=== PATIENT | female | born 1955 | race Hispanic/Latino ===

== ENCOUNTER 2025-08-14 12:05 | Inpatient (IN) | payer MEDICARE, BC, SELFPAY ==
[2025-08-14] VITALS (36 sets, daily range): BP systolic 105–217; BP diastolic 48–135; BMI 24.1; BMI 22.7
--- NOTE | 2025-08-14 07:47 | ED.GENMED ---
History of Present Illness
General
Chief Complaint: Change in Mental Status
Source: patient and ambulance crew
Exam Limitations: none
Time Seen by Provider: 08/14/25 07:39
Nursing documentation reviewed up to this point in time: agreed with
History of Present Illness
History of Present Illness:
Note:
CHIEF COMPLAINT(S)
High blood sugar, altered mental status, ear pain, back pain, and headache.
HISTORY OF PRESENT ILLNESS
The patient is a 70-year-old female with a known history of diabetes and legally blind. The patient experienced high blood sugar levels, as reported by EMS, noted to be greater than 600 mg/dL. Previously, the patient has been noted to be yelling for
water throughout the night, which is atypical according to the EMS team. The patient also reports cloudy urine. She is on dialysis, typically scheduled for Thursday, Thursday, and Thursday, and has not yet received dialysis today. The patient also
complains of right ear pain, back pain, and headache.
PAST MEDICAL AND SURGICAL HISTORY
The patient is on dialysis and has diabetes.
ADDITIONAL HISTORY OBTAINED FROM SOURCE OTHER THAN PATIENT
Per EMS, the patient was found altered with high blood sugar levels, with the patients behavior described as atypical due to frequent yelling for water. EMS reported a blood pressure of 207, respiratory rate around 90, and initiated 2 liters of
oxygen administration.
PROBLEM LIST
Acute:
- High blood sugar
- Altered mental status
- Ear pain
- Back pain
- Headache
Chronic:
- Diabetes
- End-stage renal disease on dialysis
- Legal blindness
PLAN
The patients blood glucose levels need immediate management. Monitor vital signs and glucose levels regularly. Provide appropriate insulin therapy and involve endocrinology if necessary. Address the patients ear pain, back pain, and headache with
suitable analgesics. Arrange for the patients dialysis as scheduled to prevent further complications. Continuously monitor the patients mental status and adjust oxygen therapy as required.
DIFFERENTIAL DIAGNOSIS
The Differential Diagnosis includes, in no particular order and is not limited to:
- Diabetic ketoacidosis
- Hyperglycemic hyperosmolar state
- Severe dehydration
- Electrolyte imbalance
- Urinary tract infection
- Renal failure complications
- Ear infection
- Hypertensive crisis
- Cerebrovascular accident
- Pneumonia
Physical Exam
General: Chronic ill appearance, afebrile
Neck: supple. no meningeal signs. normal posterior pharynx
Heart: s1/s2 regular rate and rhythm, no murmur. equal radial
pulses. dialysis catheter right chest
HEENT: Pupils equal round reactive to light, EOMI
Lungs: no acute respiratory distress. clear bilaterally
Abdomen: normal bowel sounds. not tender. no CVAT
Neuro: alert and oriented. no focal neurological deficits cranial nerves II through XII intact
Skin: no rash
Psychiatric: well kept. interactive and cooperative
Extremities: no edema. no calf tenderness. negative homans. good distal pulses
CARE-UPDATE
08/14/25 - 10:55
Insulin drip initiated for hyperglycemia management. IV cefepime given for UTI; history indicates tolerance to cephalosporins and amoxicillin. Fluids withheld due to renal dialysis status.
EKG
My independent EKG interpretation is:
- Time of EKG: not specified
- Rhythm: Normal sinus rhythm
- Heart Rate: 93 beats per minute
- DE Interval: Normal
- QRS Duration: Not mentioned
- QT Interval: Prolonged
- [place]: Normal
- Abnormalities: Non-specific ST abnormality
Disposition:
SUMMARY OF ENCOUNTER
The patient was seen in the emergency department with high blood sugar levels, altered mental status, ear pain, back pain, and headache. She has a known history of diabetes and end-stage renal disease on dialysis. Her elevated blood glucose was
suspected to be due to diabetic ketoacidosis, and she also appeared to possibly have a urinary tract infection. Due to these conditions and suspected hyperkalemia related to her renal disease, insulin therapy was initiated in the emergency
department. Intravenous cephalexin was administered to address the potential infection indicated by her symptoms and cloudy urine. Given the complexity of her condition and ongoing symptoms, a hospitalist was consulted, and admission to the
intermediate medical unit (IMU) was determined necessary.
DISPOSITION
Admit to Intermediate Medical Unit (IMU).
ASSESSMENT
The patient is suspected to have diabetic ketoacidosis, possible urinary tract infection, and hyperkalemia associated with uncontrolled diabetes and renal disease.
EMERGENCY TREATMENTS ADMINISTERED
Administered insulin drip for hyperglycemia and intravenous cephalexin for suspected infection.
MANAGEMENT OF THE PATIENTS CARE WAS DISCUSSED WITH
Discussed management and admission with the hospitalist team.
PLAN
Immediate stabilization of blood glucose and electrolytes with insulin therapy and monitoring. Initiate intravenous antibiotic therapy for suspected infection. Admission to IMU for further treatment and ongoing dialysis needs.
MEDICAL DECISION MAKING
1. Number and Complexity of Problems Addressed: Chronic conditions affecting care: Diabetes, end-stage renal disease, and legal blindness. Differential Diagnosis: Diabetic ketoacidosis, hyperglycemic hyperosmolar state, severe dehydration,
electrolyte imbalance, urinary tract infection, renal failure complications, ear infection, hypertensive crisis, cerebrovascular accident, pneumonia.
2. Data: Amount and/or Complexity of Data Reviewed and Analyzed:
- Category 1: Managed and independently interpreted the labs confirming hyperglycemia and potential infection.
- Category 2: Input from independent historians (EMS) was considered regarding the patients altered mental status and atypical behavior.
- Category 3: Discussion with hospitalist regarding patient management and admission.
3. Risk: The decision for insulin therapy and intravenous antibiotics was made considering the high risk of complications from diabetic ketoacidosis and possible renal failure due to electrolyte imbalances.
DIAGNOSIS
- Diabetic Ketoacidosis (DKA) - E10.10
- Urinary Tract Infection (UTI) - N39.0
- Hyperkalemia - E87.5
- End-Stage Renal Disease - N18.6
Phy Exam
Physical Exam
Physical Exam:
.
Sepsis
Sepsis Screening
Sepsis Assessment: Sepsis Ruled Out
Sepsis Screen
Sepsis Screen: Sepsis Ruled Out
Date: 08/14/25
Time: 11:50
Course
Orders/Labs/Results
Orders:
Orders
08/14/25 07:44
Bedside Glucose- Treatment ONCE
IV Insert/Care/Rem.- Treatment PRN
Pulse Ox/cont/shift [RESP] Stat
Quantity: 1
08/14/25 07:45
Electrocardiogram (*1) Stat
Reason for Study: Other
Other Reason for Exam: Diabetes
EKG- Treatment ONCE
CR Chest - 2 Views Urgent
Comment:
Reason For Exam: hypoxia
08/14/25 07:46
CT Head W/o Iv Contrast Urgent
Comment:
Reason For Exam: headache
08/14/25 08:02
B-Hydroxybutyrate Urgent
Basic Metabolic Panel Urgent
Complete Blood Count/With Diff Urgent
Troponin I Urgent
Urinalysis Reflex To Culture Urgent
Date Specimen was Collected: 08/14/25
Time Specimen was Collected: 07:59
Urine Microscopic Reflex Cult Urgent
Urine Culture Urgent
TONY Source: U
Specimen Description:
Date Specimen was Collected: 08/14/25
Time Specimen was Collected: 07:59
08/14/25 08:04
Lactic Acid Urgent
Blood Culture Q30M
TONY Source: Blood/Venous
Specimen Description:
08/14/25 08:10
Blood Culture Q30M
TONY Source: Blood/Venous
Specimen Description:
08/14/25 08:41
LFT [Ccyuy-Hiai-Vknyahz] Urgent
Potassium Urgent
08/14/25 09:42
Insulin Human Regular [Novolin R] 7 units IV NOW STA
08/14/25 09:44
Bedside Glucose- Treatment Q1H
08/14/25 09:45
Basic Metabolic Panel Q2H
08/14/25 09:52
Reg Insulin 100 Units/100 ml [Novolin R Insulin Infusion] 100 units in 100 ml IV NOW
08/14/25 09:58
Sterile Water [Sterile Water For Injection] 10 ml .ROUTE .STK-MED ONE
08/14/25 10:03
Cefepime HCl [Maxipime] 2,000 mg IV NOW STA
08/14/25 10:20
Admit/Transfer Patient As Directed
Co-Sign Provider:
Level of Care: Inpatient admission
Assign to:: ICU
Physician / Group: Dr. Liu
Diagnosis: Diabetic Ketoacidosis
Reason for Hospitalization: Diabetic Ketoacidosis
Expected length of stay greater than two midnights?: Yes
ELOS- Estimated Length of Stay in days: 3
I certify the patient meets the requirements for IP care: Yes
PRN Pain Medication Management As Directed
May give lesser potent ordered pain med per pt: Yes
preference::
Protocol:: Medication orders for pain may be administered in a
manner that supports deferring to patient preference
when the pt is:
- Requesting an ordered lesser potent pain medication.
Least to most potent pain medications are defined
as: acetaminophen < NSAID < tramadol < opioids
(morphine, oxycodone, hydromorphone).
- Requesting a lesser dose of the same medication IF
ORDERED.
- Requesting a less intrusive route of administration
if both routes are prescribed by the provider (PO <
IV).
08/14/25 10:29
Supervisory Cbp Officer Consult Routine
Consulting Provider: Priscilla Lares
Was physician already notified: Yes
Reason for consult: DKA
08/14/25 10:50
ABG [Arterial Blood Gas] Stat
%Oxygen/Room Air: RA
08/14/25 11:29
Glucose Stat
08/14/25 11:45
Basic Metabolic Panel Q2H
08/14/25 13:45
Basic Metabolic Panel Q2H
Abnormal Lab Results
08/14/25 08/14/25 08/14/25
08:00 08:02 08:41
WBC 12.8 H 10^3/uL
(4.8-10.8)
RBC 2.71 L 10^6/uL
(4.20-5.40)
Hgb 8.1 L g/dL
(12.0-16.0)
Hct 26.2 L %
(37.0-47.0)
MCHC 30.9 L g/dL
(33.0-37.0)
RDW 15.3 H %
(11.5-14.5)
Abs Immat Gran (auto) 0.1 H 10^3/uL
(0-0.05)
Absolute Neuts (auto) 9.7 H 10^3/uL
(1.4-6.5)
Absolute Monos (auto) 0.8 H 10^3/uL
(0.1-0.6)
Immature Gran % 1.1 H %
(0-0.5)
Neutrophils % 76.2 H %
(42.2-75.2)
Lymphocytes % 14.9 L %
(20.5-51.1)
pH
HCO3
ABG O2 Sat (Measured)
Sodium 131 L mmol/L
(135-145)
Potassium 5.2 H mmol/L
(3.5-5.1)
Carbon Dioxide 14 L* mmol/L
(22-30)
BUN 49 H mg/dl
(7-17)
Creatinine 3.7 H mg/dL
(0.6-1.0)
Glucose 781 H* mg/dl
(70-99)
Calcium 7.9 L mg/dl
(8.4-10.2)
Direct Bilirubin 0.5 H mg/dl
(0.0-0.4)
Alkaline Phosphatase 152 H U/L
(38-126)
Urine Ketones 3+ A
(Negative)
Ur Occult Blood Reflex 4+ A
(Negative)
Leukocyte Esterase Rfl 3+ A
(Negative)
Urine RBC 26-30 A /HPF
(0-2)
Urine WBC (Reflex) 50-60 A /HPF
(0-5)
Urine Bacteria (Reflex) Few A
(Negative)
Urine Glucose 4+ A
(Negative)
Urine Albumin (Reflex) 4+ A
(Neg - Trace)
B-Hydroxybutyrate 5.36 H mmol/L
(0.02-0.27)
POC Glucose > 600 H* mg/dl
(70-99)
08/14/25 08/14/25
10:50 11:23
WBC
RBC
Hgb
Hct
MCHC
RDW
Abs Immat Gran (auto)
Absolute Neuts (auto)
Absolute Monos (auto)
Immature Gran %
Neutrophils %
Lymphocytes %
pH 7.21 L
(7.35-7.45)
HCO3 12.8 L* mmol/L
(21-28)
ABG O2 Sat (Measured) 98.7 H %
(94-98)
Sodium
Potassium
Carbon Dioxide
BUN
Creatinine
Glucose
Calcium
Direct Bilirubin
Alkaline Phosphatase
Urine Ketones
Ur Occult Blood Reflex
Leukocyte Esterase Rfl
Urine RBC
Urine WBC (Reflex)
Urine Bacteria (Reflex)
Urine Glucose
Urine Albumin (Reflex)
B-Hydroxybutyrate
POC Glucose > 600 H* mg/dl
(70-99)
08/14/25 08:02
Vital Signs
Initial and Last Documented VS:
Initial Vital Signs
Temp Pulse Resp BP Pulse Ox
98.2 F 93 26 125/61 95
08/14/25 07:45 08/14/25 07:45 08/14/25 07:45 08/14/25 07:45 08/14/25 07:45
Last Documented Vital Signs
Temp Pulse Resp BP Pulse Ox
98.2 F 90 19 168/57 96
08/14/25 07:45 08/14/25 11:30 08/14/25 11:30 08/14/25 11:05 08/14/25 11:30
*Pulse Oximetry
SaO2: 96
Nasal Cannula flow liters per minute: 2
Patient hypoxic: yes
*Critical Care Note
Total Time (30-74mins, 75-104mins- exclusive of procedures): 30
comment:
Critical care statement: A total of 30 minutes of critical care time was provided for this patient. This includes management of unstable vital signs, evaluation of the patient at bedside, reviewing the patient's pertinent medical records, discussion
with consultants, review of old EKGs and review of pertinent medical records. This time with separate from time utilized to perform the aforementioned documented procedures
ED Attending Note
-
Portions of this chart may have been created with voice recognition software.� Occasional wrong word or��sound alike� substitutions may have occurred due to the inherent limitations of voice recognition software.
Discharge Plan
Departure
Patient Disposition: Admit
Date of Disposition: 08/14/25
Time of Disposition: 10:14
Admit to: IMU
Presentation/result/management discussed w/ accepting MD/DO: Hospitalist
Patient with high blood pressure during this ER visit?: Yes
Condition: Fair
Discharge Problem:
DKA (diabetic ketoacidosis), Acute UTI (urinary tract infection)
Prescriptions:
No Action
Renal Caps 1 CAPSULE capsule
1 cap PO DAILY
insulin glargine [Lantus Solostar U-100 Insulin] 100 UNITS/ML insulin pen
12 units SC HS
epoetin angella 2,000 unit/mL Solution
2,000 unit SC TUTHSA
acetaminophen [Tylenol] 325 mg Tablet
650 mg PO Q6HPRN PRN (Reason: mild pain)
carvedilol [Coreg] 12.5 mg Tablet
12.5 mg PO BID
nifedipine [Nifediac CC] 90 mg Tablet Extended Release
90 mg PO DAILY
haloperidol decanoate 100 mg/mL Solution
10 mg IM Q4W
Rx Instructions:
give on the 1st of each month
clopidogrel [Plavix] 75 mg Tablet
75 mg PO DAILY
quetiapine [Seroquel] 100 mg Tablet
100 mg PO HS
carboxymethylcellulose sodium 0.25 % Drops
1 drp BOTH EYES DAILY
bisacodyl [Dulcolax (bisacodyl)] 10 mg Suppository
10 mg DE DAILYPRN PRN (Reason: constipation)
hydralazine 50 mg Tablet
50 mg PO TID
atropine 1 % Drops
1 drp BOTH EYES DAILY
losartan 100 mg Tablet
100 mg PO DAILY
sorbitol 70 % Solution
30 ml PO DAILYPRN PRN (Reason: constipation)
loratadine [Claritin] 10 mg Tablet
10 mg PO Q48H
insulin lispro [Humalog KwikPen Insulin] 100 unit/mL Insulin Pen
5 sliding scale dose SC AC
calcium carbonate-vitamin D3 [Calcium 600 + D(3)] 600 mg-10 mcg (400 unit) Tablet
1 tab PO DAILY
magnesium oxide 400 mg magnesium Tablet
400 mg PO DAILY
albuterol-budesonide 90-80 mcg/actuation Hfa Aerosol Inhaler
2 inh INHALATION R Q6HPRN PRN (Reason: sob)
Rx Instructions:
as a single dose; may repeat up to 6 doses per day (12 inhalations)
cholestyramine 4 gram Powder In Packet
4 g PO BID
Pancrelipase Dr 3000-9500unit
1 cap PO DAILY
Referrals:
Sara Yan MD [Family Provider]
Interventions
Interventions:
*General Assessment Last Done: 08/14/25 07:45
*Neglect/Abuse Screening Last Done: 08/14/25 07:45
*ED- Fall Risk Assessment Last Done: 08/14/25 07:45
*ED COVID-19 Vaccine History Last Done: 08/14/25 07:45
*ED Influenza Vaccine History Last Done: 08/14/25 07:45
ED- Pulmonary Assessment Last Done: 08/14/25 07:55
ED- Neurological Assessment Last Done: 08/14/25 07:55
ED- Cardiac Assessment Last Done: 08/14/25 07:55
ED Swallowing Screen Last Done: 08/14/25 08:11
Discharge Date and Time
Print Language: KOSOVAN
[2025-08-14 08:02] LABS: Glucose - Point of Care > 600 mg/dl (70-99)
[2025-08-14 08:16] LABS: Hematocrit 26.2 % (37.0-47.0); Hemoglobin 8.1 g/dL (12.0-16.0); Mean Corp Hgb Conc. 30.9 g/dL (33.0-37.0); Mean Corpuscular Volume 96.7 fL (81.0-99.0); Nucleated Red Blood Cells % 0 %; Platelet Count 315 10^3/uL (130-400); Red Cell Dist. Width 15.3 % (11.5-14.5)
[2025-08-14 08:17] LABS: Urine Character Cloudy (Clear)
[2025-08-14 08:34] LABS: Urine Red Blood Cell 26-30 /HPF (0-2); Urine Squamous Cell 0-2 /LPF (Few); Urine White Cell 50-60 /HPF (0-5)
[2025-08-14 08:40] LABS: Troponin I < 0.012 ng/ml
[2025-08-14 09:05] LABS: Blood Urea Nitrogen 49 mg/dl (7-17); Calcium 7.9 mg/dl (8.4-10.2); Carbon Dioxide 14 mmol/L (22-30); Chloride 98 mmol/L (98-107); Estimated Creatinine Clearance 13 ml/min; Glucose 781 mg/dl (70-99); Sodium 131 mmol/L (135-145); eGFR 12.61
[2025-08-14 09:14] LABS: ALT (SGPT) 31 U/L (0-35); AST (SGOT) 30 U/L (14-36); Albumin 3.7 g/dl (3.5-5.0); Alkaline Phosphatase 152 U/L (38-126); Potassium 5.2 mmol/L (3.5-5.1); Total Protein 7.0 g/dl (6.3-8.2)
--- NOTE | 2025-08-14 09:25 | EDRN ---
This RN spoke to Dr. Doll about critical lab results of blood sugar 781. Awaiting further orders.
[2025-08-14] MEDS: MAXIPIME 2000 MG IV (10:14)
[2025-08-14] MEDS: NOVOLIN R 7 UNITS IV (10:15)
[2025-08-14] MEDS: NOVOLIN R INSULIN INFUSION 100 IV (10:18)
--- NOTE | 2025-08-14 10:31 | HPS.HSE ---
Family Physician
-
Family Physician: Sara Yan
Chief Complaint
-
Elevated blood sugar, dysuria
History of Present Illness
70F w/ESRD on HD, DM2, blindness due to diabetic retinopathy, HTN, presents from [facility] with elevated blood sugars. Patient has been experiencing increased thirst, and increased frequency of urination for the last several days. She also has
been having dysuria, described as burning sensation for a few days. She reports mild shortness of breath as well. She denies fevers, chills, nausea, vomiting, diarrhea, constipation, rash, pain. She has a nonproductive cough that is ongoing for
several weeks and unchanged.
Medical History
Past Medical History
Past Medical History: Reports Other
Additional Past Medical History:
Diabetes with retinopathy, blindness, peripheral
neuropathy, ESRD on HD MWF, hypertension, hyperlipidemia,
history of intestinal obstruction, history of CVA, anemia secondary to
hyperparathyroidism. Frequent diarrhea, dementia, bipolar disorder
Past Surgical History: Reports Other
Additional Past Surgical History:
appendectomy, history of section, left knee surgery, spinal fusion
Social History
Tobacco: Non-smoker
Alcohol: None
Drug: None
Living: [facility]
Family History
Family History: CAD and Diabetes
Allergies / Home Medications
Allergies reflects when Allergies were last updated in [facility].
Home Medications with original date entered in [facility]
Allergy/Medication List:
Allergies
Allergy/AdvReac Type Severity Reaction Status Date / Time
aspirin Allergy Hives Verified 07/03/09 14:49
NSAIDS (Non-Steroidal Allergy aspirin-hiv Verified 07/03/09 14:00
Anti-Inflamma es
Penicillins Allergy Swelling/hives Verified 08/14/25 10:04
- has
tolerated
amoxicillin
per patient
Home Medications
insulin glargine 100 unit/mL (3 mL) subcutaneous pen (Lantus Solostar U-100 Insulin) 12 units SC HS 07/03/09
vitamin B complex and vitamin C no.20-folic acid 1 mg capsule (Renal Caps) 1 cap PO DAILY 07/03/[address] 3000-9500unit 1 cap PO DAILY 08/14/25
acetaminophen 325 mg tablet (Tylenol) 650 mg PO Q6HPRN PRN mild pain 08/14/25
albuterol 90 mcg-budesonide 80 mcg/actuation HFA aerosol inhaler 2 inh inhalation R Q6HPRN PRN sob 08/14/25
atropine 1 % eye drops 1 drp BOTH EYES DAILY 08/14/25
bisacodyl 10 mg rectal suppository (Dulcolax (bisacodyl)) 10 mg HI DAILYPRN PRN constipation 08/14/25
calcium 600 mg (as carbonate)-vitamin D3 10 mcg (400 unit) tablet (Calcium 600 + D(3)) 1 tab PO DAILY 08/14/25
carboxymethylcellulose sodium 0.25 % eye drops 1 drp BOTH EYES DAILY 08/14/25
carvedilol 12.5 mg tablet (Coreg) 12.5 mg PO BID 08/14/25
cholestyramine 4 gram oral powder for suspension in a packet 4 g PO BID 08/14/25
clopidogrel 75 mg tablet (Plavix) 75 mg PO DAILY 08/14/25
epoetin angella 2,000 unit/mL injection solution 2,000 unit SC TUTHSA 08/14/25
haloperidol decanoate 100 mg/mL intramuscular solution 10 mg IM Q4W 08/14/25
hydralazine 50 mg tablet 50 mg PO TID 08/14/25
insulin lispro 100 unit/mL subcutaneous pen (Humalog KwikPen (U-100) Insulin) 5 sliding scale dose SC AC 08/14/25
loratadine 10 mg tablet (Claritin) 10 mg PO Q48H 08/14/25
losartan 100 mg tablet 100 mg PO DAILY 08/14/25
magnesium oxide 400 mg PO DAILY 08/14/25
nifedipine 90 mg tablet,extended release 90 mg PO DAILY 08/14/25
quetiapine 100 mg tablet (Seroquel) 100 mg PO HS 08/14/25
sorbitol 70 % solution 30 ml PO DAILYPRN PRN constipation 08/14/25
Review of Systems
-
History Source: Patient
A 12 point ROS was completed and negative except as noted: Yes
Physical Exam
Vital Signs
Vital Signs
Temp Pulse Resp BP Pulse Ox
98.2 F 94 25 200/81 97
08/14/25 07:45 08/14/25 09:15 08/14/25 09:15 08/14/25 09:00 08/14/25 09:15
Physical Exam
General: No Apparent Distress
HEENT: Other (Cloudy eyes); No Moist mucous membranes
Respiratory: Clear and Other (Dry cough)
Cardiac: Regular Rhythm and Murmur
GI: Soft, Non Tender, Non Distended and Normal Bowel Sounds
Musculoskeletal: No Edema
Skin: Warm and Dry; No Rash
Neuro: Awake, Alert and Oriented (To self, thinks she is at [place])
Hematologic/Lymphatic: No Lymphadenopathy
Psych: Calm
Laboratory Results
-
08/14/25 08:02
Laboratory Results
Lactic Acid 0.8 mmol/L (0.7-2.0) 08/14/25 08:04
Total Bilirubin 0.6 mg/dl (0.2-1.3) 08/14/25 08:41
AST 30 U/L (14-36) 08/14/25 08:41
ALT 31 U/L (0-35) 08/14/25 08:41
Alkaline Phosphatase 152 U/L (38-126) H 08/14/25 08:41
Troponin I < 0.012 ng/ml 08/14/25 08:02
Data Reviewed
-
Diagnostic Radiology: Image Personally Visualized and interpreted
CT Scan: Image Personally Visualized and interpreted and Report Reviewed by me (Mild cardiomegaly. There are associated small bilateral pleural effusions with bibasilar opacities which likely represent atelectasis or pneumonia. Mild interstitial
opacities which may be sequelae of chronic interstitial lung disease, viral pneumonia or less likely edema.)
Lab Data: Labs Reviewed by me, Discussed with Physician, Discussed with Nurse and Discussed with Patient
Impression/Plan
-
IMPRESSION:
70F with DM 2, diabetic retinopathy, diabetic neuropathy, ESRD on HD, HTN p/w elevated blood sugar, found to be in DKA.
PLAN:
DKA
Glu 718, CO2 14, +ketonemia/ketonuria
ABG ordered, and reviewed. pH 7.21
suspected triggered by UTI. UA concerning for UTI. Troponin negative. Cough/SOB, CXR with possible pneumonia, viral. Will check flu and COVID.
ICU admit. Discussed with Dr. Lares.
NPO
Insulin IV + Drip per DKA protocol
Q1h blood glucose checks
IV NS infusion at 100 cc/h given patient is ESRD, only makes drops of urine, and concern for small pleural effusions on x-ray. Monitor closely for worsening respiratory symptoms.
BMP q4, replete K to above 5 while on drip
check A1C
UTI
check UCx, blood cultures
Empiric IV cetriaxone
ESRD
routine HD per neph. Consulted Dr. Saldaña
HTN
elevated, unclear if patient took her BP meds this morning, resume home meds with hold parameters. Nifedipine. losartan, coreg, hydralazine
prn IV hydralazine
h/o CVA
plavix
Dementia
cont nightly seroquel
Bipolar
takes a montly haldol IM injection
Check outpt records to see when next due
DVT ppx
hep sc
Full code confirmed with pt's daughter by phone
--- NOTE | 2025-08-14 10:49 | EDCM ---
CM reviewed chart and met with pt bedside in ED. Pt is currently at [facility] for STR, receives dialysis there .
Per pt she ambulates with walker. She is blind and has a chronic paulino.
I attempted to reach [facility] but no one answered the phone.
I spoke to her daughter Cheryl, she confirms pt has been at [facility] since 08/05 after a hospital stay at [facility].
Per Cheryl, she lives with pt in [place], it is the patient's home.
Pt was independent with ambulation and was receiving dialysis at [facility] in [place] - prior to admission.
PCP: Sara Yan at [facility]
Pharmacy: [facility] at [facility].
Anticipate return to [facility] for STR, CM will continue to follow for all discharge planning needs.
[2025-08-14 10:58] LABS: B.E. -13.9 mmol/L; O2 Saturation % 98.7 % (94-98); PCO2 32 mmHg (32-35); PO2 103 mmHg (83-108)
[2025-08-14 11:00] LABS: HCO3 12.8 mmol/L (21-28)
[2025-08-14 11:25] LABS: Glucose - Point of Care > 600 mg/dl (70-99)
--- NOTE | 2025-08-14 11:39 | CON.INTV ---
Consultation
Consultation Request
Date/Time Consultation Requested: 08/14/25, 11:00am
Date/Time Consultation Performed: 08/14/25, 11:45am
Reason for Consultation: AMS, elevated glucose
Medical History
-
Chief Complaint: AMS, elevated glucose
History of Present Illness:
Patient is a 70-year-old F with a PMH notable for HTN, T2DM, ESRD on HD (MWF), legal blindness, and asthma who who presented 08/14 with dysuria, polydipsia.
Per patient, she denies any missed doses of her home insulin regimen. She states that she has been having increased thirst at home and drinking more water; pt was noted to be yelling for water overnight. Denies any increased urinary frequency, but
endorses dysuria/burning pain with urination. This is a symptom that she states brought her into the hospital. Confirms that she gets hemodialysis on a Thursday schedule and that she has a diagnosis of hypertension. Denies any
nausea/vomiting at home. Denies any abdominal pain. Endorses headache. Endorses lightheadedness but denies any falls at home. Denies any changes in vision. States that she is hungry. Patient has an indwelling paulino at baseline. Does not use
home O2. Cloudy urine. Pt lives with her daughter Cheryl but has been at [facility] since 08/05 for short-term rehab after a stay at [facility].
On presentation to ED, patient found to be hypertensive with BP 168/57; HR 90, afebrile, RR 19, O2 sat 96% on 3L O2 (90% on RA). Found to have blood glucose elevated to 781, ph 7.21, pco2 32, po2 103, bicarb 12.8. Anion gap: 131-91-14=26 (albumin
corrected = 26.8). Lactate 0.8 wnl. Beta hydroxybutyrate elevated to 5.36. Serum osm 323. UA: urine ketones 3+, urine glucose 4+, urine WBC 50-60, leuk est 3+ , RBC 26-30, few bacteria. Cr 3.7, BUN 49. WBC elevated to 12.8. Hgb 8.1. Alk phos 152,
AST/ALT wnl.
CXR with 'Mild cardiomegaly. There are associated small bilateral pleural effusions with bibasilar opacities which likely represent atelectasis or pneumonia. Mild interstitial opacities which may be sequelae of chronic interstitial lung disease,
viral pneumonia or less likely edema.' CT head without acute intracranial abnormality.
Patient given 1 dose of 2g cefepime and started on IV insulin drip. 1 L NSS ordered but not given in ED. Admitted to ICU for further management.
Past Medical History
Past Medical History: Asthma, CAD, HTN, IDDM and Renal Failure
Social History
Tobacco: Non-smoker
Alcohol: None
Living: With Family (with daughter but currently in short-term rehab [facility] )
Family History
Family History: Reviewed & Not Pertinent
Allergies / Home Medications
Allergies
Allergy/AdvReac Type Severity Reaction Status Date / Time
aspirin Allergy Hives Verified 07/03/09 14:49
NSAIDS (Non-Steroidal Allergy aspirin-hiv Verified 07/03/09 14:00
Anti-Inflamma es
Penicillins Allergy Swelling/hives Verified 08/14/25 10:04
- has
tolerated
amoxicillin
per patient
Home Medications
�Medication �Instructions �Recorded �Confirmed �Last Taken �Type
insulin glargine 100 unit/mL (3 12 units SC HS 07/03/09 08/14/25 08/13/25 History
mL) subcutaneous pen (Lantus
Solostar U-100 Insulin)
vitamin B complex and vitamin C 1 cap PO DAILY 07/03/09 08/14/25 08/13/25 History
no.20-folic acid 1 mg capsule
(Renal Caps)
Pancrelipase Dr 3000-9500unit 1 cap PO DAILY 08/14/25 08/14/25 08/14/25 History
acetaminophen 325 mg tablet 650 mg PO Q6HPRN PRN mild pain 08/14/25 08/14/25 08/09/25 History
(Tylenol)
albuterol 90 mcg-budesonide 80 2 inh inhalation R Q6HPRN PRN sob 08/14/25 08/14/25 Unknown History
mcg/actuation HFA aerosol inhaler
atropine 1 % eye drops 1 drp BOTH EYES DAILY 08/14/25 08/14/25 08/13/25 History
bisacodyl 10 mg rectal suppository 10 mg MT DAILYPRN PRN constipation 08/14/25 08/14/25 Unknown History
(Dulcolax (bisacodyl))
calcium 600 mg (as 1 tab PO DAILY 08/14/25 08/14/25 08/13/25 History
carbonate)-vitamin D3 10 mcg (400
unit) tablet (Calcium 600 + D(3))
carboxymethylcellulose sodium 0.25 1 drp BOTH EYES DAILY 08/14/25 08/14/25 08/13/25 History
% eye drops
carvedilol 12.5 mg tablet (Coreg) 12.5 mg PO BID 08/14/25 08/14/25 08/13/25 History
cholestyramine 4 gram oral powder 4 g PO BID 08/14/25 08/14/25 08/13/25 History
for suspension in a packet
clopidogrel 75 mg tablet (Plavix) 75 mg PO DAILY 08/14/25 08/14/25 08/13/25 History
epoetin angella 2,000 unit/mL 2,000 unit SC [facility] 08/14/25 08/14/25 08/12/25 History
injection solution
haloperidol decanoate 100 mg/mL 10 mg IM Q4W 08/14/25 08/14/25 Unknown History
intramuscular solution
hydralazine 50 mg tablet 50 mg PO TID 08/14/25 08/14/25 08/13/25 History
insulin lispro 100 unit/mL 5 sliding scale dose SC AC 08/14/25 08/14/25 08/13/25 History
subcutaneous pen (Humalog KwikPen
(U-100) Insulin)
loratadine 10 mg tablet (Claritin) 10 mg PO Q48H 08/14/25 08/14/25 08/12/25 History
losartan 100 mg tablet 100 mg PO DAILY 08/14/25 08/14/25 08/13/25 History
magnesium oxide 400 mg PO DAILY 08/14/25 08/14/25 08/13/25 History
nifedipine 90 mg tablet,extended 90 mg PO DAILY 08/14/25 08/14/25 08/13/25 History
release
quetiapine 100 mg tablet (Seroquel) 100 mg PO HS 08/14/25 08/14/25 08/13/25 History
sorbitol 70 % solution 30 ml PO DAILYPRN PRN constipation 08/14/25 08/14/25 Unknown History
Review of Systems
-
Unable to Obtain full review of systems at this time due to: Dementia
History Source: Patient
Constitutional: Fatigue
EENT: No Symptoms
Respiratory: No Symptoms
Cardiac: No Symptoms
Abdomen/GI: Abdominal Pain (denies), Nausea (denies) and Vomiting (denies)
: Dysuria and Frequency (denies)
Musculoskeletal: No Symptoms
Skin: No Symptoms
Neuro: Dizzy, Headache and Weakness
Endocrine: Polyuria (denies) and Polydidsia
Vitals / Labs / Diagnostic Testing
Vital Signs
Temp Pulse Resp BP Pulse Ox
98.2 F 90 19 168/57 96
08/14/25 07:45 08/14/25 11:30 08/14/25 11:30 08/14/25 11:05 08/14/25 11:30
Lab Data
08/14/25 08:02
Laboratory Results
08/14/25
10:50
pH 7.21 L
pCO2 32
pO2 103
HCO3 12.8 L*
O2 Delivery Level
Diagnostic Testing:
Physical Exam
-
HEENT: Normocephalic, Anicteric and Other (eyes remain closed while speaking (legal blind dx) )
Cardiovascular: Regular Rhythm, Peripheral Edema (no BOLIVAR ) and Other (tachycardic)
Respiratory: Clear, Non-Labored Respirations and Other (O2 NC in place)
GI: Soft, Non Distended and Non Tender
Neurology: Awake
Skin: Warm and Dry
General: Other (appears uncomfortable ) and Other (paulino catheter draining light yellow uring )
Assessment
-
Velvet Lao is a 70-year-old F with a PMH notable for HTN, T2DM, ESRD on HD (MWF), legal blindness, and asthma who who presented 08/14 with dysuria, polydipsia, found to have blood glucose 781 with elevated anion gap, as well as UA concerning
for UTI. Steam Pipe Fitter consulted for ongoing management, patient admitted to ICU. Plan/course as below.
#DKA
#Hx T2DM
On presentation: blood glucose elevated to 781, ph 7.21, pco2 32, po2 103, bicarb 12.8. Anion gap: 131-91-14=26 (albumin corrected = 26.8). Beta hydroxybutyrate elevated to 5.36. Serum osm 323. UA: urine ketones 3+, urine glucose 4+. Patient denies
missed doses of home insulin. Takes 12u lantus & 5u sliding scale lispro at home. Elevated blood glucose likely triggered by acute UTI. Insulin gtt started in ED 08/14.
Glucose: 781>524
- Insulin gtt per protocol
- IVF NSS
- Check BMP q4h
- Replete K if <5 while on insulin drip
- HD today
- A1c pending
#UTI
WBC elevated to 12.8, pt complaining of dysuria. UA: urine WBC 50-60, leuk est 3+ , RBC 26-30, few bacteria. Pt s/p 2g cefepime in ED on 08/14. Risk factor of indwelling paulino catheter.
- Ceftriaxone for 7 day course (08/14-)
- Urine cx pending
#HTN
Pt with hx of HTN, takes losartan 100mg daily, hydralazine 50mg tid, nifedipine 90mg daily, & carvedilol 12.5mg bid at home. BP elevated to 168/57 on presentation 08/14.
- Continue home BP meds - hydralazine, carvedilol, nifedipine
- Hold home losartan for now given K>5
#Bilateral pleural effusions, interstitial opacities
CXR (08/14) with 'Mild cardiomegaly. There are associated small bilateral pleural effusions with bibasilar opacities which likely represent atelectasis or pneumonia. Mild interstitial opacities which may be sequelae of chronic interstitial lung
disease, viral pneumonia or less likely edema.' Pt with O2 sat 90% on RA on admission. Normalized with 2-3L O2 NC. Elevated WBC likely 2/2 UTI. No respiratory sx other than mild desat, likely 2/2 ongoing DKA/infection. Low c/f PNA. Pt without dx of
CHF, without BOLIVAR or orthopnea. Most likely atelectasis.
- Continue to monitor
- Wean off O2 NC as tolerated
#Chronic
- ESRD on HD - continue MWF schedule
- Asthma - continue home albuterol inhaler PRN
- CAD - continue home plavix
#Global
- DVT ppx: subq heparin q8h
- Diet: NPO while on insulin gtt, okay for sips & chips
- Code: full
- Dispo: continue ICU level care while on insulin gtt
Data Reviewed
-
EKG: Report reviewed by me
Radiology: Image personally visualized and interpreted and Report reviewed by me
Labs: Labs reviewed by me
Critical Care Time (in minutes): 45
Total Time Spent with Patient (in minutes): 15
[2025-08-14 12:09] LABS: Glucose 776 mg/dl (70-99)
[2025-08-14 12:25] LABS: Glucose - Point of Care > 600 mg/dl (70-99)
[2025-08-14] MEDS: NSS 1000 IV (12:39)
[2025-08-14] MEDS: COREG 12.5 MG PO ×2 (13:17→20:07)
[2025-08-14] MEDS: STERILE WATER FOR INJECTION 10 ML IV (13:18)
[2025-08-14] MEDS: ROCEPHIN 1000 MG IV (13:18)
[2025-08-14 13:48] LABS: Glucose - Point of Care 524 mg/dl (70-99)
--- NOTE | 2025-08-14 13:54 | PTCARENOTE ---
Rec'd patient from ED. Patient alert and oriented to self. Aware she is in the hospital but unsure of which. Blind. MAEx4. NSR, rate in the 80's. BP elevated. Hospitalist at bedside. Coreg administered as ordered. Pulse ox 99-100% on 2L nc. Weaned
to RA. Lung sounds diminished throughout. Frequent cough; non-productive. +BS. NPO. Garcia in place; interchanged in ED. Urine yellow with sediment. Rn Production at bedside. HD ordered for today. DKA protocol maintained. Repeat BMP sent.
[2025-08-14 14:30] LABS: Glucose 571 mg/dl (70-99)
[2025-08-14 14:30] LABS: Blood Urea Nitrogen 55 mg/dl (7-17); Calcium 7.7 mg/dl (8.4-10.2); Carbon Dioxide 11 mmol/L (22-30); Chloride 97 mmol/L (98-107); Estimated Creatinine Clearance 13 ml/min; Glucose 667 mg/dl (70-99); Potassium 4.7 mmol/L (3.5-5.1); Sodium 129 mmol/L (135-145); eGFR 12.21
[2025-08-14 14:47] LABS: Glucose - Point of Care 488 mg/dl (70-99)
[2025-08-14] MEDS: TYLENOL 650 MG PO ×2 (14:50→20:06)
--- NOTE | 2025-08-14 14:58 | W.CON.NEPH ---
Consultation
-
Date/Time Consultation Requested: August 14, 2025 at 10 AM
Date/Time Consultation Performed: August 14, 2025 at 12 PM
Requesting Provider: Milly Liu
Performing Provider: Dr. Saldaña
Reason for Consultation: ESRD
Medical History
-
Chief Complaint: ESRD
History of Present Illness:
1F w/ESRD on HD, DM2, blindness due to diabetic retinopathy, HTN, presents from snf with elevated blood sugars. Patient has been experiencing increased thirst, and increased frequency of urination for the last several days. Found to have
DKA and leukocytosis appears to be urinary source as she is nonoliguric via Garcia catheter
Renal consultation for end-stage renal disease which she gets Thursday at [facility]
Past Medical History
/ESRD on HD, DM2, blindness due to diabetic retinopathy, HTN,
Social History
Tobacco: Non-Smoker
Alcohol: None
Family History
Family History: Not Pertinent
Allergies / Home Medications
Allergy/AdvReac Type Severity Reaction Status Date / Time
aspirin Allergy Hives Verified 07/03/09 14:49
NSAIDS (Non-Steroidal Allergy aspirin-hiv Verified 07/03/09 14:00
Anti-Inflamma es
Penicillins Allergy Swelling/hives Verified 08/14/25 10:04
- has
tolerated
amoxicillin
per patient
�Medication �Instructions �Recorded �Confirmed �Type
insulin glargine 100 unit/mL (3 12 units SC HS Diabetes 07/03/09 08/14/25 History
mL) subcutaneous pen (Lantus
Solostar U-100 Insulin)
vitamin B complex and vitamin C 1 cap PO DAILY Supplement 07/03/09 08/14/25 History
no.20-folic acid 1 mg capsule
(Renal Caps)
Pancrelipase Dr 3000-9500unit 1 cap PO DAILY Gastrointestinal 08/14/25 08/14/25 History
Issue
acetaminophen 325 mg tablet 650 mg PO Q6HPRN PRN mild pain 08/14/25 08/14/25 History
(Tylenol)
albuterol 90 mcg-budesonide 80 2 inh inhalation R Q6HPRN PRN sob 08/14/25 08/14/25 History
mcg/actuation HFA aerosol inhaler
atropine 1 % eye drops 1 drp BOTH EYES DAILY Eye Condition 08/14/25 08/14/25 History
bisacodyl 10 mg rectal suppository 10 mg OK DAILYPRN PRN constipation 08/14/25 08/14/25 History
(Dulcolax (bisacodyl))
calcium 600 mg (as 1 tab PO DAILY Supplement 08/14/25 08/14/25 History
carbonate)-vitamin D3 10 mcg (400
unit) tablet (Calcium 600 + D(3))
carboxymethylcellulose sodium 0.25 1 drp BOTH EYES DAILY Eye Condition 08/14/25 08/14/25 History
% eye drops
carvedilol 12.5 mg tablet (Coreg) 12.5 mg PO BID Blood Pressure 08/14/25 08/14/25 History
cholestyramine 4 gram oral powder 4 g PO BID Gastrointestinal Issue 08/14/25 08/14/25 History
for suspension in a packet
clopidogrel 75 mg tablet (Plavix) 75 mg PO DAILY Blood Clot 08/14/25 08/14/25 History
Prevention/Tx
epoetin angella 2,000 unit/mL 2,000 unit SC [facility] anemia of 08/14/25 08/14/25 History
injection solution chronic disease
haloperidol decanoate 100 mg/mL 10 mg IM Q4W Mental Health/Anxiety 08/14/25 08/14/25 History
intramuscular solution
hydralazine 50 mg tablet 50 mg PO TID Blood Pressure 08/14/25 08/14/25 History
insulin lispro 100 unit/mL 5 sliding scale dose SC AC Diabetes 08/14/25 08/14/25 History
subcutaneous pen (Humalog KwikPen
(U-100) Insulin)
loratadine 10 mg tablet (Claritin) 10 mg PO Q48H Allergies 08/14/25 08/14/25 History
losartan 100 mg tablet 100 mg PO DAILY Blood Pressure 08/14/25 08/14/25 History
magnesium oxide 400 mg PO DAILY Supplement 08/14/25 08/14/25 History
nifedipine 90 mg tablet,extended 90 mg PO DAILY Blood Pressure 08/14/25 08/14/25 History
release
quetiapine 100 mg tablet (Seroquel) 100 mg PO HS Mental Health/Anxiety 08/14/25 08/14/25 History
sorbitol 70 % solution 30 ml PO DAILYPRN PRN constipation 08/14/25 08/14/25 History
Review of Systems
-
No chest pain or shortness of breath
All other systems: Negative unless noted
Physical Exam
Vital Signs
Vital Signs
Temp Pulse Resp BP Pulse Ox
98.2 F 81 20 128/108 95
08/14/25 12:00 08/14/25 14:03 08/14/25 14:03 08/14/25 14:03 08/14/25 14:03
Lab Results
WBC 12.8 10^3/uL (4.8-10.8) H 08/14/25 08:02
RBC 2.71 10^6/uL (4.20-5.40) L 08/14/25 08:02
Hgb 8.1 g/dL (12.0-16.0) L 08/14/25 08:02
Hct 26.2 % (37.0-47.0) L 08/14/25 08:02
Plt Count 315 10^3/uL (130-400) 08/14/25 08:02
eGFR 12.21 08/14/25 12:33
Albumin 3.7 g/dl (3.5-5.0) 08/14/25 08:41
Physical Exam
General no acute distress
HEENT no cephalic atraumatic no JVD neck supple
lungs clear to auscultation bilateral
heart regular S1-S2 positive
abdomen soft nontender positive bowel sounds
extremities no edema pulses present bilateral
Neurologically nonfocal alert and oriented x 3
Skin no lesions no abrasions no petechiae
Psych normal affect no bizarre behavior
Data Reviewed
-
Radiology: Image Personally Visualized and interpreted
CT Scan: Image Personally Visualized and interpreted
Labs: Labs Reviewed by me, Discussed with Nurse and Discussed with Patient
Assessment/Plan
-
1F w/ESRD on HD, DM2, blindness due to diabetic retinopathy, HTN, presents from snf with elevated blood sugars. Patient has been experiencing increased thirst, and increased frequency of urination for the last several days. DKA
Impression
End-stage renal disease on hemodialysis MWF [facility] via right chest cath
Diabetic ketoacidosis
Sepsis= possible urinary source
Anemia of chronic disease
Metabolic acidosis
Diabetic retinopathy
Plan
Insulin protocol
Dialysis ordered today isovolemic she is nonoliguric
Panculture
Antibiotics renally dosed
Epogen IV on dialysis MWF/discontinued the TTS order of 2000 unit

33 minutes critical care time
[2025-08-14 15:46] LABS: COVID-19 Antigen Negative (Negative)
--- NOTE | 2025-08-14 15:46 | PTCARENOTE ---
Systems reviewed. Patient intermittently yelling out. Confused and forgetful. NSR, rate in the 70's. Pulse ox 95% on RA. Frequency of cough decreased. Incontinent of a large BM. No other changes. DKA protocol continued.
[2025-08-14 15:54] LABS: Glucose 454 mg/dl (70-99)
[2025-08-14] MEDS: HEPARIN 5000 UNITS SC (15:55)
[2025-08-14] MEDS: APRESOLINE IV (15:55)
[2025-08-14 15:56] LABS: Glucose - Point of Care 352 mg/dl (70-99)
[2025-08-14] MEDS: APRESOLINE 50 MG PO ×2 (15:59→20:06)
--- NOTE | 2025-08-14 16:45 | PTCARENOTE ---
HD in progress.
[2025-08-14 16:53] LABS: Glucose - Point of Care 293 mg/dl (70-99)
[2025-08-14 17:21] LABS: Blood Urea Nitrogen 58 mg/dl (7-17); Calcium 7.6 mg/dl (8.4-10.2); Carbon Dioxide 19 mmol/L (22-30); Chloride 100 mmol/L (98-107); Estimated Creatinine Clearance 14 ml/min; Glucose 281 mg/dl (70-99); Potassium 4.5 mmol/L (3.5-5.1); Sodium 130 mmol/L (135-145); eGFR 13.03
--- NOTE | 2025-08-14 17:35 | W.PN.NEPH.HD ---
Assessment
-
stable on HD. UF L
Progress Note - Hemodialysis
-
Date of Service: August 14, 2025
Duration: 3 hours
Calcium Bath: 2.5
Opti-Dialyzer: 160
Ultrafiltration: Other
Blood Flow: 350
Dialysate Flow: 600
[2025-08-14] MEDS: RETACRIT 10000 UNITS IV (17:47)
[2025-08-14 17:49] LABS: Glucose - Point of Care 164 mg/dl (70-99)
[2025-08-14] MEDS: D5/0.45%NACL 1000 IV (18:09)
[2025-08-14] MEDS: APRESOLINE 10 MG IV (18:09)
--- NOTE | 2025-08-14 18:16 | PTCARENOTE ---
Glucose level < 250. Per protocol, IVFs changed to D5 1/2NS. BP persistently high. Discussed with licensed staff mft and almond huller. PRN Hydralazine administered.
[2025-08-14 18:46] LABS: Glucose - Point of Care 106 mg/dl (70-99)
[2025-08-14] MEDS: PROCARDIA XL (EXTENDED RELEASE) 90 MG PO (18:53)
[2025-08-14 19:39] LABS: Glucose - Point of Care 94 mg/dl (70-99)
--- NOTE | 2025-08-14 19:39 | PTCARENOTE ---
TT flask cleaner regarding DKA protocol - 193 blood sugar 94. orders placed to give 12u lantus and d/c insulin gtt and IVF 2 hrs after given. low dose SSI ordered with 4u aspart coverage for meals.
[2025-08-14] MEDS: LANTUS 0.12 UNITS SC (20:06)
[2025-08-14] MEDS: SEROQUEL 100 MG PO (20:06)
[2025-08-14] MEDS: QUESTRAN 4 GRAM PO (20:07)
[2025-08-14 20:35] LABS: Glucose - Point of Care 97 mg/dl (70-99)
[2025-08-14 20:41] LABS: Blood Urea Nitrogen 20 mg/dl (7-17); Calcium 7.9 mg/dl (8.4-10.2); Carbon Dioxide 27 mmol/L (22-30); Chloride 100 mmol/L (98-107); Estimated Creatinine Clearance 35 ml/min; Glucose 93 mg/dl (70-99); Potassium 3.7 mmol/L (3.5-5.1); Sodium 133 mmol/L (135-145); eGFR 40.47
[2025-08-14 21:58] LABS: Glucose - Point of Care 90 mg/dl (70-99)
--- NOTE | 2025-08-14 23:41 | PTCARENOTE ---
insulin gtt and IVF off at 2200, diet advanced. B/L mitts applied as pt was pulling off BP cuff and pulling at IV lines. pt frequently yelling out. bed alarm on.
[2025-08-15] VITALS (19 sets, daily range): BP systolic 95–145; BP diastolic 46–75; BMI 23.1
[2025-08-15] MEDS: HEPARIN 5000 UNITS SC ×4 (00:18→23:00)
[2025-08-15 01:21] LABS: Blood Urea Nitrogen 21 mg/dl (7-17); Calcium 7.7 mg/dl (8.4-10.2); Carbon Dioxide 28 mmol/L (22-30); Chloride 101 mmol/L (98-107); Estimated Creatinine Clearance 29 ml/min; Glucose 45 mg/dl (70-99); Potassium 3.1 mmol/L (3.5-5.1); Sodium 134 mmol/L (135-145); eGFR 32.06
[2025-08-15] MEDS: KCL ELIXIR 20 MEQ TUBE (01:53)
[2025-08-15 02:02] LABS: Glucose - Point of Care 70 mg/dl (70-99)
[2025-08-15 03:06] LABS: Glucose - Point of Care 132 mg/dl (70-99)
[2025-08-15 04:12] LABS: Glucose - Point of Care 160 mg/dl (70-99)
[2025-08-15 04:18] LABS: Venous Blood Gas B.E. 3.4 mmol/L (-4 to +4); Venous Blood Gas O2 Sat % 99.9 %
--- NOTE | 2025-08-15 04:51 | PTCARENOTE ---
AM labs sent. hypoglycemia episode treated overnight, BGM back in normal range. mitts continue. remains SR on monitor, on 2L NC. paulino care and oral care done. desenex ordered for MASD. care ongoing.
[2025-08-15 05:14] LABS: Hematocrit 24.2 % (37.0-47.0); Hemoglobin 7.6 g/dL (12.0-16.0); Mean Corp Hgb Conc. 31.4 g/dL (33.0-37.0); Mean Corpuscular Volume 94.2 fL (81.0-99.0); Nucleated Red Blood Cells % 0 %; Platelet Count 290 10^3/uL (130-400); Red Cell Dist. Width 14.6 % (11.5-14.5)
[2025-08-15 05:41] LABS: Blood Urea Nitrogen 21 mg/dl (7-17); Calcium 7.9 mg/dl (8.4-10.2); Carbon Dioxide 26 mmol/L (22-30); Chloride 99 mmol/L (98-107); Estimated Creatinine Clearance 26 ml/min; Glucose 164 mg/dl (70-99); Potassium 3.8 mmol/L (3.5-5.1); Sodium 133 mmol/L (135-145); eGFR 28.06
[2025-08-15 06:07] LABS: Glucose - Point of Care 186 mg/dl (70-99)
[2025-08-15 07:04] LABS: Hepatitis B Surface Antigen Negative (Negative)
--- NOTE | 2025-08-15 07:29 | W.PN.UPDATE ---
Update Note
Progress Note Update
Patient transitioned to s.c insulin overnight 08/14.
Transferring out of ICU to telemetry floor
Academic Associate team will sign off. Please call as needed.
[2025-08-15 08:26] LABS: Glucose - Point of Care 162 mg/dl (70-99)
[2025-08-15] MEDS: DESENEX/MITRAZOL/ZEASORB 1 APPLIC TOPICAL ×2 (08:29→20:27)
[2025-08-15] MEDS: REFRESH EYE DROPS (PF) 1 DROPS OPHTH (08:30)
[2025-08-15] MEDS: ZENPEP DELAYED RELEASE CAPSULE 1 CAPSULE PO (08:30)
[2025-08-15] MEDS: NEPHROCAP 1 CAPSULE PO (08:30)
[2025-08-15] MEDS: PLAVIX 75 MG PO (08:30)
[2025-08-15] MEDS: MAGNESIUM OXIDE 400 MG PO (08:30)
[2025-08-15] MEDS: PROCARDIA XL (EXTENDED RELEASE) 90 MG PO (08:31)
[2025-08-15] MEDS: OSCAL 500 + D 500 MG PO (08:31)
[2025-08-15] MEDS: APRESOLINE 50 MG PO ×3 (08:31→22:54)
[2025-08-15] MEDS: COREG 12.5 MG PO ×2 (08:31→20:27)
[2025-08-15] MEDS: ATROPINE SULFATE 1% DROPS 1 DROP BOTH EYES (08:32)
[2025-08-15 08:59] LABS: Glycohemoglobin (HgbA1c) 9.5 % (4.0-5.6)
--- NOTE | 2025-08-15 09:14 | PN.DE.MGMTRT ---
Insulin Management
- -
08/15/2025: Diabetes Management Consult
70 year old female who presented from CT with Dysuria and polydipsia and burning pain with urination.
PMH: HTN, ESRD on HD (MWF), legal blindness, Asthma and IDDM.
Glucose on admission was 781, Beta hydroxybutyrate elevated to 5.36. Serum osm 323. UA: urine ketones 3+, urine glucose 4+, AG of 26, started on DKA protocol. A1C 9.5%, Cr 1.9 eGFR 28.06
Patient is awake, alert, sitting up in bed, offers no complaints, able to discuss diabetes care plan.
Pt states she was taking NPH 4 times a day and does not know what dose she was taking.
Called pt's Dtr Cheryl, who states that pt was taking Lispro 7 units AC and Levemir 25 units BID prior to her Hosp visit at [facility]. According to the Dtr, pt was d/c'd to rehab on Lantus and Humalog AC but was only getting 5 units of Lantus @ HS.
Patient was transitioned off drip at HS to SQ insulin: Lantus 12 units @ HS and NovoLog 4 units AC.
She had an episode of hypoglycemia of 45 @00:21, likely due to NPO status in setting of SQ insulin administration. Glucose improved after txt. FBG 162.
Will make no changes to current regimen. Cont Lantus 12 units @ HS, NovoLog 4 units AC and low corrective with meals
Discussed with Nurse. Will cont to follow and adjust insulin dose if necessary, may have higher insulin requirements.
Diabetes History
- -
Type of Diabetes: 2 requiring insulin
Pre-Admission Diabetes Regimen
08/14/25 08/14/25 08/14/25
12:33 13:45 15:00
Creatinine 3.8 H Cancelled Cancelled
08/14/25 08/14/25 08/15/25
16:44 20:01 00:21
Creatinine 3.6 H 1.4 H 1.7 H
08/15/25 08/15/25 08/15/25
04:07 04:44 08:00
Creatinine Cancelled 1.9 H Cancelled
08/15/25
12:00
Creatinine Cancelled
Lab Results
Hemoglobin A1c 9.5 % (4.0-5.6) H 08/15/25 04:44
Insulin Pump Settings
IP Diabetes Regimen
08/14/25 08/14/25 08/14/25
11:23 11:29 12:13
Glucose 776 H*
POC Glucose > 600 H* > 600 H*
08/14/25 08/14/25 08/14/25
12:33 13:34 13:39
Glucose 667 H* 571 H*
POC Glucose 524 H*
08/14/25 08/14/25 08/14/25
13:45 14:36 14:46
Glucose Cancelled 454 H*
POC Glucose 488 H*
08/14/25 08/14/25 08/14/25
15:00 15:45 16:40
Glucose Cancelled
POC Glucose 352 H 293 H
08/14/25 08/14/25 08/14/25
16:44 17:37 18:33
Glucose 281 H
POC Glucose 164 H 106 H
08/14/25 08/14/25 08/14/25
19:27 20:01 20:23
Glucose 93
POC Glucose 94 97
08/14/25 08/15/25 08/15/25
21:40 00:21 01:45
Glucose 45 L*
POC Glucose 90 70
08/15/25 08/15/25 08/15/25
02:55 04:01 04:07
Glucose Cancelled
POC Glucose 132 H 160 H
08/15/25 08/15/25 08/15/25
04:44 05:55 08:00
Glucose 164 H Cancelled
POC Glucose 186 H
08/15/25 08/15/25
08:22 12:00
Glucose Cancelled
POC Glucose 162 H
Meal type: Lunch
Patient Education
[2025-08-15] MEDS: NOVOLOG FLEXPEN-LOW RESISTANCE 1 UNITS SC (10:03)
[2025-08-15] MEDS: NOVOLOG FLEXPEN 4 UNITS SC ×2 (10:03→17:42)
[2025-08-15] MEDS: QUESTRAN 4 GRAM PO ×2 (10:04→20:30)
--- NOTE | 2025-08-15 12:14 | W.PN.NEPH.PH ---
Today's Communication / Plan
-
No acute need for dialysis today next treatment tomorrow
Assessment/Plan
-
1F w/ESRD on HD, DM2, blindness due to diabetic retinopathy, HTN, presents from senior living with elevated blood sugars. Patient has been experiencing increased thirst, and increased frequency of urination for the last several days. DKA
Impression
End-stage renal disease on hemodialysis MWF [facility] via right chest cath
Diabetic ketoacidosis
Sepsis= possible urinary source
Anemia of chronic disease
Metabolic acidosis
Diabetic retinopathy
Plan
Insulin protocol completed
Panculture= E. coli uro sepsis
Antibiotics renally dosed
Epogen IV on dialysis MWF
Dialysis tomorrow see orders

33 minutes critical care time
-
-
Date of Service: August 15, 2025
CC / HPI / ROS
-
Chief Complaint:
Presents DKA
History of Present Illness:
ESRD hypotensive UTI and DKA
Review of Systems:
No chest pain or shortness of breath
Labs
-
Labs:
WBC 7.6 10^3/uL (4.8-10.8) 08/15/25 04:44
RBC 2.57 10^6/uL (4.20-5.40) L 08/15/25 04:44
Hgb 7.6 g/dL (12.0-16.0) L 08/15/25 04:44
Hct 24.2 % (37.0-47.0) L 08/15/25 04:44
Plt Count 290 10^3/uL (130-400) 08/15/25 04:44
Sodium Cancelled 08/15/25 12:00
Potassium Cancelled 08/15/25 12:00
Chloride Cancelled 08/15/25 12:00
Carbon Dioxide Cancelled 08/15/25 12:00
BUN Cancelled 08/15/25 12:00
Creatinine Cancelled 08/15/25 12:00
eGFR Cancelled 08/15/25 12:00
Glucose Cancelled 08/15/25 12:00
Calcium Cancelled 08/15/25 12:00
Albumin 3.7 g/dl (3.5-5.0) 08/14/25 08:41
Physical Exam
-
Vital Signs:
Vital Signs
Temp Pulse Resp BP Pulse Ox
97.6 F 57 10 95/54 100
08/15/25 08:00 08/15/25 11:00 08/15/25 11:00 08/15/25 11:00 08/15/25 11:00
Respiratory:: Bilateral: CTA
Lung Excursion:: Normal
Abdomen:: Soft
Bowel Sounds:: Normal
Extremity Edema:: None: Bilateral:
[2025-08-15 12:21] LABS: Glucose - Point of Care 100 mg/dl (70-99)
[2025-08-15] MEDS: NOVOLOG FLEXPEN-LOW RESISTANCE SC ×2 (13:09→17:43)
[2025-08-15] MEDS: NOVOLOG FLEXPEN SC (13:40)
[2025-08-15] MEDS: ROCEPHIN 1000 MG IV (13:46)
[2025-08-15] MEDS: STERILE WATER FOR INJECTION 10 ML IV (13:46)
--- NOTE | 2025-08-15 14:18 | W.PN.HOSP.TC ---
Today's Communication/Plan
-
awaiting final ucx
Assessment / Plan
Assessment / Plan
70F with DM 2, diabetic retinopathy, diabetic neuropathy, ESRD on HD, HTN p/w elevated blood sugar, found to be in DKA.
PLAN:
DKA
resolved, transitioned to lantus/lispro, monitor BG control
triggered by UTI
UTI
E. COli, follow final UCx, blood cultures
Empiric IV cetriaxone
gets frequent UTIs, daughter states due to diarrhea
ESRD
routine HD per neph.
HTN
controlled with home meds with hold parameters. Nifedipine. losartan, coreg, hydralazine
prn IV hydralazine
h/o CVA
plavix
Dementia
cont nightly seroquel
Bipolar
takes a montly haldol IM injection
Check outpt records to see when next due, have requested
DVT ppx
hep sc
Full code
Anticipated Discharge: Within 24 hours
Subjective/Interval History
-
Date of Service: August 15, 2025
Patient denies any acute issues. She had been pulling at lines and so was placed in mittens.
Objective Data
-
Labs:
Laboratory Results
08/15/25 08/15/25 08/15/25
04:07 04:44 08:00
WBC Cancelled 7.6
Hgb Cancelled 7.6 L
Hct Cancelled 24.2 L
Plt Count Cancelled 290
Sodium Cancelled 133 L Cancelled
Potassium Cancelled 3.8 Cancelled
Chloride Cancelled 99 Cancelled
Carbon Dioxide Cancelled 26 Cancelled
BUN Cancelled 21 H Cancelled
Creatinine Cancelled 1.9 H Cancelled
Glucose Cancelled 164 H Cancelled
Calcium Cancelled 7.9 L Cancelled
08/15/25
12:00
WBC
Hgb
Hct
Plt Count
Sodium Cancelled
Potassium Cancelled
Chloride Cancelled
Carbon Dioxide Cancelled
BUN Cancelled
Creatinine Cancelled
Glucose Cancelled
Calcium Cancelled
Vital Signs:
Vital Signs
Temp Pulse Resp BP Pulse Ox
97.6 F 58 12 111/51 100
08/15/25 12:00 08/15/25 14:00 08/15/25 14:00 08/15/25 14:00 08/15/25 13:00
I&O
08/14/25 08/15/25 08/16/25
06:59 06:59 06:59
Intake Total 1798.2 / 1798.2 240 / 240
Output Total 525 / 525
Balance 1273.2 / 1273.2 240 / 240
Review of Systems
-
All other systems: Reviewed and negative
Physical Exam
-
General: Appears Chronically Ill
HEENT: Moist Mucous Membranes, PERRLA and Other (Cloudy lenses, blind in both eyes)
Respiratory: Clear to Auscultation; Negative Wheezes, Rales or Rhonchi
Cardiac: Regular Rhythm and S1/S2; Negative Murmur, Rub or Gallop
GI: Soft, Nontender, Nondistended and Normal Bowel Sounds
Musculoskeletal: No Edema
Skin: Warm and Dry; Negative Rash, Ulcers or Lesions
Neuro: Awake, Alert and Oriented (To self)
Hematologic / Lymphatic: No Lymphadenopathy
Psych: Calm
Data Reviewed
-
Labs: Labs Reviewed by me, Discussed with Physician, Discussed with Nurse and Discussed with Family
[2025-08-15 14:51] LABS: Glucose - Point of Care 123 mg/dl (70-99)
--- NOTE | 2025-08-15 15:24 | CM ---
Addendum entered by Silviano Buck 08/15/25 15:26:
Possibly discharge to home with daughter with HH. Will need PT/OT eval and rec. Requested from attending.
Original Note:
Downgrade to telemetry, Await final urine C/S. MILTON M-W-. Discharge POC: Return to [facility] for resumption of STR.
--- NOTE | 2025-08-15 15:30 | PTCARENOTE ---
transferred patient to room 325
--- NOTE | 2025-08-15 15:54 | PTCARENOTE ---
pt arrived on 3W in bed, on 2L NC, placed on tele monitor, bed alarm in place, VS WNL, call torres within reach. will continue to monitor.
[2025-08-15 17:17] LABS: Glucose - Point of Care 140 mg/dl (70-99)
[2025-08-15 21:25] LABS: Glucose - Point of Care 211 mg/dl (70-99)
[2025-08-15] MEDS: LANTUS 0.12 UNITS SC (22:53)
[2025-08-15] MEDS: SEROQUEL 100 MG PO (22:54)
[2025-08-16] VITALS (7 sets, daily range): BP systolic 114–196; BP diastolic 47–76; PULSE 82; O2SAT 97; BMI 23.4
[2025-08-16 06:58] LABS: Hematocrit 21.4 % (37.0-47.0); Hemoglobin 7.2 g/dL (12.0-16.0); Mean Corp Hgb Conc. 33.6 g/dL (33.0-37.0); Mean Corpuscular Volume 90.7 fL (81.0-99.0); Platelet Count 224 10^3/uL (130-400); Red Cell Dist. Width 14.6 % (11.5-14.5)
--- NOTE | 2025-08-16 07:45 | PN.DE.MGMTRT ---
Insulin Management
- -
08/16/2025: Diabetes Management Consult Follow up
Patient admitted from [place] 08/14 with change in mental status, Dysuria and polydipsia and burning pain with urination. PMH: HTN, ESRD on HD (MWF), legal blindness, Asthma and IDDM, dementia, bipolar.
Glucose on admission was 781, Beta hydroxybutyrate elevated to 5.36. Serum osm 323. UA: urine ketones 3+, urine glucose 4+, AG of 26, started on DKA protocol. Prior to admission was taking lantus 12 units @ HS with Humalog 5 units AC. A1C 9.5%,
Cr 1.9 eGFR 28.06
Patient is awake, alert, sitting up in bed, offers no complaints, able to discuss diabetes care plan.
08/15 Patient was transitioned off drip at 08/14 to SQ insulin: Lantus 12 units @ HS and NovoLog 4 units AC.
08/16 Patient received 4 units novolog with breakfast and dinner, glucose 123 to 211 (no novolog at lunch). HS lantus 12 units given.
Fasting glucose today 176. Patient currently receiving dialysis.
Will make no changes to current regimen. Cont Lantus 12 units @ HS, NovoLog 4 units AC and low corrective with meals
Discussed with Nurse. Will cont to follow and adjust insulin dose if necessary, may have higher insulin requirements.
Diabetes History
- -
Type of Diabetes: 2 requiring insulin
Pre-Admission Diabetes Regimen
08/16/25
05:44
Creatinine Cancelled
Lab Results
Hemoglobin A1c 9.5 % (4.0-5.6) H 08/15/25 04:44
Insulin Pump Settings
IP Diabetes Regimen
08/15/25 08/15/25 08/15/25
08:22 12:10 14:40
Glucose
POC Glucose 162 H 100 H 123 H
08/15/25 08/15/25 08/16/25
17:16 21:24 05:44
Glucose Cancelled
POC Glucose 140 H 211 H
Meal type: Dinner
Meal type: Breakfast
Amount consumed: 100%
Amount consumed: 100%
Patient Education
[2025-08-16 08:01] LABS: Glucose - Point of Care 176 mg/dl (70-99)
[2025-08-16] MEDS: RETACRIT 10000 UNITS IV (09:01)
[2025-08-16] MEDS: NOVOLOG FLEXPEN-LOW RESISTANCE SC (09:33)
[2025-08-16] MEDS: NOVOLOG FLEXPEN SC (09:33)
[2025-08-16 09:38] LABS: Blood Urea Nitrogen 30 mg/dl (7-17); Calcium 7.7 mg/dl (8.4-10.2); Carbon Dioxide 26 mmol/L (22-30); Chloride 99 mmol/L (98-107); Estimated Creatinine Clearance 17 ml/min; Glucose 161 mg/dl (70-99); Potassium 4.6 mmol/L (3.5-5.1); Sodium 130 mmol/L (135-145); eGFR 16.89
--- NOTE | 2025-08-16 10:27 | W.PN.NEPH.HD ---
Assessment
-
pt seen duirn gHD
vitals stable
tolerating UF
CVC functions well
d/c plan pe rprimary , pending U cx reprot
Progress Note - Hemodialysis
-
Date of Service: August 16, 2025
Duration: 30 minutes and 3 hours
Potassium Bath: 2
Calcium Bath: 2.5
Opti-Dialyzer: 160
Ultrafiltration: Other (1.5-2kg)
Blood Flow: 400
Dialysate Flow: 600
Heparin: no
EPO: [id number]
[2025-08-16] MEDS: APRESOLINE 50 MG PO ×3 (10:33→22:29)
[2025-08-16] MEDS: OSCAL 500 + D 500 MG PO (10:34)
[2025-08-16] MEDS: MAGNESIUM OXIDE 400 MG PO (10:34)
[2025-08-16] MEDS: REFRESH EYE DROPS (PF) 1 DROPS OPHTH (10:35)
[2025-08-16] MEDS: ATROPINE SULFATE 1% DROPS 1 DROP BOTH EYES (12:15)
[2025-08-16] MEDS: NEPHROCAP 1 CAPSULE PO (12:15)
[2025-08-16] MEDS: HEPARIN 5000 UNITS SC ×2 (12:15→16:57)
[2025-08-16] MEDS: ZENPEP DELAYED RELEASE CAPSULE 1 CAPSULE PO ×2 (12:15→12:23)
[2025-08-16] MEDS: NOVOLOG FLEXPEN-LOW RESISTANCE 1 UNITS SC (12:16)
[2025-08-16] MEDS: PLAVIX 75 MG PO (12:16)
[2025-08-16 12:22] LABS: Glucose - Point of Care 167 mg/dl (70-99)
[2025-08-16] MEDS: NOVOLOG FLEXPEN 4 UNITS SC ×2 (12:22→16:58)
[2025-08-16] MEDS: PROCARDIA XL (EXTENDED RELEASE) 90 MG PO (12:23)
[2025-08-16] MEDS: COREG 12.5 MG PO ×2 (12:24→20:14)
[2025-08-16] MEDS: DESENEX/MITRAZOL/ZEASORB 1 APPLIC TOPICAL ×2 (12:24→20:17)
[2025-08-16] MEDS: QUESTRAN 4 GRAM PO ×2 (13:20→20:15)
[2025-08-16] MEDS: ROCEPHIN 1000 MG IV (14:38)
[2025-08-16] MEDS: STERILE WATER FOR INJECTION 10 ML IV (14:38)
--- NOTE | 2025-08-16 14:40 | W.PN.HOSP.TC ---
Addendum entered and electronically signed by Milly Liu MD 08/16/25 15:54:
discussed with [facility] hospitalist, patient has documented anaphylaxis to penicillin, Cipro in their system but has tolerated Keflex.
Also received her Haldol IM injection on 08/03/2025
Original Note:
Today's Communication/Plan
-
awaiting final ucx concern for recent esbl
bp control
Assessment / Plan
Assessment / Plan
70F with DM 2, diabetic retinopathy, diabetic neuropathy, ESRD on HD, HTN p/w elevated blood sugar, found to be in DKA.
PLAN:
DKA
resolved, transitioned to lantus/lispro, monitor BG control
triggered by UTI
Reviewed outside records, frequently gets hyperglycemic and has previously had DKA in setting of UTIs, poor diet
DM2
Poorly controlled/brittle
A1c greater than 9%
Currently BG controlled on Lantus, lispro
accuchecks/SSI
UTI
E. Coli, follow final UCx, blood cultures
Reviewed outside records, patient previously had ESBL E. coli (08/02/25), sensitive to Zosyn, Ertapenem, Cipro, Gent, amox/clav, nitrofurantoin. Per notes it appears this was felt to be colonization and was therefore not treated in light of patients
multiple abx allergies (PCN, cipro seen on careeverywhere).
Change Empiric IV ceftriaxone to empiric ertapenem
gets frequent UTIs, daughter states due to diarrhea
ESRD
nonoliguric
routine HD MWF per neph.
HTN
meds with hold parameters. Nifedipine. losartan, coreg, hydralazine
prn IV hydralazine
uncontrolled (SBP>190) this AM as meds were held for AM dialysis. Now given. c/t monitor for response
h/o CVA
plavix
Dementia
cont nightly seroquel
Bipolar
takes a montly haldol IM injection
Check outpt records to see when next due, have reviewed and unable to see last dose given. Will reach out to [facility]
DVT ppx
hep sc
Full code
Anticipated Discharge: Within 24 hours
Subjective/Interval History
-
Date of Service: August 16, 2025
Patient states she is feeling well, undergoing dialysis this morning, no issues
Objective Data
-
Labs:
Laboratory Results
08/16/25 08/16/25
05:44 07:27
WBC 6.7
Hgb 7.2 L
Hct 21.4 L
Plt Count 224 D
Sodium Cancelled 130 L
Potassium Cancelled 4.6
Chloride Cancelled 99
Carbon Dioxide Cancelled 26
BUN Cancelled 30 H
Creatinine Cancelled 2.9 H
Glucose Cancelled 161 H
Calcium Cancelled 7.7 L
Vital Signs:
Vital Signs
Temp Pulse Resp BP Pulse Ox
98.2 F 78 16 196/80 99
08/16/25 12:00 08/16/25 12:23 08/16/25 12:00 08/16/25 12:23 08/16/25 13:46
I&O
08/15/25 08/16/25 08/17/25
06:59 06:59 06:59
Intake Total 1798.2 / 1798.2 720 / 720
Output Total 525 / 525 200 / 200
Balance 1273.2 / 1273.2 520 / 520
Review of Systems
-
All other systems: Reviewed and negative
Physical Exam
-
General: Appears Chronically Ill
HEENT: Moist Mucous Membranes, PERRLA and Other (Cloudy lenses, blind in both eyes)
Respiratory: Clear to Auscultation; Negative Wheezes, Rales or Rhonchi
Cardiac: Regular Rhythm and S1/S2; Negative Murmur, Rub or Gallop
GI: Soft, Nontender, Nondistended and Normal Bowel Sounds
Musculoskeletal: No Edema
Skin: Warm and Dry; Negative Rash, Ulcers or Lesions
Neuro: Awake, Alert and Oriented (To self)
Hematologic / Lymphatic: No Lymphadenopathy
Psych: Calm
Data Reviewed
-
Labs: Labs Reviewed by me, Discussed with Physician, Discussed with Nurse and Discussed with Family
Old Records: Requested ([place]) and Reviewed
--- NOTE | 2025-08-16 16:20 | CM ---
patient seen at bedside
ESRD - HD
PT rec snf vs home PT
Patient came from [facility] - was there for STR since 08/05 from [facility]
PLAN: SNF vs home, when stable, CM to follow
[2025-08-16 16:43] LABS: Glucose - Point of Care 334 mg/dl (70-99)
[2025-08-16] MEDS: INVANZ 55 MG IV (16:56)
[2025-08-16] MEDS: NOVOLOG FLEXPEN-LOW RESISTANCE 4 UNITS SC (16:59)
[2025-08-16] MEDS: TYLENOL 650 MG PO (20:24)
[2025-08-16 21:37] LABS: Glucose - Point of Care 373 mg/dl (70-99)
[2025-08-16] MEDS: SEROQUEL 100 MG PO (22:29)
[2025-08-16] MEDS: LANTUS 0.12 UNITS SC (22:30)
[2025-08-17] VITALS (8 sets, daily range): BP systolic 134–196; BP diastolic 54–99; BMI 23.3
[2025-08-17] MEDS: HEPARIN 5000 UNITS SC ×3 (00:22→16:07)
--- NOTE | 2025-08-17 08:08 | PN.DE.MGMTRT ---
Insulin Management
- -
08/17/2025: Diabetes Management Consult Follow up
Patient admitted from [place] 08/14 with change in mental status, Dysuria and polydipsia and burning pain with urination. PMH: HTN, ESRD on HD (MWF), legal blindness, Asthma and IDDM, dementia, bipolar.
Glucose on admission was 781, Beta hydroxybutyrate elevated to 5.36. Serum osm 323. UA: urine ketones 3+, urine glucose 4+, AG of 26, started on DKA protocol. Prior to admission was taking lantus 12 units @ HS with Humalog 5 units AC. A1C 9.5%,
Cr 1.9 eGFR 28.06
Patient is sleeping at the time of my visit, discussed with nurse..
08/16 Patient received 4 units novolog with lunch and dinner, glucose 167 to 373. HS lantus 12 units given.
08/17 Fasting glucose today 158. Will increase AC novolog to 5 units (home dose) with low corrective AC and continue Lantus 12 units @ HS.
Discussed with Nurse. Will cont to follow and adjust insulin dose if necessary, may have higher insulin requirements.
Diabetes History
- -
Type of Diabetes: 2 requiring insulin
Pre-Admission Diabetes Regimen
08/16/25
07:27
Creatinine 2.9 H
Lab Results
Hemoglobin A1c 9.5 % (4.0-5.6) H 08/15/25 04:44
Insulin Pump Settings
IP Diabetes Regimen
08/16/25 08/16/25 08/16/25
07:27 12:21 16:42
Glucose 161 H
POC Glucose 167 H 334 H
08/16/25
21:36
Glucose
POC Glucose 373 H
Patient Education
[2025-08-17 08:18] LABS: Glucose - Point of Care 158 mg/dl (70-99)
[2025-08-17 08:34] LABS: Hematocrit 21.9 % (37.0-47.0); Hemoglobin 6.9 g/dL (12.0-16.0); Mean Corp Hgb Conc. 31.5 g/dL (33.0-37.0); Mean Corpuscular Volume 94.0 fL (81.0-99.0); Platelet Count 271 10^3/uL (130-400); Red Cell Dist. Width 15.2 % (11.5-14.5)
--- NOTE | 2025-08-17 08:34 | W.PN.HOSP.TC ---
Today's Communication/Plan
-
final ucx esbl - ID consult, cont ertapenem
bp control increase hydralazine
1 unit PRBC Hgb 6.9
Assessment / Plan
Assessment / Plan
70F with DM 2, diabetic retinopathy, diabetic neuropathy, ESRD on HD, HTN p/w elevated blood sugar, found to be in DKA.
PLAN:
DKA
resolved, transitioned to lantus/lispro, monitor BG control
triggered by UTI
Reviewed outside records, frequently gets hyperglycemic and has previously had DKA in setting of UTIs, poor diet
DM2
Poorly controlled/brittle
A1c greater than 9%
Currently BG controlled on Lantus, lispro, increase to 15 units lantus /5 units lispro
accuchecks/SSI
Anemia
AoCKD
montior for bleeding
1 unit PRBC ordered 08/17 for Hgb 6.9
UTI
E. Coli, ESBL on final UCx, blood cultures NGTD
Reviewed outside records, patient previously had ESBL E. coli (08/02/25), sensitive to Zosyn, Ertapenem, Cipro, Gent, amox/clav, nitrofurantoin. Per notes it appears this was felt to be colonization and was therefore not treated in light of patients
multiple abx allergies (PCN, cipro seen on careeverywhere).
Changed Empiric IV ceftriaxone to empiric ertapenem
gets frequent UTIs, daughter states due to diarrhea
ID consult
ESRD
nonoliguric
routine HD MWF per neph.
HTN
meds with hold parameters. Nifedipine. losartan, coreg, hydralazine
prn IV hydralazine
uncontrolled (SBP>190) this AM
increase hydralazine
c/t monitor for response
h/o CVA
plavix
Dementia
cont nightly seroquel
Bipolar
takes a montly haldol IM injection
received latest dose 08/03/25 at OSH
DVT ppx
hep sc
Full code
Anticipated Discharge: Within 24 hours
Subjective/Interval History
-
Date of Service: August 17, 2025
Patient states she has back pain, denies other issue
Objective Data
-
Labs:
Laboratory Results
08/17/25
07:32
WBC 5.4
Hgb 6.9 L*
Hct 21.9 L
Plt Count 271 D
Sodium Pending
Potassium Pending
Chloride Pending
Carbon Dioxide Pending
BUN Pending
Creatinine Pending
Glucose Pending
Calcium Pending
Vital Signs:
Vital Signs
Temp Pulse Resp BP Pulse Ox
98.1 F 71 17 196/73 95
08/17/25 08:10 08/17/25 08:10 08/17/25 08:10 08/17/25 08:10 08/17/25 08:10
I&O
08/16/25 08/17/25 08/18/25
06:59 06:59 06:59
Intake Total 720 / 720 1060 / 1060
Output Total 200 / 200 575 / 575
Balance 520 / 520 485 / 485
Review of Systems
-
All other systems: Reviewed and negative
Physical Exam
-
General: Appears Chronically Ill
HEENT: Moist Mucous Membranes, PERRLA and Other (Cloudy lenses, blind in both eyes)
Respiratory: Clear to Auscultation; Negative Wheezes, Rales or Rhonchi
Cardiac: Regular Rhythm, S1/S2, Murmur and Other (R chest HD cath site c/d/i); Negative Rub or Gallop
GI: Soft, Nontender, Nondistended and Normal Bowel Sounds
Musculoskeletal: No Edema
Skin: Warm and Dry; Negative Rash, Ulcers or Lesions
Neuro: Awake, Alert and Oriented (To self)
Hematologic / Lymphatic: No Lymphadenopathy
Psych: Calm
Data Reviewed
-
Labs: Labs Reviewed by me, Discussed with Physician, Discussed with Nurse and Discussed with Family
Old Records: Requested ([place]) and Reviewed
[2025-08-17 08:41] LABS: Blood Urea Nitrogen 20 mg/dl (7-17); Calcium 7.8 mg/dl (8.4-10.2); Carbon Dioxide 27 mmol/L (22-30); Chloride 98 mmol/L (98-107); Estimated Creatinine Clearance 22 ml/min; Glucose 179 mg/dl (70-99); Potassium 4.5 mmol/L (3.5-5.1); Sodium 130 mmol/L (135-145); eGFR 23.53
[2025-08-17] MEDS: NEPHROCAP 1 CAPSULE PO (08:53)
[2025-08-17] MEDS: PROCARDIA XL (EXTENDED RELEASE) 90 MG PO (08:55)
[2025-08-17] MEDS: MAGNESIUM OXIDE 400 MG PO (08:55)
[2025-08-17] MEDS: REFRESH EYE DROPS (PF) 1 DROPS OPHTH (08:56)
[2025-08-17] MEDS: COREG 12.5 MG PO ×2 (08:56→20:19)
[2025-08-17] MEDS: OSCAL 500 + D 500 MG PO (08:56)
[2025-08-17] MEDS: PLAVIX 75 MG PO (08:56)
[2025-08-17] MEDS: ATROPINE SULFATE 1% DROPS 1 DROP BOTH EYES (08:57)
[2025-08-17] MEDS: NOVOLOG FLEXPEN-LOW RESISTANCE 1 UNITS SC ×2 (09:13→17:48)
[2025-08-17] MEDS: NOVOLOG FLEXPEN 4 UNITS SC (09:14)
[2025-08-17] MEDS: DESENEX/MITRAZOL/ZEASORB 1 APPLIC TOPICAL ×2 (09:15→20:21)
[2025-08-17] MEDS: APRESOLINE PO (09:32)
[2025-08-17] MEDS: QUESTRAN 4 GRAM PO ×2 (10:35→20:19)
[2025-08-17 11:56] LABS: Glucose - Point of Care 121 mg/dl (70-99)
[2025-08-17] MEDS: NOVOLOG FLEXPEN-LOW RESISTANCE SC (12:01)
--- NOTE | 2025-08-17 12:31 | W.PN.NEPH.PH ---
Today's Communication / Plan
-
HD tomorrow
Assessment/Plan
-
1F w/ESRD on HD, DM2, blindness due to diabetic retinopathy, HTN, presents from longterm with elevated blood sugars. Patient has been experiencing increased thirst, and increased frequency of urination for the last several days. DKA
Impression
End-stage renal disease on hemodialysis [facility] via right chest cath
Diabetic ketoacidosis
Sepsis= possible urinary source
Anemia of chronic disease
Metabolic acidosis
Diabetic retinopathy
Plan:
A/w DKA and UTI
hb low today, for transfusion
BP high in am, hydralazine increased per primary ,
would resume losartan at d/c
HD tomorrow
ID consulted for ESBL UTI
-
-
Date of Service: August 17, 2025
CC / HPI / ROS
-
Chief Complaint:
Presents DKA
History of Present Illness:
ESRD
on Ertapenum for ESBL UTI
BP stable , high in morning
hb low 6.9, k normal
Review of Systems:
No chest pain or shortness of breath
no n/v
Labs
-
Labs:
WBC 5.4 10^3/uL (4.8-10.8) 08/17/25 07:32
RBC 2.33 10^6/uL (4.20-5.40) L 08/17/25 07:32
Hgb 6.9 g/dL (12.0-16.0) L* 08/17/25 07:32
Hct 21.9 % (37.0-47.0) L 08/17/25 07:32
Plt Count 271 10^3/uL (130-400) D 08/17/25 07:32
Sodium 130 mmol/L (135-145) L 08/17/25 07:32
Potassium 4.5 mmol/L (3.5-5.1) 08/17/25 07:32
Chloride 98 mmol/L (98-107) 08/17/25 07:32
Carbon Dioxide 27 mmol/L (22-30) 08/17/25 07:32
BUN 20 mg/dl (7-17) H 08/17/25 07:32
Creatinine 2.2 mg/dL (0.6-1.0) H 08/17/25 07:32
eGFR 23.53 08/17/25 07:32
Glucose 179 mg/dl (70-99) H 08/17/25 07:32
Calcium 7.8 mg/dl (8.4-10.2) L 08/17/25 07:32
Albumin 3.7 g/dl (3.5-5.0) 08/14/25 08:41
Physical Exam
-
Vital Signs:
Vital Signs
Temp Pulse Resp BP Pulse Ox
98.4 F 91 17 143/99 97
08/17/25 11:28 08/17/25 11:28 08/17/25 11:28 08/17/25 11:28 08/17/25 11:28
Cardiovascular:: Regular rate and rhythm
Respiratory:: Bilateral: Coarse
Lung Excursion:: Normal
Abdomen:: Soft
Bowel Sounds:: Normal
Extremity Edema:: None: Bilateral:
Garcia Catheter: No
[2025-08-17] MEDS: NOVOLOG FLEXPEN 5 UNITS SC ×2 (12:46→17:49)
--- NOTE | 2025-08-17 15:51 | CON.ID ---
Consultation
-
Date/Time Consultation Requested: 08/17/2025 1004
Date/Time Consultation Performed: 08/17/2025 1550
Requesting Provider: Dr. Liu
Performing Provider: Dr. Shea
Reason for Consultation: Complicated urinary tract infection
Chief Complaint / Past History
History of Present Illness
Velvet Lao is a 70-year-old female being evaluated in infectious ease consultation regarding possible urinary tract infection. History is obtained from chart review, along with patient interview.
The patient presented to [facility] on 08/14 from a local custodial with elevated blood sugars. According to reviewed notes the patient has had increasing thirst, along with increased frequency of urination for several days prior to
admission. She also admitted to dysuria for several days. No history of fevers or chills, nausea, vomiting or diarrhea.
At admission, the patient was found to have a leukocytosis and was started on empiric antibiotic therapy (ceftriaxone.) cultures obtained at the time of admission now reveal ESBL E. coli in the urine (with blood cultures remaining negative thus
far), and Infectious Diseases asked to comment on further antimicrobial therapy.
At present, patient reports ongoing dysuria, although a Garcia catheter is in place. She denies any flank pain but notes midline chronic back pain. Denies fevers or chills. Denies abdominal pain.
Past History
Additional Past Medical History:
DM
Blindness
ESRD�HD
HTN
HLD
Hx CVA
Anemia
Bipolar disorder
Additional Past Surgical History:
Appendectomy
Left knee surgery
Spinal fusion
Allergy History:
aspirin Allergy (Verified 07/03/09 14:49)
Hives
NSAIDS (Non-Steroidal Anti-Inflamma Allergy (Verified 07/03/09 14:00)
aspirin-hives
Penicillins Allergy (Verified 08/14/25 10:04)
Swelling/hives - has tolerated amoxicillin per patient
Medications Reviewed: Yes
Current Antibiotics:
Ertapenem
Social History
Tobacco: Non-Smoker
Alcohol: None
Drug: None
Living: Half-Way
Family History
Family History: Not Pertinent
Review of Systems
Vital Signs
Temp Pulse Resp BP Pulse Ox
98.6 F 66 14 139/54 98
08/17/25 13:57 08/17/25 13:57 08/17/25 13:57 08/17/25 13:57 08/17/25 14:06
Physical Exam
Physical Exam
Constitutional: No Acute Distress, Comfortable, Chronically Ill and Non-toxic
Eyes: Other (Bilateral cataracts)
Oral: No Thrush and No Ulcers
Cardiovascular: Regular Rate and S1/S2; Negative S3/S4
Pulmonary: Clear; Negative Wheezes or Rales
Gastrointestinal: Soft, Non Tender, Non Distended and Normal Bowel Sounds
Genito-Urinary: Garcia and Other (Cloudy urine); Negative Hematuria
Extremities: Negative Edema, Cyanosis or Erythema
Neurological: Awake and Alert
Psychological: Calm
Lab / Diagnostic Study Results
08/17/25 07:32
08/17/25 07:32
Abs Immat Gran (auto) 0.1 10^3/uL (0-0.05) H 08/15/25 04:44
Absolute Neuts (auto) 5.4 10^3/uL (1.4-6.5) 08/15/25 04:44
Absolute Lymphs (auto) 1.1 10^3/uL (1.2-3.4) L 08/15/25 04:44
Absolute Monos (auto) 0.8 10^3/uL (0.1-0.6) H 08/15/25 04:44
Absolute Basos (auto) 0.1 10^3/uL (0-0.2) 08/15/25 04:44
Immature Gran % 1.2 % (0-0.5) H 08/15/25 04:44
Neutrophils % 70.8 % (42.2-75.2) 08/15/25 04:44
Lymphocytes % 14.6 % (20.5-51.1) L 08/15/25 04:44
Monocytes % 10.1 % (1.7-9.3) H 08/15/25 04:44
Eosinophils % 2.5 % (0-6) 08/15/25 04:44
Basophils % 0.8 % (0-2) 08/15/25 04:44
Lactic Acid 0.8 mmol/L (0.7-2.0) 08/14/25 08:04
Ur Squamous Epith Cells 0-2 /LPF (Few) 08/14/25 08:02
Microbiology Results
Micro:
08/14/25 08:02 Urine Culture - Final
Urine Escherichia coli - ESBL
08/14/25 08:10 Blood Culture - Preliminary
Blood/Venous No Growth in 72 hours- Final report to follow
08/14/25 08:04 Blood Culture - Preliminary
Blood/Venous No Growth in 72 hours- Final report to follow
08/14/25 14:46 MRSA Screen - Final
Nose No Methicillin Resistant Staphylococcus aureus isolated.
08/14/25 15:17 Influenza Types A & B ([facility]ATISHA) - Final
Nasal Swab Negative for Influenza A & B, NAAT
Negative results must be combined with clinical observations
and patient history.
Nucleic Acid Amplification test (NAAT)performed on the
[employer] platform.
Assessment / Plan
Leukocytosis; improved
Dysuria
Pyuria and bacteriuria with ESBL E. coli (30K CFU/mL)
DM
Blindness
ESRD�HD
HTN
HLD
Hx CVA
Anemia
Bipolar disorder
Recommendations:
Continue with ertapenem. Dose is appropriate for ESRD�HD.
Follow-up for improvement in dysuria; none yet.
Not clear whether leukocytosis was secondary to complicated urinary tract infection or some other etiology. Of note, initial empiric coverage did not target recovered isolate thus improvement in white count cannot be attributed to treatment of
infection.
Trend fever curve and white count.
Continue supportive measures.
Further recommendations as additional data is returned.
[2025-08-17] MEDS: INVANZ 55 MG IV (16:06)
[2025-08-17] MEDS: APRESOLINE 75 MG PO ×2 (16:07→20:24)
--- NOTE | 2025-08-17 16:35 | CM ---
Chart reviewed and director of casework department met with patient, patient is agreeable to returning to [facility], requiring one unit of blood today, also on one liter of oxygen, destats with ambulation. ESRD on HD.
Plan; To return to [facility].
[2025-08-17 16:42] LABS: Glucose - Point of Care 162 mg/dl (70-99)
[2025-08-17] MEDS: TYLENOL 650 MG PO (20:25)
[2025-08-17] MEDS: SEROQUEL 100 MG PO (20:27)
[2025-08-17 21:57] LABS: Glucose - Point of Care 198 mg/dl (70-99)
[2025-08-17] MEDS: LANTUS 0.15 UNITS SC (22:36)
[2025-08-18] MEDS: HEPARIN 5000 UNITS SC ×3 (01:15→23:20)
[2025-08-18 03:00] VITALS: BP 176/71
[2025-08-18 06:00] VITALS: BMI 23.1
[2025-08-18 07:00] VITALS: BP 192/81
--- NOTE | 2025-08-18 07:39 | PN.DE.MGMTRT ---
Insulin Management
- -
08/18/2025: Diabetes Management Follow up
Patient admitted from [place] 08/14 with change in mental status, Dysuria and polydipsia and burning pain with urination.
PMH: HTN, ESRD on HD (MWF), legal blindness, Asthma and IDDM, dementia, bipolar.
Glucose on admission was 781, Beta hydroxybutyrate elevated to 5.36. Serum osm 323. UA: urine ketones 3+, urine glucose 4+, AG of 26, started on DKA protocol. Prior to admission was taking Lantus 12 units @ HS with Humalog 5 units AC. A1C 9.5%, Cr
1.9 eGFR 28.06
Patient resting in bed on dialysis, offers no complaints, unable to discuss diabetes care plan 2/2 dementia.
08/17 premeal glucose stable and in range, 121 to 162, required 1 unit of corrective insulin with breakfast and dinner.
HS glucose 198, received Lantus 15 units, FBG 221 V 200 POC. Will increase HS Lantus does to 17 units.
08/17 premeal glucose stable and in range 121 to 162. Will make no change to AC NovoLog dose. Cont 5 units (home dose) with low corrective AC
Discussed with Nurse. Will cont to follow and adjust insulin dose if necessary.
Diabetes History
- -
Type of Diabetes: 2 requiring insulin
Pre-Admission Diabetes Regimen
08/17/25
07:32
Creatinine 2.2 H
Lab Results
Hemoglobin A1c 9.5 % (4.0-5.6) H 08/15/25 04:44
Insulin Pump Settings
IP Diabetes Regimen
08/17/25 08/17/25 08/17/25
07:32 08:17 11:54
Glucose 179 H
POC Glucose 158 H 121 H
08/17/25 08/17/25
16:41 21:55
Glucose
POC Glucose 162 H 198 H
Meal type: Lunch
Meal type: Breakfast
Meal type: Lunch
Meal type: Breakfast
Amount consumed: 100%
Amount consumed: 70%
Amount consumed: 100%
Amount consumed: 100%
Patient Education
[2025-08-18] MEDS: HEPARIN SC (08:00)
[2025-08-18 08:11] LABS: Glucose - Point of Care 200 mg/dl (70-99)
[2025-08-18] MEDS: NOVOLOG FLEXPEN-LOW RESISTANCE 2 UNITS SC (08:16)
[2025-08-18] MEDS: NOVOLOG FLEXPEN 5 UNITS SC ×3 (08:16→18:40)
[2025-08-18] MEDS: REFRESH EYE DROPS (PF) 10 DROPS OPHTH (08:17)
[2025-08-18] MEDS: APRESOLINE 75 MG PO ×3 (08:17→22:46)
[2025-08-18] MEDS: ATROPINE SULFATE 1% DROPS 1 DROP BOTH EYES (08:18)
[2025-08-18] MEDS: RETACRIT 10000 UNITS IV (08:22)
[2025-08-18] MEDS: PLAVIX 75 MG PO (08:23)
[2025-08-18] MEDS: MAGNESIUM OXIDE 400 MG PO (08:23)
[2025-08-18] MEDS: ZENPEP DELAYED RELEASE CAPSULE 1 CAPSULE PO (08:23)
[2025-08-18] MEDS: OSCAL 500 + D 500 MG PO (08:23)
[2025-08-18] MEDS: NEPHROCAP 1 CAPSULE PO (08:24)
[2025-08-18] MEDS: DESENEX/MITRAZOL/ZEASORB 1 APPLIC TOPICAL ×2 (08:24→22:45)
[2025-08-18 08:42] LABS: Hematocrit 25.2 % (37.0-47.0); Hemoglobin 8.0 g/dL (12.0-16.0); Mean Corp Hgb Conc. 31.7 g/dL (33.0-37.0); Mean Corpuscular Volume 94.0 fL (81.0-99.0); Platelet Count 249 10^3/uL (130-400); Red Cell Dist. Width 15.0 % (11.5-14.5)
[2025-08-18 08:59] LABS: Blood Urea Nitrogen 27 mg/dl (7-17); Calcium 7.9 mg/dl (8.4-10.2); Carbon Dioxide 25 mmol/L (22-30); Chloride 99 mmol/L (98-107); Estimated Creatinine Clearance 16 ml/min; Glucose 189 mg/dl (70-99); Potassium 4.6 mmol/L (3.5-5.1); Sodium 130 mmol/L (135-145); eGFR 16.22
[2025-08-18] MEDS: COREG 12.5 MG PO (10:04)
[2025-08-18] MEDS: PROCARDIA XL (EXTENDED RELEASE) 90 MG PO (10:04)
[2025-08-18] MEDS: QUESTRAN 4 GRAM PO ×2 (10:05→22:45)
[2025-08-18 11:00] VITALS: BP 197/84
[2025-08-18] MEDS: APRESOLINE 10 MG IV (11:15)
--- NOTE | 2025-08-18 11:24 | W.PN.ID1 ---
Date of Service
Date of Service: August 18, 2025
Today's Communication
Continue antibiotics.
Assessment / Plan
Leukocytosis; improved
Dysuria
Pyuria and bacteriuria with ESBL E. coli (30K CFU/mL)
DM
Blindness
ESRD�HD
HTN
HLD
Hx CVA
Anemia
Bipolar disorder
Recommendations:
Continue with ertapenem (d#3). Dose is appropriate for ESRD�HD. Anticipate 10-day course given MDRO.
Follow-up for improvement in dysuria.
Not clear whether leukocytosis was secondary to complicated urinary tract infection or some other etiology. Of note, initial empiric coverage did not target recovered isolate thus improvement in white count cannot be attributed to treatment of
infection.
Trend fever curve and white count.
Continue supportive measures.
����������������������������������������������������������
Chief Complaint
-: UTI
Subjective / Review of Systems
Patient seen and examined.
Review of Systems: No Fever and No Chills
Vital Signs / Physical Exam
Vital Signs
Vital Signs
Temp Pulse Resp BP Pulse Ox
98.0 F 75 20 197/84 93
08/18/25 11:00 08/18/25 11:15 08/18/25 11:00 08/18/25 11:15 08/18/25 11:00
Physical Exam
Constitutional: Comfortable, Chronically Ill and Non-toxic
Cardiovascular: S1/S2; Negative S3/S4
Pulmonary: Non Labored; Negative Wheezes or Rales
Gastrointestinal: Soft, Non Tender and Non Distended
Genito-Urinary: Garcia and Clear Urine (Pockets of sediment noted.); Negative Hematuria
Extremities: Negative Edema, Cyanosis or Erythema
Psychological: Calm
Objective Data
Lab Data
Lab Results
08/18/25 08:20
08/18/25 08:20
Estimated Creat Clear 16 ml/min 08/18/25 08:20
Lactic Acid 0.8 mmol/L (0.7-2.0) 08/14/25 08:04
Total Bilirubin 0.6 mg/dl (0.2-1.3) 08/14/25 08:41
AST 30 U/L (14-36) 08/14/25 08:41
ALT 31 U/L (0-35) 08/14/25 08:41
Alkaline Phosphatase 152 U/L (38-126) H 08/14/25 08:41
Most recent labs reviewed.
Micro Results:
08/14/25 08:10 Blood Culture - Preliminary
Blood/Venous No Growth in 4 days- Final report to follow
08/14/25 08:04 Blood Culture - Preliminary
Blood/Venous No Growth in 4 days- Final report to follow
08/14/25 08:02 Urine Culture - Final
Urine Escherichia coli - ESBL
08/14/25 14:46 MRSA Screen - Final
Nose No Methicillin Resistant Staphylococcus aureus isolated.
08/14/25 15:17 Influenza Types A & B (LATISHA) - Final
Nasal Swab Negative for Influenza A & B, NAAT
Negative results must be combined with clinical observations
and patient history.
Nucleic Acid Amplification test (NAAT)performed on the
[employer] platform.
--- NOTE | 2025-08-18 11:31 | W.PN.NEPH.HD ---
Assessment
-
Seen on dialysis tolerating UF 3 L
Progress Note - Hemodialysis
-
Date of Service: August 18, 2025
Duration: 30 minutes and 3 hours
Potassium Bath: 2
Calcium Bath: 2.5
Opti-Dialyzer: 160
Ultrafiltration: Other (1.5-2kg)
Blood Flow: 400
Dialysate Flow: 600
Heparin: no
EPO: [id number]
[2025-08-18 12:33] LABS: Glucose - Point of Care 104 mg/dl (70-99)
[2025-08-18] MEDS: NOVOLOG FLEXPEN-LOW RESISTANCE SC ×2 (12:39→17:37)
--- NOTE | 2025-08-18 13:18 | W.PN.HOSP.TC ---
Today's Communication/Plan
-
BP uncontrolled, adjust meds
Midline for IV or ertapenem, EOT 08/21/2025. DC likely tomorrow.
Assessment / Plan
Assessment / Plan
70F with DM 2, diabetic retinopathy, diabetic neuropathy, ESRD on HD, HTN p/w elevated blood sugar, found to be in DKA.
PLAN:
DM2
Poorly controlled/brittle
A1c greater than 9%
Currently BG controlled on Lantus, lispro, 15 units lantus /5 units lispro
accuchecks/SSI
Anemia
AoCKD
montior for bleeding
1 unit PRBC ordered 08/17 for Hgb 6.9, improved to 8
UTI
E. Coli, ESBL on final UCx, blood cultures NGTD
Reviewed outside records, patient previously had ESBL E. coli (08/02/25), sensitive to Zosyn, Ertapenem, Cipro, Gent, amox/clav, nitrofurantoin. Per notes it appears this was felt to be colonization and was therefore not treated in light of patients
multiple abx allergies (PCN, cipro seen on careeverywhere).
Changed Empiric IV ceftriaxone to empiric ertapenem
gets frequent UTIs, daughter states due to diarrhea
ID consulted, recs. Ertapenem IV until 08/25/2025. Ordered midline.
ESRD
nonoliguric
routine HD MWF per neph.
HTN
meds with hold parameters. Nifedipine. losartan, coreg, hydralazine
prn IV hydralazine
uncontrolled (SBP>190) this AM
increased hydralazine, increase Coreg
c/t monitor for response
h/o CVA
plavix
Dementia
cont nightly seroquel
Bipolar
takes a montly haldol IM injection
received latest dose 08/03/25 at OSH
DVT ppx
hep sc
Full code
Anticipated Discharge: Within 24 hours
Subjective/Interval History
-
Date of Service: August 18, 2025
Denies any acute issues overnight
Objective Data
-
Labs:
Laboratory Results
08/18/25
08:20
WBC 6.4
Hgb 8.0 L
Hct 25.2 L
Plt Count 249
Sodium 130 L
Potassium 4.6
Chloride 99
Carbon Dioxide 25
BUN 27 H
Creatinine 3.0 H
Glucose 189 H
Calcium 7.9 L
Vital Signs:
Vital Signs
Temp Pulse Resp BP Pulse Ox
98.0 F 75 20 197/84 93
08/18/25 11:00 08/18/25 11:15 08/18/25 11:00 08/18/25 11:15 08/18/25 11:00
I&O
08/17/25 08/18/25 08/19/25
06:59 06:59 06:59
Intake Total 1060 / 1060 610 / 610
Output Total 575 / 575 850 / 850
Balance 485 / 485 -240 / -240
Review of Systems
-
All other systems: Reviewed and negative
Physical Exam
-
General: Appears Chronically Ill
HEENT: Moist Mucous Membranes, PERRLA and Other (Cloudy lenses, blind in both eyes)
Respiratory: Clear to Auscultation; Negative Wheezes, Rales or Rhonchi
Cardiac: Regular Rhythm, S1/S2, Murmur and Other (R chest HD cath site c/d/i); Negative Rub or Gallop
GI: Soft, Nontender, Nondistended and Normal Bowel Sounds
Musculoskeletal: No Edema
Skin: Warm and Dry; Negative Rash, Ulcers or Lesions
Neuro: Awake, Alert and Oriented (To self)
Hematologic / Lymphatic: No Lymphadenopathy
Psych: Calm
Data Reviewed
-
Labs: Labs Reviewed by me, Discussed with Physician, Discussed with Nurse and Discussed with Family
Old Records: Requested ([place]) and Reviewed
--- NOTE | 2025-08-18 13:36 | CM ---
Pt sleeping on CM rounds.
Pt is colleen term at [facility].
She has HD M-W-
Referral placed for [facility]
PLAN: Return to [facility] for HD.
[2025-08-18 15:00] VITALS: BP 123/50
[2025-08-18 16:50] LABS: Glucose - Point of Care 143 mg/dl (70-99)
[2025-08-18] MEDS: INVANZ 55 MG IV (17:35)
[2025-08-18 19:47] VITALS: BP 143/53
[2025-08-18 21:09] LABS: Glucose - Point of Care 222 mg/dl (70-99)
[2025-08-18] MEDS: COREG 25 MG PO (22:44)
[2025-08-18] MEDS: LANTUS 0.17 UNITS SC (22:47)
[2025-08-18] MEDS: SEROQUEL 100 MG PO (22:47)
[2025-08-18 23:06] VITALS: BP 156/59
[2025-08-18] MEDS: TYLENOL 650 MG PO (23:36)
[2025-08-19 03:00] VITALS: BP 186/72
[2025-08-19 06:00] VITALS: BMI 23.1
[2025-08-19 06:18] LABS: Hematocrit 25.8 % (37.0-47.0); Hemoglobin 8.1 g/dL (12.0-16.0); Mean Corp Hgb Conc. 31.4 g/dL (33.0-37.0); Mean Corpuscular Volume 94.2 fL (81.0-99.0); Platelet Count 241 10^3/uL (130-400); Red Cell Dist. Width 15.3 % (11.5-14.5)
[2025-08-19 06:48] LABS: Blood Urea Nitrogen 17 mg/dl (7-17); Calcium 8.1 mg/dl (8.4-10.2); Carbon Dioxide 26 mmol/L (22-30); Chloride 99 mmol/L (98-107); Estimated Creatinine Clearance 23 ml/min; Glucose 206 mg/dl (70-99); Potassium 4.3 mmol/L (3.5-5.1); Sodium 131 mmol/L (135-145); eGFR 24.88
[2025-08-19 08:03] VITALS: BP 196/76
[2025-08-19 08:13] LABS: Glucose - Point of Care 157 mg/dl (70-99)
[2025-08-19] MEDS: PROCARDIA XL (EXTENDED RELEASE) 90 MG PO (09:07)
[2025-08-19] MEDS: NEPHROCAP 1 CAPSULE PO (09:07)
[2025-08-19] MEDS: PLAVIX 75 MG PO (09:07)
[2025-08-19] MEDS: MAGNESIUM OXIDE 400 MG PO (09:07)
[2025-08-19] MEDS: COREG 25 MG PO (09:07)
[2025-08-19] MEDS: APRESOLINE 75 MG PO ×2 (09:07→15:22)
[2025-08-19] MEDS: ZENPEP DELAYED RELEASE CAPSULE 1 CAPSULE PO (09:07)
[2025-08-19] MEDS: ATROPINE SULFATE 1% DROPS 1 DROP BOTH EYES (09:08)
[2025-08-19] MEDS: HEPARIN 5000 UNITS SC (09:08)
[2025-08-19] MEDS: DESENEX/MITRAZOL/ZEASORB 1 APPLIC TOPICAL (09:09)
[2025-08-19] MEDS: NOVOLOG FLEXPEN 5 UNITS SC ×2 (09:09→13:22)
[2025-08-19] MEDS: OSCAL 500 + D 500 MG PO (09:10)
[2025-08-19] MEDS: QUESTRAN 4 GRAM PO (09:10)
[2025-08-19] MEDS: NOVOLOG FLEXPEN-LOW RESISTANCE 1 UNITS SC (09:10)
[2025-08-19] MEDS: REFRESH EYE DROPS (PF) 1 DROPS OPHTH (09:11)
--- NOTE | 2025-08-19 10:38 | W.PN.NEPH.PH ---
Today's Communication / Plan
-
Dialysis Thursday
Assessment/Plan
-
1F w/ESRD on HD, DM2, blindness due to diabetic retinopathy, HTN, presents from [facility] with elevated blood sugars. Patient has been experiencing increased thirst, and increased frequency of urination for the last several days. DKA
Impression
End-stage renal disease on hemodialysis MWF [facility] via right chest cath
Diabetic ketoacidosis
Sepsis= possible urinary source
Anemia of chronic disease
Metabolic acidosis
Diabetic retinopathy
Plan:
A/w DKA and UTI
Continue MWF
ID consulted for ESBL UTI
Epogen on dialysis
No acute need for dialysis today
-
-
Date of Service: August 19, 2025
CC / HPI / ROS
-
Chief Complaint:
Presents DKA
History of Present Illness:
ESRD
on Ertapenum for ESBL UTI
hb low 6.9, k normal
Review of Systems:
No chest pain or shortness of breath
no n/v
Labs
-
Labs:
WBC 6.2 10^3/uL (4.8-10.8) 08/19/25 06:02
RBC 2.74 10^6/uL (4.20-5.40) L 08/19/25 06:02
Hgb 8.1 g/dL (12.0-16.0) L 08/19/25 06:02
Hct 25.8 % (37.0-47.0) L 08/19/25 06:02
Plt Count 241 10^3/uL (130-400) 08/19/25 06:02
Sodium 131 mmol/L (135-145) L 08/19/25 06:02
Potassium 4.3 mmol/L (3.5-5.1) 08/19/25 06:02
Chloride 99 mmol/L (98-107) 08/19/25 06:02
Carbon Dioxide 26 mmol/L (22-30) 08/19/25 06:02
BUN 17 mg/dl (7-17) 08/19/25 06:02
Creatinine 2.1 mg/dL (0.6-1.0) H 08/19/25 06:02
eGFR 24.88 08/19/25 06:02
Glucose 206 mg/dl (70-99) H 08/19/25 06:02
Calcium 8.1 mg/dl (8.4-10.2) L 08/19/25 06:02
Albumin 3.7 g/dl (3.5-5.0) 08/14/25 08:41
Physical Exam
-
Vital Signs:
Vital Signs
Temp Pulse Resp BP Pulse Ox
98.4 F 72 16 196/76 98
08/19/25 08:03 08/19/25 08:03 08/19/25 08:03 08/19/25 08:03 08/19/25 08:03
Cardiovascular:: Regular rate and rhythm
Respiratory:: Bilateral: Coarse
Lung Excursion:: Normal
Abdomen:: Soft
Bowel Sounds:: Normal
Extremity Edema:: None: Bilateral:
Garcia Catheter: No
[2025-08-19 11:02] VITALS: BP 126/48
[2025-08-19 11:41] LABS: Glucose - Point of Care 106 mg/dl (70-99)
[2025-08-19] MEDS: NOVOLOG FLEXPEN-LOW RESISTANCE SC (13:22)
--- NOTE | 2025-08-19 13:28 | CM ---
entered order for discharge.
Pt is skilled at [facility] where she gets HD
Pt is also on IV antibiotics till 08/25/25 as per .
Confirmed with Rajani [phone] that patient will receive antibiotics with her HD sessions.( said NO PICC for HD patient )
Faxed HD flow sheet and [facility] as requested to fax [phone].
Spoke with dgt Cheryl [phone] . IMM explained to pt and dgt both agreed with discharge today to [facility].
Dgt requested ambulance Medical nec form completed .
Pt will receive IV antibiotic prior to discharge.
[facility]
report [phone] nsg

PLAN: Return to [facility] for HD.
--- NOTE | 2025-08-19 13:51 | W.DCSUMMARY ---
Discharge Summary
Discharge Data
Date of Admission: 08/14/25
Date of Discharge: 08/19/25
Total time spent discharging patient (in min): 40
-
Pending Results: No
Hospital Course
Attending physician on day of discharge:
Milly Liu MD
Admission diagnosis:
DKA
Discharge diagnosis:
ESBL E. coli UTI
Secondary diagnoses:
ESRD on HD
DM 2
HTN
Consultations:
Nephrology
ID
Procedures:
None
Hospital course:
70F with DM, ESRD presenting with hyperglycemia, found to be in DKA. Treated in ICU with DKA protocol, insulin drip, IVF, transition to subcu Lantus/lispro after gap closed x 2. Found to have UTI, culture showed ESBL E. coli, patient was started
on renally dosed ertapenem, SNF confirmed they would be able to give to her, EOT 08/25/2025. Additionally she had difficult to control blood pressure, her hydralazine and Coreg doses were adjusted for control.
Diagnostic Findings:
ESBL E. coli in urine culture
Blood culture no growth to date
CT head no acute intracranial abnormality
Physical exam on discharge:
Gen: NAD
HEENT: Cloudy lenses from blindness, MMM
Cards: RRR, no M/G/R
Resp: Lungs CTAB, no W/R/R
GI: soft, NT/ND/NABS
MSK: No edema, right chest wall HD catheter
Skin: warm and dry, no rash, ulcer or lesions
Heme: No LAD
Psych: Calm
Neuro: AAOx3
Discharge disposition:
SNF
Discharge Plan
-
Patient Disposition: [facility]/SNF
Discharge Diagnosis/Procedures: DKA, ESBL E. Coli UTI
Diet: Low Sodium
Activity: As tolerated
Referrals:
Sara Yan MD [Family Provider]
Priscilla Lares MD [Active, Pulmonary Medicine] - in six weeks
Brijesh Saldaña DO [Active, Nephrology]
Denilson Shea DO [Active, Infectious Diseases]
Additional Discharge Medication Instructions: EOT ertapenem 08/25/25
Prescriptions:
New
carvedilol 25 mg Tablet
25 mg PO BID Qty: 0 0RF
hydralazine 50 mg Tablet
75 mg PO TID Qty: 0 0RF
calcium carbonate-vitamin D3 [Oyster Shell Calcium-Vit D3] 500 mg-5 mcg (200 unit) Tablet
1 tab PO DAILY Qty: 0 0RF
Ertapenem [Invanz] 500 MG
0.9% Sodium Chloride [Nss] 50 ML
100 mls/hr IV Q24H
Ordered By: Milly Liu MD
Last Taken: 08/18/25 17:35 55 mls
Continued
Renal Caps 1 CAPSULE capsule
1 cap PO DAILY
epoetin angella 2,000 unit/mL Solution
2,000 unit SC TUTHSA
acetaminophen [Tylenol] 325 mg Tablet
650 mg PO Q6HPRN PRN (Reason: mild pain)
nifedipine 90 mg Tablet Extended Release
90 mg PO DAILY
haloperidol decanoate 100 mg/mL Solution
10 mg IM Q4W
Rx Instructions:
give on the 1st of each month
clopidogrel [Plavix] 75 mg Tablet
75 mg PO DAILY
quetiapine [Seroquel] 100 mg Tablet
100 mg PO HS
carboxymethylcellulose sodium 0.25 % Drops
1 drp BOTH EYES DAILY
bisacodyl [Dulcolax (bisacodyl)] 10 mg Suppository
10 mg MA DAILYPRN PRN (Reason: constipation)
atropine 1 % Drops
1 drp BOTH EYES DAILY
losartan 100 mg Tablet
100 mg PO DAILY
sorbitol 70 % Solution
30 ml PO DAILYPRN PRN (Reason: constipation)
loratadine [Claritin] 10 mg Tablet
10 mg PO Q48H
insulin lispro [Humalog KwikPen Insulin] 100 unit/mL Insulin Pen
5 sliding scale dose SC AC
calcium carbonate-vitamin D3 [Calcium 600 + D(3)] 600 mg-10 mcg (400 unit) Tablet
1 tab PO DAILY
magnesium oxide 400 mg magnesium Tablet
400 mg PO DAILY
albuterol-budesonide 90-80 mcg/actuation Hfa Aerosol Inhaler
2 inh INHALATION R Q6HPRN PRN (Reason: sob)
Rx Instructions:
as a single dose; may repeat up to 6 doses per day (12 inhalations)
cholestyramine 4 gram Powder In Packet
4 g PO BID
Pancrelipase Dr 3000-9500unit
1 cap PO DAILY
Changed
insulin glargine [Lantus Solostar U-100 Insulin] 100 UNITS/ML insulin pen
17 unit SC HS Qty: 0 0RF
Discontinued
carvedilol [Coreg] 12.5 mg Tablet
12.5 mg PO BID
hydralazine 50 mg Tablet
50 mg PO TID
Discharge Orders:
Discharge Patient (As Directed); Ordered 08/19/25
Ordered By: Milly Liu
Discharge Date and Time
Print Language: BRUNEIAN
[2025-08-19] MEDS: INVANZ 55 MG IV (15:21)
[2025-08-19] MEDS: HEPARIN SC (15:22)
[2025-08-19 15:32] VITALS: BP 128/50
[2025-08-19 16:32] VITALS: BP 128/50
== END 2025-08-19 16:45 | DRG 637 ==
LOC: 3 WEST ACU 12:05
PROVIDERS: Internal Medicine; Nurse Practitioner Primary Care; ADMITTING PHYSICIAN Internal Medicine; CONSULT PHYSICIAN Internal Medicine Infectious Disease; CONSULT PHYSICIAN Internal Medicine Nephrology; EMERGENCY PHYSICIAN Emergency Medicine; FAMILY PHYSICIAN Internal Medicine; OTHER PHYSICIAN Internal Medicine
PROC: 5A1D70Z Performance of Urinary Filtration, Intermittent, Less than 6 Hours Per Day (ICD-10-PCS; 2025-08-14)
PROC: 30233N1 Transfusion of Nonautologous Red Blood Cells into Peripheral Vein, Percutaneous Approach (ICD-10-PCS; 2025-08-17)
DX: E11.10 Type 2 diabetes mellitus with ketoacidosis without coma (principal); N18.6 End stage renal disease; N39.0 Urinary tract infection, site not specified; I12.0 Hypertensive chronic kidney disease with stage 5 chronic kidney disease or end stage renal disease; F03.93 Unspecified dementia, unspecified severity, with mood disturbance; J98.11 Atelectasis; Z16.12 Extended spectrum beta lactamase (ESBL) resistance; H54.8 Legal blindness, as defined in USA; E11.319 Type 2 diabetes mellitus with unspecified diabetic retinopathy without macular edema; E11.40 Type 2 diabetes mellitus with diabetic neuropathy, unspecified; Z99.2 Dependence on renal dialysis; E87.5 Hyperkalemia; E11.22 Type 2 diabetes mellitus with diabetic chronic kidney disease; D63.1 Anemia in chronic kidney disease; F31.9 Bipolar disorder, unspecified; Z11.52 Encounter for screening for COVID-19; Z79.02 Long term (current) use of antithrombotics/antiplatelets; Z79.4 Long term (current) use of insulin; Z79.899 Other long term (current) drug therapy
CPT/HCPCS: 70450; 71046; 80048; 80076; 81003; 81015; 82010; 82805; 82947; 82962; 83036; 83605; 84132; 84484; 85025; 85027; 86850; 86900; 86901; 86920; 87040; 87070; 87086; 87088; 87186; 87340; 87502; 87811; 93005; 96374; 96375; 96376; 97163; 99291; G0257; J1335; P9016; P9047; Q5106

== ENCOUNTER 2025-08-24 11:50 | Inpatient (IN) | payer MEDICARE, BC, SELFPAY ==
[2025-08-24] VITALS (13 sets, daily range): BP systolic 123–186; BP diastolic 51–131; BMI 25.2; BMI 24.5
[2025-08-24 07:54] LABS: Glucose - Point of Care 159 mg/dl (70-99)
[2025-08-24 08:15] LABS: Hematocrit 33.7 % (37.0-47.0); Hemoglobin 10.2 g/dL (12.0-16.0); Mean Corp Hgb Conc. 30.3 g/dL (33.0-37.0); Mean Corpuscular Volume 96.6 fL (81.0-99.0); Nucleated Red Blood Cells % 0 %; Platelet Count 291 10^3/uL (130-400); Red Cell Dist. Width 15.6 % (11.5-14.5)
--- NOTE | 2025-08-24 08:33 | ED.GENMED ---
History of Present Illness
General
Chief Complaint: Blood Sugar Problem
Time Seen by Provider: 08/24/25 08:12
History of Present Illness
History of Present Illness:
70-year-old female with history of end-stage renal disease on hemodialysis MWF, diabetes, blindness presenting to the emergency department for unresponsive episode. Patient was found at her facility this morning unresponsive. Blood glucose was
checked and it was in the 40s. Medics had administered 1 mg of glucagon with improvement of sugar. On arrival, patient noted to be hypothermic. She notes cough, headache, generalized back pain. Recent admission from 08/14 to 08/19 for DKA and
UTI. Patient's p.m. Lantus was changed during recent admission. Patient denies any chest pain. Denies any significant abdominal pain. Somewhat of a limited historian. Denies additional acute medical complaints
Phy Exam
Physical Exam
Physical Exam:
General: Well-appearing, no clinical signs of dehydration, nontoxic and in no acute distress
HEENT: protecting airway
Neck: appears supple
CV: Normal heart rate, regular rhythm
Resp: No accessory muscle use, no increased work of breathing, lungs clear to auscultation bilaterally
Abd: Soft and non-distended, no tenderness to palpation
Extremities: No deformities, no swelling. No focal tenderness to the back. Generalized tenderness to the lower lumbar musculature
Neuro: alert, disoriented to time
: deferred
Rectal: deferred
Psych: Normal affect
Skin: Intact
Course
Orders/Labs/Results
Orders:
Orders
08/24/25 07:57
CBC/With Diff [Complete Blood Count/With Diff] Urgent
Comprehensive Metabolic Panel Urgent
08/24/25 08:19
CR Chest - 2 Views Urgent
Comment:
Reason For Exam: cough
08/24/25 08:49
Electrocardiogram (*1) Urgent
Reason for Study: Fatigue / Weakness
EKG- Treatment ONCE
08/24/25 08:56
COVID-19 Antigen Urgent
Source: Nasal Swab
Lactic Acid Q4H
Comment: CANCEL 2nd LACTIC ACID IF 1st LACTIC ACID IS LESS THAN 2
Urinalysis Reflex To Culture Urgent
Date Specimen was Collected: 08/24/25
Time Specimen was Collected: 08:34
Urine Microscopic Reflex Cult Urgent
Blood Culture Q30M
TONY Source: Blood/Venous
Specimen Description:
Influenza A+B Rapid Molecular Urgent
TONY Source: Nasal Swab
Specimen Description:
Urine Culture Urgent
TONY Source: U
Specimen Description:
Date Specimen was Collected: 08/24/25
Time Specimen was Collected: 08:34
08/24/25 09:19
Blood Culture Q30M
TONY Source: Blood/Venous
Specimen Description:
08/24/25 09:40
Cefepime HCl [Maxipime] 2,000 mg IV NOW STA
08/24/25 09:41
Vancomycin [Vancocin] 1,500 mg 0.9% Sodium Chloride 500 ml [Nss] 500 ml IV NOW
08/24/25 10:10
0.9% Sodium Chloride 500 ml [Nss] 500 ml IV BOLUS
08/24/25 11:08
Bedside Glucose Monitoring-ONCE As Directed
08/24/25 11:23
Admit/Transfer Patient As Directed
Co-Sign Provider:
Level of Care: Inpatient admission
Assign to:: Medical/Surgical
Physician / Group: kai negrete
Diagnosis: Hypoglycemia
Reason for Hospitalization: Hypoglycemia
Expected length of stay greater than two midnights?: Yes
ELOS- Estimated Length of Stay in days: 2
I certify the patient meets the requirements for IP care: Yes
08/24/25 11:24
PRN Pain Medication Management As Directed
May give lesser potent ordered pain med per pt: Yes
preference::
Protocol:: Medication orders for pain may be administered in a
manner that supports deferring to patient preference
when the pt is:
- Requesting an ordered lesser potent pain medication.
Least to most potent pain medications are defined
as: acetaminophen < NSAID < tramadol < opioids
(morphine, oxycodone, hydromorphone).
- Requesting a lesser dose of the same medication IF
ORDERED.
- Requesting a less intrusive route of administration
if both routes are prescribed by the provider (PO <
IV).
08/24/25 11:27
Code Status As Directed
Resuscitation Status: Full Code
08/24/25 14:00
Meropenem [Merrem] 500 mg IV Q24H
Sterile Water [Sterile Water For Injection] 10 ml IV Q24H
Abnormal Lab Results
08/24/25 08/24/25 08/24/25
07:53 07:57 08:56
RBC 3.49 L 10^6/uL
(4.20-5.40)
Hgb 10.2 L D g/dL
(12.0-16.0)
Hct 33.7 L %
(37.0-47.0)
MCHC 30.3 L g/dL
(33.0-37.0)
RDW 15.6 H %
(11.5-14.5)
Immature Gran % 0.6 H %
(0-0.5)
BUN 35 H mg/dl
(7-17)
Creatinine 2.9 H mg/dL
(0.6-1.0)
Glucose 157 H mg/dl
(70-99)
Urine Ketones 1+ A
(Negative)
Ur Occult Blood Reflex 3+ A
(Negative)
Leukocyte Esterase Rfl 3+ A
(Negative)
Urine RBC 40-50 A /HPF
(0-2)
Urine WBC (Reflex) 80-90 A /HPF
(0-5)
Urine Bacteria (Reflex) Moderate A
(Negative)
Urine Glucose 1+ A
(Negative)
Urine Albumin (Reflex) 4+ A
(Neg - Trace)
POC Glucose 159 H mg/dl
(70-99)
08/24/25
11:33
RBC
Hgb
Hct
MCHC
RDW
Immature Gran %
BUN
Creatinine
Glucose
Urine Ketones
Ur Occult Blood Reflex
Leukocyte Esterase Rfl
Urine RBC
Urine WBC (Reflex)
Urine Bacteria (Reflex)
Urine Glucose
Urine Albumin (Reflex)
POC Glucose 130 H mg/dl
(70-99)
08/24/25 07:57
08/24/25 07:57
Vital Signs
Initial and Last Documented VS:
Initial Vital Signs
Temp Pulse Resp
90.1 F L 52 20
08/24/25 07:45 08/24/25 07:45 08/24/25 07:45
Last Documented Vital Signs
Temp Pulse Resp BP Pulse Ox
98.1 F 74 0 155/57 96
08/24/25 13:00 08/24/25 15:00 08/24/25 15:00 08/24/25 15:00 08/24/25 12:00
MDM/Problems Addressed
MDM/Problems Addressed:
70-year-old female with history of end-stage renal disease on hemodialysis MWF, diabetes, blindness presenting for unresponsive episode. Vital signs on arrival are significant for hypothermia.
On exam patient is resting comfortably, awake and alert after administered glucagon. Patient noted to have a sugar in the 40s prior to arrival. Unclear how long patient was unresponsive for, with likely reflexive hypothermia from unresponsive
hypoglycemic state. Patient notes some cough and headache. Possible infectious component, will send viral swabs and obtain chest x-ray imaging. No present focal neurologic deficits on exam. Patient placed on a Melvi hugger for hypothermia. Plan
for laboratory analysis including cultures. Patient has a chronic indwelling Garcia with recent UTI. Will change Garcia and send new urine specimen. Patient also recently admitted for DKA, with insulin regimen changed upon discharge. Possible
overcorrection of insulin, causing hypoglycemic state. Plan for continued close monitoring
09:30 -chest x-ray shows concern for new infiltrate. Consistent with patient's symptoms. However no leukocytosis, normal lactic acid. Blood pressure stable without concern for septic shock or severe sepsis. Holding fluids given patient's renal
status. Plan for broad-spectrum antibiotics and admission due to presenting hypoglycemia and hypothermia
*Pulse Oximetry
SaO2: 92
Oxygen Mode of Delivery: Room air
Patient hypoxic: no
*Critical Care Note
Total Time (30-74mins, 75-104mins- exclusive of procedures): Not Applicable
ED Attending Note
-
Portions of this chart may have been created with voice recognition software.� Occasional wrong word or��sound alike� substitutions may have occurred due to the inherent limitations of voice recognition software.
Discharge Plan
Departure
Patient Disposition: Admit
Date of Disposition: 08/24/25
Time of Disposition: 09:45
Presentation/result/management discussed w/ accepting MD/DO: Hospitalist
Patient with high blood pressure during this ER visit?: No
Condition: Fair
Discharge Problem:
Hypoglycemic episode in patient with diabetes mellitus, Hypothermia, Pneumonia
Interventions
Interventions:
*Risk Screen - Suicide Last Done: 08/24/25 08:04
*General Assessment Last Done: 08/24/25 08:04
*Neglect/Abuse Screening Last Done: 08/24/25 08:04
*ED- Fall Risk Assessment Last Done: 08/24/25 08:04
*ED COVID-19 Vaccine History Last Done: 08/24/25 08:04
*ED Influenza Vaccine History Last Done: 08/24/25 08:04
ED- Neurological Assessment Last Done: 08/24/25 08:04
[2025-08-24 08:48] LABS: ALT (SGPT) 13 U/L (0-35); AST (SGOT) 32 U/L (14-36); Albumin 3.6 g/dl (3.5-5.0); Alkaline Phosphatase 90 U/L (38-126); Blood Urea Nitrogen 35 mg/dl (7-17); Calcium 8.5 mg/dl (8.4-10.2); Carbon Dioxide 26 mmol/L (22-30); Chloride 104 mmol/L (98-107); Estimated Creatinine Clearance 15 ml/min; Glucose 157 mg/dl (70-99); Potassium 4.0 mmol/L (3.5-5.1); Sodium 136 mmol/L (135-145); eGFR 16.89
[2025-08-24 09:06] LABS: Total Protein 7.5 g/dl (6.3-8.2)
[2025-08-24 09:36] LABS: COVID-19 Antigen Negative (Negative)
[2025-08-24] MEDS: MAXIPIME 2000 MG IV (10:13)
[2025-08-24] MEDS: NSS 500 IV (10:14)
--- NOTE | 2025-08-24 11:11 | HPS.HSE ---
Family Physician
-
Family Physician: Sara Yan
Chief Complaint
-
Unresponsiveness
History of Present Illness
70-year-old female with a past medical history of ESRF on HD M/W/F, DM2, blindness due to diabetic retinopathy, and HTN, who presents from [facility] for unresponsiveness secondary to hypoglycemia. Per report, patient was found at her
fci unresponsive this morning. Blood sugar was noted to be in the 40s. EMS administered 1 mg of glucagon, with normalization of blood sugar. She was alert and awake when she arrived in the ER, with a blood sugar of 159. She was found to
be hypothermic in the ER, temperature 90.1. She was placed on a Melvi hugger. She reports not eating breakfast or dinner last night. Unclear to as why. She denies chest pain, denies shortness of breath. She does have intermittent abdominal pain,
and intermittent coughing, but denies both currently. Garcia was inserted in the ER. She is currently still on IV or ertapenem through 08/21/2025 for recent ESBL E. Coli UTI.
Medical History
Past Medical History
Past Medical History: Reports Other
Additional Past Medical History:
Diabetes with retinopathy, blindness, peripheral
neuropathy, ESRD on HD MWF, hypertension, hyperlipidemia,
history of intestinal obstruction, history of CVA, anemia secondary to
hyperparathyroidism. Frequent diarrhea, dementia, bipolar disorder
Past Surgical History: Reports Other
Additional Past Surgical History:
appendectomy, history of section, left knee surgery, spinal fusion
Social History
Tobacco: Non-smoker
Alcohol: None
Drug: None
Living: Fdc
Family History
Family History: CAD and Diabetes
Allergies / Home Medications
Allergies reflects when Allergies were last updated in [employer].
Home Medications with original date entered in [employer]
Allergy/Medication List:
Allergies
Allergy/AdvReac Type Severity Reaction Status Date / Time
aspirin Allergy Hives Verified 07/03/09 14:49
NSAIDS (Non-Steroidal Allergy aspirin-hiv Verified 07/03/09 14:00
Anti-Inflamma es
Penicillins Allergy Swelling/hives Verified 08/14/25 10:04
- has
tolerated
amoxicillin
per patient
Home Medications Table - record
�Medication �Instructions �Recorded �Confirmed
Pancrelipase Dr 3000-9500unit 1 cap PO DAILY Gastrointestinal 08/14/25 08/24/25
Issue
acetaminophen 325 mg tablet 650 mg PO Q6HPRN PRN mild 08/14/25 08/24/25
(Tylenol) pain/temp>100.4
albuterol 90 mcg-budesonide 80 2 inh inhalation R Q6HPRN PRN sob 08/14/25 08/24/25
mcg/actuation HFA aerosol inhaler
atropine 1 % eye drops 1 drp BOTH EYES DAILY Eye Condition 08/14/25 08/24/25
bisacodyl 10 mg rectal suppository 10 mg MT DAILYPRN PRN constipation 08/14/25 08/24/25
(Dulcolax (bisacodyl))
calcium 600 mg (as 1 tab PO DAILY Supplement 08/14/25 08/24/25
carbonate)-vitamin D3 10 mcg (400
unit) tablet (Calcium 600 + D(3))
carboxymethylcellulose sodium 0.25 1 drp BOTH EYES DAILY Eye Condition 08/14/25 08/24/25
% eye drops
cholestyramine 4 gram oral powder 4 g PO BID Gastrointestinal Issue 08/14/25 08/24/25
for suspension in a packet
clopidogrel 75 mg tablet (Plavix) 75 mg PO DAILY Blood Clot 08/14/25 08/24/25
Prevention/Tx
epoetin angella 2,000 unit/mL 2,[facility] 08/14/25 08/24/25
injection solution chronic disease
haloperidol decanoate 100 mg/mL 10 mg IM Q4W Mental Health/Anxiety 08/14/25 08/24/25
intramuscular solution
insulin lispro 100 unit/mL 0 - 12 sliding scale dose SC AC 08/14/25 08/24/25
subcutaneous pen (Humalog KwikPen Diabetes
(U-100) Insulin)
loratadine 10 mg tablet (Claritin) 10 mg PO Q48H Allergies 08/14/25 08/24/25
losartan 100 mg tablet 100 mg PO DAILY Blood Pressure 08/14/25 08/24/25
magnesium oxide 400 mg PO DAILY Supplement 08/14/25 08/24/25
nifedipine 90 mg tablet,extended 90 mg PO DAILY Blood Pressure 08/14/25 08/24/25
release
quetiapine 100 mg tablet (Seroquel) 100 mg PO HS Mental Health/Anxiety 08/14/25 08/24/25
sorbitol 70 % solution 30 ml PO DAILYPRN PRN constipation 08/14/25 08/24/25
Ertapenem [Invanz] 500 mg 100 mls/hr IV Q24H 08/19/25 08/24/25
hydralazine 50 mg tablet 75 mg (1.5 x 50 mg) PO TID #0 tabs 08/19/25 08/24/25
insulin glargine 100 unit/mL (3 17 unit (0.17 mL) SC HS Diabetes 08/19/25 08/24/25
mL) subcutaneous pen (Lantus #0 mL
Solostar U-100 Insulin)
carvedilol 12.5 mg tablet 25 mg PO BID 08/24/25 08/24/25
insulin lispro 100 unit/mL 5 unit SC AC 08/24/25 08/24/25
subcutaneous pen (Humalog KwikPen
(U-100) Insulin)
vitamin B complex-vitamin C-folic 1 tab PO DAILY 08/24/25 08/24/25
acid 0.8 mg tablet (Dialyvite 800)
Review of Systems
-
A 12 point ROS was completed and negative except as noted: Yes
Physical Exam
Vital Signs
Vital Signs
Temp Pulse Resp BP Pulse Ox
90.1 F L 52 13 123/51 95
08/24/25 08:00 08/24/25 10:00 08/24/25 10:00 08/24/25 10:00 08/24/25 09:00
Physical Exam
General: Well Developed, Well Nourished and No Apparent Distress
HEENT: NormoCephalic and Anicteric
Respiratory: Clear
Cardiac: S1/S2
GI: Soft, Non Tender and Non Distended
Musculoskeletal: No Clubbing and No Cyanosis
Skin: Warm and Dry
Neuro: Awake
Psych: Calm
Laboratory Results
-
08/24/25 07:57
08/24/25 07:57
Laboratory Results
Lactic Acid Cancelled 08/24/25 12:30
Total Bilirubin 0.5 mg/dl (0.2-1.3) 08/24/25 07:57
AST 32 U/L (14-36) 08/24/25 07:57
ALT 13 U/L (0-35) 08/24/25 07:57
Alkaline Phosphatase 90 U/L (38-126) 08/24/25 07:57
Data Reviewed
-
Lab Data: Labs Reviewed by me
Impression/Plan
-
HPI: 70-year-old female with a past medical history of ESRF on HD M/W/, DM2, blindness due to diabetic retinopathy, and HTN, who presents from [facility] for unresponsiveness secondary to hypoglycemia. Per report, patient was found at
her fci unresponsive this morning. Blood sugar was noted to be in the 40s. EMS administered 1 mg of glucagon, with normalization of blood sugar. She was alert and awake when she arrived in the ER, with a blood sugar of 159. She was
found to be hypothermic in the ER, temperature 90.1. She was placed on a Melvi hugger. She reports not eating breakfast or dinner last night. Unclear to as why. She denies chest pain, denies shortness of breath. She does have intermittent
abdominal pain, and intermittent coughing, but denies both currently. Garcia was inserted in the ER. She is currently still on IV or ertapenem through 08/21/2025 for recent ESBL E. Coli UTI.
#Unresponsiveness
#Type 2 diabetes
Recently discharged on 08/19/2025 for ESBL E. coli UTI and DKA
Due to hypoglycemia, resolved
Will hold Premeal insulin, administer sliding scale insulin, and reduce Lantus at 10 units at bedtime for now
#Recent ESBL E. coli UTI
Continue Merrem through 08/25/2025
#Hazy opacity within the right upper lobe, which could be pneumonia versus atelectasis
She denies shortness of breath
She is hypothermic due to hypoglycemia
Currently on Merrem for UTI
Will assess for further need of antibiotics afterwards
#End-stage renal failure requiring dialysis M/W/F
Consult nephrology for dialysis
#Essential hypertension
Continue Coreg at reduced dose, hydralazine 75 mg 3 times daily, nifedipine 90 mg daily, and losartan 100 mg daily
#Anemia of chronic kidney disease
Hemoglobin stable
#Bipolar disorder
Continue Seroquel, she also gets monthly Haldol injections
#Dementia
#Blindness from diabetic retinopathy
Resides at [facility]
DVT prophylaxis�subcu heparin
Full code
Total time spent to see the patient on the floor, examine the patient, review data and lab results, discuss treatment plan with patient, nursing staff around 77 minutes.
[2025-08-24 11:34] LABS: Glucose - Point of Care 130 mg/dl (70-99)
[2025-08-24] MEDS: VANCOCIN 530 MG IV (13:29)
[2025-08-24 13:39] LABS: Urine Character Slightly Cloudy (Clear)
--- NOTE | 2025-08-24 13:46 | CM ---
Addendum entered by Jahaira Mike 08/24/25 14:05:
Spoke with Eve at [facility] [phone] Eve spoke with regla Luna. Cheryl is considering LTC placement at [facility]
When ready for discharge
[facility]
Clinical Product Manager report to phone [phone] 3rd floor
fax [phone]
Original Note:
Chart reviewed and spoke with patient, left VM with regla Luna and spoke with Eve Admissions at [facility] at [phone]
She came from [facility] STR
Originally admitted at [facility] for STR from [facility] on 08/05
She was at [facility] 08/14-08/19 for DKA UTI
She returned back to [facility] for STR on 08/19
HD MWF and pt is blind
Per patient she lives in a 2 story home and has first floor set up with regla Luna [phone]
Patient states that she did not need any walker nor cane for ambulation at home
Patient states that her dtr Cheryl transports her to HD MWF?
Per Evah at [facility] nursing floor she needs assistance due to her blindness to pivot to chair
Eve at [facility] will call her parrishr Cheryl to see if patient is returning back to there for STR vs going home with HHC
Cm asked for Eve to give me a call back
PCP Dr. Sara Fisher
has RX plan
Pharmacy pt does not know the name of pharmacy will need to check with regla Luna
DCP is to be determined; home with HHC vs back to SNF
CM will continue to follow up for any dcp needs
[2025-08-24 14:21] LABS: Urine Red Blood Cell 40-50 /HPF (0-2); Urine Urothelial Cell 0-2 /LPF (FEW); Urine White Cell 80-90 /HPF (0-5)
--- NOTE | 2025-08-24 14:36 | W.CON.NEPH ---
Consultation
-
Date/Time Consultation Requested: August 24, 2025 at 1 PM
Date/Time Consultation Performed: August 24, 2025 at 2 PM
Requesting Provider: Terri Bragg
Performing Provider: Dr. Saldaña
Reason for Consultation: ESRD
Medical History
-
Chief Complaint: ESRD
History of Present Illness:
70-year-old female with history of end-stage renal disease on hemodialysis MWF, diabetes, blindness presenting to the emergency department for unresponsive episode. Patient was found at her facility this morning unresponsive. Blood glucose was
checked and it was in the 40s. Medics had administered 1 mg of glucagon with improvement of sugar. On arrival, patient noted to be hypothermic.
Recent admission couple weeks ago for DKA and UTI ESBL
Renal consultation for end-stage renal disease which she gets Thursday at [facility]
Discussed with ER nurse stated patient came with Garcia with 200 cc of white cloudy purulent urine. IV fluids given to the patient for hypotension
Past Medical History
/ESRD on HD, DM2, blindness due to diabetic retinopathy, HTN,
Social History
Tobacco: Non-Smoker
Alcohol: None
Family History
Family History: Not Pertinent
Allergies / Home Medications
Allergy/AdvReac Type Severity Reaction Status Date / Time
aspirin Allergy Hives Verified 07/03/09 14:49
NSAIDS (Non-Steroidal Allergy aspirin-hiv Verified 07/03/09 14:00
Anti-Inflamma es
Penicillins Allergy Swelling/hives Verified 08/14/25 10:04
- has
tolerated
amoxicillin
per patient
�Medication �Instructions �Recorded �Confirmed �Type
Pancrelipase 3000-9500unit 1 cap PO DAILY Gastrointestinal 08/14/25 08/24/25 History
Issue
acetaminophen 325 mg tablet 650 mg PO Q6HPRN PRN mild 08/14/25 08/24/25 History
(Tylenol) pain/temp>100.4
albuterol 90 mcg-budesonide 80 2 inh inhalation R Q6HPRN PRN sob 08/14/25 08/24/25 History
mcg/actuation HFA aerosol inhaler
atropine 1 % eye drops 1 drp BOTH EYES DAILY Eye Condition 08/14/25 08/24/25 History
bisacodyl 10 mg rectal suppository [address] DAILYPRN PRN constipation 08/14/25 08/24/25 History
(Dulcolax (bisacodyl))
calcium 600 mg (as 1 tab PO DAILY Supplement 08/14/25 08/24/25 History
carbonate)-vitamin D3 10 mcg (400
unit) tablet (Calcium 600 + D(3))
carboxymethylcellulose sodium 0.25 1 drp BOTH EYES DAILY Eye Condition 08/14/25 08/24/25 History
% eye drops
cholestyramine 4 gram oral powder 4 g PO BID Gastrointestinal Issue 08/14/25 08/24/25 History
for suspension in a packet
clopidogrel 75 mg tablet (Plavix) 75 mg PO DAILY Blood Clot 08/14/25 08/24/25 History
Prevention/Tx
epoetin angella 2,000 unit/mL 2,000 unit SC [facility] anemia of 08/14/25 08/24/25 History
injection solution chronic disease
haloperidol decanoate 100 mg/mL 10 mg IM Q4W Mental Health/Anxiety 08/14/25 08/24/25 History
intramuscular solution
insulin lispro 100 unit/mL 0 - 12 sliding scale dose SC AC 08/14/25 08/24/25 History
subcutaneous pen (Humalog KwikPen Diabetes
(U-100) Insulin)
loratadine 10 mg tablet (Claritin) 10 mg PO Q48H Allergies 08/14/25 08/24/25 History
losartan 100 mg tablet 100 mg PO DAILY Blood Pressure 08/14/25 08/24/25 History
magnesium oxide 400 mg PO DAILY Supplement 08/14/25 08/24/25 History
nifedipine 90 mg tablet,extended 90 mg PO DAILY Blood Pressure 08/14/25 08/24/25 History
release
quetiapine 100 mg tablet (Seroquel) 100 mg PO HS Mental Health/Anxiety 08/14/25 08/24/25 History
sorbitol 70 % solution 30 ml PO DAILYPRN PRN constipation 08/14/25 08/24/25 History
Ertapenem [Invanz] 500 mg 100 mls/hr IV Q24H 08/19/25 08/24/25 Rx
hydralazine 50 mg tablet 75 mg (1.5 x 50 mg) PO TID #0 tabs 08/19/25 08/24/25 Rx
insulin glargine 100 unit/mL (3 17 unit (0.17 mL) SC HS Diabetes 08/19/25 08/24/25 Rx
mL) subcutaneous pen (Lantus #0 mL
Solostar U-100 Insulin)
carvedilol 12.5 mg tablet 25 mg PO BID 08/24/25 08/24/25 History
insulin lispro 100 unit/mL 5 unit SC AC 08/24/25 08/24/25 History
subcutaneous pen (Humalog KwikPen
(U-100) Insulin)
vitamin B complex-vitamin C-folic 1 tab PO DAILY 08/24/25 08/24/25 History
acid 0.8 mg tablet (Dialyvite 800)
Review of Systems
-
Response but lethargic asking for food
Unable to obtain full review of systems at this time due to: Acuity
All other systems: Negative unless noted
Physical Exam
Vital Signs
Vital Signs
Temp Pulse Resp BP Pulse Ox
98.1 F 70 11 153/56 96
08/24/25 13:00 08/24/25 13:00 08/24/25 13:00 08/24/25 13:00 08/24/25 12:00
Lab Results
WBC 6.9 10^3/uL (4.8-10.8) 08/24/25 07:57
RBC 3.49 10^6/uL (4.20-5.40) L 08/24/25 07:57
Hgb 10.2 g/dL (12.0-16.0) L D 08/24/25 07:57
Hct 33.7 % (37.0-47.0) L 08/24/25 07:57
Plt Count 291 10^3/uL (130-400) D 08/24/25 07:57
Sodium 136 mmol/L (135-145) 08/24/25 07:57
Potassium 4.0 mmol/L (3.5-5.1) 08/24/25 07:57
Chloride 104 mmol/L (98-107) 08/24/25 07:57
Carbon Dioxide 26 mmol/L (22-30) 08/24/25 07:57
BUN 35 mg/dl (7-17) H 08/24/25 07:57
Creatinine 2.9 mg/dL (0.6-1.0) H 08/24/25 07:57
eGFR 16.89 08/24/25 07:57
Glucose 157 mg/dl (70-99) H 08/24/25 07:57
Calcium 8.5 mg/dl (8.4-10.2) 08/24/25 07:57
Albumin 3.6 g/dl (3.5-5.0) 08/24/25 07:57
Physical Exam
General no acute distress
HEENT n no JVD neck supple
lungs clear to auscultation bilateral
heart regular S1-S2 positive
abdomen soft nontender positive bowel sounds
extremities no edema pulses present bilateral
Neurologically nonfocal alert and oriented x 3
Skin no lesions no abrasions no petechiae
Psych normal affect no bizarre behavior
Data Reviewed
-
Radiology: Image Personally Visualized and interpreted
Labs: Labs Reviewed by me, Discussed with Nurse and Discussed with Patient
Assessment/Plan
-
Impression
End-stage renal disease on hemodialysis MWF [facility] via right chest cath
Unresponsive= rule out sepsis panculture/chronic indwelling Garcia purulent drainage in the ER
Questionable pneumonia on this admission
History of diabetic ketoacidosis
ESBL UTI July 2025
Anemia of chronic disease
Metabolic acidosis
Diabetic retinopathy
Plan:
Panculture
Broad-spectrum antibiotics renally dosed
Epogen on dialysis
Continue Thursday dialysis
See orders for tomorrow
No acute need for dialysis today
[2025-08-24] MEDS: MERREM 500 MG IV (15:41)
[2025-08-24] MEDS: STERILE WATER FOR INJECTION 10 ML IV (15:42)
[2025-08-24 17:13] LABS: Glucose - Point of Care 55 mg/dl (70-99)
[2025-08-24] MEDS: PLAVIX 75 MG PO (17:38)
[2025-08-24] MEDS: APRESOLINE 75 MG PO ×2 (17:40→22:50)
[2025-08-24 17:44] LABS: Glucose - Point of Care 102 mg/dl (70-99)
[2025-08-24 20:04] LABS: Glucose - Point of Care 303 mg/dl (70-99)
[2025-08-24] MEDS: HEPARIN 5000 UNITS SC (20:09)
[2025-08-24] MEDS: COREG 12.5 MG PO (20:15)
[2025-08-24] MEDS: QUESTRAN 4 GRAM PO (20:18)
[2025-08-24 20:50] LABS: Glucose - Point of Care 350 mg/dl (70-99)
[2025-08-24 21:57] LABS: Glucose - Point of Care 362 mg/dl (70-99)
[2025-08-24] MEDS: LANTUS 0.05 UNITS SC (22:54)
[2025-08-24] MEDS: SEROQUEL 100 MG PO (22:56)
[2025-08-25 03:01] LABS: Glucose - Point of Care 350 mg/dl (70-99)
[2025-08-25] MEDS: NOVOLOG FLEXPEN 9 UNITS SC (03:43)
[2025-08-25 06:00] VITALS: BMI 24.5
[2025-08-25 06:14] LABS: Glucose - Point of Care 131 mg/dl (70-99)
[2025-08-25 07:00] VITALS: BP 122/55
[2025-08-25 07:53] LABS: Glucose - Point of Care 83 mg/dl (70-99)
[2025-08-25] MEDS: APRESOLINE PO ×3 (08:00→21:44)
[2025-08-25 08:34] LABS: Blood Urea Nitrogen 46 mg/dl (7-17); Calcium 7.7 mg/dl (8.4-10.2); Carbon Dioxide 22 mmol/L (22-30); Chloride 109 mmol/L (98-107); Estimated Creatinine Clearance 13 ml/min; Glucose 70 mg/dl (70-99); Magnesium 2.2 mg/dl (1.6-2.3); Potassium 3.9 mmol/L (3.5-5.1); Sodium 135 mmol/L (135-145); eGFR 13.96
[2025-08-25] MEDS: RETACRIT 4000 UNITS IV (08:50)
--- NOTE | 2025-08-25 09:05 | W.PN.NEPH.HD ---
Assessment
-
Patient seen on dialysis
Systolic blood pressure 122 at current UF
Progress Note - Hemodialysis
-
Date of Service: August 25, 2025
Duration: 30 minutes and 3 hours
Potassium Bath: 3
Calcium Bath: 2.5
Opti-Dialyzer: 160
Ultrafiltration: Other (1 kg)
Blood Flow: 400
Dialysate Flow: 600
Heparin: None
EPO: 4000
--- NOTE | 2025-08-25 09:06 | W.PN.HOSP.TC ---
Today's Communication/Plan
-
see bold
Assessment / Plan
Assessment / Plan
HPI: 70-year-old female with a past medical history of ESRF on HD M/W/F, DM2, blindness due to diabetic retinopathy, and HTN, who presents from [facility] for unresponsiveness secondary to hypoglycemia. Per report, patient was found at
her fpc unresponsive this morning. Blood sugar was noted to be in the 40s. EMS administered 1 mg of glucagon, with normalization of blood sugar. She was alert and awake when she arrived in the ER, with a blood sugar of 159. She was
found to be hypothermic in the ER, temperature 90.1. She was placed on a Melvi hugger. She reports not eating breakfast or dinner last night. Unclear to as why. She denies chest pain, denies shortness of breath. She does have intermittent
abdominal pain, and intermittent coughing, but denies both currently. Garcia was inserted in the ER. She is currently still on IV or ertapenem through 08/21/2025 for recent ESBL E. Coli UTI.
#Unresponsiveness
#Type 2 diabetes
Recently discharged on 08/19/2025 for ESBL E. coli UTI and DKA
Due to hypoglycemia, resolved
Patient has labile blood sugars due to the fact that she needs to be fed her meals because she is blind
She also does not like to eat while undergoing dialysis
Continue insulin adjustments as per diabetes nurse practitioner, currently ordered Lantus 5 units at bedtime, NovoLog AC 3 times daily
#Recent ESBL E. coli UTI
Continue Merrem through 08/25/2025
#Hazy opacity within the right upper lobe, which could be pneumonia versus atelectasis
She denies shortness of breath or cough
She is hypothermic due to hypoglycemia
Currently on Merrem for UTI
#Hypothermia
From hypoglycemia, resolved
#End-stage renal failure requiring dialysis M/W/F
Continue dialysis as per nephrology
#Essential hypertension
Continue Coreg at reduced dose, hydralazine 75 mg 3 times daily, nifedipine 90 mg daily, and losartan 100 mg daily
#Anemia of chronic kidney disease
Monitor hemoglobin
#Bipolar disorder
Continue Seroquel, she also gets monthly Haldol injections
#Dementia
#Blindness from diabetic retinopathy
Resides at [facility]
DVT prophylaxis�subcu heparin
Full code
Total time spent to see the patient on the floor, examine the patient, review data and lab results, discuss treatment plan with patient, nursing staff around 42 minutes.
Physical Exam
General: No acute distress
HEENT: Normocephalic, Atraumatic, cloudy lenses from blindness
Respiratory: Clear to Auscultation bilaterally
Cardiac: Normal S1/S2, Regular Rate and Rhythm
Chest Wall: Tunneled HD catheter right chest wall
GI: Soft, Nontender, Nondistended, Normal Bowel Sounds
Extremities: No Clubbing, Cyanosis
Neuro: Nonfocal/Grossly Intact
Psych: Calm, Cooperative
Anticipated Discharge: 24 - 48 hours
Subjective/Interval History
-
Date of Service: August 25, 2025
Patient reports feeling well currently. She denies abdominal pain, denies vomiting. Denies chest pain, denies shortness of breath. No fever, no cough.
Objective Data
-
Labs:
Laboratory Results
08/25/25
07:30
WBC Pending
Hgb Pending
Hct Pending
Plt Count Pending
Sodium 135
Potassium 3.9
Chloride 109 H
Carbon Dioxide 22
BUN 46 H
Creatinine 3.4 H
Glucose 70
Calcium 7.7 L
Vital Signs:
Vital Signs
Temp Pulse Resp BP Pulse Ox
97.8 F 66 14 122/55 99
08/25/25 07:00 08/25/25 07:00 08/25/25 07:00 08/25/25 07:00 08/25/25 07:00
[2025-08-25 09:22] LABS: Hematocrit 23.2 % (37.0-47.0); Hemoglobin 7.2 g/dL (12.0-16.0); Mean Corp Hgb Conc. 31.0 g/dL (33.0-37.0); Mean Corpuscular Volume 94.7 fL (81.0-99.0); Nucleated Red Blood Cells % 0 %; Platelet Count 236 10^3/uL (130-400); Red Cell Dist. Width 15.6 % (11.5-14.5)
[2025-08-25 12:09] LABS: Glucose - Point of Care 42 mg/dl (70-99)
[2025-08-25 12:28] LABS: Glucose - Point of Care 53 mg/dl (70-99)
[2025-08-25 12:52] LABS: Glucose - Point of Care 75 mg/dl (70-99)
--- NOTE | 2025-08-25 13:31 | PN.DE.MGMTRT ---
Insulin Management
- -
08/25/2025: Diabetes Management Consult
Patient admitted from NH for unresponsive episode. Patient was found at her facility this morning unresponsive. Blood glucose was checked and it was in the 40s. Pt was recently admitted from 08/14 to 08/19 for DKA and UTI.
PMH: HTN, ESRD on HD (MWF), legal blindness, Asthma and IDDM, dementia, bipolar.
She was discharged back to her NH on Lantus 17 units @ HS with Humalog 5 units AC. A1C 9.5%, Cr 3.4 eGFR 13.96
Patient resting in bed on dialysis, offers no complaints, unable to discuss diabetes care plan 2/2 dementia.
Noted for 2 episodes of hypoglycemia yesterday and today. Pre-dinner glucose was 55, improved after txt. HS glucose up to 362, Pt received Lantus 5 units.
3AM glucose was 350, pt received 9 units of NovoLog , fasting glucose was 83 and further down to 42 by lunch time today, improved after txt.
Of note pt was NPO all day yesterday. Diet has been started this morning, no documentation of meal taken today.
Will hold off on starting insulin therapy given recurrent episodes of hypoglycemia.
Start with low dose Lantus 5 units and change schedule to AM when pt is on a diet, eating >50% of her meals. Start NovoLog 5 units AC when diet is tolerated.
Discussed with Nurse, instructed to give insulin ONLY if patient has been fed her meal, as pt requires assistance with all meals.
Will cont to follow and add insulin if necessary.
Diabetes History
- -
Type of Diabetes: 2 requiring insulin
Pre-Admission Diabetes Regimen
08/25/25
07:30
Creatinine 3.4 H
Insulin Pump Settings
IP Diabetes Regimen
08/24/25 08/24/25 08/24/25
17:11 17:41 20:03
Glucose
POC Glucose 55 L* 102 H 303 H
08/24/25 08/24/25 08/25/25
20:49 21:56 03:00
Glucose
POC Glucose 350 H 362 H 350 H
08/25/25 08/25/25 08/25/25
06:13 07:30 07:47
Glucose 70
POC Glucose 131 H 83
08/25/25 08/25/25 08/25/25
12:06 12:25 12:50
Glucose
POC Glucose 42 L* 53 L* 75
Patient Education
[2025-08-25] MEDS: QUESTRAN 4 GRAM PO ×2 (13:36→21:43)
[2025-08-25] MEDS: REFRESH CELLUVISC GEL 1 DROPS BOTH EYES (13:37)
[2025-08-25] MEDS: PROCARDIA XL (EXTENDED RELEASE) 90 MG PO (13:38)
[2025-08-25] MEDS: COREG 12.5 MG PO ×2 (13:38→20:09)
[2025-08-25] MEDS: HEPARIN 5000 UNITS SC ×2 (13:38→20:09)
[2025-08-25] MEDS: COZAAR 100 MG PO (13:38)
[2025-08-25] MEDS: ZENPEP DELAYED RELEASE CAPSULE 1 CAPSULE PO (13:38)
[2025-08-25] MEDS: PLAVIX 75 MG PO (13:38)
[2025-08-25] MEDS: CLARITIN 10 MG PO (13:38)
[2025-08-25] MEDS: ATROPINE SULFATE 1% DROPS 1 DROP BOTH EYES (13:39)
[2025-08-25] MEDS: STERILE WATER FOR INJECTION 10 ML IV (13:39)
[2025-08-25] MEDS: MERREM 500 MG IV (13:39)
--- NOTE | 2025-08-25 13:56 | CM ---
Patient to return to [facility] when stable.
[facility]
Report [phone] 3rd floor
[2025-08-25 15:00] VITALS: BP 137/70
[2025-08-25 15:03] VITALS: BMI 24.5
[2025-08-25 16:33] LABS: Glucose - Point of Care 320 mg/dl (70-99)
[2025-08-25] MEDS: NOVOLOG FLEXPEN-LOW RESISTANCE 4 UNITS SC (17:23)
[2025-08-25 19:42] VITALS: BP 115/48
[2025-08-25] MEDS: SEROQUEL 100 MG PO (20:27)
[2025-08-25 21:40] LABS: Glucose - Point of Care 313 mg/dl (70-99)
[2025-08-25] MEDS: NOVOLOG FLEXPEN 4 UNITS SC (22:15)
[2025-08-25 23:30] VITALS: BP 116/50
[2025-08-26 00:33] LABS: Glucose - Point of Care 251 mg/dl (70-99)
[2025-08-26 06:00] VITALS: BMI 23.9
[2025-08-26 07:00] VITALS: BP 160/61
[2025-08-26 07:16] LABS: Glucose - Point of Care 427 mg/dl (70-99)
--- NOTE | 2025-08-26 07:55 | W.PN.HOSP.TC ---
Today's Communication/Plan
-
see bold
Assessment / Plan
Assessment / Plan
HPI: 70-year-old female with a past medical history of ESRF on HD M/W/F, DM2, blindness due to diabetic retinopathy, and HTN, who presents from [facility] for unresponsiveness secondary to hypoglycemia. Per report, patient was found at
her senior care unresponsive this morning. Blood sugar was noted to be in the 40s. EMS administered 1 mg of glucagon, with normalization of blood sugar. She was alert and awake when she arrived in the ER, with a blood sugar of 159. She was
found to be hypothermic in the ER, temperature 90.1. She was placed on a Melvi hugger. She reports not eating breakfast or dinner last night. Unclear to as why. She denies chest pain, denies shortness of breath. She does have intermittent
abdominal pain, and intermittent coughing, but denies both currently. Garcia was inserted in the ER. She is currently still on IV or ertapenem through 08/21/2025 for recent ESBL E. Coli UTI.
#Unresponsiveness
#Type 2 diabetes
#Erratic blood sugars
Recently discharged on 08/19/2025 for ESBL E. coli UTI and DKA
Due to hypoglycemia, resolved
Patient has erratic blood sugars due to the fact that she needs to be fed her meals because she is blind. She also does not like to eat while undergoing dialysis
Seen by diabetes nurse practitioner, currently ordered Lantus 5 units at bedtime, NovoLog 5 units AC 3 times daily
Patient now hyperglycemic, increase Lantus to 10 units at bedtime, continue NovoLog 5 units AC 3 times daily
#Recent ESBL E. coli UTI
Finished merrem 08/25/2025
#Hazy opacity within the right upper lobe, which could be pneumonia versus atelectasis
She does report some shortness of breath and coughing
Start cefdinir 300 mg daily, doxycycline D1
Check COVID, flu, urine Legionella/strep antigens
#Hypothermia
From hypoglycemia, resolved
#End-stage renal failure requiring dialysis M/W/F
Continue dialysis as per nephrology
#Essential hypertension
Continue Coreg at reduced dose, hydralazine 75 mg 3 times daily, nifedipine 90 mg daily, and losartan 100 mg daily
#Anemia of chronic kidney disease
Monitor hemoglobin
#Bipolar disorder
Continue Seroquel, she also gets monthly Haldol injections
#Dementia
#Blindness from diabetic retinopathy
Resides at [facility]
DVT prophylaxis�subcu heparin
Full code
Total time spent to see the patient on the floor, examine the patient, review data and lab results, discuss treatment plan with patient, nursing staff around 51 minutes.
Physical Exam
General: No acute distress
HEENT: Normocephalic, Atraumatic, cloudy lenses from blindness
Respiratory: Clear to Auscultation bilaterally
Cardiac: Normal S1/S2, Regular Rate and Rhythm
Chest Wall: Tunneled HD catheter right chest wall
GI: Soft, Nontender, Nondistended, Normal Bowel Sounds
Extremities: No Clubbing, Cyanosis
Neuro: Nonfocal/Grossly Intact
Psych: Calm, Cooperative
Anticipated Discharge: 24 - 48 hours
Subjective/Interval History
-
Date of Service: August 26, 2025
Patient denies abdominal pain. She does report shortness of breath and coughing. No fever, no vomiting.
Objective Data
-
Labs:
Laboratory Results
08/26/25 08/26/25
06:00 07:18
WBC Pending
Hgb Pending
Hct Pending
Plt Count Pending
Sodium Pending
Potassium Pending
Chloride Pending
Carbon Dioxide Pending
BUN Pending
Creatinine Pending
Glucose Pending Pending
Calcium Pending
Vital Signs:
Vital Signs
Temp Pulse Resp BP Pulse Ox
99.0 F 72 16 116/50 95
08/25/25 23:30 08/25/25 23:30 08/25/25 23:30 08/25/25 23:30 08/25/25 23:30
I&O
08/25/25 08/26/25 08/27/25
06:59 06:59 06:59
Intake Total 820 / 820
Output Total 250 / 250
Balance 570 / 570
[2025-08-26] MEDS: ZENPEP DELAYED RELEASE CAPSULE 1 CAPSULE PO (08:05)
[2025-08-26] MEDS: HEPARIN 5000 UNITS SC ×2 (08:05→20:10)
[2025-08-26] MEDS: PLAVIX 75 MG PO (08:06)
[2025-08-26] MEDS: REFRESH CELLUVISC GEL 1 DROPS BOTH EYES (08:06)
[2025-08-26] MEDS: ATROPINE SULFATE 1% DROPS 1 DROP BOTH EYES (08:08)
[2025-08-26] MEDS: APRESOLINE 75 MG PO (08:16)
[2025-08-26] MEDS: COREG 12.5 MG PO ×2 (08:17→20:09)
[2025-08-26] MEDS: COZAAR 100 MG PO (08:17)
[2025-08-26] MEDS: PROCARDIA XL (EXTENDED RELEASE) 90 MG PO (08:17)
[2025-08-26] MEDS: QUESTRAN 4 GRAM PO ×2 (09:07→22:30)
[2025-08-26 09:27] LABS: Blood Urea Nitrogen 29 mg/dl (7-17); Calcium 7.5 mg/dl (8.4-10.2); Carbon Dioxide 21 mmol/L (22-30); Chloride 96 mmol/L (98-107); Estimated Creatinine Clearance 17 ml/min; Glucose 506 mg/dl (70-99); Potassium 5.1 mmol/L (3.5-5.1); Sodium 128 mmol/L (135-145); eGFR 19.26
[2025-08-26] MEDS: NOVOLOG FLEXPEN 5 UNITS SC ×3 (09:54→17:24)
[2025-08-26] MEDS: LANTUS 0.05 UNITS SC (09:55)
[2025-08-26] MEDS: NOVOLOG FLEXPEN-LOW RESISTANCE SC ×2 (09:55→13:24)
[2025-08-26] MEDS: NOVOLOG FLEXPEN 10 UNITS SC (09:57)
--- NOTE | 2025-08-26 11:34 | W.PN.NEPH.PH ---
Today's Communication / Plan
-
Next dialysis will be on Thursday
Assessment/Plan
-
Impression
End-stage renal disease on hemodialysis MWF [facility] via right chest cath
Unresponsive= rule out sepsis panculture/chronic indwelling Garcia purulent drainage in the ER
Questionable pneumonia on this admission
History of diabetic ketoacidosis
ESBL UTI July 2025
Staph epi bacteremia
Anemia of chronic disease
Metabolic acidosis
Diabetic retinopathy
Plan:
Panculture
Broad-spectrum antibiotics renally dosed
Epogen on dialysis
Continue Thursday dialysis
Blood sugars elevated to 506 this morning with noted associated pseudo hyponatremia
-
-
Date of Service: August 26, 2025
CC / HPI / ROS
-
Chief Complaint:
ESRD
History of Present Illness:
ESRD Thursday
Remains hyperglycemic with blood sugar of 506 this a.m.
Hemodynamically stable on current antihypertensive
Review of Systems:
Labs
-
Labs:
Sodium 128 mmol/L (135-145) L 08/26/25 08:41
Potassium 5.1 mmol/L (3.5-5.1) D 08/26/25 08:41
Chloride 96 mmol/L (98-107) L 08/26/25 08:41
Carbon Dioxide 21 mmol/L (22-30) L 08/26/25 08:41
BUN 29 mg/dl (7-17) H 08/26/25 08:41
Creatinine 2.6 mg/dL (0.6-1.0) H 08/26/25 08:41
eGFR 19.26 08/26/25 08:41
Glucose 506 mg/dl (70-99) H* 08/26/25 08:41
Glucose Cancelled 08/26/25 08:41
Calcium 7.5 mg/dl (8.4-10.2) L 08/26/25 08:41
Albumin 3.6 g/dl (3.5-5.0) 08/24/25 07:57
Physical Exam
-
Vital Signs:
Vital Signs
Temp Pulse Resp BP Pulse Ox
97.8 F 76 16 160/61 97
08/26/25 07:00 08/26/25 08:16 08/26/25 07:00 08/26/25 08:16 08/26/25 07:00
Cardiovascular:: Regular rate and rhythm
Respiratory:: Bilateral: Coarse
Lung Excursion:: Normal
Abdomen:: Soft
Bowel Sounds:: Normal
Extremity Edema:: None: Bilateral:
Garcia Catheter: No
[2025-08-26 12:10] LABS: Glucose - Point of Care 426 mg/dl (70-99)
[2025-08-26 12:57] LABS: Glucose 435 mg/dl (70-99)
[2025-08-26] MEDS: NOVOLOG FLEXPEN-LOW RESISTANCE 15 UNITS SC (13:23)
[2025-08-26 13:26] LABS: Hematocrit 27.0 % (37.0-47.0); Hemoglobin 8.7 g/dL (12.0-16.0); Mean Corp Hgb Conc. 32.2 g/dL (33.0-37.0); Mean Corpuscular Volume 93.8 fL (81.0-99.0); Platelet Count 263 10^3/uL (130-400); Red Cell Dist. Width 14.8 % (11.5-14.5)
[2025-08-26] MEDS: OMNICEF 300 MG PO (14:03)
[2025-08-26] MEDS: VIBRAMYCIN 100 MG PO ×2 (14:03→20:11)
[2025-08-26 15:00] VITALS: BP 120/48
[2025-08-26 15:44] LABS: Glucose - Point of Care 237 mg/dl (70-99)
[2025-08-26 16:58] LABS: Glucose - Point of Care 161 mg/dl (70-99)
[2025-08-26] MEDS: APRESOLINE PO ×2 (17:10→21:27)
[2025-08-26] MEDS: NOVOLOG FLEXPEN-LOW RESISTANCE 1 UNITS SC (17:24)
[2025-08-26 19:47] VITALS: BP 128/52
[2025-08-26] MEDS: SEROQUEL 100 MG PO (20:11)
[2025-08-26 20:53] LABS: Glucose - Point of Care 114 mg/dl (70-99)
[2025-08-26] MEDS: PERCOCET 5/325 2 TABLET PO (21:27)
[2025-08-26 23:49] VITALS: BP 131/58
[2025-08-27 06:00] VITALS: BMI 24.4
[2025-08-27 07:34] LABS: Hematocrit 23.8 % (37.0-47.0); Hemoglobin 7.6 g/dL (12.0-16.0); Mean Corp Hgb Conc. 31.9 g/dL (33.0-37.0); Mean Corpuscular Volume 92.6 fL (81.0-99.0); Platelet Count 261 10^3/uL (130-400); Red Cell Dist. Width 14.7 % (11.5-14.5)
[2025-08-27 07:47] LABS: Glucose - Point of Care 460 mg/dl (70-99)
[2025-08-27 08:00] VITALS: BP 123/66
[2025-08-27 08:18] LABS: Glucose - Point of Care 452 mg/dl (70-99)
--- NOTE | 2025-08-27 08:29 | W.PN.HOSP.TC ---
Today's Communication/Plan
-
see bold
Assessment / Plan
Assessment / Plan
HPI: 70-year-old female with a past medical history of ESRF on HD M/W/F, DM2, blindness due to diabetic retinopathy, and HTN, who presents from [facility] for unresponsiveness secondary to hypoglycemia. Per report, patient was found at
her [facility] unresponsive this morning. Blood sugar was noted to be in the 40s. EMS administered 1 mg of glucagon, with normalization of blood sugar. She was alert and awake when she arrived in the ER, with a blood sugar of 159. She was
found to be hypothermic in the ER, temperature 90.1. She was placed on a Melvi hugger. She reports not eating breakfast or dinner last night. Unclear to as why. She denies chest pain, denies shortness of breath. She does have intermittent
abdominal pain, and intermittent coughing, but denies both currently. Garcia was inserted in the ER. She is currently still on IV or ertapenem through 08/21/2025 for recent ESBL E. Coli UTI.
#Unresponsiveness
#Type 2 diabetes
#Erratic blood sugars
Recently discharged on 08/19/2025 for ESBL E. coli UTI and DKA
Due to hypoglycemia, resolved
Patient has erratic blood sugars due to the fact that she needs to be fed her meals because she is blind. She also does not like to eat while undergoing dialysis
Seen by diabetes nurse practitioner, currently ordered Lantus 5 units daily, NovoLog 5 units AC 3 times daily
Patient now hyperglycemic, increase Lantus to 10 units daily, continue NovoLog 5 units AC 3 times daily
#Recent ESBL E. coli UTI
Finished merrem 08/25/2025
#Hazy opacity within the right upper lobe, which could be pneumonia versus atelectasis
She does report some shortness of breath and coughing
Continue cefdinir 300 mg daily, doxycycline D2
Flu/covid neg, unable to check urine Legionella/strep antigens as she is on HD
#Hypothermia
From hypoglycemia, resolved
#End-stage renal failure requiring dialysis M/W/F
Continue dialysis as per nephrology
#Essential hypertension
Continue Coreg at reduced dose, hydralazine 75 mg 3 times daily, nifedipine 90 mg daily, and losartan 100 mg daily
#Anemia of chronic kidney disease
Monitor hemoglobin
#Bipolar disorder
Continue Seroquel, she also gets monthly Haldol injections
#Dementia
#Blindness from diabetic retinopathy
Resides at [facility]
DVT prophylaxis�subcu heparin
Full code
Total time spent to see the patient on the floor, examine the patient, review data and lab results, discuss treatment plan with patient, nursing staff around 50 minutes.
Physical Exam
General: No acute distress
HEENT: Normocephalic, Atraumatic, cloudy lenses from blindness
Respiratory: Clear to Auscultation bilaterally
Cardiac: Normal S1/S2, Regular Rate and Rhythm
Chest Wall: Tunneled HD catheter right chest wall
GI: Soft, Nontender, Nondistended, Normal Bowel Sounds
Extremities: No Clubbing, Cyanosis
Neuro: Nonfocal/Grossly Intact
Psych: Calm, Cooperative
Anticipated Discharge: 24 - 48 hours
Subjective/Interval History
-
Date of Service: August 27, 2025
Patient denies chest pain, denies abdominal pain. No fever, no vomiting.
Objective Data
-
Labs:
Laboratory Results
08/27/25 08/27/25
06:45 08:06
WBC 5.0
Hgb 7.6 L
Hct 23.8 L
Plt Count 261
Glucose Pending
Vital Signs:
Vital Signs
Temp Pulse Resp BP Pulse Ox
98.7 F 69 16 131/58 96
08/26/25 23:49 08/26/25 23:49 08/26/25 23:49 08/26/25 23:49 08/26/25 23:49
I&O
08/26/25 08/27/25 08/28/25
06:59 06:59 06:59
Intake Total 820 / 820
Output Total 250 / 250 150 / 150
Balance 570 / 570 -125 / -125
[2025-08-27] MEDS: VIBRAMYCIN 100 MG PO ×2 (08:34→20:20)
[2025-08-27] MEDS: COZAAR 100 MG PO (08:34)
[2025-08-27] MEDS: OMNICEF 300 MG PO (08:34)
[2025-08-27] MEDS: CLARITIN 10 MG PO (08:35)
[2025-08-27] MEDS: APRESOLINE PO ×3 (08:35→22:24)
[2025-08-27] MEDS: ZENPEP DELAYED RELEASE CAPSULE 1 CAPSULE PO (08:35)
[2025-08-27] MEDS: PLAVIX 75 MG PO (08:35)
[2025-08-27] MEDS: PROCARDIA XL (EXTENDED RELEASE) 90 MG PO (08:35)
[2025-08-27] MEDS: COREG 12.5 MG PO ×2 (08:36→20:19)
[2025-08-27] MEDS: HEPARIN 5000 UNITS SC ×2 (08:36→20:20)
[2025-08-27] MEDS: REFRESH CELLUVISC GEL 1 DROPS BOTH EYES (08:36)
[2025-08-27] MEDS: ATROPINE SULFATE 1% DROPS 1 DROP BOTH EYES (08:37)
[2025-08-27 08:53] LABS: Glucose 452 mg/dl (70-99)
[2025-08-27] MEDS: NOVOLOG FLEXPEN-LOW RESISTANCE SC ×4 (09:29→17:22)
[2025-08-27] MEDS: NOVOLOG FLEXPEN 12 UNITS SC (09:29)
[2025-08-27] MEDS: NOVOLOG FLEXPEN 5 UNITS SC ×3 (09:30→18:07)
[2025-08-27] MEDS: QUESTRAN 4 GRAM PO ×2 (09:30→21:58)
[2025-08-27] MEDS: LANTUS 0.05 UNITS SC ×2 (09:49→12:05)
[2025-08-27 12:00] LABS: Glucose - Point of Care 314 mg/dl (70-99)
[2025-08-27] MEDS: NOVOLOG FLEXPEN SC (13:17)
--- NOTE | 2025-08-27 13:57 | W.PN.NEPH.PH ---
Today's Communication / Plan
-
Dialysis tomorrow
Assessment/Plan
-
Impression
End-stage renal disease on hemodialysis MWF [facility] via right chest cath
Unresponsive= rule out sepsis panculture/chronic indwelling Garcia purulent drainage in the ER
Questionable pneumonia on this admission
History of diabetic ketoacidosis
ESBL UTI July 2025
Staph epi bacteremia
Anemia of chronic disease
Metabolic acidosis
Diabetic retinopathy
Plan:
Panculture
Remains on cefdinir and doxazosin for pneumonia
Epogen on dialysis
Continue Thursday dialysis
Blood sugars elevated again
-
-
Date of Service: August 27, 2025
CC / HPI / ROS
-
Chief Complaint:
ESRD
History of Present Illness:
ESRD Thursday
Remains hyperglycemic with blood sugar of 454 this a.m.
Hemodynamically stable on current antihypertensive
Review of Systems:
Labs
-
Labs:
WBC 5.0 10^3/uL (4.8-10.8) 08/27/25 06:45
RBC 2.57 10^6/uL (4.20-5.40) L 08/27/25 06:45
Hgb 7.6 g/dL (12.0-16.0) L 08/27/25 06:45
Hct 23.8 % (37.0-47.0) L 08/27/25 06:45
Plt Count 261 10^3/uL (130-400) 08/27/25 06:45
Sodium 128 mmol/L (135-145) L 08/26/25 08:41
Potassium 5.1 mmol/L (3.5-5.1) D 08/26/25 08:41
Chloride 96 mmol/L (98-107) L 08/26/25 08:41
Carbon Dioxide 21 mmol/L (22-30) L 08/26/25 08:41
BUN 29 mg/dl (7-17) H 08/26/25 08:41
Creatinine 2.6 mg/dL (0.6-1.0) H 08/26/25 08:41
eGFR 19.26 08/26/25 08:41
Glucose 452 mg/dl (70-99) H* 08/27/25 08:06
Calcium 7.5 mg/dl (8.4-10.2) L 08/26/25 08:41
Albumin 3.6 g/dl (3.5-5.0) 08/24/25 07:57
Physical Exam
-
Vital Signs:
Vital Signs
Temp Pulse Resp BP Pulse Ox
98.0 F 74 18 123/66 92
08/27/25 08:00 08/27/25 08:35 08/27/25 08:00 08/27/25 08:35 08/27/25 08:00
Cardiovascular:: Regular rate and rhythm
Respiratory:: Bilateral: Coarse
Lung Excursion:: Normal
Abdomen:: Soft
Bowel Sounds:: Normal
Extremity Edema:: None: Bilateral:
Garcia Catheter: No
[2025-08-27 14:49] LABS: Glucose - Point of Care 119 mg/dl (70-99)
[2025-08-27 15:00] VITALS: BP 137/60
[2025-08-27 17:17] LABS: Glucose - Point of Care 75 mg/dl (70-99)
[2025-08-27 17:34] LABS: Glucose - Point of Care 77 mg/dl (70-99)
[2025-08-27 18:14] LABS: Glucose - Point of Care 91 mg/dl (70-99)
[2025-08-27 20:15] VITALS: BP 114/46
[2025-08-27] MEDS: PERCOCET 5/325 2 TABLET PO (20:19)
[2025-08-27] MEDS: SEROQUEL 100 MG PO (20:19)
[2025-08-27 21:20] LABS: Glucose - Point of Care 86 mg/dl (70-99)
[2025-08-27 23:29] VITALS: BP 141/58
[2025-08-28 02:13] LABS: Glucose - Point of Care 89 mg/dl (70-99)
[2025-08-28 02:27] VITALS: BP 154/60
[2025-08-28] MEDS: MAALOX 30 ML PO (03:11)
--- NOTE | 2025-08-28 03:50 | W.PN.UPDATE ---
Addendum entered and electronically signed by REGINA Montez 08/28/25 04:15:
Please disregard note below. Not applicable to this patient.
Original Note:
Update Note
Progress Note Update
Called to patient room because she was found sitting on the floor at the bottom of her bed. She said she 'rolled over and before she knew it I was on the floor'. Denies head injury. Asked her to notify her nurse if she starts having pain anywhere.
She was in agreement.
[2025-08-28 06:00] VITALS: BMI 24.7
[2025-08-28 07:18] LABS: Hematocrit 22.7 % (37.0-47.0); Hemoglobin 7.8 g/dL (12.0-16.0); Mean Corp Hgb Conc. 34.4 g/dL (33.0-37.0); Mean Corpuscular Volume 89.0 fL (81.0-99.0); Platelet Count 227 10^3/uL (130-400); Red Cell Dist. Width 14.1 % (11.5-14.5)
--- NOTE | 2025-08-28 07:30 | PN.DE.MGMTRT ---
Addendum entered and electronically signed by REGINA Browne 08/28/25 13:29:
Pre-lunch glucose is 126. instructed nurse to give 3 units NovoLog.
Will closely monitor glucose trend and adjust insulin dose if necessary
Original Note:
Insulin Management
- -
08/28/2025: Diabetes Management Follow up
Patient admitted from NH for unresponsive episode. Patient was found at her facility this morning unresponsive. Blood glucose was checked and it was in the 40s. Pt was recently admitted from 08/14 to 08/19 for DKA and UTI.
PMH: HTN, ESRD on HD (MWF), legal blindness, Asthma and IDDM, dementia, bipolar.
She was discharged back to her NH on Lantus 17 units @ HS with Humalog 5 units AC. A1C 9.5%, Cr 3.4 eGFR 13.96
Patient resting in bed on dialysis, unable to discuss diabetes care plan 2/2 dementia.
08/27 fasting glucose was 460, pt received 17 units of NovoLog and 10 units of Lantus, glucose trended down to low normal all day 75-89.
08/28 fasting 118 V, 130 POC, will reduce NovoLog to 3 units AC and reduced her Lantus dose to 7 units in AM, 1st dose now.
Discussed with Nurse, instructed to give insulin ONLY if patient has been fed her meal, as pt requires assistance with all meals.
Will cont to follow and add insulin if necessary.
Diabetes History
- -
Type of Diabetes: 2 requiring insulin
Pre-Admission Diabetes Regimen
Insulin Pump Settings
IP Diabetes Regimen
08/27/25 08/27/25 08/27/25
07:46 08:06 08:13
Glucose 452 H*
POC Glucose 460 H* 452 H*
08/27/25 08/27/25 08/27/25
11:57 14:47 17:16
Glucose
POC Glucose 314 H 119 H 75
08/27/25 08/27/25 08/27/25
17:32 18:03 21:18
Glucose
POC Glucose 77 91 86
08/28/25
02:11
Glucose
POC Glucose 89
Patient Education
[2025-08-28 07:35] LABS: Glucose - Point of Care 130 mg/dl (70-99)
[2025-08-28] MEDS: NOVOLOG FLEXPEN-LOW RESISTANCE SC ×3 (07:37→17:10)
[2025-08-28 07:55] LABS: Blood Urea Nitrogen 69 mg/dl (7-17); Calcium 7.7 mg/dl (8.4-10.2); Carbon Dioxide 21 mmol/L (22-30); Chloride 96 mmol/L (98-107); Estimated Creatinine Clearance 9 ml/min; Glucose 117 mg/dl (70-99); Potassium 5.7 mmol/L (3.5-5.1); Sodium 128 mmol/L (135-145); eGFR 9.23
[2025-08-28 08:00] VITALS: BP 192/85
[2025-08-28] MEDS: NOVOLOG FLEXPEN SC ×3 (08:37→17:20)
[2025-08-28] MEDS: RETACRIT 10000 UNITS IV (08:38)
[2025-08-28] MEDS: COREG PO (08:40)
[2025-08-28] MEDS: APRESOLINE PO ×2 (08:40→17:11)
[2025-08-28] MEDS: HEPARIN 5000 UNITS SC ×2 (08:41→21:22)
[2025-08-28] MEDS: ZENPEP DELAYED RELEASE CAPSULE 1 CAPSULE PO (08:41)
[2025-08-28] MEDS: REFRESH CELLUVISC GEL 1 DROPS BOTH EYES (08:42)
[2025-08-28] MEDS: PLAVIX 75 MG PO (08:42)
[2025-08-28] MEDS: OMNICEF 300 MG PO (08:42)
[2025-08-28] MEDS: VIBRAMYCIN 100 MG PO ×2 (08:42→21:21)
[2025-08-28] MEDS: ATROPINE SULFATE 1% DROPS 1 DROP BOTH EYES (08:44)
--- NOTE | 2025-08-28 09:44 | W.PN.HOSP.TC ---
Today's Communication/Plan
-
labile DM , adjust insulin Tx
DC planning
Assessment / Plan
Assessment / Plan
Physical Exam
General: No acute distress
HEENT: Normocephalic, Atraumatic, legally blind
Respiratory: Clear to Auscultation bilaterally
Cardiac: Normal S1/S2, Regular Rate and Rhythm
Chest Wall: Tunneled HD catheter right chest wall
GI: Soft, Nontender, Nondistended, Normal Bowel Sounds
Extremities: No Clubbing, Cyanosis
Neuro: Nonfocal/Grossly Intact
Psych: Calm, Cooperative
HPI: 70-year-old female with a past medical history of ESRF on HD M/W/, DM2, blindness due to diabetic retinopathy, and HTN, who presents from [facility] for unresponsiveness secondary to hypoglycemia. Per report, [facility]. Blood sugar was noted to be in the 40s. EMS administered 1 mg of glucagon, with normalization of blood sugar. She was alert and awake when she arrived in the ER, with a blood sugar of 159. She was
found to be hypothermic in the ER, temperature 90.1. She was placed on a Melvi hugger. She reports not eating breakfast or dinner last night. Unclear to as why. She denies chest pain, denies shortness of breath. She does have intermittent
abdominal pain, and intermittent coughing, but denies both currently. Garcia was inserted in the ER. She is currently still on IV or ertapenem through 08/21/2025 for recent ESBL E. Coli UTI.
#Unresponsiveness
#Type 2 diabetes
#Erratic blood sugars
Recently discharged on 08/19/2025 for ESBL E. coli UTI and DKA
Due to hypoglycemia, resolved
Patient has labile DM
Seen by diabetes nurse practitioner, currently ordered Lantus daily, NovoLog 5 units AC 3 times daily but led to low BS, will hold standing insulin for now
#Recent ESBL E. coli UTI
Finished Merrem 08/25/2025
#Hazy opacity within the right upper lobe, which could be pneumonia versus atelectasis
She does report some shortness of breath and coughing
Continue cefdinir 300 mg daily, doxycycline D2 for total of 5 days . No fever or leukocytosis
Flu/covid neg, unable to check urine Legionella/strep antigens as she is on HD
#Hyponatremia
Hyperkalemia, correct through HD
Metabolic acidosis
End-stage renal failure requiring dialysis M/W/F
Continue dialysis as per nephrology
#Essential hypertension
Continue Coreg at reduced dose, hydralazine 75 mg 3 times daily, nifedipine 90 mg daily, and losartan 100 mg daily
#Anemia of chronic kidney disease
Monitor hemoglobin
#Bipolar disorder
Continue Seroquel, she also gets monthly Haldol injections
#Dementia
Mood is cooperative
#Blindness from diabetic retinopathy
Resides at [facility]
DVT prophylaxis�subcu heparin
Full code
Total time spent to see the patient on the floor, examine the patient, review data and lab results, discuss treatment plan with patient, nursing staff around 55 minutes.
Anticipated Discharge: 24 - 48 hours
Subjective/Interval History
-
Date of Service: August 28, 2025
No chest pain
No sob
No abdominal pain
Objective Data
-
Labs:
Laboratory Results
08/28/25
06:39
WBC 5.2
Hgb 7.8 L
Hct 22.7 L
Plt Count 227
Sodium 128 L
Potassium 5.7 H
Chloride 96 L
Carbon Dioxide 21 L
BUN 69 H
Creatinine 4.8 H*
Glucose 117 H
Calcium 7.7 L
Vital Signs:
Vital Signs
Temp Pulse Resp BP Pulse Ox
98.0 F 73 16 192/85 93
08/28/25 08:00 08/28/25 08:00 08/28/25 08:00 08/28/25 08:00 08/28/25 02:27
I&O
08/27/25 08/28/25 08/29/25
06:59 06:59 06:59
Intake Total 960 / 960
Output Total 150 / 150 480 / 480
Balance -125 / -125 480 / 480
[2025-08-28 10:35] LABS: Glucose - Point of Care 183 mg/dl (70-99)
[2025-08-28] MEDS: LANTUS 0.07 UNITS SC (10:42)
[2025-08-28] MEDS: NOVOLOG FLEXPEN 3 UNITS SC ×2 (10:42→13:29)
[2025-08-28] MEDS: HEPARIN 3400 UNITS INTRACATH (11:08)
[2025-08-28] MEDS: PROCARDIA XL (EXTENDED RELEASE) 90 MG PO (11:37)
[2025-08-28] MEDS: COZAAR 100 MG PO (11:37)
[2025-08-28] MEDS: APRESOLINE 75 MG PO ×2 (11:38→21:21)
[2025-08-28] MEDS: COREG 12.5 MG PO ×2 (11:42→21:21)
--- NOTE | 2025-08-28 11:42 | CM ---
manager ent met with patient this am and plan remains for patient to return to [facility] when stable. Patient is receiving HD today. No Auth required to return to half-way.
[facility]
Report [phone] 3rd floor
[2025-08-28 12:02] LABS: Glucose - Point of Care 126 mg/dl (70-99)
[2025-08-28 12:15] VITALS: BP 192/79
[2025-08-28] MEDS: QUESTRAN 4 GRAM PO (12:58)
[2025-08-28] MEDS: TYLENOL 650 MG PO (14:13)
--- NOTE | 2025-08-28 14:54 | W.PN.NEPH.HD ---
Assessment
-
Pt seen on HD. no complaints. VSS, access ok
abx for PNA
Progress Note - Hemodialysis
-
Date of Service: August 28, 2025
Duration: 30 minutes and 3 hours
Potassium Bath: 3
Calcium Bath: 2.5
Opti-Dialyzer: 160
Ultrafiltration: Other (2kg)
Blood Flow: 400
Dialysate Flow: 600
Heparin: 0
EPO: 95966 units
[2025-08-28 16:00] VITALS: BP 111/54
[2025-08-28 16:00] LABS: Glucose - Point of Care 55 mg/dl (70-99)
[2025-08-28 16:18] LABS: Glucose - Point of Care 54 mg/dl (70-99)
[2025-08-28 16:27] LABS: Glucose - Point of Care 55 mg/dl (70-99)
[2025-08-28] MEDS: DEXTROSE 50% SYRINGE 12.5 GRAMS IV (16:27)
[2025-08-28 16:57] LABS: Glucose - Point of Care 128 mg/dl (70-99)
[2025-08-28 20:25] LABS: Glucose - Point of Care 175 mg/dl (70-99)
[2025-08-28 21:20] VITALS: BP 153/61
[2025-08-28] MEDS: SEROQUEL 100 MG PO (21:21)
[2025-08-28 22:37] LABS: Glucose - Point of Care 256 mg/dl (70-99)
[2025-08-28] MEDS: QUESTRAN PO (22:59)
[2025-08-28 23:22] VITALS: BP 139/62
[2025-08-29 04:02] LABS: Glucose - Point of Care 491 mg/dl (70-99)
[2025-08-29 04:20] VITALS: BMI 24.8
[2025-08-29 04:49] LABS: Glucose 524 mg/dl (70-99)
[2025-08-29] MEDS: NOVOLOG FLEXPEN 10 UNITS SC (05:20)
--- NOTE | 2025-08-29 05:24 | PTCARENOTE ---
Pt's blood sugar checked this AM at 0400 per hypoglycemic protocol. BS on accucheck machine reading 491; venous glucose ordered by this RN per protocol. Venous glucose result at 0500 was 524; GIANCARLO Muñiz notified and order placed to give pt 10 units
of novolog stat. Novolog provided to pt per order, will recheck BS in 2 hours per protocol. Pt remains asymptomatic.
[2025-08-29 08:00] VITALS: BP 195/78
[2025-08-29 08:16] LABS: Glucose - Point of Care 268 mg/dl (70-99)
[2025-08-29] MEDS: PROCARDIA XL (EXTENDED RELEASE) 90 MG PO (08:19)
[2025-08-29] MEDS: ZENPEP DELAYED RELEASE CAPSULE 1 CAPSULE PO (08:19)
[2025-08-29] MEDS: APRESOLINE 75 MG PO ×2 (08:20→21:26)
[2025-08-29] MEDS: HEPARIN 5000 UNITS SC ×2 (08:21→19:32)
[2025-08-29] MEDS: COZAAR 100 MG PO (08:23)
[2025-08-29] MEDS: VIBRAMYCIN 100 MG PO ×2 (08:23→19:31)
[2025-08-29] MEDS: OMNICEF 300 MG PO (08:23)
[2025-08-29] MEDS: COREG 12.5 MG PO ×2 (08:23→19:32)
[2025-08-29] MEDS: PLAVIX 75 MG PO (08:23)
[2025-08-29] MEDS: CLARITIN 10 MG PO (08:23)
[2025-08-29] MEDS: REFRESH CELLUVISC GEL 1 DROPS BOTH EYES (08:24)
[2025-08-29] MEDS: QUESTRAN 4 GRAM PO (08:24)
[2025-08-29] MEDS: ATROPINE SULFATE 1% DROPS 1 DROP BOTH EYES (08:25)
--- NOTE | 2025-08-29 08:40 | GLUCOSE ---
SITUATION:
Glucose this morning was 268, per Dr. France, she said to wait until the life skills educator came to gie the pt any insulin.
BACKGROUND:
ASSESSMENT:
RECOMMENDATION:
[2025-08-29] MEDS: NOVOLOG FLEXPEN-LOW RESISTANCE 3 UNITS SC (09:02)
[2025-08-29] MEDS: NOVOLOG FLEXPEN 3 UNITS SC ×3 (09:02→17:39)
[2025-08-29] MEDS: LANTUS 0.07 UNITS SC (09:03)
--- NOTE | 2025-08-29 09:13 | PN.DE.MGMTRT ---
Insulin Management
- -
08/29/2025: Diabetes Management Follow up
Patient admitted from NH was found at her facility this morning unresponsive. Blood glucose was checked and it was in the 40s. Pt was recently admitted from 08/14 to 08/19 for DKA and UTI.
PMH: HTN, ESRD on HD (MWF), legal blindness, Asthma and IDDM, dementia, bipolar.
She was discharged back to her NH on Lantus 17 units @ HS with Humalog 5 units AC. A1C 9.5%, Cr 3.4 eGFR 13.96
Patient resting in bed on dialysis, unable to discuss diabetes care plan 2/2 dementia.
08/28 fasting glucose was 183, pt received 3 units of NovoLog and 7 units of Lantus, glucose trended down to low 55 @15:56. Received no insulin with dinner. HS glucose 256.
08/29 Fasting glucose 524 @ 4:15, received 10 units novolog. Glucose @ 8:15 268. Patient received 3 units standing novolog + 3 units corrective and 7 units lantus.
Discussed with Nurse, instructed to give insulin ONLY if patient has been fed her meal, as pt requires assistance with all meals.
Discussed with Dr. France, agree with target glucose ~ 200 to avoid hypoglycemia in patient with multiple comorbidities.
Will cont to follow and add insulin if necessary.
Diabetes History
- -
Type of Diabetes: 2 requiring insulin
Pre-Admission Diabetes Regimen
Insulin Pump Settings
IP Diabetes Regimen
08/28/25 08/28/25 08/28/25
10:34 12:01 15:56
Glucose
POC Glucose 183 H 126 H 55 L*
08/28/25 08/28/25 08/28/25
16:15 16:26 16:56
Glucose
POC Glucose 54 L* 55 L* 128 H
08/28/25 08/28/25 08/29/25
20:23 22:36 04:00
Glucose
POC Glucose 175 H 256 H 491 H*
08/29/25 08/29/25
04:15 08:15
Glucose 524 H*
POC Glucose 268 H
Meal type: Dinner
Meal type: Breakfast
Amount consumed: 100%
Amount consumed: 50%
Patient Education
--- NOTE | 2025-08-29 09:34 | W.PN.HOSP.TC ---
Addendum entered and electronically signed by Aaron France MD 08/29/25 13:09:
Addendum:
---Infection control would like to remove Garcia and rely on straight cath protocol to avoid infections, will try that, not sure if pt will agree
--updated daughter about DM plan.
End
Original Note:
Today's Communication/Plan
-
Will keep Blood glucose on higher level to avoid hypoglycemia. Appreciate DM DATA WAREHOUSING ARCHITECT help
hope to dc in next 24 hours
Assessment / Plan
Assessment / Plan
Physical Exam
General: No acute distress
HEENT: Normocephalic, Atraumatic, legally blind
Respiratory: Clear to Auscultation bilaterally
Cardiac: Normal S1/S2, Regular Rate and Rhythm
Chest Wall: Tunneled HD catheter right chest wall
GI: Soft, Nontender, Nondistended, Normal Bowel Sounds
Extremities: No Clubbing, Cyanosis
Neuro: Nonfocal/Grossly Intact
Psych: Calm, Cooperative
HPI: 70-year-old female with a past medical history of ESRF on HD //, DM2, blindness due to diabetic retinopathy, and HTN, who presents from [facility] for unresponsiveness secondary to hypoglycemia. Per report, [facility]. Blood sugar was noted to be in the 40s. EMS administered 1 mg of glucagon, with normalization of blood sugar. She was alert and awake when she arrived in the ER, with a blood sugar of 159. She was
found to be hypothermic in the ER, temperature 90.1. She was placed on a Melvi hugger. She reports not eating breakfast or dinner last night. Unclear to as why. She denies chest pain, denies shortness of breath. She does have intermittent
abdominal pain, and intermittent coughing, but denies both currently. Garcia was inserted in the ER. She is currently still on IV or ertapenem through 08/21/2025 for recent ESBL E. Coli UTI.
#Symptomatic hypoglycemia
Unresponsiveness
Labile Diabetes
Recently discharged on 08/19/2025 for ESBL E. coli UTI and DKA
Seen by diabetes nurse practitioner, currently ordered Lantus daily, NovoLog 3 units AC 3 times daily . Will have to accept higher than normal BS levels to avoid severe hypoglycemia
#Recent ESBL E. coli UTI
Finished Merrem 08/25/2025
#Hazy opacity within the right upper lobe, which could be pneumonia versus atelectasis
She does report some shortness of breath and coughing
Continue cefdinir 300 mg daily, doxycycline D2 for total of 5 days . No fever or leukocytosis
Flu/covid neg, unable to check urine Legionella/strep antigens as she is on HD
#Hyponatremia
Hyperkalemia, correct through HD
Metabolic acidosis
End-stage renal failure requiring dialysis M/W/F
Continue dialysis as per nephrology
#Essential hypertension
Continue Coreg at reduced dose, hydralazine 75 mg 3 times daily, nifedipine 90 mg daily, and losartan 100 mg daily
#Anemia of chronic kidney disease
Monitored hemoglobin
#Bipolar disorder
Continue Seroquel, she also gets monthly Haldol injections
#Dementia
Mood is cooperative
#Blindness from diabetic retinopathy
Resides at [facility]
DVT prophylaxis�subcu heparin
Full code
Total time spent to see the patient on the floor, examine the patient, review data and lab results, discuss treatment plan with patient, nursing staff around 55 minutes.
Anticipated Discharge: Within 24 hours
Subjective/Interval History
-
Date of Service: August 29, 2025
No chest pain
No sob
No abdominal pain
Objective Data
-
Labs:
Laboratory Results
08/29/25
04:15
Glucose 524 H*
Vital Signs:
Vital Signs
Temp Pulse Resp BP Pulse Ox
99 F 71 20 195/78 96
08/29/25 08:00 08/29/25 08:00 08/29/25 08:00 08/29/25 08:00 08/29/25 08:00
I&O
08/28/25 08/29/25 08/30/25
06:59 06:59 06:59
Intake Total 960 / 960 900 / 900
Output Total 480 / 480 250 / 250
Balance 480 / 480 650 / 650
--- NOTE | 2025-08-29 10:42 | PN.CDI ---
Addendum entered and electronically signed by Aaron France MD 08/29/25 10:56:
UTI due to VRE was present on admission and is now resolved.
Original Note:
CDI
- -
CDI:
Physician Documentation Request
Admit Date: 08/24/25 11:50
Dear Doctor Román,
Please review the following and provide your response in the progress notes.
Clinical Indicators:
The diagnosis of UTI was documented on H&P
- H&P 'Currently on Merrem for UTI'
- 08/29 PN 'Recent ESBL E. coli UTI...Finished Merrem 08/25/2025'
- 08/24 Urine culture positive Enterococcus faecalis - VRE
- IV abx cefdinir, cefepime, doxycycline, vancomycin given
Please clarify the following:
____ - UTI due to VRE was present on admission and is now resolved.
____ - UTI due to VRE was present on admission and is still being monitored, evaluated or treated
____ - UTI due to VRE was ruled out
____ - Other (please specify)
Use of terms such as suspected, likely, concern for, or probable (associated with a specific diagnosis that is being evaluated, monitored, or treated as if it exists) are acceptable and can be coded in the inpatient setting, when documented at the
time of discharge.
Thank you,
Braulio Patrick RN
CDI Specialist
Please use your independent medical judgment in providing your response.
--- NOTE | 2025-08-29 11:48 | W.PN.NEPH.PH ---
Today's Communication / Plan
-
HD tomorrow
Assessment/Plan
-
Impression
End-stage renal disease on hemodialysis MWF [facility] via right chest cath
Unresponsive= rule out sepsis panculture/chronic indwelling Garcia purulent drainage in the ER
Questionable pneumonia on this admission
History of diabetic ketoacidosis
ESBL UTI July 2025
Staph epi bacteremia
Anemia of chronic disease
Metabolic acidosis
Diabetic retinopathy
Plan:
Remains on cefdinir and doxycycline for pneumonia
Epogen on dialysis
Continue Thursday dialysis
next HD tomorrow
-
-
Date of Service: August 29, 2025
CC / HPI / ROS
-
Chief Complaint:
ESRD
History of Present Illness:
ESRD Thursday
tolerated HD yesterday
BS very high
Remains hyperglycemic with blood sugar of 454 this a.m.
Hemodynamically stable on current antihypertensive
Review of Systems:
no CP/SOB
Labs
-
Labs:
WBC 5.2 10^3/uL (4.8-10.8) 08/28/25 06:39
RBC 2.55 10^6/uL (4.20-5.40) L 08/28/25 06:39
Hgb 7.8 g/dL (12.0-16.0) L 08/28/25 06:39
Hct 22.7 % (37.0-47.0) L 08/28/25 06:39
Plt Count 227 10^3/uL (130-400) 08/28/25 06:39
Sodium 128 mmol/L (135-145) L 08/28/25 06:39
Potassium 5.7 mmol/L (3.5-5.1) H 08/28/25 06:39
Chloride 96 mmol/L (98-107) L 08/28/25 06:39
Carbon Dioxide 21 mmol/L (22-30) L 08/28/25 06:39
BUN 69 mg/dl (7-17) H 08/28/25 06:39
Creatinine 4.8 mg/dL (0.6-1.0) H* 08/28/25 06:39
eGFR 9.23 08/28/25 06:39
Glucose 524 mg/dl (70-99) H* 08/29/25 04:15
Calcium 7.7 mg/dl (8.4-10.2) L 08/28/25 06:39
Albumin 3.6 g/dl (3.5-5.0) 08/24/25 07:57
Physical Exam
-
Vital Signs:
Vital Signs
Temp Pulse Resp BP Pulse Ox
99 F 71 20 195/78 96
08/29/25 08:00 08/29/25 08:00 08/29/25 08:00 08/29/25 08:00 08/29/25 08:00
Cardiovascular:: Regular rate and rhythm
Respiratory:: Bilateral: Coarse
Lung Excursion:: Normal
Abdomen:: Nontender and Soft
Bowel Sounds:: Normal
Extremity Edema:: None: Bilateral:
[2025-08-29 11:50] LABS: Glucose - Point of Care 106 mg/dl (70-99)
[2025-08-29] MEDS: NOVOLOG FLEXPEN-LOW RESISTANCE SC (12:11)
--- NOTE | 2025-08-29 13:45 | CM ---
manager medical reviewed patient's chart and met with patient and plan is for patient to return to [facility] when stable, all clinicals faxed to [facility].
[facility]
Report [phone] 3rd floor
[2025-08-29 15:36] VITALS: BP 130/55
[2025-08-29 17:24] LABS: Glucose - Point of Care 192 mg/dl (70-99)
[2025-08-29] MEDS: APRESOLINE PO (17:39)
[2025-08-29] MEDS: NOVOLOG FLEXPEN-LOW RESISTANCE 1 UNITS SC (17:40)
[2025-08-29] MEDS: QUESTRAN PO (19:31)
[2025-08-29] MEDS: SEROQUEL 100 MG PO (21:27)
[2025-08-29 21:29] LABS: Glucose - Point of Care 243 mg/dl (70-99)
[2025-08-29 23:21] VITALS: BP 150/58
[2025-08-30 06:00] VITALS: BMI 25.2
[2025-08-30 07:33] VITALS: BP 180/72
[2025-08-30 07:58] LABS: Glucose - Point of Care 114 mg/dl (70-99)
--- NOTE | 2025-08-30 08:22 | PTCARENOTE ---
Pt receiving dialysis this morning, will wait until she is finished to give her morning medications.
--- NOTE | 2025-08-30 08:32 | PN.DE.MGMTRT ---
Insulin Management
- -
08/30/2025: Diabetes Management Follow up
Patient admitted from NH was found at her facility this morning unresponsive. Blood glucose was checked and it was in the 40s. Pt was recently admitted from 08/14 to 08/19 for DKA and UTI.
PMH: HTN, ESRD on HD (MWF), legal blindness, Asthma and IDDM, dementia, bipolar.
She was discharged back to her NH on Lantus 17 units @ HS with Humalog 5 units AC. A1C 9.5%, Cr 4.8 eGFR 9.23 on 08/29.
Patient resting in bed on dialysis, unable to discuss diabetes care plan 2/2 dementia.
08/29 Fasting glucose 524 @ 4:15, received 10 units novolog. Glucose @ 8:15 268. Patient received 3 units standing novolog + 3 units corrective and 7 units lantus. Glucose range 106 to 243,
08/30 Fasting glucose 114. For dialysis this AM Discussed with nurse to hold am insulin and administer after dialysis; also discussed to give insulin ONLY if patient has been fed her meal, as pt requires assistance with all meals.
Discussed with Dr. France, agree with target glucose ~ 200 to avoid hypoglycemia in patient with multiple comorbidities.
Will cont to follow and add insulin if necessary.
Diabetes History
- -
Type of Diabetes: 2 requiring insulin
Pre-Admission Diabetes Regimen
Insulin Pump Settings
IP Diabetes Regimen
08/29/25 08/29/25 08/29/25
11:49 17:23 21:28
POC Glucose 106 H 192 H 243 H
08/30/25
07:56
POC Glucose 114 H
Meal type: Dinner
Amount consumed: 90%
Patient Education
[2025-08-30] MEDS: RETACRIT 10000 UNITS IV (09:17)
[2025-08-30] MEDS: NOVOLOG FLEXPEN-LOW RESISTANCE SC (09:25)
--- NOTE | 2025-08-30 09:39 | W.PN.HOSP.TC ---
Today's Communication/Plan
-
DC planning
Assessment / Plan
Assessment / Plan
Physical Exam
General: No acute distress
HEENT: Normocephalic, Atraumatic, legally blind
Respiratory: Clear to Auscultation bilaterally
Cardiac: Normal S1/S2, Regular Rate and Rhythm
Chest Wall: Tunneled HD catheter right chest wall
GI: Soft, Nontender, Nondistended, Normal Bowel Sounds
Extremities: No Clubbing, Cyanosis
Neuro: Nonfocal/Grossly Intact
Psych: Calm, Cooperative
HPI: 70-year-old female with a past medical history of ESRF on HD M//, DM2, blindness due to diabetic retinopathy, and HTN, who presents from [facility] for unresponsiveness secondary to hypoglycemia. Per report, patient was found at
her detention unresponsive this morning. Blood sugar was noted to be in the 40s. EMS administered 1 mg of glucagon, with normalization of blood sugar. She was alert and awake when she arrived in the ER, with a blood sugar of 159. She was
found to be hypothermic in the ER, temperature 90.1. She was placed on a Melvi hugger. She reports not eating breakfast or dinner last night. Unclear to as why. She denies chest pain, denies shortness of breath. She does have intermittent
abdominal pain, and intermittent coughing, but denies both currently. Garcia was inserted in the ER. She is currently still on IV or ertapenem through 08/21/2025 for recent ESBL E. Coli UTI.
#Symptomatic hypoglycemia
Unresponsiveness
Labile Diabetes
Recently discharged on 08/19/2025 for ESBL E. coli UTI and DKA
Seen by diabetes nurse practitioner, currently ordered Lantus daily, NovoLog 3 units AC 3 times daily . Will have to accept higher than normal BS levels to avoid severe hypoglycemia
#Recent ESBL E. coli UTI
Finished Merrem 08/25/2025
# Chronic Garcia
we removed it based on recommendations from infection control to decrease risk of UTI. Bladder scan protocol with straight cath but no retention detected.
#Hazy opacity within the right upper lobe, which could be pneumonia versus atelectasis
She does report some shortness of breath and coughing
Continue cefdinir 300 mg daily, doxycycline D2 for total of 5 days . No fever or leukocytosis
Flu/covid neg,
No cough or hypoxia.
#Hyponatremia
Hyperkalemia, correct through HD
Metabolic acidosis
End-stage renal failure requiring dialysis M/W/F
Continue dialysis as per nephrology
#Essential hypertension
Continue Coreg at reduced dose, hydralazine 75 mg 3 times daily, nifedipine 90 mg daily, and losartan 100 mg daily
#Anemia of chronic kidney disease
Monitored hemoglobin
#Bipolar disorder
Continue Seroquel, she also gets monthly Haldol injections
#Dementia
Mood is cooperative
#Blindness from diabetic retinopathy
Resides at [facility]
DVT prophylaxis�subcu heparin
Full code
Total time spent to see the patient on the floor, examine the patient, review data and lab results, discuss treatment plan with patient, nursing staff around 55 minutes.
Anticipated Discharge: Within 24 hours
Subjective/Interval History
-
Date of Service: August 30, 2025
No complaints
Objective Data
-
Labs:
Laboratory Results
08/30/25
07:00
Hgb Pending
Hct Pending
Sodium Pending
Potassium Pending
Chloride Pending
Carbon Dioxide Pending
Vital Signs:
Vital Signs
Temp Pulse Resp BP Pulse Ox
98.2 F 68 18 180/72 96
08/30/25 07:33 08/30/25 07:33 08/30/25 07:33 08/30/25 07:33 08/30/25 07:33
I&O
08/29/25 08/30/25 08/31/25
06:59 06:59 06:59
Intake Total 1200 / 1200
Output Total 250 / 250 174 / 174
Balance 950 / 950 -174 / -174
--- NOTE | 2025-08-30 09:51 | CM ---
Chart reviewed and patient to return to [facility] when stable, no auth required.
Plan; Return to [facility] when stable.
[facility]
Report [phone] 3rd floor
[2025-08-30 09:52] LABS: Hematocrit 26.1 % (37.0-47.0); Hemoglobin 8.4 g/dL (12.0-16.0)
--- NOTE | 2025-08-30 09:59 | W.PN.NEPH.HD ---
Assessment
-
pt seen during HD
vitals stable
CVC functions fine
UF as much as possible since she still with sob and over 3-4kg over EDW
Progress Note - Hemodialysis
-
Date of Service: August 30, 2025
Duration: 30 minutes and 3 hours
Potassium Bath: 3
Calcium Bath: 2.5
Opti-Dialyzer: 160
Ultrafiltration: Other (2-2.5kg)
Blood Flow: 350
Dialysate Flow: 600
Heparin: no
EPO: [id number]
[2025-08-30 10:01] LABS: Carbon Dioxide 25 mmol/L (22-30); Chloride 92 mmol/L (98-107); Potassium 4.6 mmol/L (3.5-5.1); Sodium 125 mmol/L (135-145)
[2025-08-30] MEDS: HEPARIN 3400 UNITS INTRACATH (11:41)
[2025-08-30 12:07] LABS: Glucose - Point of Care 265 mg/dl (70-99)
[2025-08-30] MEDS: NOVOLOG FLEXPEN SC (12:55)
[2025-08-30] MEDS: NOVOLOG FLEXPEN 3 UNITS SC ×2 (12:56→16:56)
[2025-08-30] MEDS: LANTUS 0.07 UNITS SC (12:57)
[2025-08-30] MEDS: NOVOLOG FLEXPEN-LOW RESISTANCE 3 UNITS SC ×2 (12:57→16:57)
[2025-08-30] MEDS: ATROPINE SULFATE 1% DROPS 1 DROP BOTH EYES (12:58)
[2025-08-30] MEDS: COZAAR 100 MG PO (12:58)
[2025-08-30] MEDS: COREG 12.5 MG PO ×2 (12:59→20:28)
[2025-08-30] MEDS: ZENPEP DELAYED RELEASE CAPSULE 1 CAPSULE PO (12:59)
[2025-08-30] MEDS: PROCARDIA XL (EXTENDED RELEASE) 90 MG PO (13:00)
[2025-08-30] MEDS: REFRESH CELLUVISC GEL 1 DROPS BOTH EYES (13:00)
[2025-08-30] MEDS: PLAVIX 75 MG PO (13:00)
[2025-08-30] MEDS: VIBRAMYCIN 100 MG PO ×2 (13:00→20:28)
[2025-08-30] MEDS: APRESOLINE 75 MG PO ×2 (13:00→16:55)
[2025-08-30] MEDS: OMNICEF 300 MG PO (13:00)
[2025-08-30] MEDS: HEPARIN 5000 UNITS SC ×2 (13:01→20:28)
[2025-08-30] MEDS: QUESTRAN 4 GRAM PO ×2 (13:02→22:08)
[2025-08-30 15:19] VITALS: BP 109/44
[2025-08-30 16:45] LABS: Glucose - Point of Care 270 mg/dl (70-99)
[2025-08-30] MEDS: APRESOLINE PO (20:27)
[2025-08-30] MEDS: SEROQUEL 100 MG PO (20:29)
[2025-08-30] MEDS: TYLENOL 650 MG PO (20:30)
[2025-08-30 21:44] LABS: Glucose - Point of Care 168 mg/dl (70-99)
[2025-08-30] MEDS: QUESTRAN PO (22:07)
[2025-08-30 23:16] VITALS: BP 146/74
[2025-08-31 06:00] VITALS: BMI 25.0
[2025-08-31 07:51] VITALS: BP 188/67
[2025-08-31 08:35] LABS: Glucose - Point of Care 70 mg/dl (70-99)
--- NOTE | 2025-08-31 08:42 | PN.DE.MGMTRT ---
Insulin Management
- -
08/31/2025: Diabetes Management Follow up
Patient admitted from NH was found at her facility this morning unresponsive. Blood glucose was checked and it was in the 40s. Pt was recently admitted from 08/14 to 08/19 for DKA and UTI.
PMH: HTN, ESRD on HD (MWF), legal blindness, Asthma and IDDM, dementia, bipolar.
She was discharged back to her NH on Lantus 17 units @ HS with Humalog 5 units AC. A1C 9.5%, Cr 4.8 eGFR 9.23 on 08/29.
Patient resting in bed on dialysis, unable to discuss diabetes care plan 2/2 dementia.
08/30 Fasting glucose 114. Patient on dialysis. AM lantus 7 units given @ lunch after dialysis, pre lunch glucose 265, pre dinner 270, HS 168.
08/31 Fasting glucose 70. Will continue lantus 7 units in AM and continue AC novolog 3 units with low corrective. Patient AM lantus not administered until 11:24, pre lunch glucose 415.
Discussed with nurse to give insulin ONLY if patient has been fed her meal, as pt requires assistance with all meals.
Discussed with Dr. France, agree with target glucose ~ 200 to avoid hypoglycemia in patient with multiple comorbidities.
Will cont to follow and add insulin if necessary.
Diabetes History
- -
Type of Diabetes: 2 requiring insulin
Pre-Admission Diabetes Regimen
Insulin Pump Settings
IP Diabetes Regimen
08/30/25 08/30/25 08/30/25
12:06 16:43 21:43
POC Glucose 265 H 270 H 168 H
08/31/25
08:34
POC Glucose 70
Meal type: Dinner
Meal type: Lunch
Meal type: Breakfast
Amount consumed: 100%
Amount consumed: 100%
Amount consumed: 100%
Patient Education
[2025-08-31] MEDS: NOVOLOG FLEXPEN-LOW RESISTANCE SC (08:43)
[2025-08-31] MEDS: PROCARDIA XL (EXTENDED RELEASE) 90 MG PO (08:44)
[2025-08-31] MEDS: ZENPEP DELAYED RELEASE CAPSULE 1 CAPSULE PO (08:44)
[2025-08-31] MEDS: APRESOLINE 75 MG PO ×3 (08:45→22:20)
[2025-08-31] MEDS: CLARITIN 10 MG PO (08:45)
[2025-08-31] MEDS: VIBRAMYCIN 100 MG PO (08:45)
[2025-08-31] MEDS: PLAVIX 75 MG PO (08:50)
[2025-08-31] MEDS: OMNICEF 300 MG PO (08:51)
[2025-08-31] MEDS: REFRESH CELLUVISC GEL 1 DROPS BOTH EYES (08:52)
[2025-08-31] MEDS: COZAAR 100 MG PO (08:52)
[2025-08-31] MEDS: COREG 12.5 MG PO ×2 (08:53→20:00)
[2025-08-31] MEDS: HEPARIN 5000 UNITS SC ×2 (08:53→20:00)
[2025-08-31] MEDS: ATROPINE SULFATE 1% DROPS 1 DROP BOTH EYES (08:54)
[2025-08-31] MEDS: NOVOLOG FLEXPEN SC (08:57)
--- NOTE | 2025-08-31 09:00 | W.PN.HOSP.TC ---
Addendum entered and electronically signed by Aaron France MD 08/31/25 14:47:
Addendum
Patient did not receive Lantus and Premeal insulin as scheduled. Breakfast was delayed. Repeat blood glucose around noon time was 400. Discharge was canceled. Discussed with diabetic nurse practitioner.
End
Original Note:
Today's Communication/Plan
-
dc today
will d/w diabetic ACTIVATED SLUDGE OPERATOR about insulin upon dc
Assessment / Plan
Assessment / Plan
Physical Exam
General: No acute distress
HEENT: Normocephalic, Atraumatic, legally blind
Respiratory: Clear to Auscultation bilaterally
Cardiac: Normal S1/S2, Regular Rate and Rhythm
Chest Wall: Tunneled HD catheter right chest wall
GI: Soft, Nontender, Nondistended, Normal Bowel Sounds
Extremities: No Clubbing, Cyanosis
Neuro: Nonfocal/Grossly Intact
Psych: Calm, Cooperative
HPI: 70-year-old female with a past medical history of ESRF on HD M/W/F, DM2, blindness due to diabetic retinopathy, and HTN, who presents from [facility] for unresponsiveness secondary to hypoglycemia. Per report, patient was found at
her halfway unresponsive this morning. Blood sugar was noted to be in the 40s. EMS administered 1 mg of glucagon, with normalization of blood sugar. She was alert and awake when she arrived in the ER, with a blood sugar of 159. She was
found to be hypothermic in the ER, temperature 90.1. She was placed on a Melvi hugger. She reports not eating breakfast or dinner last night. Unclear to as why. She denies chest pain, denies shortness of breath. She does have intermittent
abdominal pain, and intermittent coughing, but denies both currently. Garcia was inserted in the ER. She is currently still on IV or ertapenem through 08/21/2025 for recent ESBL E. Coli UTI.
#Symptomatic hypoglycemia
Unresponsiveness
Labile Diabetes
Recently discharged on 08/19/2025 for ESBL E. coli UTI and DKA
Seen by diabetes nurse practitioner, currently ordered Lantus daily, NovoLog 3 units AC 3 times daily . Will have to accept higher than normal BS levels to avoid severe hypoglycemia , will review insulin regimen with ACTIVATED SLUDGE OPERATOR before dc.
#Recent ESBL E. coli UTI
Finished Merrem 08/25/2025
# Chronic Garcia
we removed it based on recommendations from infection control to decrease risk of UTI. Bladder scan protocol with straight cath but no retention detected.
#Hazy opacity within the right upper lobe, which could be pneumonia versus atelectasis
She does report some shortness of breath and coughing
Continue cefdinir 300 mg daily, doxycycline D2 for total of 5 days . No fever or leukocytosis
Flu/covid neg,
No cough or hypoxia.
#Hyponatremia
Hyperkalemia, correct through HD
Metabolic acidosis
End-stage renal failure requiring dialysis M/W/F
Continue dialysis as per nephrology
#Essential hypertension
Continue Coreg at reduced dose, hydralazine 75 mg 3 times daily, nifedipine 90 mg daily, and losartan 100 mg daily
#Anemia of chronic kidney disease
Monitored hemoglobin
#Bipolar disorder
Continue Seroquel, she also gets monthly Haldol injections
#Dementia
Mood is cooperative
#Blindness from diabetic retinopathy
Resides at [facility]
DVT prophylaxis�subcu heparin
Full code
Total discharge time spent to see the patient on the floor, examine the patient, review data and lab results, discuss discharge plan with patient, DM ACTIVATED SLUDGE OPERATOR, nursing staff around 55 minutes.
Anticipated Discharge: Today
Subjective/Interval History
-
Date of Service: August 31, 2025
No complaints
Objective Data
-
Vital Signs:
Vital Signs
Temp Pulse Resp BP Pulse Ox
97.8 F 69 16 188/67 92
08/31/25 07:51 08/31/25 07:51 08/31/25 07:51 08/31/25 07:51 08/31/25 07:51
I&O
08/30/25 08/31/25 09/01/25
06:59 06:59 06:59
Intake Total 1440 / 1440
Output Total 174 / 174
Balance -174 / -174 1440 / 1440
[2025-08-31] MEDS: QUESTRAN 4 GRAM PO ×2 (11:24→23:50)
[2025-08-31] MEDS: LANTUS 0.07 UNITS SC (11:24)
[2025-08-31 12:37] LABS: Glucose - Point of Care 415 mg/dl (70-99)
[2025-08-31 13:29] LABS: Glucose 448 mg/dl (70-99)
[2025-08-31] MEDS: NOVOLOG FLEXPEN-LOW RESISTANCE 6 UNITS SC (13:33)
[2025-08-31] MEDS: NOVOLOG FLEXPEN 3 UNITS SC ×2 (13:34→17:21)
[2025-08-31 15:22] VITALS: BP 133/51
--- NOTE | 2025-08-31 16:17 | W.PN.NEPH.PH ---
Today's Communication / Plan
-
HD tomorrow
Assessment/Plan
-
Impression
End-stage renal disease on hemodialysis [facility] chest [facility]
Unresponsive= rule out sepsis panculture/chronic indwelling Garcia purulent drainage in the ER
Questionable pneumonia on this admission
History of diabetic ketoacidosis
ESBL UTI July 2025
Staph epi bacteremia
Anemia of chronic disease
Metabolic acidosis
Diabetic retinopathy
Plan:
HD tomorrow per Thursday dialysis
hemodynamically stable
BG are high
competed abx
hyponatremia likely dilutional, need strict FR
-
-
Date of Service: August 31, 2025
CC / HPI / ROS
-
Chief Complaint:
ESRD
History of Present Illness:
ESRD Thursday
tolerated HD yesterday
BS stable
Remains hyperglycemic
Hemodynamically stable on current antihypertensive
Review of Systems:
no CP/SOB
c/o cough
Labs
-
Labs:
WBC 5.2 10^3/uL (4.8-10.8) 08/28/25 06:39
RBC 2.55 10^6/uL (4.20-5.40) L 08/28/25 06:39
Hgb 8.4 g/dL (12.0-16.0) L 08/30/25 08:30
Hct 26.1 % (37.0-47.0) L 08/30/25 08:30
Plt Count 227 10^3/uL (130-400) 08/28/25 06:39
Sodium 125 mmol/L (135-145) L 08/30/25 08:30
Potassium 4.6 mmol/L (3.5-5.1) 08/30/25 08:30
Chloride 92 mmol/L (98-107) L 08/30/25 08:30
Carbon Dioxide 25 mmol/L (22-30) 08/30/25 08:30
BUN 69 mg/dl (7-17) H 08/28/25 06:39
Creatinine 4.8 mg/dL (0.6-1.0) H* 08/28/25 06:39
eGFR 9.23 08/28/25 06:39
Glucose 448 mg/dl (70-99) H 08/31/25 12:58
Calcium 7.7 mg/dl (8.4-10.2) L 08/28/25 06:39
Albumin 3.6 g/dl (3.5-5.0) 08/24/25 07:57
Physical Exam
-
Vital Signs:
Vital Signs
Temp Pulse Resp BP Pulse Ox
98.2 F 71 18 133/51 97
08/31/25 15:22 08/31/25 15:22 08/31/25 15:22 08/31/25 15:22 08/31/25 15:22
Cardiovascular:: Regular rate and rhythm
Respiratory:: Bilateral: Coarse
Lung Excursion:: Normal
Abdomen:: Nontender and Soft
Bowel Sounds:: Normal
Extremity Edema:: None: Bilateral:
Garcia Catheter: No
[2025-08-31 16:59] LABS: Glucose - Point of Care 346 mg/dl (70-99)
[2025-08-31 17:00] LABS: Glucose - Point of Care 351 mg/dl (70-99)
[2025-08-31] MEDS: NOVOLOG FLEXPEN-LOW RESISTANCE 5 UNITS SC (17:22)
[2025-08-31 22:13] LABS: Glucose - Point of Care 212 mg/dl (70-99)
[2025-08-31] MEDS: SEROQUEL 100 MG PO (22:20)
[2025-08-31 23:27] VITALS: BP 140/61
[2025-09-01 06:00] VITALS: BMI 25.2
[2025-09-01 07:00] VITALS: BP 186/81
--- NOTE | 2025-09-01 07:31 | PN.DE.MGMTRT ---
Insulin Management
- -
09/01/2025: Diabetes Management Follow up
Patient admitted from NH was found at her facility this morning unresponsive. Blood glucose was checked and it was in the 40s. Pt was recently admitted from 08/14 to 08/19 for DKA and UTI.
PMH: HTN, ESRD on HD (MWF), legal blindness, Asthma and IDDM, dementia, bipolar.
She was discharged back to her NH on Lantus 17 units @ HS with Humalog 5 units AC. A1C 9.5%, Cr 4.8 eGFR 9.23 on 08/29.
Patient resting in bed on dialysis, unable to discuss diabetes care plan 2/2 dementia.
08/31 FBG was 70. Patient AM Lantus not administered until 11:24, pre lunch glucose 415, pre-dinner glucose 351, received 8 units of NovoLog, HS glucose 212. 09/01 Fasting glucose 325 POC. Will continue Lantus 7 units in AM and AC NovoLog 3 units
with low corrective.
Discussed with nurse to give insulin ONLY if patient has been fed her meal, as pt requires assistance with all meals.
Discussed with Dr. France, agree with target glucose ~ 200 to avoid hypoglycemia in patient with multiple comorbidities.
Will cont to follow and adjust AC insulin dose if necessary.
Diabetes History
- -
Type of Diabetes: 2 requiring insulin
Pre-Admission Diabetes Regimen
Insulin Pump Settings
IP Diabetes Regimen
08/31/25 08/31/25 08/31/25
08:34 12:35 12:58
Glucose 448 H
POC Glucose 70 415 H
08/31/25 08/31/25 08/31/25
16:57 16:59 22:01
Glucose
POC Glucose 346 H 351 H 212 H
Meal type: Dinner
Meal type: Lunch
Meal type: Breakfast
Amount consumed: 100%
Amount consumed: 100%
Amount consumed: 100%
Patient Education
[2025-09-01 08:20] LABS: Glucose - Point of Care 325 mg/dl (70-99)
[2025-09-01] MEDS: LANTUS 0.07 UNITS SC (08:27)
[2025-09-01] MEDS: NOVOLOG FLEXPEN-LOW RESISTANCE 4 UNITS SC (08:28)
[2025-09-01] MEDS: NOVOLOG FLEXPEN 3 UNITS SC ×2 (08:28→12:11)
[2025-09-01] MEDS: RETACRIT 10000 UNITS IV (08:58)
--- NOTE | 2025-09-01 09:31 | W.PN.HOSP.TC ---
Today's Communication/Plan
-
dc
Assessment / Plan
Assessment / Plan
Physical Exam
General: No acute distress
HEENT: Normocephalic, Atraumatic, legally blind
Respiratory: Clear to Auscultation bilaterally
Cardiac: Normal S1/S2, Regular Rate and Rhythm
Chest Wall: Tunneled HD catheter right chest wall
GI: Soft, Nontender, Nondistended, Normal Bowel Sounds
Extremities: No Clubbing, Cyanosis
Neuro: Nonfocal/Grossly Intact
Psych: Calm, Cooperative
HPI: 70-year-old female with a past medical history of ESRF on HD M/W/, DM2, blindness due to diabetic retinopathy, and HTN, who presents from [facility] for unresponsiveness secondary to hypoglycemia. Per report, patient was found at
her custodial unresponsive this morning. Blood sugar was noted to be in the 40s. EMS administered 1 mg of glucagon, with normalization of blood sugar. She was alert and awake when she arrived in the ER, with a blood sugar of 159. She was
found to be hypothermic in the ER, temperature 90.1. She was placed on a Melvi hugger. She reports not eating breakfast or dinner last night. Unclear to as why. She denies chest pain, denies shortness of breath. She does have intermittent
abdominal pain, and intermittent coughing, but denies both currently. Garcia was inserted in the ER. She is currently still on IV or ertapenem through 08/21/2025 for recent ESBL E. Coli UTI.
#Symptomatic hypoglycemia
Unresponsiveness
Labile Diabetes
Recently discharged on 08/19/2025 for ESBL E. coli UTI and DKA
Seen by diabetes nurse practitioner, currently ordered Lantus daily, NovoLog 3 units AC 3 times daily . Will have to accept higher than normal BS levels to avoid severe hypoglycemia , will review insulin regimen with CLIENT RELATIONS SPECIALIST before dc.
#Recent ESBL E. coli UTI
Finished Merrem 08/25/2025
# Chronic Garcia
we removed it based on recommendations from infection control to decrease risk of UTI. Bladder scan protocol with straight cath but no retention detected.
#Hazy opacity within the right upper lobe, which could be pneumonia versus atelectasis
She does report some shortness of breath and coughing
Continue cefdinir 300 mg daily, doxycycline D2 for total of 5 days . No fever or leukocytosis
Flu/covid neg,
No cough or hypoxia.
#Hyponatremia
Hyperkalemia, correct through HD
Metabolic acidosis
End-stage renal failure requiring dialysis M/W/F
Continue dialysis as per nephrology
#Essential hypertension
Continue Coreg at reduced dose, hydralazine 75 mg 3 times daily, nifedipine 90 mg daily, and losartan 100 mg daily
#Anemia of chronic kidney disease
Monitored hemoglobin
#Bipolar disorder
Continue Seroquel, she also gets monthly Haldol injections
#Dementia
Mood is cooperative
#Blindness from diabetic retinopathy
Resides at [facility]
DVT prophylaxis�subcu heparin
Full code
Total discharge time spent to see the patient on the floor, examine the patient, review data and lab results, discuss discharge plan with patient, DM CLIENT RELATIONS SPECIALIST, nursing staff around 55 minutes.
Anticipated Discharge: Today
Subjective/Interval History
-
Date of Service: September 01, 2025
Objective Data
-
Vital Signs:
Vital Signs
Temp Pulse Resp BP Pulse Ox
98.2 F 77 16 186/81 97
09/01/25 07:00 09/01/25 07:00 09/01/25 07:00 09/01/25 07:00 09/01/25 07:00
I&O
08/31/25 09/01/25 09/02/25
06:59 06:59 06:59
Intake Total 1440 / 1440 540 / 540
Balance 1440 / 1440 540 / 540
--- NOTE | 2025-09-01 10:35 | CM ---
Addendum entered by Lory Villalpando 09/01/25 13:56:
Ambulance with 3:30pm peanut picker.
Original Note:
manager data reviewed patient's chart and patient to return to [facility] senior care when stable, updated clinicals faxed to [facility].
Plan; Return to [facility] when stable.
[2025-09-01] MEDS: HEPARIN 3400 UNITS INTRACATH (11:15)
--- NOTE | 2025-09-01 11:26 | PTCARENOTE ---
pt receiving dialysis this morning, will wait until after to give the pt their morning medications.
[2025-09-01 11:58] LABS: Glucose - Point of Care 155 mg/dl (70-99)
[2025-09-01] MEDS: COREG 12.5 MG PO (12:06)
[2025-09-01] MEDS: QUESTRAN 4 GRAM PO (12:07)
[2025-09-01] MEDS: APRESOLINE 75 MG PO (12:07)
[2025-09-01] MEDS: PLAVIX 75 MG PO (12:07)
[2025-09-01] MEDS: COZAAR 100 MG PO (12:07)
[2025-09-01] MEDS: ZENPEP DELAYED RELEASE CAPSULE 1 CAPSULE PO (12:07)
[2025-09-01] MEDS: PROCARDIA XL (EXTENDED RELEASE) 90 MG PO (12:08)
[2025-09-01] MEDS: REFRESH CELLUVISC GEL 1 DROPS BOTH EYES (12:08)
[2025-09-01] MEDS: HEPARIN 5000 UNITS SC (12:08)
[2025-09-01] MEDS: ATROPINE SULFATE 1% DROPS 1 DROP BOTH EYES (12:09)
[2025-09-01] MEDS: NOVOLOG FLEXPEN-LOW RESISTANCE 1 UNITS SC (12:11)
[2025-09-01 14:35] VITALS: BP 142/76
--- NOTE | 2025-09-01 15:24 | W.PN.NEPH.HD ---
Assessment
-
Pt seen on HD. no complaints. VSS, access ok
Progress Note - Hemodialysis
-
Date of Service: September 01, 2025
Duration: 30 minutes and 3 hours
Potassium Bath: 2
Calcium Bath: 2.5
Opti-Dialyzer: 160
Ultrafiltration: Other (2kg)
Blood Flow: 400
Dialysate Flow: 600
Heparin: 0
EPO: [id number] units
--- NOTE | 2025-09-02 09:36 | W.DCSUMMARY ---
Discharge Summary
Discharge Data
Date of Admission: 08/24/25
Date of Discharge: 09/01/25
-
Pending Results: No
Hospital Course
70 years old female who presented from detention with syncopal episode. She was found to have hypoglycemia. Patient was stacking insulin regimen. She was still getting intravenous antibiotic for urinary tract infection. Blood sugar improved
with yarsani of her mental function. She was admitted to the hospital for management of labile diabetes. She was evaluated by diabetic nurse practitioner. Insulin management was adjusted based on her daily needs and requirements. It was
found that tight control of diabetes would lead to symptomatic hypoglycemia. Discussion to avoid tight control of diabetes or overtreat hyperglycemia. She eventually stabilized on 7 units of long acting insulin with 3 units of short acting
insulin for pre-meals. Patient remained hemodynamically stable. She was evaluated by case management and was discharged in a stable condition.
Discharge Plan
-
Patient Disposition: Alf/SNF
Discharge Diagnosis/Procedures: History of diabetes/labile diabetes.
Followed by diabetic nurse practitioner. Agreed to avoid tight control of diabetes due to recurrent hypoglycemia.
Diet: Diabetic, Carb Controlled
Referrals:
Sara Yan MD [Family Provider]
Prescriptions:
Continued
epoetin angella 2,000 unit/mL Solution
2,000 unit SC TUTHSA
acetaminophen [Tylenol] 325 mg Tablet
650 mg PO Q6HPRN PRN (Reason: mild pain/temp>100.4)
nifedipine 90 mg Tablet Extended Release
90 mg PO DAILY
haloperidol decanoate 100 mg/mL Solution
10 mg IM Q4W
Rx Instructions:
give on the 1st of each month
clopidogrel [Plavix] 75 mg Tablet
75 mg PO DAILY
quetiapine [Seroquel] 100 mg Tablet
100 mg PO HS
carboxymethylcellulose sodium 0.25 % Drops
1 drp BOTH EYES DAILY
bisacodyl [Dulcolax (bisacodyl)] 10 mg Suppository
10 mg HI DAILYPRN PRN (Reason: constipation)
atropine 1 % Drops
1 drp BOTH EYES DAILY
losartan 100 mg Tablet
100 mg PO DAILY
sorbitol 70 % Solution
30 ml PO DAILYPRN PRN (Reason: constipation)
loratadine [Claritin] 10 mg Tablet
10 mg PO Q48H
insulin lispro [Humalog KwikPen Insulin] 100 unit/mL Insulin Pen
0 - 12 sliding scale dose SC AC
Rx Instructions:
if 0-150= 0; 151-200= 4; 201-250= 6; 251-300= 8; 301-350= 10; 351-400= 12
calcium carbonate-vitamin D3 [Calcium 600 + D(3)] 600 mg-10 mcg (400 unit) Tablet
1 tab PO DAILY
magnesium oxide 400 mg magnesium Tablet
400 mg PO DAILY
albuterol-budesonide 90-80 mcg/actuation Hfa Aerosol Inhaler
2 inh INHALATION R Q6HPRN PRN (Reason: sob)
Rx Instructions:
as a single dose; may repeat up to 6 doses per day (12 inhalations)
cholestyramine 4 gram Powder In Packet
4 g PO BID
Pancrelipase Dr 3000-9500unit
1 cap PO DAILY
hydralazine 50 mg Tablet
75 mg PO TID Qty: 0 0RF
carvedilol 12.5 mg tablet
25 mg PO BID
Dialyvite 800 0.8 mg Tablet
1 tab PO DAILY
Changed
insulin lispro [Humalog KwikPen Insulin] 100 unit/mL Insulin Pen
3 unit SC AC Qty: 0 0RF
insulin glargine [Lantus Solostar U-100 Insulin] 100 UNITS/ML insulin pen
7 unit SC HS Qty: 0 0RF
Discontinued
Ertapenem [Invanz] 500 MG
0.9% Sodium Chloride [Nss] 50 ML
100 mls/hr IV Q24H
Ordered By: Milly Liu MD
Last Taken: Unknown
Discharge Orders:
Discharge Patient (As Directed); Ordered 09/01/25
Ordered By: Aaron France
Discharge Date and Time
Discharge Date/Time: 09/01/25 16:21
Print Language: ITALIAN
== END 2025-09-01 16:21 | DRG 637 ==
LOC: 4 WEST ACU 11:50
PROVIDERS: Internal Medicine; Specialist; ADMITTING PHYSICIAN Family Medicine; ATTENDING PHYSICIAN Internal Medicine; CONSULT PHYSICIAN Internal Medicine Nephrology; EMERGENCY PHYSICIAN Student in an Organized Health Care Education/Training Program; FAMILY PHYSICIAN Internal Medicine
PROC: 5A1D70Z Performance of Urinary Filtration, Intermittent, Less than 6 Hours Per Day (ICD-10-PCS; 2025-08-25)
DX: E11.649 Type 2 diabetes mellitus with hypoglycemia without coma (principal); J18.9 Pneumonia, unspecified organism; N18.6 End stage renal disease; I12.0 Hypertensive chronic kidney disease with stage 5 chronic kidney disease or end stage renal disease; E87.20 Acidosis, unspecified; E87.1 Hypo-osmolality and hyponatremia; F03.93 Unspecified dementia, unspecified severity, with mood disturbance; J98.11 Atelectasis; E11.319 Type 2 diabetes mellitus with unspecified diabetic retinopathy without macular edema; E11.22 Type 2 diabetes mellitus with diabetic chronic kidney disease; Z99.2 Dependence on renal dialysis; E87.5 Hyperkalemia; F31.9 Bipolar disorder, unspecified; Z98.1 Arthrodesis status; I25.10 Atherosclerotic heart disease of native coronary artery without angina pectoris; Z88.6 Allergy status to analgesic agent; Z88.0 Allergy status to penicillin; Z79.4 Long term (current) use of insulin; Z79.899 Other long term (current) drug therapy; Z86.73 Personal history of transient ischemic attack (TIA), and cerebral infarction without residual deficits; D63.1 Anemia in chronic kidney disease; E11.40 Type 2 diabetes mellitus with diabetic neuropathy, unspecified; E78.5 Hyperlipidemia, unspecified; Z79.02 Long term (current) use of antithrombotics/antiplatelets
CPT/HCPCS: 71045; 71046; 80048; 80051; 80053; 81003; 81015; 82947; 82962; 83605; 83735; 85014; 85018; 85025; 85027; 87040; 87077; 87086; 87186; 87205; 87502; 87811; 93005; 96361; 96374; 96375; 99285; G0257; P9047; Q5106

== ENCOUNTER 2025-10-21 12:48 | Inpatient (IN) | payer MEDICARE, BC, SELFPAY ==
[2025-10-21] VITALS (14 sets, daily range): BP systolic 116–160; BP diastolic 47–119; BMI 26.6; BMI 26.4
--- NOTE | 2025-10-21 09:41 | ED.GENMED ---
History of Present Illness
General
Chief Complaint: Blood Sugar Problem
Time Seen by Provider: 10/21/25 09:31
History of Present Illness
History of Present Illness:
70-year-old female with history of insulin-dependent diabetes, blindness, dementia, bipolar disorder, end-stage renal disease on hemodialysis, hypertension, hyperlipidemia presenting to the emergency department for episode of decreased
responsiveness and hypoglycemia at nursing facility. At nursing facility, noted to have a blood sugar in the 30s, administered glucagon by medics with subsequent improvement. Patient was diaphoretic, which has since improved with correction of
sugar. Patient notes that she feels cold. Does report a mild cough. Denies chest pain or abdominal pain. Denies any known fevers. Patient is a limited historian given her dementia. Patient unsure of her last meal or her last dose of insulin.
No additional history obtained at this time. Patient with similar presentation in August, at which time patient also had a UTI and suspected pneumonia. Insulin regimen adjusted at that time
Phy Exam
Physical Exam
Physical Exam:
General: Well-appearing, no clinical signs of dehydration, nontoxic and in no acute distress
HEENT: protecting airway, blind
Neck: appears supple
CV: Normal heart rate, regular rhythm
Resp: No accessory muscle use, no increased work of breathing, lungs clear to auscultation bilaterally
Abd: Soft and non-distended, no tenderness to palpation, normal bowel sounds
Extremities: No deformities, no swelling, no erythema
Neuro: alert, disoriented to time. Otherwise no focal deficits
: deferred
Rectal: deferred
Psych: Normal affect
Skin: Intact
Course
Orders/Labs/Results
Orders:
Orders
10/21/25 09:39
Straight cath- Treatment ONCE
Urinalysis Reflex To Culture Urgent
Date Specimen was Collected: 10/21/25
Time Specimen was Collected: 11:21
10/21/25 09:49
Electrocardiogram (*1) Urgent
EKG- Treatment ONCE
10/21/25 09:52
Complete Blood Count/With Diff Urgent
Comprehensive Metabolic Panel Urgent
10/21/25 10:48
CR Chest Portable - 1 View Urgent
Comment:
Reason For Exam: cough, hypoglycemia
Reason Study Needs to be Portable: Patient Unstable
10/21/25 11:00
Dextrose 10%/Water 500 ml [D10w] 500 ml IV 100 mls/hr
10/21/25 11:34
*Vancomycin 1,500 mg Loading Dose(consider for 50-69 kg; MAX HD load) Vancomycin [Vancocin] 1,500 mg 0.9% Sodium Chloride 500 ml [Nss] 500 ml IV NOW
Cefepime HCl [Maxipime] 2,000 mg IV NOW STA
10/21/25 11:45
Blood Culture Q30M
TONY Source: Blood/Venous
Specimen Description:
10/21/25 12:15
Blood Culture Q30M
TONY Source: Blood/Venous
Specimen Description:
Abnormal Lab Results
10/21/25 10/21/25
09:52 10:17
RBC 3.31 L 10^6/uL
(4.20-5.40)
Hgb 9.7 L g/dL
(12.0-16.0)
Hct 31.7 L %
(37.0-47.0)
MCHC 30.6 L g/dL
(33.0-37.0)
RDW 16.3 H %
(11.5-14.5)
Sodium 163 H* mmol/L
(135-145)
BUN 47 H mg/dl
(7-17)
Creatinine 4.5 H* mg/dL
(0.6-1.0)
Glucose 109 H mg/dl
(70-99)
Calcium 8.3 L mg/dl
(8.4-10.2)
AST 37 H U/L
(14-36)
POC Glucose 132 H mg/dl
(70-99)
10/21/25 09:52
10/21/25 09:52
Vital Signs
Initial and Last Documented VS:
Initial Vital Signs
Temp Pulse Resp BP Pulse Ox
91.0 F L 57 20 154/57 95
10/21/25 09:54 10/21/25 09:54 10/21/25 09:54 10/21/25 09:54 10/21/25 09:54
Last Documented Vital Signs
Temp Pulse Resp BP Pulse Ox
91.0 F L 57 20 154/57 95
10/21/25 09:54 10/21/25 09:54 10/21/25 09:54 10/21/25 09:54 10/21/25 09:54
MDM/Problems Addressed
MDM/Problems Addressed:
70-year-old female with history of end-stage renal disease, blindness, insulin-dependent diabetes, hypertension, hyperlipidemia presenting after unresponsive episode and hypoglycemic event. Vital signs on arrival are significant for hypothermia.
On exam, patient resting comfortably, no acute distress. Now awake, alert, answering questions appropriately, however somewhat limited suspected to be due to underlying dementia. Patient however is hypothermic, sugar has improved after glucagon
prior to arrival. Patient noted to have a sugar in the 30s prior to arrival. Unclear how long patient was unresponsive for, with likely reflexive hypothermia from unresponsive hypoglycemic state. Similar presentation in August, which time patient
was found to have a UTI as well as pneumonia. Will evaluate for possible infectious source of patient's hypoglycemia including urinalysis and chest x-ray imaging, reports a mild cough. Will continue to monitor patient's blood glucose. At this
time no additional focal neurologic deficits or concern for central neurologic process. Will continue to monitor patient's blood glucose
10:50 -patient is hypernatremic, possibly from dehydration, appears dry. Will start dextrose containing fluids. Labs show chronic renal disease. Pending urinalysis and chest x-ray imaging with ultimate plan for admission given hypothermia and
hypernatremia
11:35 -chest x-ray shows concern for pneumonia. Will start broad-spectrum antibiotics given presenting vital signs and hypoglycemia. Will add blood cultures. Plan for admission
*Pulse Oximetry
Patient hypoxic: no
*Critical Care Note
Total Time (30-74mins, 75-104mins- exclusive of procedures): 40
comment:
The high probability of a clinically significant, sudden or life threatening deterioration of the endocrine system(s) required my full and direct attention, intervention and personal management. The aggregate critical care time was 40 minutes. This
time is in addition to time spent performing reported procedures but includes the following:
[x] Data Review and interpretation
[x] Patient assessment and monitoring of vital signs
[x] Documentation
[x] Medication orders and management
ED Attending Note
-
Portions of this chart may have been created with voice recognition software.� Occasional wrong word or��sound alike� substitutions may have occurred due to the inherent limitations of voice recognition software.
Discharge Plan
Departure
Prescriptions:
No Action
epoetin angella 2,000 unit/mL Solution
2,000 unit SC TUTHSA
acetaminophen [Tylenol] 325 mg Tablet
650 mg PO Q6HPRN PRN (Reason: mild pain/temp>100.4)
nifedipine 90 mg Tablet Extended Release
90 mg PO DAILY
haloperidol decanoate 100 mg/mL Solution
10 mg IM Q4W
Rx Instructions:
give on the 1st of each month
clopidogrel [Plavix] 75 mg Tablet
75 mg PO DAILY
quetiapine [Seroquel] 100 mg Tablet
100 mg PO HS
carboxymethylcellulose sodium 0.25 % Drops
1 drp BOTH EYES DAILY
bisacodyl [Dulcolax (bisacodyl)] 10 mg Suppository
10 mg MS DAILYPRN PRN (Reason: constipation)
atropine 1 % Drops
1 drp BOTH EYES DAILY
losartan 100 mg Tablet
100 mg PO DAILY
sorbitol 70 % Solution
30 ml PO DAILYPRN PRN (Reason: constipation)
loratadine [Claritin] 10 mg Tablet
10 mg PO Q48H
insulin lispro [Humalog KwikPen Insulin] 100 unit/mL Insulin Pen
0 - 12 sliding scale dose SC AC
Rx Instructions:
if 0-150= 0; 151-200= 4; 201-250= 6; 251-300= 8; 301-350= 10; 351-400= 12
calcium carbonate-vitamin D3 [Calcium 600 + D(3)] 600 mg-10 mcg (400 unit) Tablet
1 tab PO DAILY
magnesium oxide 400 mg magnesium Tablet
400 mg PO DAILY
albuterol-budesonide 90-80 mcg/actuation Hfa Aerosol Inhaler
2 inh INHALATION R Q6HPRN PRN (Reason: sob)
Rx Instructions:
as a single dose; may repeat up to 6 doses per day (12 inhalations)
cholestyramine 4 gram Powder In Packet
4 g PO BID
Pancrelipase Dr 3000-9500unit
1 cap PO DAILY
hydralazine 50 mg Tablet
75 mg PO TID Qty: 0 0RF
carvedilol 12.5 mg tablet
25 mg PO BID
Dialyvite 800 0.8 mg Tablet
1 tab PO DAILY
insulin lispro [Humalog KwikPen Insulin] 100 unit/mL Insulin Pen
3 unit SC AC Qty: 0 0RF
insulin glargine [Lantus Solostar U-100 Insulin] 100 UNITS/ML insulin pen
7 unit SC HS Qty: 0 0RF
Referrals:
Sara Yan MD [Family Provider]
Interventions
Interventions:
*Neglect/Abuse Screening Last Done: 10/21/25 09:54
*ED COVID-19 Vaccine History Last Done: 10/21/25 10:20
*ED Influenza Vaccine History Last Done: 10/21/25 10:20
[facility] Fall Risk Assessment Tool Last Done: 10/21/25 10:19
*Risk Screen - Suicide (C-SSRS) Last Done: 10/21/25 09:54
ED- Neurological Assessment Last Done: 10/21/25 10:20
Discharge Date and Time
Print Language: ARABIC
[2025-10-21 10:19] LABS: Glucose - Point of Care 132 mg/dl (70-99)
[2025-10-21 10:32] LABS: Hematocrit 31.7 % (37.0-47.0); Hemoglobin 9.7 g/dL (12.0-16.0); Mean Corp Hgb Conc. 30.6 g/dL (33.0-37.0); Mean Corpuscular Volume 95.8 fL (81.0-99.0); Nucleated Red Blood Cells % 0 %; Platelet Count 264 10^3/uL (130-400); Red Cell Dist. Width 16.3 % (11.5-14.5)
[2025-10-21 10:39] LABS: ALT (SGPT) 24 U/L (0-35); AST (SGOT) 37 U/L (14-36); Albumin 3.9 g/dl (3.5-5.0); Alkaline Phosphatase 119 U/L (38-126); Blood Urea Nitrogen 47 mg/dl (7-17); Calcium 8.3 mg/dl (8.4-10.2); Carbon Dioxide 30 mmol/L (22-30); Chloride 99 mmol/L (98-107); Estimated Creatinine Clearance 10 ml/min; Glucose 109 mg/dl (70-99); Potassium 4.7 mmol/L (3.5-5.1); Sodium 163 mmol/L (135-145); Total Protein 8.0 g/dl (6.3-8.2); eGFR 9.97
[2025-10-21] MEDS: D10W 500 IV (10:58)
[2025-10-21 11:44] LABS: Urine Character Cloudy (Clear)
--- NOTE | 2025-10-21 12:04 | W.PN.UPDATE ---
Update Note
Progress Note Update
Pt seen and examined at 1200 by myself. Currently pt reports abdominal pain that started when I awoke her. Only can tell me that she came here for 'blood sugar.' Poor historian. Case discussed with ER, D10 ordered for hypoglycemia and abx ordered
for LESVIA PNA. Full H&P to follow.
--- NOTE | 2025-10-21 12:11 | HPS.HSE ---
Family Physician
-
Family Physician: Sara Yan
Chief Complaint
-
Hypoglycemia, change in mental status, hypothermia
History of Present Illness
70 y/o F with PMHx:
ESRD-HD M/W/F
Chronic paulino
Hyponatremia
Essential HTN
Anemia of chronic kidney disease
Bipolar disorder
Dementia
Blindness from diabetic retinopathy
Who presents from her group home with a change in mental status and was found of a blood glucose of 34. The patient is a poor historian due to acuity and underlying dementia. History is obtained from discussion with the ER attending, Dr. Bragg,
and the pt's DIRECTOR OF CORPORATE SALES, Timmy Mosley. The patient received glucagon prior to arrival to the ER and her blood glucose upon arrival was 88. Since that time she has been started on a D10 drip. As per Dr. Bragg's review of the pt's CXR there was concern
for left upper lobe infiltrate and IV antibiotics have been ordered.
When I woke the patient from sleep she stated that she had some mild abdominal discomfort. Currently denies chest pain or shortness of breath. As previously stated the patient is a poor historian. She knows her name and that she is in the ER for
her 'blood sugar' but really cannot give me any further information. She does not remember any of the events leading to her arrival at the ER.
Medical History
Past Medical History
Past Medical History: Reports Other (as per HPI)
Past Surgical History: Reports Other (N/A)
Social History
Tobacco: Non-smoker
Alcohol: None
Drug: None
Family History
Family History: Not pertinent
Allergies / Home Medications
Allergies reflects when Allergies were last updated in [facility].
Home Medications with original date entered in [facility]
Allergy/Medication List:
Allergies
Allergy/AdvReac Type Severity Reaction Status Date / Time
aspirin Allergy Hives Verified 10/21/25 09:53
NSAIDS (Non-Steroidal Allergy aspirin-hiv Verified 10/21/25 09:53
Anti-Inflamma es
Penicillins Allergy Swelling/hives Verified 10/21/25 09:53
- has
tolerated
amoxicillin
per patient
Home Medications
Pancrelipase Dr 3000-9500unit 1 cap PO DAILY Gastrointestinal Issue 08/14/25
acetaminophen 325 mg tablet (Tylenol) 650 mg PO Q6HPRN PRN mild pain/temp>100.4 08/14/25
albuterol 90 mcg-budesonide 80 mcg/actuation HFA aerosol inhaler 2 inh inhalation R Q6HPRN PRN sob 08/14/25
atropine 1 % eye drops 1 drp BOTH EYES DAILY Eye Condition 08/14/25
bisacodyl 10 mg rectal suppository (Dulcolax (bisacodyl)) 10 mg OK DAILYPRN PRN constipation 08/14/25
calcium 600 mg (as carbonate)-vitamin D3 10 mcg (400 unit) tablet (Calcium 600 + D(3)) 1 tab PO DAILY Supplement 08/14/25
carboxymethylcellulose sodium 0.25 % eye drops 1 drp BOTH EYES DAILY Eye Condition 08/14/25
cholestyramine 4 gram oral powder for suspension in a packet 4 g PO BID Gastrointestinal Issue 08/14/25
clopidogrel 75 mg tablet (Plavix) 75 mg PO DAILY Blood Clot Prevention/Tx 08/14/25
epoetin angella 2,000 unit/mL injection solution 2,[address] [facility] anemia of chronic disease 08/14/25
haloperidol decanoate 100 mg/mL intramuscular solution 10 mg IM Q4W Mental Health/Anxiety 08/14/25
insulin lispro 100 unit/mL subcutaneous pen (Humalog KwikPen (U-100) Insulin) 0 - 12 sliding scale dose SC AC Diabetes 08/14/25
loratadine 10 mg tablet (Claritin) 10 mg PO Q48H Allergies 08/14/25
losartan 100 mg tablet 100 mg PO DAILY Blood Pressure 08/14/25
magnesium oxide 400 mg PO DAILY Supplement 08/14/25
nifedipine 90 mg tablet,extended release 90 mg PO DAILY Blood Pressure 08/14/25
quetiapine 100 mg tablet (Seroquel) 100 mg PO HS Mental Health/Anxiety 08/14/25
sorbitol 70 % solution 30 ml PO DAILYPRN PRN constipation 08/14/25
hydralazine 50 mg tablet 75 mg (1.5 x 50 mg) PO TID #0 tabs 08/19/25
carvedilol 12.5 mg tablet 25 mg PO BID Blood Pressure 08/24/25
B guuynnq-M-hazuh acid-Zn tablet 0.8 PO BID 10/21/25
calcium acetate(phosphat bind) 667 mg tablet 667 mg PO DAILY 10/21/25
clonidine HCl 0.2 mg tablet 0.2 mg PO DAILY PRN HTN 10/21/25
insulin glargine 100 unit/mL (3 mL) subcutaneous pen (Lantus Solostar U-100 Insulin) 12 unit SC HS Diabetes 10/21/25
insulin lispro 100 unit/mL subcutaneous pen (Humalog KwikPen (U-100) Insulin) 7 unit SC AC Diabetes 10/21/25
Review of Systems
-
Unable to obtain full review of systems at this time due to: Dementia
History Source: Patient
A 12 point ROS was completed and negative except as noted: No
Physical Exam
Vital Signs
Vital Signs
Temp Pulse Resp BP Pulse Ox
91.0 F L 57 20 154/57 95
10/21/25 09:54 10/21/25 09:54 10/21/25 09:54 10/21/25 09:54 10/21/25 09:54
Physical Exam
General: Other (.)
Laboratory Results
-
10/21/25 09:52
10/21/25 09:52
Laboratory Results
Total Bilirubin 0.6 mg/dl (0.2-1.3) 10/21/25 09:52
AST 37 U/L (14-36) H 10/21/25 09:52
ALT 24 U/L (0-35) 10/21/25 09:52
Alkaline Phosphatase 119 U/L (38-126) 10/21/25 09:52
Impression/Plan
-
Gen: NAD, Awake and alert
Eyes: cloudy sclera (known to be blind)
Neck: supple.
CV: RRR, +S1/S2, no m/r/g.
Resp: CTAB, no rales, wheezes, or rhonchi.
Abd: +BS, soft, NT, ND
Skin: No rashes.
Neuro: CN 2-12 intact, non-focal.
Psych: Normal mood and affect.
CXR: Mild cardiomegaly, unchanged. Mild interstitial prominence which may represent mild interstitial edema, viral illness or sequelae of chronic interstitial lung disease. There is a likely trace left pleural effusion.
Acute metabolic encephalopathy and hypothermia:
- Likely due to hypoglycemia and, to a lesser extent, hypernatremia
- Dr. France's discharge summary from 09/02/25 reviewed. Pt was admitted at that time due to syncope due to hypoglycemia.
- Hold home insulin regimen and placed on low resistance sliding scale only
- Continue D10W infusion started in the ER at 100cc/hr with every 2 hour Accu-Cheks
- Dr. Bragg had concern for LESVIA PNA which was not confirmed on the radiologist read of the chest x-ray. Okay to continue empiric antibiotics (Vanco/Cefepime) for now. Also, stat COVID/flu testing ordered.
- Continue Melvi hugger
- IMU placement
- c/s primary special educator on 10/23
Other problems:
ESRD-HD M/W/F: c/s renal
h/o Hyponatremia
Essential HTN: Awaiting med recs
Anemia of chronic kidney disease: Hb stable from prior
Bipolar disorder: Awaiting med recs
Dementia
Blindness from diabetic retinopathy
FULL code (as per NH documentation)
Heparin
[2025-10-21] MEDS: MAXIPIME 2000 MG IV (12:17)
[2025-10-21] MEDS: VANCOCIN 530 MG IV (12:45)
--- NOTE | 2025-10-21 13:14 | W.CON.NEPH ---
Consultation
-
Date/Time Consultation Requested: 10/21/2025 1 PM
Date/Time Consultation Performed: 10/21/2025 1 PM
Requesting Provider: Dr. Tinoco
Performing Provider: Dr. Motta
Reason for Consultation: ESRD
Medical History
-
Chief Complaint: ESRD
History of Present Illness:
70-year-old female with end-stage renal disease on hemodialysis MWF, diabetes on insulin therapy, blindness presenting to the emergency department for unresponsive episode. Patient was found at her facility this morning unresponsive. Blood glucose
was checked and it was low. Medics had administered 1 mg of glucagon with improvement of sugar. On arrival, patient noted to be hypothermic. This has occurred on a prior admission. She was also noted to have hypernatremia at 163 though serum
glucose was only 109
Renal consultation for end-stage renal disease which she gets Thursday at [facility]
Past Medical History
ESRD on HD, DM2, blindness due to diabetic retinopathy, HTN,
Social History
Tobacco: Non-Smoker
Alcohol: None
Family History
Family History: Not Pertinent
Allergies / Home Medications
Allergy/AdvReac Type Severity Reaction Status Date / Time
aspirin Allergy Hives Verified 10/21/25 09:53
NSAIDS (Non-Steroidal Allergy aspirin-hiv Verified 10/21/25 09:53
Anti-Inflamma es
Penicillins Allergy Swelling/hives Verified 10/21/25 09:53
- has
tolerated
amoxicillin
per patient
�Medication �Instructions �Recorded �Confirmed �Type
Pancrelipase Dr 3000-9500unit 1 cap PO DAILY Gastrointestinal 08/14/25 10/21/25 History
Issue
acetaminophen 325 mg tablet 650 mg PO Q6HPRN PRN mild 08/14/25 10/21/25 History
(Tylenol) pain/temp>100.4
albuterol 90 mcg-budesonide 80 2 inh inhalation R Q6HPRN PRN sob 08/14/25 10/21/25 History
mcg/actuation HFA aerosol inhaler
atropine 1 % eye drops 1 drp BOTH EYES DAILY Eye Condition 08/14/25 10/21/25 History
bisacodyl 10 mg rectal suppository 10 mg MI DAILYPRN PRN constipation 08/14/25 10/21/25 History
(Dulcolax (bisacodyl))
calcium 600 mg (as 1 tab PO DAILY Supplement 08/14/25 10/21/25 History
carbonate)-vitamin D3 10 mcg (400
unit) tablet (Calcium 600 + D(3))
carboxymethylcellulose sodium 0.25 1 drp BOTH EYES DAILY Eye Condition 08/14/25 10/21/25 History
% eye drops
cholestyramine 4 gram oral powder 4 g PO BID Gastrointestinal Issue 08/14/25 10/21/25 History
for suspension in a packet
clopidogrel 75 mg tablet (Plavix) 75 mg PO DAILY Blood Clot 08/14/25 10/21/25 History
Prevention/Tx
epoetin angella 2,000 unit/mL 2,000 unit SC [facility] anemia of 08/14/25 10/21/25 History
injection solution chronic disease
haloperidol decanoate 100 mg/mL 10 mg IM Q4W Mental Health/Anxiety 08/14/25 10/21/25 History
intramuscular solution
insulin lispro 100 unit/mL 0 - 12 sliding scale dose SC AC 08/14/25 10/21/25 History
subcutaneous pen (Humalog KwikPen Diabetes
(U-100) Insulin)
loratadine 10 mg tablet (Claritin) 10 mg PO Q48H Allergies 08/14/25 10/21/25 History
losartan 100 mg tablet 100 mg PO DAILY Blood Pressure 08/14/25 10/21/25 History
magnesium oxide 400 mg PO DAILY Supplement 08/14/25 10/21/25 History
nifedipine 90 mg tablet,extended 90 mg PO DAILY Blood Pressure 08/14/25 10/21/25 History
release
quetiapine 100 mg tablet (Seroquel) 100 mg PO HS Mental Health/Anxiety 08/14/25 10/21/25 History
sorbitol 70 % solution 30 ml PO DAILYPRN PRN constipation 08/14/25 10/21/25 History
hydralazine 50 mg tablet 75 mg (1.5 x 50 mg) PO TID #0 tabs 08/19/25 10/21/25 Rx
carvedilol 12.5 mg tablet 25 mg PO BID Blood Pressure 08/24/25 10/21/25 History
B astwume-B-hravm acid-Zn tablet 0.8 PO BID 10/21/25 History
calcium acetate(phosphat bind) 667 667 mg PO DAILY 10/21/25 10/21/25 History
mg tablet
clonidine HCl 0.2 mg tablet 0.2 mg PO DAILY PRN HTN 10/21/25 10/21/25 History
insulin glargine 100 unit/mL (3 12 unit SC HS Diabetes 10/21/25 10/21/25 History
mL) subcutaneous pen (Lantus
Solostar U-100 Insulin)
insulin lispro 100 unit/mL 7 unit SC AC Diabetes 10/21/25 10/21/25 History
subcutaneous pen (Humalog KwikPen
(U-100) Insulin)
Review of Systems
-
No chest pain or shortness of breath
All other systems: Negative unless noted
Physical Exam
Vital Signs
Vital Signs
Temp Pulse Resp BP Pulse Ox
94.7 F L 56 14 138/59 100
10/21/25 12:40 10/21/25 12:00 10/21/25 12:00 10/21/25 12:00 10/21/25 12:00
Lab Results
WBC 5.8 10^3/uL (4.8-10.8) 10/21/25 09:52
RBC 3.31 10^6/uL (4.20-5.40) L 10/21/25 09:52
Hgb 9.7 g/dL (12.0-16.0) L 10/21/25 09:52
Hct 31.7 % (37.0-47.0) L 10/21/25 09:52
Plt Count 264 10^3/uL (130-400) 10/21/25 09:52
Sodium 163 mmol/L (135-145) H* 10/21/25 09:52
Potassium 4.7 mmol/L (3.5-5.1) 10/21/25 09:52
Chloride 99 mmol/L (98-107) 10/21/25 09:52
Carbon Dioxide 30 mmol/L (22-30) 10/21/25 09:52
BUN 47 mg/dl (7-17) H 10/21/25 09:52
Creatinine 4.5 mg/dL (0.6-1.0) H* 10/21/25 09:52
eGFR 9.97 10/21/25 09:52
Glucose 109 mg/dl (70-99) H 10/21/25 09:52
Calcium 8.3 mg/dl (8.4-10.2) L 10/21/25 09:52
Albumin 3.9 g/dl (3.5-5.0) 10/21/25 09:52
Laboratory Tests
08/28/25 08/30/25
06:39 08:30
Hgb 8.4 L
Sodium 128 L 125 L
Physical Exam
Patient is awake alert oriented and in no distress. Mood and affect were pleasant, insight and judgment were fair. Hearing was normal, ears and nose are intact. Oropharynx was clear. Neck was supple with trachea midline and no thyromegaly. Heart
was regular rate and rhythm without rubs. Lower extremities with 1+ edema. Lungs were clear to auscultation bilaterally and with normal excursion. Abdomen was soft, nontender, with normal active bowel sounds, and no hepatosplenomegaly. Skin was
without rash and with normal turgor.
Data Reviewed
-
Radiology: Image Personally Visualized and interpreted (Chest x-ray 10/21/2025 by my reading cardiomegaly vascular prominence)
Labs: Labs Reviewed by me
Old Records: Reviewed
Assessment/Plan
-
Impression
End-stage renal disease on hemodialysis MWF [facility] via right chest cath
Anemia of chronic disease
Hyponatremia
Diabetic retinopathy
Hypoglycemia
Plan:
Next dialysis Thursday
Switch IV fluids to D5W at 80 mL/h
Free water deficit around 5 L
Follow BMP
Infectious workup
[2025-10-21 13:24] LABS: Urine White Cell >100 /HPF (0-5)
[2025-10-21 13:28] LABS: COVID-19 Antigen Negative (Negative)
--- NOTE | 2025-10-21 13:30 | CM ---
Chart reviewed
She is a LTC resident at [facility] rehab
[facility]
Report call [phone] 3 rd floor

Legally blind and needs assist with all ADLs and ambulation
Ambulating with RW
ESRD HD MWF
PCP Sara Yan
Meds by [facility]
DCP is to return back to [facility]
Cm will continue to follow up for any dcp needs
--- NOTE | 2025-10-21 15:19 | PHA.VAN.IN ---
Assessment
- Assessment
Renal Function: Patient has ESRD, on chronic Hemodialysis
Hemodialysis Schedule: MWF
Minimum Temperature: 91.0 F
Concomitant Antimicrobials: CEFEPIME
Plan
- Plan
Initial / Loading Dose: VANCO 1500MG X1
Monitoring: RANDOM 10/23 PRIOR TO HD
Pharmacokinetics Vancomycin I
- -
Patient Age: 70
Patient Sex: Female
Vancomycin Day #: 1
Indication: Pulmonary/Respiratory
Requesting Provider: DR. RAUSCH
Pertinent Antimicrobial Allergies:
PENICILLIN (SWELLING/HIVES, TOLERATED AMOXICILLIN)
Height / Weight:
Height 5 ft 3 in
Actual Weight 68 kg
Pertinent Past Medical History: ESRD-HD
- Vital Signs / Lab Results
Temp Pulse Resp BP Pulse Ox
94.7 F L 63 8 138/52 98
10/21/25 12:40 10/21/25 14:00 10/21/25 14:00 10/21/25 14:00 10/21/25 14:00
Lab Results - Hematology
10/21/25
09:52
WBC 5.8
Lab Results - Chemistry
10/21/25
09:52
BUN 47 H
Creatinine 4.5 H*
Estimated Creat Clear 10
Albumin 3.9
Lab Results - Urine
10/21/25
11:22
Urine Nitrite (Reflex) Negative
Leukocyte Esterase Rfl 3+ A
Urine WBC (Reflex) >100 A
Ur Squamous Epith Cells
Microbiology Results
10/21/25 12:53 Influenza Types A & B (LATISHA) - Final
Nasal Swab Negative for Influenza A & B, NAAT
Negative results must be combined with clinical observations
and patient history.
Nucleic Acid Amplification test (NAAT)performed on the
[employer] platform.
--- NOTE | 2025-10-21 15:54 | PTCARENOTE ---
pt received as admission from ED to room 0145. pt legally blind, history of dementia. pt oriented to self, unable to states the year is 1986 able to state she is in the hospital but not which hospital. SR on telemetry heart rate 60-70s. pulses
palpable. no edema. pt on 2L nasal cannula, sat 97%. lung sounds clear. hypoactive bowel sounds. pt is dialysis MWF, states she does urinate sometimes. dressing placed on sacrum due to redness and bilateral heels. pt oriented to room and unit. pt
updated on plan of care.
[2025-10-21] MEDS: D5W 1000 IV (16:04)
[2025-10-21 16:22] LABS: Glucose - Point of Care 257 mg/dl (70-99)
[2025-10-21] MEDS: NOVOLOG FLEXPEN-LOW RESISTANCE 3 UNITS SC (18:05)
[2025-10-21 19:45] LABS: Blood Urea Nitrogen 51 mg/dl (7-17); Calcium 7.5 mg/dl (8.4-10.2); Carbon Dioxide 27 mmol/L (22-30); Chloride 97 mmol/L (98-107); Estimated Creatinine Clearance 9 ml/min; Glucose 288 mg/dl (70-99); Potassium 4.5 mmol/L (3.5-5.1); Sodium 132 mmol/L (135-145); eGFR 9.71
[2025-10-21] MEDS: HEPARIN 5000 UNITS SC (20:12)
[2025-10-21] MEDS: SEROQUEL 100 MG PO (20:23)
[2025-10-21] MEDS: MYLICON 80 MG PO (20:23)
--- NOTE | 2025-10-21 21:39 | PTCARENOTE ---
Pt received at beginning of shift resting in bed. AAOx2. Blind. Occasionally yells out. Confused/forgetful at times. Bed alarm on and working. Neuro checks completed as documented. Repeat BMP Na+ 132. Ivania TAPIA TT'd and made aware of quick
reduction in Na+. Also accuchecks rising since arrival to floor. Received on D5W at 80mls/hr. IVF's stopped. HS accucheck 307. Will recheck at 0300. Pt c/o gas pain. Ivania TAPIA ordered Mylicon and pt received with good relief. Lungs clear. POX 97%.
SR on CM rate 65. Pt oliguric. Rest of VSS. Assessment as documented. Call torres remains within reach. Will continue to monitor.
[2025-10-21 21:51] LABS: Glucose - Point of Care 307 mg/dl (70-99)
[2025-10-21] MEDS: FLUSH (NSS) 2 FLUSH IV (23:22)
[2025-10-21] MEDS: VALIUM INJECTION 2 MG IV (23:22)
--- NOTE | 2025-10-21 23:29 | PTCARENOTE ---
Pt frequently yelling out. Very anxious about things not there. Received scheduled Seroquel at 2029. Ivania TAPIA TT'd and made aware. Order entered for Valium 2mg IV. Pt received med as ordered. Currently resting comfortably. Will continue to
monitor.
[2025-10-22] VITALS (13 sets, daily range): BP systolic 110–199; BP diastolic 43–70; BMI 27.1
[2025-10-22 01:02] LABS: Blood Urea Nitrogen 54 mg/dl (7-17); Calcium 7.5 mg/dl (8.4-10.2); Carbon Dioxide 24 mmol/L (22-30); Chloride 98 mmol/L (98-107); Estimated Creatinine Clearance 9 ml/min; Glucose 305 mg/dl (70-99); Potassium 4.8 mmol/L (3.5-5.1); Sodium 133 mmol/L (135-145); eGFR 9.46
[2025-10-22 03:14] LABS: Glucose - Point of Care 348 mg/dl (70-99)
[2025-10-22 04:13] LABS: Hematocrit 26.0 % (37.0-47.0); Hemoglobin 8.1 g/dL (12.0-16.0); Mean Corp Hgb Conc. 31.2 g/dL (33.0-37.0); Mean Corpuscular Volume 92.5 fL (81.0-99.0); Platelet Count 167 10^3/uL (130-400); Red Cell Dist. Width 16.0 % (11.5-14.5)
[2025-10-22 04:36] LABS: Blood Urea Nitrogen 54 mg/dl (7-17); Calcium 7.6 mg/dl (8.4-10.2); Carbon Dioxide 23 mmol/L (22-30); Chloride 99 mmol/L (98-107); Estimated Creatinine Clearance 10 ml/min; Glucose 301 mg/dl (70-99); Potassium 5.3 mmol/L (3.5-5.1); Sodium 133 mmol/L (135-145); eGFR 9.46
--- NOTE | 2025-10-22 05:58 | PTCARENOTE ---
BP elevated this am. Currently 199/65 HR 69. Ivania TAPIA TT'd and made aware. Awaiting response for order.
--- NOTE | 2025-10-22 06:15 | PTCARENOTE ---
Pt's home med list ordered. Awaiting verification on prn Catapress to give for BP per Ivania TAPIA.
[2025-10-22] MEDS: OSCAL 500 + D 500 MG PO (07:28)
[2025-10-22] MEDS: COZAAR 100 MG PO (07:29)
[2025-10-22] MEDS: APRESOLINE 75 MG PO ×3 (07:29→20:58)
[2025-10-22] MEDS: PROCARDIA XL (EXTENDED RELEASE) 90 MG PO (07:29)
[2025-10-22] MEDS: PLAVIX 75 MG PO (07:30)
[2025-10-22] MEDS: COREG 25 MG PO ×2 (07:30→20:58)
[2025-10-22] MEDS: PHOSLO 667 MG PO (07:30)
[2025-10-22] MEDS: B COMPLEX w/VITAMIN C 1 CAPLET PO ×2 (07:30→20:58)
[2025-10-22] MEDS: MAGNESIUM OXIDE 400 MG PO (07:30)
[2025-10-22] MEDS: REFRESH EYE DROPS (PF) 1 DROPS BOTH EYES (07:30)
[2025-10-22] MEDS: HEPARIN 5000 UNITS SC ×2 (07:30→20:57)
[2025-10-22] MEDS: ATROPINE SULFATE 1% DROPS 1 DROP BOTH EYES (07:31)
--- NOTE | 2025-10-22 07:57 | W.PN.HOSP.TC ---
Today's Communication/Plan
-
see plan
Assessment / Plan
Assessment / Plan
Gen: NAD, Awake and alert
Eyes: cloudy sclera (known to be blind)
Neck: supple.
CV: RRR, +S1/S2, no m/r/g.
Resp: CTAB, no rales, wheezes, or rhonchi.
Abd: +BS, soft, NT, ND
Skin: No rashes.
Neuro: CN 2-12 intact, non-focal.
Psych: Normal mood and affect.
10/21/25 12:17 Blood/Venous Blood Culture - Preliminary
Staphylococcus species
10/21/25 12:17 Blood/Venous Gram Stain - Preliminary
10/21/25 15:34 Nose Nasal Screen MRSA (PCR) - Final
MRSA not detected - performed by PCR methodology.
10/21/25 12:53 Nasal Swab Influenza Types A & B (LATISHA) - Final
Negative for Influenza A & B, NAAT
Negative results must be combined with clinical observations
and patient history.
Nucleic Acid Amplification test (NAAT)performed on the
[employer] ID NOW platform.
CXR: Mild cardiomegaly, unchanged. Mild interstitial prominence which may represent mild interstitial edema, viral illness or sequelae of chronic interstitial lung disease. There is a likely trace left pleural effusion.
Acute metabolic encephalopathy and hypothermia:
-likely due to hypoglycemia and, to a lesser extent, hypernatremia, both of which have now resolved
-was on D10W, now off with hyperglycemia
-resume basal-bolus insulin (Lantus 10U, premeal Novolog 7U), with hyperglycemia to the 400s will give NPH 12U x 1
-hypothermia has resolved (was on Melvi Hugger)
-COVID/Flu NEG
-currently on Vanco/Cefepime. While I doubt there is an acute infection the patient does have pyuria and is unable to give an adequate history due to her dementia. Continue antibiotics until urine culture results (see below).
-c/s diabetes VIDEO PRESENTATION OPERATOR on 10/23
Essential HTN with hypertensive urgency:
-cont home Procardia XL/Losartan/Hydralazine/Coreg
POS BCx with Staph:
-as per discussion with microbiology over the phone [employer] is resulting as RATE EXAMINER
-cont Vanco until final BCx report
Other problems:
ESRD-HD M/W/F: renal following, discussed with renal (Dr. Motta), K 5.3 can be address on HD tomorrow
Hyponatremia, mild
Essential HTN: Awaiting med recs
Anemia of chronic kidney disease: Hb stable from prior
Bipolar disorder: cont Seroquel
Dementia
Blindness from diabetic retinopathy
FULL code (as per [facility] documentation)
Heparin
Anticipated Discharge: 24 - 48 hours
Subjective/Interval History
-
Date of Service: October 22, 2025
When asked, pt reports SOB. She states this is chronic and unchanged.
Objective Data
-
Labs:
Laboratory Results
10/21/25 10/22/25
23:53 03:15
WBC 4.2 L
Hgb 8.1 L
Hct 26.0 L
Plt Count 167 D
Sodium 133 L 133 L
Potassium 4.8 5.3 H
Chloride 98 99
Carbon Dioxide 24 23
BUN 54 H 54 H
Creatinine 4.7 H* 4.7 H*
Glucose 305 H 301 H
Calcium 7.5 L 7.6 L
Vital Signs:
Vital Signs
Temp Pulse Resp BP Pulse Ox
98.1 F 67 14 192/63 97
10/22/25 07:00 10/22/25 07:00 10/22/25 07:00 10/22/25 06:00 10/22/25 07:00
I&O
10/21/25 10/22/25 10/23/25
06:59 06:59 06:59
Intake Total 1040 / 1040
Balance 1040 / 1040
--- NOTE | 2025-10-22 08:30 | PHA.VAN.FU ---
Vancomycin Assessment / Plan
- Assessment
Hemodialysis Schedule: MWF
WBC's are: Trending Down
In the past 24 hrs, patient has been: Afebrile
Concomitant Antimicrobials: CEFEPIME
- Dosing Plan
Dosing by Level: Hold off on dosing today (PREVIOUS DOSE 10/21 @1245 VANCO 1500MG)
- Monitoring Plan
Random Level: 10/23 BEFORE HD
- Follow Up
Pharmacy will continue to follow.
Vancomycin Follow UP
- -
Patient Age: 70
Patient Sex: Female
Vancomycin Day #: 2
Indication: Pulmonary/Respiratory
Requesting Provider: DR. RAUSCH
Pertinent Antimicrobial Allergies:
PENICILLIN (SWELLING/HIVES, TOLERATED AMOXICILLIN)
Height / Weight:
Height 5 ft 3 in
Actual Weight 69.3 kg
Pertinent Past Medical History: ESRD-HD
- Vital Signs / Lab Results
Temp Pulse Resp BP Pulse Ox
98.1 F 67 14 192/63 97
10/22/25 07:00 10/22/25 07:00 10/22/25 07:00 10/22/25 06:00 10/22/25 07:00
Lab Results - Hematology
10/21/25 10/22/25
09:52 03:15
WBC 5.8 4.2 L
Lab Results - Chemistry
10/21/25 10/21/25 10/21/25
09:52 19:13 23:53
BUN 47 H 51 H 54 H
Creatinine 4.5 H* 4.6 H* 4.7 H*
Estimated Creat Clear 10 9 9
Albumin 3.9
10/22/25
03:15
BUN 54 H
Creatinine 4.7 H*
Estimated Creat Clear 10
Albumin
Lab Results - Urine
10/21/25
11:22
Urine Nitrite (Reflex) Negative
Leukocyte Esterase Rfl 3+ A
Ur Squamous Epith Cells
Microbiology Results
10/21/25 12:17 Blood Culture - Preliminary
Blood/Venous Positive culture in progress
Gram Stain - Preliminary
10/21/25 12:53 Influenza Types A & B (LATISHA) - Final
Nasal Swab Negative for Influenza A & B, NAAT
Negative results must be combined with clinical observations
and patient history.
Nucleic Acid Amplification test (NAAT)performed on the
[employer] ID NOW platform.
[2025-10-22 08:53] LABS: Glycohemoglobin (HgbA1c) 6.4 % (4.0-5.9)
[2025-10-22] MEDS: LANTUS 0.1 UNITS SC (08:58)
[2025-10-22] MEDS: NOVOLOG FLEXPEN 7 UNITS SC ×3 (08:59→17:45)
--- NOTE | 2025-10-22 09:00 | PTCARENOTE ---
report received from previous RN at change of shift. Pt resting in bed, AAOx2- disoriented to time. pt blind, needs some assistance with eating. Sr on telemetry heart rate in 60s. pulses palpable. no edema. pt on 2L nasal cannula, sat 97%. lung
sounds clear. hypoactive bowel sounds. abdomen obese. pt dialysis MWF, oliguric. pt updated on plan of care. blood sugar reading high- stat venous sample sent
[2025-10-22 09:09] LABS: Glucose - Point of Care 427 mg/dl (70-99)
[2025-10-22 09:47] LABS: Glucose 432 mg/dl (70-99)
[2025-10-22] MEDS: NOVOLOG FLEXPEN-LOW RESISTANCE SC ×2 (10:06→17:45)
[2025-10-22] MEDS: NOVOLIN N vial 0.12 UNITS SC (11:24)
[2025-10-22 11:35] LABS: Glucose - Point of Care 300 mg/dl (70-99)
[2025-10-22] MEDS: NOVOLOG FLEXPEN-LOW RESISTANCE 2 UNITS SC ×2 (12:20→12:22)
[2025-10-22 12:29] LABS: Glucose - Point of Care 242 mg/dl (70-99)
--- NOTE | 2025-10-22 12:52 | PTOTSP ---
Speech therapy
Presentation: Patient was oriented, followed commands, and communicated wants/ needs WNL. Patient is blind. Patient denied any communicative deficits.
Per RN, patient has been tolerating medications whole with thin liquid and meals (reg/ thin) but had a coughing spell after drinking hot coffee from a straw.
Swallowing Function: MELT HOUSE DRAG OPERATOR observed patient with several bites of regular consistency solids and straw sips of thin liquids in which patient appeared to tolerate as she did not appear to show any s/sx of aspiration or difficulty with mastication/
manipulation.
MELT HOUSE DRAG OPERATOR reviewed recommendations of continued diet but to avoid hot liquids with a straw.
Recommendations:
1) Reg/ thin liquids
2) FULL assistance with PO
3) Medications whole with thin liquids
4) Aspiration precautions
Plan: MELT HOUSE DRAG OPERATOR will continue to follow for dysphagia therapy; pending hospitalization.
--- NOTE | 2025-10-22 12:54 | W.PN.NEPH.PH ---
Today's Communication / Plan
-
HD tomorrow
Assessment/Plan
-
Impression
End-stage renal disease on hemodialysis MWF [facility] via right chest cath
Anemia of chronic disease
Hyponatremia
Diabetic retinopathy
Hypoglycemia
Plan:
Next dialysis tomorrow
No IV fluids
Follow BMP
Positive blood culture staph, on antibiotics
-
-
Date of Service: October 22, 2025
CC / HPI / ROS
-
Chief Complaint:
ESRD
History of Present Illness:
Sodium not low 133
Potassium 5.3
BP stable
Sugars improved
Review of Systems:
No chest pain or shortness of breath
Labs
-
Labs:
WBC 4.2 10^3/uL (4.8-10.8) L 10/22/25 03:15
RBC 2.81 10^6/uL (4.20-5.40) L 10/22/25 03:15
Hgb 8.1 g/dL (12.0-16.0) L 10/22/25 03:15
Hct 26.0 % (37.0-47.0) L 10/22/25 03:15
Plt Count 167 10^3/uL (130-400) D 10/22/25 03:15
Sodium 133 mmol/L (135-145) L 10/22/25 03:15
Potassium 5.3 mmol/L (3.5-5.1) H 10/22/25 03:15
Chloride 99 mmol/L (98-107) 10/22/25 03:15
Carbon Dioxide 23 mmol/L (22-30) 10/22/25 03:15
BUN 54 mg/dl (7-17) H 10/22/25 03:15
Creatinine 4.7 mg/dL (0.6-1.0) H* 10/22/25 03:15
eGFR 9.46 10/22/25 03:15
Glucose 432 mg/dl (70-99) H 10/22/25 09:18
Calcium 7.6 mg/dl (8.4-10.2) L 10/22/25 03:15
Albumin 3.9 g/dl (3.5-5.0) 10/21/25 09:52
Physical Exam
-
Vital Signs:
Vital Signs
Temp Pulse Resp BP Pulse Ox
98.4 F 65 22 114/51 95
10/22/25 11:00 10/22/25 10:00 10/22/25 10:00 10/22/25 10:00 10/22/25 10:00
Cardiovascular:: Regular rate and rhythm
Respiratory:: Bilateral: Coarse
Lung Excursion:: Normal
Abdomen:: Nontender and Soft
Bowel Sounds:: Normal
Extremity Edema:: None: Bilateral:
[2025-10-22 15:20] LABS: Glucose - Point of Care 154 mg/dl (70-99)
[2025-10-22] MEDS: MAXIPIME 1000 MG IV (16:52)
[2025-10-22] MEDS: STERILE WATER FOR INJECTION 10 ML IV (16:53)
[2025-10-22 17:55] LABS: Glucose - Point of Care 134 mg/dl (70-99)
[2025-10-22] MEDS: SEROQUEL 100 MG PO (20:58)
[2025-10-22] MEDS: MELATONIN 5 MG PO (20:58)
[2025-10-22 21:50] LABS: Glucose - Point of Care 97 mg/dl (70-99)
[2025-10-23] VITALS (32 sets, daily range): BP systolic 99–175; BP diastolic 20–87
--- NOTE | 2025-10-23 05:37 | PTCARENOTE ---
received patient jet previous RN. Patient AAox3, thought year was 2006. patient is blind in both eyes. Patient receives dialysis MWF. assessment charted. VVS. call torres in reach.
[2025-10-23 08:10] LABS: Glucose - Point of Care 140 mg/dl (70-99)
[2025-10-23 08:22] LABS: Glucose - Point of Care 429 mg/dl (70-99)
--- NOTE | 2025-10-23 08:45 | PN.DE.MGMTRT ---
Insulin Management
- -
10/23/2025: Diabetes Management Consult
Patient admitted from a nursing facility for AMS, hypoglycemia, diaphoresis after she was found unresponsive. Blood glucose was checked and it was 34. Pt was recently admitted from 08/14 to 08/19 and again 08/24 to 09/01 for hypoglycemia.
PMH: HTN, ESRD on HD (MWF), legal blindness, Asthma, dementia, bipolar, previous surgeries on the lumbar spine and L knee, and IDDM.
Prior to admission was taking Lantus 12 units @ HS with Humalog 7 units AC plus SS. A1C 6.4%, was 9.5% in 08/2025. Cr 4.7 eGFR 9.46.
Patient awake, alert, resting in bed, unable to discuss diabetes care plan 2/2 dementia.
Current insulin regimen includes Lantus 10 units and NovoLog 7 units AC with low corrective on 1999 odessa diet, HS glucose was 97, fasting 140 today.
Will reduce NovoLog from 7 units to 4 units AC. Cont Lantus 10 units in AM and low corrective insulin with meals.
Target glucose ~ 200 to avoid hypoglycemia in patient with cognitive dysfunction and multiple comorbidities.
Will cont to follow and adjust AC insulin dose if necessary.
Discussed with nurse and instructed to give insulin ONLY if patient has been fed her meal, as pt requires assistance with all meals.
Diabetes History
- -
Type of Diabetes: 2 requiring insulin
Pre-Admission Diabetes Regimen
Lab Results
Hemoglobin A1c 6.4 % (4.0-5.9) H 10/22/25 03:15
Insulin Pump Settings
IP Diabetes Regimen
10/22/25 10/22/25 10/22/25
08:44 08:57 09:18
Glucose 432 H
POC Glucose 429 H 427 H
10/22/25 10/22/25 10/22/25
11:24 12:18 15:10
Glucose
POC Glucose 300 H 242 H 154 H
10/22/25 10/22/25 10/23/25
17:44 21:39 07:59
Glucose
POC Glucose 134 H 97 140 H
Meal type: Dinner
Meal type: Lunch
Amount consumed: 100%
Amount consumed: 100%
Patient Education
--- NOTE | 2025-10-23 09:06 | W.PN.HOSP.TC ---
Today's Communication/Plan
-
see plan
Assessment / Plan
Assessment / Plan
Gen: NAD, Awake and alert
Neck: supple.
CV: remains RRR, +S1/S2, no m/r/g.
Resp: CTAB anteriorly, no rales, wheezes, or rhonchi.
Abd: remains +BS, soft, NT, ND
Skin: No rashes.
Neuro: CN 2-12 intact, non-focal.
Psych: Normal mood and affect.
10/21/25 12:17 Blood/Venous Blood Culture - Preliminary
Positive culture in progress
10/21/25 12:17 Blood/Venous Gram Stain - Preliminary
10/21/25 11:22 Urine Urine Culture - Final
NO GROWTH
10/21/25 12:17 Blood/Venous Blood Culture - Preliminary
Staphylococcus species
10/21/25 12:17 Blood/Venous Gram Stain - Preliminary
10/21/25 15:34 Nose Nasal Screen MRSA (PCR) - Final
MRSA not detected - performed by PCR methodology.
10/21/25 12:53 Nasal Swab Influenza Types A & B (LATISHA) - Final
Negative for Influenza A & B, NAAT
Negative results must be combined with clinical observations
and patient history.
Nucleic Acid Amplification test (NAAT)performed on the
[employer] NOW platform.
CXR: Mild cardiomegaly, unchanged. Mild interstitial prominence which may represent mild interstitial edema, viral illness or sequelae of chronic interstitial lung disease. There is a likely trace left pleural effusion.
Acute metabolic encephalopathy and hypothermia:
-likely due to hypoglycemia and, to a lesser extent, hypernatremia, both of which have now resolved
-was on D10W, now off
-cont Basal-bolus insulin, make adjustments based on BGs, diabetes MOVER to see
-hypothermia has resolved (was on Melvi Hugger)
-COVID/Flu NEG
-currently on empiric Vanco/Cefepime. See POS BCxs below. c/s ID, repeat BCxs, likely able to stop Cefepime.
POS BCx with Staph:
-as per discussion with microbiology over the phone [employer] is resulting as VAULT MECHANIC
-cont Vanco
-repeat BCxs
-c/s ID
-pt with R chest wall HD cath which will likely need to be removed
Other problems:
Essential HTN with hypertensive urgency: cont home Procardia XL/Losartan/Hydralazine/Coreg
ESRD-HD M/W/F: renal following
Hyponatremia, mild
Essential HTN: Awaiting med recs
Anemia of chronic kidney disease: Hb stable from prior
Bipolar disorder: cont Seroquel
Dementia
Blindness from diabetic retinopathy
FULL code (as per [facility] documentation)
Heparin
Anticipated Discharge: > 48 hours
Subjective/Interval History
-
Date of Service: October 23, 2025
No new complaints.
Objective Data
-
Labs:
Laboratory Results
10/23/25
06:00
WBC Pending
Hgb Pending
Hct Pending
Plt Count Pending
Sodium Pending
Potassium Pending
Chloride Pending
Carbon Dioxide Pending
BUN Pending
Creatinine Pending
Glucose Pending
Calcium Pending
Vital Signs:
Vital Signs
Temp Pulse Resp BP Pulse Ox
98.5 F 66 15 164/54 98
10/23/25 07:05 10/23/25 05:00 10/23/25 05:00 10/23/25 04:00 10/23/25 05:00
I&O
10/22/25 10/23/25 10/24/25
06:59 06:59 06:59
Intake Total 1040 / 1040 960 / 960 480 / 480
Output Total 200 / 200
Balance 1040 / 1040 760 / 760 480 / 480
[2025-10-23] MEDS: NOVOLOG FLEXPEN-LOW RESISTANCE SC ×2 (09:45→18:33)
[2025-10-23] MEDS: NOVOLOG FLEXPEN SC (10:14)
[2025-10-23] MEDS: MAGNESIUM OXIDE 400 MG PO (10:30)
[2025-10-23] MEDS: PROCARDIA XL (EXTENDED RELEASE) 90 MG PO (10:30)
[2025-10-23] MEDS: COREG 25 MG PO ×2 (10:30→19:49)
[2025-10-23] MEDS: REFRESH EYE DROPS (PF) 1 DROPS BOTH EYES (10:30)
[2025-10-23] MEDS: B COMPLEX w/VITAMIN C 1 CAPLET PO ×2 (10:30→19:51)
[2025-10-23] MEDS: ATROPINE SULFATE 1% DROPS 1 DROP BOTH EYES (10:30)
[2025-10-23] MEDS: COZAAR 100 MG PO (10:30)
[2025-10-23] MEDS: HEPARIN 5000 UNITS SC ×2 (10:30→19:51)
[2025-10-23] MEDS: LANTUS 0.1 UNITS SC (10:30)
[2025-10-23] MEDS: PHOSLO 667 MG PO (10:30)
[2025-10-23] MEDS: OSCAL 500 + D 500 MG PO (10:30)
[2025-10-23] MEDS: APRESOLINE 75 MG PO ×3 (10:30→22:42)
[2025-10-23] MEDS: NOVOLOG FLEXPEN 4 UNITS SC ×3 (10:30→19:40)
[2025-10-23] MEDS: PLAVIX 75 MG PO (10:30)
--- NOTE | 2025-10-23 10:35 | CON.ID ---
Consultation
-
Date/Time Consultation Requested: 10/23/25 10:03
Date/Time Consultation Performed: 10/23/25 10:36
Requesting Provider: Dr Tinoco
Performing Provider: Dr Arnold
Reason for Consultation: POS BCxs
Chief Complaint / Past History
Chief Complaint
AMS, hypoglycemia
History of Present Illness
Ms Lao is a 70 year old female with history of ESRD on HD, previous surgeries on the lumbar spine and L knee, dementia who was referred to the ER from a nursing facility for AMS, hypoglycemia, diaphoresis. After hypoglycemia was treated she
complained of cough without chest pain, feeling cold. Denied chest pain, later admitted to abdominal pain. History was reportedly limited on arrival, however today 10/23 she is able to provide further history and denies sinus tenderness, cough,
sputum production, nausea, vomiting, diarreha, dysuria, tenderness over the HD cath. She has some lumbar spinal pain She has some pruritus and was told she had a rash at [facility] within the last few weeks though I do no appreciate one today. She
also reports sore throat for several weeks. She gives the history that the current HD cath was placed in 08/2025 - I do not have records of that here.
Since arrival here she has been afebrile, initially hypothemic to 91F with resolution over the next 12 hours, bp hypertensive, RR usually in the teens and HR in the 60s, wbc 5.8, hgb 9.7,, plt 264, no L shift, na initially 163 rapidly corrected to
132, cr 4.5, K 4.7, a1c 6.4, t bili 0.6, ast 37, alt 24, alk phos 119, UA > 100 wbc/hpf and few squamous cells, covid ag negative, 10/21 CXR: mild interstitial prominence, repeat CXR 10/21 stable dual luman CVC mild interstitial edema, 10/21 two
blood cultures obtained at the same time both with Staphylococcus species, MRSA screen of the nose negative, repeat blood cultures not yet done, patient was started on vanc and cefepime on arrival and these were continued, ID is consulted for
assistance with management.
Past History
Additional Past Medical History:
ESRD-HD M/W/F
Chronic paulino
Hyponatremia
Essential HTN
Anemia of chronic kidney disease
Bipolar disorder
Dementia
Blindness from diabetic retinopathy
Additional Past Surgical History:
appendectomy, history of section, left knee surgery, spinal fusion, L arm dialysis fistula
Allergy History:
aspirin Allergy (Verified 10/21/25 09:53)
Hives
NSAIDS (Non-Steroidal Anti-Inflamma Allergy (Verified 10/21/25 09:53)
aspirin-hives
Penicillins Allergy (Verified 10/21/25 09:53)
Swelling/hives - has tolerated amoxicillin per patient
Medications Reviewed: Yes
Social History
Tobacco: Non-Smoker
Alcohol: None
Drug: None
Family History
Family History: Not Pertinent
Review of Systems
Review of Systems
as per hpi
Vital Signs
Temp Pulse Resp BP Pulse Ox
98.5 F 66 15 164/54 98
10/23/25 07:05 10/23/25 05:00 10/23/25 05:00 10/23/25 04:00 10/23/25 05:00
Physical Exam
Physical Exam
Constitutional: No Acute Distress
Cardiovascular: Regular Rate and S1/S2; Negative Murmur or Rub
Pulmonary: Clear and Symmetric; Negative Wheezes, Rales or Rhonchi
Gastrointestinal: Soft, Non Tender, Non Distended and Normal Bowel Sounds
Extremities: Other (L Knee well healed no erythema, warmth, dehiscence, or fluctuance; left UE no erythema, warmth or cords)
Musculoskeletal: Other (lumbar spine with well healed surgical scar no erythema, warmth, dehiscence )
Skin: Warm and Dry; Negative Rash or Jaundice
Neurological: Awake and Alert
Lines: HD Cath (no erythema, tenderness, erythema or drainage)
Lab / Diagnostic Study Results
Abs Immat Gran (auto) 0.0 10^3/uL (0-0.05) 10/21/25 09:52
Absolute Neuts (auto) 3.9 10^3/uL (1.4-6.5) 10/21/25 09:52
Absolute Lymphs (auto) 1.2 10^3/uL (1.2-3.4) 10/21/25 09:52
Absolute Monos (auto) 0.4 10^3/uL (0.1-0.6) 10/21/25 09:52
Absolute Basos (auto) 0.0 10^3/uL (0-0.2) 10/21/25 09:52
Immature Gran % 0.5 % (0-0.5) 10/21/25 09:52
Neutrophils % 66.8 % (42.2-75.2) 10/21/25 09:52
Lymphocytes % 21.0 % (20.5-51.1) 10/21/25 09:52
Monocytes % 6.8 % (1.7-9.3) 10/21/25 09:52
Eosinophils % 4.2 % (0-6) 10/21/25 09:52
Basophils % 0.7 % (0-2) 10/21/25 09:52
Ur Squamous Epith Cells /LPF (Few) 10/21/25 11:22
Microbiology Results
Micro:
10/21/25 12:17 Blood Culture - Preliminary
Blood/Venous Positive culture in progress
Gram Stain - Preliminary
10/21/25 11:22 Urine Culture - Final
Urine NO GROWTH
10/21/25 12:17 Blood Culture - Preliminary
Blood/Venous Staphylococcus species
Gram Stain - Preliminary
10/21/25 15:34 Nasal Screen MRSA (PCR) - Final
Nose MRSA not detected - performed by PCR methodology.
10/21/25 12:53 Influenza Types A & B (LATISHA) - Final
Nasal Swab Negative for Influenza A & B, NAAT
Negative results must be combined with clinical observations
and patient history.
Nucleic Acid Amplification test (NAAT)performed on the
[employer] ID NOW platform.
Assessment / Plan
Staphylococcal Bacteremia vs Contaminated blood cultures
ESRD on HD via tunneled line right chest
Toxic metabolic encephalopathy
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
Penicillin allergy - not allergic if she has truly tolerated amoxicillin in the past
Blindness
- blood cultures x2 from arrival done at the same time - implies they are likely from the same blood draw, if finalized as CONS then these may be contamination
- repeat blood cultures x2 ordered for today - note these are on vancomycin and cefepime
- would maintain HD cath at this time while following repeat cultures
- urine culture rules out UTI
- Xray of the lumbar spine given tenderness over this area and history of surgery; also with surgery on the L knee but no external symptoms of infection, HD cath without signs of infection at this time
- continue vancomycin for now
- stop cefepime
- note that last hospitalization was also for hypoglycemia - management per IM service, on insulin
[2025-10-23 13:13] LABS: Glucose - Point of Care 160 mg/dl (70-99)
--- NOTE | 2025-10-23 13:46 | CM ---
F/U: Re-sent referral to [facility]. Hospital Team still trying to figure out the infection so will continue Vanco, repeat BCxs, consult ID, and have R chest wall HD cath which will likely need to be removed. Patient admitted for likely
hypoglycemia. Will Follow. PLAN: Return to [facility].
[2025-10-23] MEDS: NOVOLOG FLEXPEN-LOW RESISTANCE 1 UNITS SC (13:54)
[2025-10-23] MEDS: RETACRIT 10000 UNITS IV (15:29)
[2025-10-23 15:42] LABS: Blood Urea Nitrogen 65 mg/dl (7-17); Calcium 7.3 mg/dl (8.4-10.2); Carbon Dioxide 27 mmol/L (22-30); Chloride 99 mmol/L (98-107); Estimated Creatinine Clearance 8 ml/min; Glucose 145 mg/dl (70-99); Potassium 5.0 mmol/L (3.5-5.1); Sodium 133 mmol/L (135-145); eGFR 6.92
--- NOTE | 2025-10-23 15:48 | PHA.VAN.FU ---
Vancomycin Assessment / Plan
- Assessment
Hemodialysis Schedule: MWF
WBC's are: Trending Down (4.2 from 5.8)
In the past 24 hrs, patient has been: Afebrile
Concomitant Antimicrobials: None
- Assessment - Therapeutic Drug Monitoring
Random Level: 14.7 mcg/mL (drawn approximately 50 hours post-1500MG LD)
- Dosing Plan
Dosing by Level: Re-dose today (500MG x1 post-HD)
- Monitoring Plan
Random Level: 10/25/25 @0600 (pre-HD)
- Follow Up
Pharmacy will continue to follow.
Vancomycin Follow UP
- -
Patient Age: 70
Patient Sex: Female
Vancomycin Day #: 3
Indication: Pulmonary/Respiratory
Requesting Provider: DR. RAUSCH
Pertinent Antimicrobial Allergies:
PENICILLIN (SWELLING/HIVES, TOLERATED AMOXICILLIN)
Height / Weight:
Height 5 ft 3 in
Actual Weight 69.3 kg
Pertinent Past Medical History: ESRD-HD
- Vital Signs / Lab Results
Temp Pulse Resp BP Pulse Ox
98.1 F 66 15 164/54 96
10/23/25 15:24 10/23/25 05:00 10/23/25 05:00 10/23/25 04:00 10/23/25 15:27
Lab Results - Hematology
10/21/25 10/22/25
09:52 03:15
WBC 5.8 4.2 L
Lab Results - Chemistry
10/21/25 10/21/25 10/21/25
09:52 19:13 23:53
BUN 47 H 51 H 54 H
Creatinine 4.5 H* 4.6 H* 4.7 H*
Estimated Creat Clear 10 9 9
Albumin 3.9
10/22/25 10/23/25
03:15 15:05
BUN 54 H 65 H
Creatinine 4.7 H* 6.1 H*
Estimated Creat Clear 10 8
Albumin
Microbiology Results
10/21/25 12:17 Blood Culture - Preliminary
Blood/Venous Positive culture in progress
Gram Stain - Preliminary
10/21/25 12:17 Blood Culture - Preliminary
Blood/Venous Staphylococcus species
Gram Stain - Preliminary
10/21/25 11:22 Urine Culture - Final
Urine NO GROWTH
10/21/25 15:34 Nasal Screen MRSA (PCR) - Final
Nose MRSA not detected - performed by PCR methodology.
10/21/25 12:53 Influenza Types A & B (LATISHA) - Final
Nasal Swab Negative for Influenza A & B, NAAT
Negative results must be combined with clinical observations
and patient history.
Nucleic Acid Amplification test (NAAT)performed on the
[employer] platform.
Therapeutic Drug Monitoring
Random Vancomycin 14.7 ug/ml 10/23/25 15:05
--- NOTE | 2025-10-23 15:55 | W.PN.NEPH.HD ---
Assessment
-
Tolerating dialysis afebrile
Surveillance cultures done today
Infectious disease consult noted
Maintain permacath for now
Antibiotics renally dosed postdialysis Vanco
Progress Note - Hemodialysis
-
Date of Service: October 23, 2025
Duration: 30 minutes and 3 hours
Potassium Bath: 2
Calcium Bath: 2.5
Opti-Dialyzer: 160
Ultrafiltration: Other (2kg)
Blood Flow: 400
Dialysate Flow: 600
Heparin: 0
EPO: 86365 units
[2025-10-23 16:23] LABS: Hematocrit 22.7 % (37.0-47.0); Hemoglobin 7.1 g/dL (12.0-16.0); Mean Corp Hgb Conc. 31.3 g/dL (33.0-37.0); Mean Corpuscular Volume 93.4 fL (81.0-99.0); Platelet Count 173 10^3/uL (130-400); Red Cell Dist. Width 16.2 % (11.5-14.5)
[2025-10-23 17:14] LABS: Iron 41 ug/dl (37-170)
[2025-10-23 17:20] LABS: Total Iron Binding Capacity 160 ug/dl (265-497)
[2025-10-23] MEDS: HEPARIN 3400 UNITS INTRACATH (17:31)
[2025-10-23 17:40] LABS: Glucose - Point of Care 133 mg/dl (70-99)
[2025-10-23 17:47] LABS: Ferritin 372.0 ng/ml (11.1-264.0)
[2025-10-23] MEDS: VANCOCIN HCL 500 MG 100 IV (18:32)
[2025-10-23 19:52] LABS: Glucose - Point of Care 163 mg/dl (70-99)
--- NOTE | 2025-10-23 20:44 | PTCARENOTE ---
Received patient in bed AAOx1. Soft limb restraints in place to bilateral wrists. + circulation and movement to hands and fingers. Patient fed dinner and 20:00 meds and assessment done. Patient then transferred to [address] [place] [address] per order with RN and PCT
present during transfer. Report given to receiving RN.
--- NOTE | 2025-10-23 20:45 | PTCARENOTE ---
Pt transferred to unit from IMU via stretcher. Pt required pullover assistance to unit bed. Pt A & O x 1 to self. VSS. Soft limb restraints intact on L & R wrists, per MD order. Call torres within reach.
[2025-10-23 22:07] LABS: Glucose - Point of Care 181 mg/dl (70-99)
[2025-10-23] MEDS: SEROQUEL 100 MG PO (22:42)
--- NOTE | 2025-10-24 04:40 | PTCARENOTE ---
Upon hourly rounding, pt found to have partially pulled out R tunneled HD catheter. Pt already in soft limb restraints on B/L wrists d/t pulling at catheter prior to unit transfer. Despite restraints, pt managed to tug at catheter. Stitching still
intact, but tegaderm ripped off. Catheter site C/D/I with local erythema. EVALUATOR TRANSFER STUDENTS notified. Restraints repositioned and secured.
--- NOTE | 2025-10-24 04:53 | W.PN.UPDATE ---
Update Note
Progress Note Update
The patient partially pull out her R tunneled HD access, IR consult placed.
[2025-10-24 06:52] LABS: Hematocrit 23.8 % (37.0-47.0); Hemoglobin 7.4 g/dL (12.0-16.0); Mean Corp Hgb Conc. 31.1 g/dL (33.0-37.0); Mean Corpuscular Volume 93.3 fL (81.0-99.0); Platelet Count 185 10^3/uL (130-400); Red Cell Dist. Width 15.9 % (11.5-14.5)
[2025-10-24 07:03] LABS: Glucose - Point of Care 215 mg/dl (70-99)
[2025-10-24 07:11] LABS: Blood Urea Nitrogen 29 mg/dl (7-17); Calcium 7.6 mg/dl (8.4-10.2); Carbon Dioxide 27 mmol/L (22-30); Chloride 98 mmol/L (98-107); Estimated Creatinine Clearance 15 ml/min; Glucose 201 mg/dl (70-99); Potassium 4.1 mmol/L (3.5-5.1); Sodium 133 mmol/L (135-145); eGFR 15.01
--- NOTE | 2025-10-24 07:17 | PN.DE.MGMTRT ---
Insulin Management
- -
10/24/2025: Diabetes Management Consult Follow up
Patient admitted 10/21 from a nursing facility for AMS, hypoglycemia, diaphoresis after she was found unresponsive. Blood glucose was checked and it was 34. Pt was recently admitted from 08/14 to 08/19 and again 08/24 to 09/01 for hypoglycemia.
PMH: HTN, ESRD on HD (MWF), legal blindness, Asthma, dementia, bipolar, previous surgeries on the lumbar spine and L knee, and IDDM.
Prior to admission was taking Lantus 12 units @ HS with Humalog 7 units AC plus SS. A1C 6.4%, was 9.5% in 08/2025. Cr 4.7 eGFR 9.46.
Patient awake, alert, resting in bed, unable to discuss diabetes care plan 2/2 dementia.
Current insulin regimen includes Lantus 10 units and NovoLog 4 units AC with low corrective insulin AC.
Fasting glucose 201 this AM. Will continue lantus 10 units in AM with novolog 4 units AC with low corrective.
Target glucose ~ 200 to avoid hypoglycemia in patient with cognitive dysfunction and multiple comorbidities.
Will cont to follow and adjust AC insulin dose if necessary.
Discussed with nurse and instructed to give insulin ONLY if patient has been fed her meal, as pt requires assistance with all meals.
Diabetes History
- -
Type of Diabetes: 2 requiring insulin
Pre-Admission Diabetes Regimen
10/23/25 10/24/25
15:05 06:11
Creatinine 6.1 H* 3.2 H
Lab Results
Hemoglobin A1c 6.4 % (4.0-5.9) H 10/22/25 03:15
Insulin Pump Settings
IP Diabetes Regimen
10/22/25 10/23/25 10/23/25
08:44 07:59 13:02
Glucose
POC Glucose 429 H 140 H 160 H
10/23/25 10/23/25 10/23/25
15:05 17:29 19:39
Glucose 145 H
POC Glucose 133 H 163 H
10/23/25 10/24/25 10/24/25
22:04 06:11 07:02
Glucose 201 H
POC Glucose 181 H 215 H
Meal type: Dinner
Meal type: Lunch
Meal type: Breakfast
Amount consumed: 50%
Amount consumed: 100%
Patient Education
[2025-10-24 07:45] VITALS: BP 134/77
--- NOTE | 2025-10-24 07:55 | W.PN.HOSP.TC ---
Today's Communication/Plan
-
see plan
Assessment / Plan
Assessment / Plan
Gen: NAD, Awake and alert
Neck: supple.
CV: continues to remain RRR, +S1/S2, no m/r/g.
Resp: remains CTAB anteriorly, no rales, wheezes, or rhonchi.
Abd: continues to remain +BS, soft, NT, ND
Skin: No rashes.
Neuro: CN 2-12 intact, non-focal.
Psych: Normal mood and affect.
10/21/25 12:17 Blood/Venous Blood Culture - Preliminary
Positive culture in progress
10/21/25 12:17 Blood/Venous Gram Stain - Preliminary
10/21/25 12:17 Blood/Venous Blood Culture - Preliminary
Staphylococcus species
10/21/25 12:17 Blood/Venous Gram Stain - Preliminary
10/21/25 11:22 Urine Urine Culture - Final
NO GROWTH
10/21/25 15:34 Nose Nasal Screen MRSA (PCR) - Final
MRSA not detected - performed by PCR methodology.
10/21/25 12:53 Nasal Swab Influenza Types A & B (LATISHA) - Final
Negative for Influenza A & B, NAAT
Negative results must be combined with clinical observations
and patient history.
Nucleic Acid Amplification test (NAAT)performed on the
[employer] ID NOW platform.
CXR: Mild cardiomegaly, unchanged. Mild interstitial prominence which may represent mild interstitial edema, viral illness or sequelae of chronic interstitial lung disease. There is a likely trace left pleural effusion.
Acute metabolic encephalopathy and hypothermia:
-likely due to hypoglycemia and, to a lesser extent, hypernatremia, both of which have now resolved
-was on D10W, now off
-cont Basal-bolus insulin, continue to make adjustments based on BGs, diabetes DEMO SPECIALIST following
-hypothermia has resolved (was on Melvi Hugger)
POS BCx with Staph:
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
-cont Vanco as per ID
-follow initial and repeat BCxs
ESRD-HD M/W/F:
-renal following
-pt partially pulled out her hemodialysis catheter, c/s IR
Other problems:
Essential HTN with hypertensive urgency: cont home Procardia XL/Losartan/Hydralazine/Coreg
Anemia of chronic renal disease: transfuse for Hb<7
Hyponatremia, mild
Essential HTN: Awaiting med recs
Anemia of chronic kidney disease: Hb stable from prior
Bipolar disorder: cont Seroquel
Dementia
Blindness from diabetic retinopathy
FULL code (as per [facility] documentation)
Heparin
Anticipated Discharge: > 48 hours
Subjective/Interval History
-
Date of Service: October 24, 2025
No new complaints.
Objective Data
-
Labs:
Laboratory Results
10/24/25
06:11
WBC 4.7 L
Hgb 7.4 L
Hct 23.8 L
Plt Count 185
Sodium 133 L
Potassium 4.1
Chloride 98
Carbon Dioxide 27
BUN 29 H
Creatinine 3.2 H
Glucose 201 H
Calcium 7.6 L
Vital Signs:
Vital Signs
Temp Pulse Resp BP Pulse Ox
98.2 F 77 16 134/77 97
10/24/25 07:45 10/24/25 07:45 10/24/25 07:45 10/24/25 07:45 10/24/25 07:45
I&O
10/23/25 10/24/25 10/25/25
06:59 06:59 06:59
Intake Total 960 / 960 580 / 580
Output Total 200 / 200 0 / 0
Balance 760 / 760 580 / 580
--- NOTE | 2025-10-24 08:45 | PHA.VAN.FU ---
Vancomycin Assessment / Plan
- Assessment
Hemodialysis Schedule: MWF
WBC's are: Stable (4.7 from 5)
In the past 24 hrs, patient has been: Afebrile
Concomitant Antimicrobials: None
- Dosing Plan
Dosing by Level: Hold off on dosing today
- Monitoring Plan
Random Level: 10/25/25 @0600
- Follow Up
Pharmacy will continue to follow.
Vancomycin Follow UP
- -
Patient Age: 70
Patient Sex: Female
Vancomycin Day #: 4
Indication: Pulmonary/Respiratory
Requesting Provider: DR. RAUSCH
Pertinent Antimicrobial Allergies:
PENICILLIN (SWELLING/HIVES, TOLERATED AMOXICILLIN)
Height / Weight:
Height 5 ft 3 in
Actual Weight 69.3 kg
Pertinent Past Medical History: ESRD-HD
- Vital Signs / Lab Results
Temp Pulse Resp BP Pulse Ox
98.2 F 77 16 134/77 97
10/24/25 07:45 10/24/25 07:45 10/24/25 07:45 10/24/25 07:45 10/24/25 07:45
Lab Results - Hematology
10/21/25 10/22/25 10/23/25
09:52 03:15 15:05
WBC 5.8 4.2 L Cancelled
10/23/25 10/24/25
16:14 06:11
WBC 5.0 4.7 L
Lab Results - Chemistry
10/21/25 10/21/25 10/21/25
09:52 19:13 23:53
BUN 47 H 51 H 54 H
Creatinine 4.5 H* 4.6 H* 4.7 H*
Estimated Creat Clear 10 9 9
Albumin 3.9
10/22/25 10/23/25 10/24/25
03:15 15:05 06:11
BUN 54 H 65 H 29 H
Creatinine 4.7 H* 6.1 H* 3.2 H
Estimated Creat Clear 10 8 15
Albumin
Microbiology Results
10/21/25 12:17 Blood Culture - Preliminary
Blood/Venous Positive culture in progress
Gram Stain - Preliminary
10/21/25 12:17 Blood Culture - Preliminary
Blood/Venous Staphylococcus species
Gram Stain - Preliminary
10/21/25 11:22 Urine Culture - Final
Urine NO GROWTH
10/21/25 15:34 Nasal Screen MRSA (PCR) - Final
Nose MRSA not detected - performed by PCR methodology.
Therapeutic Drug Monitoring
Random Vancomycin 14.7 ug/ml 10/23/25 15:05
[2025-10-24] MEDS: HEPARIN 5000 UNITS SC ×2 (09:29→20:12)
[2025-10-24] MEDS: PLAVIX 75 MG PO (09:29)
[2025-10-24] MEDS: PHOSLO 667 MG PO (09:29)
[2025-10-24] MEDS: APRESOLINE 75 MG PO ×3 (09:29→21:10)
[2025-10-24 09:30] VITALS: BMI 27.1
[2025-10-24] MEDS: PROCARDIA XL (EXTENDED RELEASE) 90 MG PO (09:30)
[2025-10-24] MEDS: OSCAL 500 + D 500 MG PO (09:30)
[2025-10-24] MEDS: COZAAR 100 MG PO (09:31)
[2025-10-24] MEDS: MAGNESIUM OXIDE 400 MG PO (09:31)
[2025-10-24] MEDS: REFRESH EYE DROPS (PF) 1 DROPS BOTH EYES (09:31)
[2025-10-24] MEDS: COREG 25 MG PO ×2 (09:32→20:15)
[2025-10-24] MEDS: NOVOLOG FLEXPEN-LOW RESISTANCE 2 UNITS SC ×2 (09:33→17:29)
[2025-10-24] MEDS: B COMPLEX w/VITAMIN C 1 CAPLET PO ×2 (09:33→20:11)
[2025-10-24] MEDS: NOVOLOG FLEXPEN 4 UNITS SC ×3 (09:34→17:29)
[2025-10-24] MEDS: MYLICON 80 MG PO (09:52)
[2025-10-24] MEDS: LANTUS 0.1 UNITS SC (10:37)
[2025-10-24] MEDS: ATROPINE SULFATE 1% DROPS 1 DROP BOTH EYES (10:37)
--- NOTE | 2025-10-24 11:12 | CM ---
Patient seen at bedside; resting per nursing. Plan for transfer back to [facility] when medically appropriate. Please call report to [phone]/ fax [phone]. CM called to update admissions; transfer via ambulance when medically appropriate.
The facility is willing to take patient Clemente if medically stable. Patient daughter is involved per admissions. CM will continue to follow for discharge planning needs.
Plan; return to SNF when medically appropriate.
[2025-10-24 12:19] LABS: Glucose - Point of Care 148 mg/dl (70-99)
--- NOTE | 2025-10-24 12:48 | PN.IRAD.UPD ---
Update Note - IRAD
- -
Right hemodyalysis catheter looks fine. Site cleaned with chloraprep. New, clean, dry dressing placed over site at bedside.
[2025-10-24] MEDS: NOVOLOG FLEXPEN-LOW RESISTANCE SC (13:14)
--- NOTE | 2025-10-24 13:20 | W.PN.ID1 ---
Date of Service
Date of Service: October 24, 2025
Today's Communication
- cath is not sutured in place or secured beyond the dressing itself, recommend IR consultation in the AM
- 10/23 repeat blood cultures x2 in progress no growth to date
if these culture remain negative then can consider a discharge off of antibiotics with follow up blood cultures x2 in two weeks or sooner if fevers, chills, new tenderness over the line etc
- would maintain HD cath at this time while following repeat cultures
- Xray of the lumbar spine DJD and well seated hardwear L4 & L5
- continue vancomycin for now while following blood cultures
Assessment / Plan
Staphylococcal Bacteremia vs Contaminated blood cultures
ESRD on HD via tunneled line right chest
Toxic metabolic encephalopathy
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
Penicillin allergy - not allergic if she has truly tolerated amoxicillin in the past
Blindness
- blood cultures x2 from arrival done at the same time - implies they are likely from the same blood draw, if finalized as CONS then these may be contamination
- 10/23 repeat blood cultures x2 in progress no growth to date
if these culture remain negative then can consider a discharge off of antibiotics with follow up blood cultures x2 in two weeks or sooner if fevers, chills, new tenderness over the line etc
- would maintain HD cath at this time while following repeat cultures - cath tip not moved on CXR
- cath is not sutured in place or secured beyond the dressing itself, recommend IR consultation in the AM
- Xray of the lumbar spine DJD and well seated hardwear L4 & L5
- continue vancomycin for now while following blood cultures
Chief Complaint
-: Bacteremia
Subjective / Review of Systems
remains afebrile
bp stable
patient partially pulled out her HD cath early this AM - device in a stable position on xray
Vital Signs / Physical Exam
Vital Signs
Vital Signs
Temp Pulse Resp BP Pulse Ox
98.2 F 77 16 134/77 97
10/24/25 07:45 10/24/25 09:29 10/24/25 07:45 10/24/25 09:29 10/24/25 09:30
Physical Exam
Constitutional: No Acute Distress
Cardiovascular: Regular Rate and S1/S2; Negative Murmur or Rub
Pulmonary: Clear and Symmetric; Negative Wheezes or Rales
Gastrointestinal: Soft, Non Tender, Non Distended and Normal Bowel Sounds
Skin: Warm and Dry; Negative Rash or Jaundice
Lines: HD Cath (not sutured in place)
Objective Data
Lab Data
Lab Results
10/24/25 06:11
10/24/25 06:11
Estimated Creat Clear 15 ml/min 10/24/25 06:11
Total Bilirubin 0.6 mg/dl (0.2-1.3) 10/21/25 09:52
AST 37 U/L (14-36) H 10/21/25 09:52
ALT 24 U/L (0-35) 10/21/25 09:52
Alkaline Phosphatase 119 U/L (38-126) 10/21/25 09:52
Most recent labs reviewed.
Micro Results:
10/21/25 12:17 Blood Culture - Preliminary
Blood/Venous Positive culture in progress
Gram Stain - Preliminary
10/21/25 12:17 Blood Culture - Preliminary
Blood/Venous Staphylococcus species
Gram Stain - Preliminary
10/23/25 11:00 Blood Culture - Preliminary
Blood/Venous No Growth in 24 hours- Final report to follow
10/23/25 15:08 Blood Culture - Pending
Blood/Venous
10/21/25 11:22 Urine Culture - Final
Urine NO GROWTH
10/21/25 15:34 Nasal Screen MRSA (PCR) - Final
Nose MRSA not detected - performed by PCR methodology.
10/21/25 12:53 Influenza Types A & B (LATISHA) - Final
Nasal Swab Negative for Influenza A & B, NAAT
Negative results must be combined with clinical observations
and patient history.
Nucleic Acid Amplification test (NAAT)performed on the
[employer] platform.
Other: Image Reviewed and Report Reviewed (hardwear in L4&L%)
--- NOTE | 2025-10-24 13:26 | W.PN.NEPH.PH ---
Today's Communication / Plan
-
Dialysis tomorrow
Assessment/Plan
-
Impression
End-stage renal disease on hemodialysis MWF [facility] via right chest cath
Anemia of chronic disease
Hyponatremia
Diabetic retinopathy
Hypoglycemia
Plan:
Continue MWF
No IV fluids
Follow BMP
Positive blood culture staph, on antibiotics questionable contaminant
repeat surveillance of prelim -24 hours
See orders
-
-
Date of Service: October 24, 2025
CC / HPI / ROS
-
Chief Complaint:
ESRD
History of Present Illness:
Sodium not low 133
Potassium 5.3
BP stable
Sugars improved
Review of Systems:
No chest pain or shortness of breath
Labs
-
Labs:
WBC 4.7 10^3/uL (4.8-10.8) L 10/24/25 06:11
RBC 2.55 10^6/uL (4.20-5.40) L 10/24/25 06:11
Hgb 7.4 g/dL (12.0-16.0) L 10/24/25 06:11
Hct 23.8 % (37.0-47.0) L 10/24/25 06:11
Plt Count 185 10^3/uL (130-400) 10/24/25 06:11
Sodium 133 mmol/L (135-145) L 10/24/25 06:11
Potassium 4.1 mmol/L (3.5-5.1) 10/24/25 06:11
Chloride 98 mmol/L (98-107) 10/24/25 06:11
Carbon Dioxide 27 mmol/L (22-30) 10/24/25 06:11
BUN 29 mg/dl (7-17) H 10/24/25 06:11
Creatinine 3.2 mg/dL (0.6-1.0) H 10/24/25 06:11
eGFR 15.01 10/24/25 06:11
Glucose 201 mg/dl (70-99) H 10/24/25 06:11
Calcium 7.6 mg/dl (8.4-10.2) L 10/24/25 06:11
Albumin 3.9 g/dl (3.5-5.0) 10/21/25 09:52
Physical Exam
-
Vital Signs:
Vital Signs
Temp Pulse Resp BP Pulse Ox
98.2 F 77 16 134/77 97
10/24/25 07:45 10/24/25 09:29 10/24/25 07:45 10/24/25 09:29 10/24/25 09:30
Cardiovascular:: Regular rate and rhythm
Respiratory:: Bilateral: Coarse
Lung Excursion:: Normal
Abdomen:: Nontender and Soft
Bowel Sounds:: Normal
Extremity Edema:: None: Bilateral:
[2025-10-24 15:06] VITALS: BP 128/49
[2025-10-24 17:34] LABS: Glucose - Point of Care 201 mg/dl (70-99)
[2025-10-24] MEDS: SEROQUEL 100 MG PO (21:06)
[2025-10-24 21:26] LABS: Glucose - Point of Care 117 mg/dl (70-99)
[2025-10-24 23:07] VITALS: BP 124/48
[2025-10-25 05:48] VITALS: BMI 27.4
--- NOTE | 2025-10-25 07:31 | PN.DE.MGMTRT ---
Insulin Management
- -
10/25/2025: Diabetes Management Follow up
Patient admitted 10/21 from a nursing facility for AMS, hypoglycemia, diaphoresis after she was found unresponsive. Blood glucose was checked and it was 34. Pt was recently admitted from 08/14 to 08/19 and again 08/24 to 09/01 for hypoglycemia.
PMH: HTN, ESRD on HD (MWF), legal blindness, Asthma, dementia, bipolar, previous surgeries on the lumbar spine and L knee, and IDDM.
Prior to admission was taking Lantus 12 units @ HS with Humalog 7 units AC plus SS. A1C 6.4%, was 9.5% in 08/2025. Cr 4.7 eGFR 9.46.
Patient awake, alert, resting in bed, on HD, unable to discuss diabetes care plan 2/2 dementia.
Current insulin regimen includes Lantus 10 units and NovoLog 4 units AC with low corrective insulin AC.
Glucose table and in range, premeal yesterday was 148 to 201, and 117 @ HS
Fasting glucose 157 this AM. Will continue Lantus 10 units in AM with NovoLog 4 units AC with low corrective.
Target glucose ~ 200 to avoid hypoglycemia in patient with cognitive dysfunction and multiple comorbidities.
Will cont to follow and adjust AC insulin dose if necessary.
Discussed with nurse and instructed to give insulin ONLY if patient has been fed her meal, as pt requires assistance with all meals.
Diabetes History
- -
Type of Diabetes: 2 requiring insulin
Pre-Admission Diabetes Regimen
Lab Results
Hemoglobin A1c 6.4 % (4.0-5.9) H 10/22/25 03:15
Insulin Pump Settings
IP Diabetes Regimen
10/24/25 10/24/25 10/24/25
12:17 17:28 21:23
POC Glucose 148 H 201 H 117 H
Meal type: Lunch
Meal type: Breakfast
Amount consumed: 100%
Amount consumed: 0
Patient Education
[2025-10-25 07:36] VITALS: BP 165/55
[2025-10-25 08:04] LABS: Hematocrit 24.5 % (37.0-47.0); Hemoglobin 7.6 g/dL (12.0-16.0); Mean Corp Hgb Conc. 31.0 g/dL (33.0-37.0); Mean Corpuscular Volume 95.0 fL (81.0-99.0); Platelet Count 201 10^3/uL (130-400); Red Cell Dist. Width 16.3 % (11.5-14.5)
[2025-10-25 08:30] LABS: Glucose - Point of Care 128 mg/dl (70-99)
[2025-10-25] MEDS: NOVOLOG FLEXPEN-LOW RESISTANCE SC ×2 (08:39→12:10)
[2025-10-25 08:52] LABS: Blood Urea Nitrogen 33 mg/dl (7-17); Calcium 7.9 mg/dl (8.4-10.2); Carbon Dioxide 26 mmol/L (22-30); Chloride 99 mmol/L (98-107); Estimated Creatinine Clearance 12 ml/min; Glucose 97 mg/dl (70-99); Potassium 4.5 mmol/L (3.5-5.1); eGFR 10.83
[2025-10-25 09:06] LABS: Sodium 133 mmol/L (135-145)
[2025-10-25] MEDS: RETACRIT 10000 UNITS IV (09:22)
[2025-10-25] MEDS: LANTUS 0.1 UNITS SC (09:30)
[2025-10-25] MEDS: REFRESH EYE DROPS (PF) 1 DROPS BOTH EYES (09:31)
[2025-10-25] MEDS: ATROPINE SULFATE 1% DROPS 1 DROP BOTH EYES (09:31)
[2025-10-25] MEDS: NOVOLOG FLEXPEN 4 UNITS SC ×3 (09:31→17:39)
[2025-10-25] MEDS: TYLENOL 650 MG PO (09:42)
[2025-10-25] MEDS: PHOSLO 667 MG PO (10:00)
--- NOTE | 2025-10-25 10:27 | W.PN.HOSP.TC ---
Today's Communication/Plan
-
see plan
Assessment / Plan
Assessment / Plan
Gen: NAD, Awake and alert
Neck: supple.
CV: RRR, +S1/S2, no m/r/g.
Resp: CTAB, no rales, wheezes, or rhonchi.
Abd: +BS, soft, NT, ND
Skin: No rashes.
Neuro: CN 2-12 intact, non-focal.
Psych: Normal mood and affect.
10/21/25 12:17 Blood/Venous Blood Culture - Preliminary
Staphylococcus hominis
10/21/25 12:17 Blood/Venous Gram Stain - Preliminary
10/21/25 12:17 Blood/Venous Blood Culture - Preliminary
Staphylococcus hominis
10/21/25 12:17 Blood/Venous Gram Stain - Preliminary
10/23/25 15:08 Blood/Venous Blood Culture - Preliminary
Positive culture in progress
10/23/25 15:08 Blood/Venous Gram Stain - Preliminary
10/23/25 11:00 Blood/Venous Blood Culture - Preliminary
No Growth in 24 hours- Final report to follow
10/21/25 11:22 Urine Urine Culture - Final
NO GROWTH
10/21/25 15:34 Nose Nasal Screen MRSA (PCR) - Final
MRSA not detected - performed by PCR methodology.
10/21/25 12:53 Nasal Swab Influenza Types A & B (LATISHA) - Final
Negative for Influenza A & B, NAAT
Negative results must be combined with clinical observations
and patient history.
Nucleic Acid Amplification test (NAAT)performed on the
[employer] NOW platform.
CXR: Mild cardiomegaly, unchanged. Mild interstitial prominence which may represent mild interstitial edema, viral illness or sequelae of chronic interstitial lung disease. There is a likely trace left pleural effusion.
Acute metabolic encephalopathy and hypothermia:
-likely due to hypoglycemia and, to a lesser extent, hypernatremia, both of which have now resolved
-was on D10W, now off
-cont Basal-bolus insulin, continue to make adjustments based on BGs, diabetes INDUSTRI[employer] COOK following
-hypothermia has resolved (was on Melvi Hugger)
POS BCx with Gabriella Hominis:
-cont Vanco as per ID
-follow repeat BCxs (1 of 2 sets POS)
ESRD-HD M/W/F:
-renal following
Other problems:
Essential HTN with hypertensive urgency: cont home Procardia XL/Losartan/Hydralazine/Coreg
Anemia of chronic renal disease: transfuse for Hb<7
Hyponatremia, mild
Essential HTN: Awaiting med recs
Anemia of chronic kidney disease: Hb stable from prior
Bipolar disorder: cont Seroquel
Dementia
Blindness from diabetic retinopathy
FULL code (as per NH documentation)
Heparin
Anticipated Discharge: 24 - 48 hours
Subjective/Interval History
-
Date of Service: October 25, 2025
No new complaints.
Objective Data
-
Labs:
Laboratory Results
10/25/25
06:59
WBC 4.8
Hgb 7.6 L
Hct 24.5 L
Plt Count 201
Sodium 133 L
Potassium 4.5
Chloride 99
Carbon Dioxide 26
BUN 33 H
Creatinine 4.2 H*
Glucose 97
Calcium 7.9 L
Vital Signs:
Vital Signs
Temp Pulse Resp BP Pulse Ox
98.9 F 75 16 165/55 94
10/25/25 07:36 10/25/25 07:36 10/25/25 07:36 10/25/25 07:36 10/25/25 07:36
I&O
10/24/25 10/25/25 10/26/25
06:59 06:59 06:59
Intake Total 580 / 580 480 / 480
Output Total 0 / 0
Balance 580 / 580 480 / 480
--- NOTE | 2025-10-25 10:31 | CM ---
CM spoke with liaison at [facility] and update provided. Per admissions they can accept patient when medically appropriate. Patient will need ambulance and transfer forms. CM will continue to follow for discharge planning needs.
Plan; return to SNF; LTC will need ambulance and IMM
--- NOTE | 2025-10-25 10:43 | CM ---
Addendum entered by Renetta Tracy 10/25/25 11:15:
ambulance forms placed on chart.
Original Note:
Patient seen at bedside. Patient daughter present and provided with IMM form. Patient daughter explored idea of taking patient home. Patient daughter agreed following discussion to have patient return to SNF on HD and follow up with either going
home with [facility] and VN at home or alternative SNF. Patient daughter is aware of patient pending discharge back to facility in next several days per physician. CM will continue to follow for discharge planning needs.
Plan; Return to SNF; [facility] with ambulance transportation.
--- NOTE | 2025-10-25 10:47 | PHA.VAN.FU ---
Vancomycin Assessment / Plan
- Assessment
Hemodialysis Schedule: MWF
WBC's are: Stable (4.8 from 4.7)
In the past 24 hrs, patient has been: Afebrile
Concomitant Antimicrobials: None
- Assessment - Therapeutic Drug Monitoring
Random Level: 16 mcg/mL (pre-HD level, following post-HD 500MG x1 on 10/23/25)
- Dosing Plan
Continue: Vancomycin dosing by level
Dosing by Level: Re-dose today (500MG x1 (post-HD))
- Monitoring Plan
Random Level: 10/27/25 @0600 (pre-HD)
- Follow Up
Pharmacy will continue to follow.
Vancomycin Follow UP
- -
Patient Age: 70
Patient Sex: Female
Vancomycin Day #: 4
Indication: Bacteremia
Requesting Provider: DR. RAUSCH
Pertinent Antimicrobial Allergies:
PENICILLIN (SWELLING/HIVES, TOLERATED AMOXICILLIN)
Height / Weight:
Height 5 ft 3 in
Actual Weight 70.1 kg
Pertinent Past Medical History: ESRD-HD
- Vital Signs / Lab Results
Temp Pulse Resp BP Pulse Ox
98.9 F 75 16 165/55 94
10/25/25 07:36 10/25/25 07:36 10/25/25 07:36 10/25/25 07:36 10/25/25 07:36
Lab Results - Hematology
10/23/25 10/23/25 10/24/25
15:05 16:14 06:11
WBC Cancelled 5.0 4.7 L
10/25/25
06:59
WBC 4.8
Lab Results - Chemistry
10/23/25 10/24/25 10/25/25
15:05 06:11 06:59
BUN 65 H 29 H 33 H
Creatinine 6.1 H* 3.2 H 4.2 H*
Estimated Creat Clear 8 15 12
Microbiology Results
10/21/25 12:17 Blood Culture - Preliminary
Blood/Venous Staphylococcus hominis
Gram Stain - Preliminary
10/21/25 12:17 Blood Culture - Preliminary
Blood/Venous Staphylococcus hominis
Gram Stain - Preliminary
10/23/25 15:08 Blood Culture - Preliminary
Blood/Venous Positive culture in progress
Gram Stain - Preliminary
10/23/25 11:00 Blood Culture - Preliminary
Blood/Venous No Growth in 24 hours- Final report to follow
Therapeutic Drug Monitoring
Random Vancomycin 16.0 ug/ml 10/25/25 06:59
--- NOTE | 2025-10-25 10:59 | W.PN.NEPH.HD ---
Assessment
-
pt seen during HD
vitals stable
UF as tolerates
CVC functions fine
bld cx 10/23 +ve, abx per ID , await if need to remove
high dose DEBORA for anemia
Progress Note - Hemodialysis
-
Date of Service: October 25, 2025
Duration: 30 minutes and 3 hours
Potassium Bath: 2
Calcium Bath: 2.5
Opti-Dialyzer: 160
Ultrafiltration: Other (2.5kg)
Blood Flow: 400
Dialysate Flow: 600
Heparin: no
EPO: 20459
[2025-10-25 11:51] LABS: Glucose - Point of Care 149 mg/dl (70-99)
[2025-10-25] MEDS: PROCARDIA XL (EXTENDED RELEASE) 90 MG PO (13:13)
[2025-10-25] MEDS: APRESOLINE 75 MG PO ×3 (13:14→22:08)
[2025-10-25] MEDS: OSCAL 500 + D 500 MG PO (13:14)
[2025-10-25] MEDS: B COMPLEX w/VITAMIN C 1 CAPLET PO ×2 (13:14→19:50)
[2025-10-25] MEDS: COREG 25 MG PO ×2 (13:15→19:50)
--- NOTE | 2025-10-25 13:15 | W.PN.ID1 ---
Date of Service
Date of Service: October 25, 2025
Today's Communication
TTE
repeat blood cultures x2 tomorrow
HD cath removal
continue vanc
Assessment / Plan
Persistent methicillin resistant Staphylococcal Bacteremia
ESRD on HD via tunneled line right chest
Toxic metabolic encephalopathy
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
Penicillin allergy - not allergic if she has truly tolerated amoxicillin in the past
Blindness
- sustained bacteremia noted
- recommend removal of the HD cath for line holiday
- repeat blood cultures x2 tomorrow
- TTE
- continue vancomycin - dosing by level; 500 mg today
- vancomycin level in the am
Chief Complaint
-: Bacteremia
Subjective / Review of Systems
afebrile
bp stable
no events overnight
had HD today
Vital Signs / Physical Exam
Vital Signs
Vital Signs
Temp Pulse Resp BP Pulse Ox
98.9 F 75 16 165/55 94
10/25/25 07:36 10/25/25 07:36 10/25/25 07:36 10/25/25 07:36 10/25/25 11:45
Physical Exam
Constitutional: No Acute Distress and Chronically Ill
Cardiovascular: Regular Rate and S1/S2; Negative Murmur or Rub
Pulmonary: Clear and Symmetric; Negative Wheezes or Rales
Gastrointestinal: Soft, Non Tender, Non Distended and Normal Bowel Sounds
Skin: Warm and Dry; Negative Rash or Jaundice
Lines: HD Cath (no erythema, warmth, tenderness or drainage)
Objective Data
Lab Data
Lab Results
10/25/25 06:59
10/25/25 06:59
Estimated Creat Clear 12 ml/min 10/25/25 06:59
Total Bilirubin 0.6 mg/dl (0.2-1.3) 10/21/25 09:52
AST 37 U/L (14-36) H 10/21/25 09:52
ALT 24 U/L (0-35) 10/21/25 09:52
Alkaline Phosphatase 119 U/L (38-126) 10/21/25 09:52
Most recent labs reviewed.
Micro Results:
10/23/25 15:08 Blood Culture - Preliminary
Blood/Venous Staphylococcus hominis
Gram Stain - Preliminary
10/23/25 11:00 Blood Culture - Preliminary
Blood/Venous No Growth in 48 hours- Final report to follow
10/21/25 12:17 Blood Culture - Preliminary
Blood/Venous Staphylococcus hominis
Gram Stain - Preliminary
10/21/25 12:17 Blood Culture - Preliminary
Blood/Venous Staphylococcus hominis
Gram Stain - Preliminary
10/21/25 11:22 Urine Culture - Final
Urine NO GROWTH
10/21/25 15:34 Nasal Screen MRSA (PCR) - Final
Nose MRSA not detected - performed by PCR methodology.
10/21/25 12:53 Influenza Types A & B (LATISHA) - Final
Nasal Swab Negative for Influenza A & B, NAAT
Negative results must be combined with clinical observations
and patient history.
Nucleic Acid Amplification test (NAAT)performed on the
[employer] platform.
Care Review
Plan reviewed with: Physician (nephrology - HD cath removal)
[2025-10-25] MEDS: MAGNESIUM OXIDE 400 MG PO (13:16)
[2025-10-25] MEDS: PLAVIX 75 MG PO (13:16)
[2025-10-25] MEDS: HEPARIN 5000 UNITS SC ×2 (13:17→19:50)
[2025-10-25] MEDS: COZAAR 100 MG PO (13:17)
[2025-10-25 14:04] VITALS: BP 191/69
[2025-10-25 15:17] VITALS: BP 171/63
[2025-10-25 17:35] LABS: Glucose - Point of Care 205 mg/dl (70-99)
[2025-10-25] MEDS: VANCOCIN HCL 500 MG 100 IV (17:38)
[2025-10-25] MEDS: NOVOLOG FLEXPEN-LOW RESISTANCE 2 UNITS SC (17:39)
[2025-10-25] MEDS: SEROQUEL 100 MG PO (21:40)
[2025-10-25 22:08] LABS: Glucose - Point of Care 76 mg/dl (70-99)
[2025-10-25 23:04] VITALS: BP 115/52
[2025-10-26 06:00] VITALS: BMI 26.9
[2025-10-26 06:40] LABS: Hematocrit 29.4 % (37.0-47.0); Hemoglobin 9.0 g/dL (12.0-16.0); Mean Corp Hgb Conc. 30.6 g/dL (33.0-37.0); Mean Corpuscular Volume 96.7 fL (81.0-99.0); Platelet Count 232 10^3/uL (130-400); Red Cell Dist. Width 16.4 % (11.5-14.5)
[2025-10-26 07:01] LABS: Blood Urea Nitrogen 20 mg/dl (7-17); Calcium 8.6 mg/dl (8.4-10.2); Carbon Dioxide 25 mmol/L (22-30); Chloride 97 mmol/L (98-107); Estimated Creatinine Clearance 18 ml/min; Glucose 377 mg/dl (70-99); Potassium 4.3 mmol/L (3.5-5.1); Sodium 132 mmol/L (135-145); eGFR 17.62
[2025-10-26 07:11] VITALS: BP 185/71
[2025-10-26 07:11] LABS: Glucose - Point of Care 386 mg/dl (70-99)
--- NOTE | 2025-10-26 08:08 | W.PN.HOSP.TC ---
Today's Communication/Plan
-
see plan
Assessment / Plan
Assessment / Plan
Gen: NAD, Awake and alert
Neck: supple.
CV: remains RRR, +S1/S2, no m/r/g.
Resp: CTAB anteriorly, no rales, wheezes, or rhonchi.
Abd: remains +BS, soft, NT, ND
Skin: No rashes.
Neuro: CN 2-12 intact, non-focal.
Psych: Normal mood and affect.
10/23/25 15:08 Blood/Venous Blood Culture - Preliminary
Staphylococcus hominis
10/23/25 15:08 Blood/Venous Gram Stain - Preliminary
10/23/25 11:00 Blood/Venous Blood Culture - Preliminary
No Growth in 48 hours- Final report to follow
10/21/25 12:17 Blood/Venous Blood Culture - Preliminary
Staphylococcus hominis
10/21/25 12:17 Blood/Venous Gram Stain - Preliminary
10/21/25 12:17 Blood/Venous Blood Culture - Preliminary
Staphylococcus hominis
10/21/25 12:17 Blood/Venous Gram Stain - Preliminary
10/21/25 11:22 Urine Urine Culture - Final
NO GROWTH
10/21/25 15:34 Nose Nasal Screen MRSA (PCR) - Final
MRSA not detected - performed by PCR methodology.
10/21/25 12:53 Nasal Swab Influenza Types A & B (LATISHA) - Final
Negative for Influenza A & B, NAAT
Negative results must be combined with clinical observations
and patient history.
Nucleic Acid Amplification test (NAAT)performed on the
[employer] NOW platform.
CXR: Mild cardiomegaly, unchanged. Mild interstitial prominence which may represent mild interstitial edema, viral illness or sequelae of chronic interstitial lung disease. There is a likely trace left pleural effusion.
Acute metabolic encephalopathy and hypothermia:
-likely due to hypoglycemia and, to a lesser extent, hypernatremia, both of which have now resolved
-was on D10W, now off
-cont Basal-bolus insulin, continue to make adjustments based on BGs, diabetes [employer]ITING IN[employer] following
-hypothermia has resolved (was on Melvi Hugger)
POS BCx with Staph Hominis due to infected HD cath:
-cont Vanco as per ID
-HD cath removed 10/25
-follow all repeat BCxs
Other problems:
ESRD-HD M/W/F: renal following
Essential HTN with hypertensive urgency: cont home Procardia XL/Losartan/Hydralazine/Coreg
Anemia of chronic renal disease: transfuse for Hb<7
Hyponatremia, mild
Anemia of chronic kidney disease: Hb stable
Bipolar disorder: cont Seroquel
Dementia
Blindness from diabetic retinopathy
FULL code (as per NH documentation)
Heparin
Anticipated Discharge: > 48 hours
Subjective/Interval History
-
Date of Service: October 26, 2025
No new complaints.
Objective Data
-
Labs:
Laboratory Results
10/26/25
06:18
WBC 6.8
Hgb 9.0 L
Hct 29.4 L
Plt Count 232
Sodium 132 L
Potassium 4.3
Chloride 97 L
Carbon Dioxide 25
BUN 20 H
Creatinine 2.8 H
Glucose 377 H
Calcium 8.6
Vital Signs:
Vital Signs
Temp Pulse Resp BP Pulse Ox
97.7 F 81 17 185/71 93
10/26/25 07:11 10/26/25 07:11 10/26/25 07:11 10/26/25 07:11 10/26/25 07:11
I&O
10/25/25 10/26/25 10/27/25
06:59 06:59 06:59
Intake Total 480 / 480 420 / 420
Balance 480 / 480 420 / 420
--- NOTE | 2025-10-26 08:12 | PHA.VAN.FU ---
Vancomycin Assessment / Plan
- Assessment
Hemodialysis Schedule: MWF
WBC's are: Trending Up
In the past 24 hrs, patient has been: Afebrile
- Dosing Plan
Continue: Dose by level post HD
- Monitoring Plan
Random Level: 10/27 06
- Follow Up
Pharmacy will continue to follow.
Vancomycin Follow UP
- -
Patient Age: 70
Patient Sex: Female
Vancomycin Day #: 5
Indication: Bacteremia
Requesting Provider: DR. RAUSCH
Pertinent Antimicrobial Allergies:
PENICILLIN (SWELLING/HIVES, TOLERATED AMOXICILLIN)
Height / Weight:
Height 5 ft 3 in
Actual Weight 70.1 kg
Pertinent Past Medical History: ESRD-HD
- Vital Signs / Lab Results
Temp Pulse Resp BP Pulse Ox
97.7 F 81 17 185/71 93
10/26/25 07:11 10/26/25 07:11 10/26/25 07:11 10/26/25 07:11 10/26/25 07:11
Lab Results - Hematology
10/23/25 10/23/25 10/24/25
15:05 16:14 06:11
WBC Cancelled 5.0 4.7 L
10/25/25 10/26/25
06:59 06:18
WBC 4.8 6.8
Lab Results - Chemistry
10/23/25 10/24/25 10/25/25
15:05 06:11 06:59
BUN 65 H 29 H 33 H
Creatinine 6.1 H* 3.2 H 4.2 H*
Estimated Creat Clear 8 15 12
10/26/25
06:18
BUN 20 H
Creatinine 2.8 H
Estimated Creat Clear 18
Microbiology Results
10/23/25 15:08 Blood Culture - Preliminary
Blood/Venous Staphylococcus hominis
Gram Stain - Preliminary
10/23/25 11:00 Blood Culture - Preliminary
Blood/Venous No Growth in 48 hours- Final report to follow
10/21/25 12:17 Blood Culture - Preliminary
Blood/Venous Staphylococcus hominis
Gram Stain - Preliminary
10/21/25 12:17 Blood Culture - Preliminary
Blood/Venous Staphylococcus hominis
Gram Stain - Preliminary
Therapeutic Drug Monitoring
Random Vancomycin 16.0 ug/ml 10/25/25 06:59
[2025-10-26] MEDS: LANTUS 0.1 UNITS SC (09:02)
[2025-10-26] MEDS: PROCARDIA XL (EXTENDED RELEASE) 90 MG PO (09:02)
[2025-10-26] MEDS: PHOSLO 667 MG PO (09:03)
[2025-10-26] MEDS: REFRESH EYE DROPS (PF) 1 DROPS BOTH EYES (09:03)
[2025-10-26] MEDS: HEPARIN 5000 UNITS SC ×2 (09:03→19:57)
[2025-10-26] MEDS: COREG 25 MG PO ×2 (09:03→19:58)
[2025-10-26] MEDS: APRESOLINE 75 MG PO ×3 (09:04→22:27)
[2025-10-26] MEDS: COZAAR 100 MG PO (09:04)
[2025-10-26] MEDS: MAGNESIUM OXIDE 400 MG PO (09:05)
[2025-10-26] MEDS: B COMPLEX w/VITAMIN C 1 CAPLET PO ×2 (09:05→19:55)
[2025-10-26] MEDS: OSCAL 500 + D 500 MG PO (09:05)
[2025-10-26] MEDS: PLAVIX 75 MG PO (09:05)
[2025-10-26] MEDS: ATROPINE SULFATE 1% DROPS 1 DROP BOTH EYES (09:05)
[2025-10-26] MEDS: NOVOLOG FLEXPEN 4 UNITS SC ×3 (09:06→17:48)
[2025-10-26] MEDS: NOVOLOG FLEXPEN-LOW RESISTANCE 5 UNITS SC ×2 (09:06→14:03)
--- NOTE | 2025-10-26 12:25 | W.PN.NEPH.PH ---
Today's Communication / Plan
-
Potentially place a temporary dialysis catheter tomorrow or Thursday
Assessment/Plan
-
Impression
End-stage renal disease on hemodialysis MWF [facility] via right chest cath
Anemia of chronic disease
Hyponatremia
Diabetic retinopathy
Hypoglycemia
Plan:
Continue MWF
No IV fluids
Follow BMP
Positive blood culture staph, on antibiotics status post permacath removal 10/25 and line holiday
repeat surveillance cultures
Will need a temporary dialysis catheter possibly place on Thursday until we have cleared the blood culture
See orders
-
-
Date of Service: October 26, 2025
CC / HPI / ROS
-
Chief Complaint:
ESRD
History of Present Illness:
Sodium not low 133
Potassium 5.3
BP stable
Sugars improved
Review of Systems:
No chest pain or shortness of breath
Labs
-
Labs:
WBC 6.8 10^3/uL (4.8-10.8) 10/26/25 06:18
RBC 3.04 10^6/uL (4.20-5.40) L 10/26/25 06:18
Hgb 9.0 g/dL (12.0-16.0) L 10/26/25 06:18
Hct 29.4 % (37.0-47.0) L 10/26/25 06:18
Plt Count 232 10^3/uL (130-400) 10/26/25 06:18
Sodium 132 mmol/L (135-145) L 10/26/25 06:18
Potassium 4.3 mmol/L (3.5-5.1) 10/26/25 06:18
Chloride 97 mmol/L (98-107) L 10/26/25 06:18
Carbon Dioxide 25 mmol/L (22-30) 10/26/25 06:18
BUN 20 mg/dl (7-17) H 10/26/25 06:18
Creatinine 2.8 mg/dL (0.6-1.0) H 10/26/25 06:18
eGFR 17.62 10/26/25 06:18
Glucose 377 mg/dl (70-99) H 10/26/25 06:18
Calcium 8.6 mg/dl (8.4-10.2) 10/26/25 06:18
Albumin 3.9 g/dl (3.5-5.0) 10/21/25 09:52
Physical Exam
-
Vital Signs:
Vital Signs
Temp Pulse Resp BP Pulse Ox
97.7 F 81 17 185/71 93
10/26/25 07:11 10/26/25 09:04 10/26/25 07:11 10/26/25 09:04 10/26/25 11:50
Cardiovascular:: Regular rate and rhythm
Respiratory:: Bilateral: Coarse
Lung Excursion:: Normal
Abdomen:: Nontender and Soft
Bowel Sounds:: Normal
Extremity Edema:: None: Bilateral:
[2025-10-26 12:55] LABS: Glucose - Point of Care 401 mg/dl (70-99)
[2025-10-26 12:56] VITALS: BP 152/65
[2025-10-26 13:54] LABS: Glucose 360 mg/dl (70-99)
[2025-10-26 14:36] VITALS: BP 132/75
[2025-10-26 16:01] LABS: Glucose - Point of Care 297 mg/dl (70-99)
[2025-10-26 17:17] LABS: Glucose - Point of Care 283 mg/dl (70-99)
[2025-10-26] MEDS: NOVOLOG FLEXPEN-LOW RESISTANCE 3 UNITS SC (17:48)
[2025-10-26 22:09] LABS: Glucose - Point of Care 210 mg/dl (70-99)
[2025-10-26] MEDS: SEROQUEL 100 MG PO (22:25)
[2025-10-26 22:28] VITALS: BP 154/53
[2025-10-27] VITALS (10 sets, daily range): BP systolic 98–179; BP diastolic 40–71; BMI 25.9
[2025-10-27] MEDS: NOVOLOG FLEXPEN-LOW RESISTANCE 4 UNITS SC (07:45)
--- NOTE | 2025-10-27 08:30 | W.PN.HOSP.TC ---
Today's Communication/Plan
-
see plan
Assessment / Plan
Assessment / Plan
Gen: NAD, Awake and alert
Neck: supple.
CV: continues to remain RRR, +S1/S2, no m/r/g.
Resp: remains CTAB anteriorly, no rales, wheezes, or rhonchi.
Abd: continues to remain +BS, soft, NT, ND
Skin: No rashes.
Neuro: CN 2-12 intact, non-focal.
Psych: Normal mood and affect.
10/26/25 06:17 Blood/Venous Blood Culture - Preliminary
No Growth in 24 hours- Final report to follow
10/25/25 14:28 Dialysis Line Catheter Tip Culture - Preliminary
No Growth After 18-24 Hours
10/23/25 11:00 Blood/Venous Blood Culture - Preliminary
No Growth in 72 hours- Final report to follow
10/23/25 15:08 Blood/Venous Blood Culture - Preliminary
Staphylococcus hominis
10/23/25 15:08 Blood/Venous Gram Stain - Preliminary
10/21/25 12:17 Blood/Venous Blood Culture - Preliminary
Staphylococcus hominis
10/21/25 12:17 Blood/Venous Gram Stain - Preliminary
10/21/25 12:17 Blood/Venous Blood Culture - Preliminary
Staphylococcus hominis
10/21/25 12:17 Blood/Venous Gram Stain - Preliminary
10/21/25 11:22 Urine Urine Culture - Final
NO GROWTH
10/21/25 15:34 Nose Nasal Screen MRSA (PCR) - Final
MRSA not detected - performed by PCR methodology.
10/21/25 12:53 Nasal Swab Influenza Types A & B (LATISHA) - Final
Negative for Influenza A & B, NAAT
Negative results must be combined with clinical observations
and patient history.
Nucleic Acid Amplification test (NAAT)performed on the
[employer] platform.
CXR: Mild cardiomegaly, unchanged. Mild interstitial prominence which may represent mild interstitial edema, viral illness or sequelae of chronic interstitial lung disease. There is a likely trace left pleural effusion.
Bacteremia with Staph Hominis due to infected HD cath:
-cont Vanco as per ID
-HD cath removed 10/25
-follow all repeat BCxs (most recent BCxs NGTD)
-will need temporary HD cath today
Acute metabolic encephalopathy and hypothermia:
-likely due to hypoglycemia and, to a lesser extent, hypernatremia, both of which have now resolved
-was on D10W, now off
-cont Basal-bolus insulin, continue to make adjustments based on BGs, diabetes ASSISTANT MECHANIC following
-hypothermia has resolved (was on Melvi Hugger)
Other problems:
ESRD-HD M/W/F: renal following, for temp HD cath today
Essential HTN with hypertensive urgency: cont home Procardia XL/Losartan/Hydralazine/Coreg
Anemia of chronic renal disease: transfuse for Hb<7
Hyponatremia, mild
Anemia of chronic kidney disease: Hb stable
Bipolar disorder: cont Seroquel
Dementia
Blindness from diabetic retinopathy
FULL/Heparin
Anticipated Discharge: > 48 hours
Subjective/Interval History
-
Date of Service: October 27, 2025
Denies CP/SOB/abd pain.
Objective Data
-
Labs:
Laboratory Results
10/27/25
06:00
WBC Pending
Hgb Pending
Hct Pending
Plt Count Pending
Sodium Pending
Potassium Pending
Chloride Pending
Carbon Dioxide Pending
BUN Pending
Creatinine Pending
Glucose Pending
Calcium Pending
Vital Signs:
Vital Signs
Temp Pulse Resp BP Pulse Ox
98.3 F 75 14 154/53 97
10/26/25 22:28 10/26/25 22:28 10/26/25 22:28 10/26/25 22:28 10/26/25 22:28
I&O
10/26/25 10/27/25 10/28/25
06:59 06:59 06:59
Intake Total 420 / 420 540 / 540
Output Total 0 / 0
Balance 420 / 420 540 / 540
--- NOTE | 2025-10-27 09:09 | PTCARENOTE ---
Addendum entered by Emani Grande RN 10/27/25 11:09:
RN able to get vitals, let phlebotomy get labs, and get accucheck. accuheck reading RR high. made aware and stat glucose was drawn. stat glucose resulting at 633 as well as change in morning labs. made aware. orders placed and transfer to IMU
ordered.
Original Note:
pt refused labs, vitals and accucheck this morning for phlebotomy, night guard pct and day shift pct. made aware.
[2025-10-27 09:31] LABS: Glucose - Point of Care > 600 mg/dl (70-99)
[2025-10-27] MEDS: APRESOLINE 75 MG PO ×2 (09:38→21:15)
[2025-10-27] MEDS: B COMPLEX w/VITAMIN C 1 CAPLET PO ×2 (09:38→19:43)
[2025-10-27] MEDS: PROCARDIA XL (EXTENDED RELEASE) 90 MG PO (09:39)
[2025-10-27] MEDS: LANTUS 0.1 UNITS SC (09:40)
[2025-10-27] MEDS: PHOSLO 667 MG PO (09:40)
[2025-10-27] MEDS: REFRESH EYE DROPS (PF) 1 DROPS BOTH EYES (09:40)
[2025-10-27] MEDS: HEPARIN 5000 UNITS SC ×2 (09:40→19:35)
[2025-10-27] MEDS: PLAVIX 75 MG PO (09:40)
[2025-10-27] MEDS: COREG 25 MG PO ×2 (09:40→19:43)
[2025-10-27] MEDS: OSCAL 500 + D 500 MG PO (09:41)
[2025-10-27] MEDS: COZAAR 100 MG PO (09:41)
[2025-10-27] MEDS: ATROPINE SULFATE 1% DROPS 1 DROP BOTH EYES (09:41)
[2025-10-27] MEDS: MAGNESIUM OXIDE 400 MG PO (09:41)
[2025-10-27] MEDS: NOVOLOG FLEXPEN 4 UNITS SC (09:41)
[2025-10-27 10:01] LABS: Hematocrit 28.8 % (37.0-47.0); Hemoglobin 8.4 g/dL (12.0-16.0); Mean Corp Hgb Conc. 29.2 g/dL (33.0-37.0); Mean Corpuscular Volume 99.3 fL (81.0-99.0); Platelet Count 236 10^3/uL (130-400); Red Cell Dist. Width 17.2 % (11.5-14.5)
--- NOTE | 2025-10-27 10:13 | CM ---
Addendum entered by Renetta Tracy 10/27/25 12:16:
Per nursing plan is for transfer to IMU. CM will continue to follow for discharge planning needs.
Original Note:
Patient seen at bedside on [address], patient from [facility]. CM spoke with liaison with admissions there and await physician assessment, per admissions they will be able to accept when medically appropriate. Patient for possible procedure re HD
port re chart review. CM will continue to follow for discharge planning needs.
Plan; return to SNF
[2025-10-27 10:31] LABS: Glucose 633 mg/dl (70-99)
[2025-10-27 10:44] LABS: Blood Urea Nitrogen 42 mg/dl (7-17); Calcium 8.6 mg/dl (8.4-10.2); Carbon Dioxide 16 mmol/L (22-30); Chloride 95 mmol/L (98-107); Estimated Creatinine Clearance 11 ml/min; Potassium 5.3 mmol/L (3.5-5.1); Sodium 130 mmol/L (135-145); eGFR 11.48
[2025-10-27] MEDS: NOVOLOG FLEXPEN 12 UNITS SC (10:44)
--- NOTE | 2025-10-27 10:57 | W.PN.UPDATE ---
Update Note
Progress Note Update
Patient's BMP is resulted with an anion gap metabolic acidosis. Pt just received 12U Aspart ordered prior to BMP results. NPO except meds/sips, start IVFs, start insulin gtt 0.1U/kg/hr, transfer to IMU.
[2025-10-27 11:01] LABS: Glucose 631 mg/dl (70-99)
[2025-10-27] MEDS: LR 1000 IV (11:16)
[2025-10-27 11:53] LABS: Glucose - Point of Care 567 mg/dl (70-99)
[2025-10-27] MEDS: NOVOLIN R INSULIN INFUSION 100 IV (12:26)
[2025-10-27] MEDS: CATAPRES 0.2 MG PO (12:28)
[2025-10-27 13:23] LABS: Glucose - Point of Care 518 mg/dl (70-99)
--- NOTE | 2025-10-27 13:45 | W.PN.ID1 ---
Date of Service
Date of Service: October 27, 2025
Today's Communication
c/w vancomycin
line holiday
Assessment / Plan
Persistent methicillin resistant Staphylococcal Bacteremia
ESRD on HD via tunneled line right chest
Toxic metabolic encephalopathy
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
Penicillin allergy - not allergic if she has truly tolerated amoxicillin in the past
Blindness
- sustained bacteremia noted
- HD cath removed 10/25
- repeat blood cultures x2
- TTE
- continue vancomycin - dosing by level; 500 mg today
- vancomycin level in the am
Chief Complaint
-: Bacteremia
Subjective / Review of Systems
afebrile
bp stable
open AG and high glucose
Vital Signs / Physical Exam
Vital Signs
Vital Signs
Temp Pulse Resp BP Pulse Ox
99.5 F 88 16 179/66 93
10/27/25 10:59 10/27/25 10:59 10/27/25 10:59 10/27/25 12:28 10/27/25 10:59
Physical Exam
Constitutional: No Acute Distress
Cardiovascular: Regular Rate and S1/S2; Negative Murmur or Rub
Pulmonary: Clear and Symmetric; Negative Wheezes or Rales
Gastrointestinal: Soft, Non Tender, Non Distended and Normal Bowel Sounds
Skin: Warm and Dry; Negative Rash or Jaundice
Objective Data
Lab Data
Lab Results
10/27/25 09:51
Estimated Creat Clear 11 ml/min 10/27/25 09:51
Total Bilirubin 0.6 mg/dl (0.2-1.3) 10/21/25 09:52
AST 37 U/L (14-36) H 10/21/25 09:52
ALT 24 U/L (0-35) 10/21/25 09:52
Alkaline Phosphatase 119 U/L (38-126) 10/21/25 09:52
Most recent labs reviewed.
Micro Results:
10/25/25 14:28 Catheter Tip Culture - Preliminary
Dialysis Line No Growth After 48 Hours
10/23/25 11:00 Blood Culture - Preliminary
Blood/Venous No Growth in 4 days- Final report to follow
10/26/25 08:25 Blood Culture - Preliminary
Blood/Venous No Growth in 24 hours- Final report to follow
10/26/25 06:17 Blood Culture - Preliminary
Blood/Venous No Growth in 24 hours- Final report to follow
10/23/25 15:08 Blood Culture - Preliminary
Blood/Venous Staphylococcus hominis
Gram Stain - Preliminary
10/21/25 12:17 Blood Culture - Preliminary
Blood/Venous Staphylococcus hominis
Gram Stain - Preliminary
10/21/25 12:17 Blood Culture - Preliminary
Blood/Venous Staphylococcus hominis
Gram Stain - Preliminary
10/21/25 11:22 Urine Culture - Final
Urine NO GROWTH
10/21/25 15:34 Nasal Screen MRSA (PCR) - Final
Nose MRSA not detected - performed by PCR methodology.
10/21/25 12:53 Influenza Types A & B (LATISHA) - Final
Nasal Swab Negative for Influenza A & B, NAAT
Negative results must be combined with clinical observations
and patient history.
Nucleic Acid Amplification test (NAAT)performed on the
[employer] platform.
Care Review
Plan reviewed with: Physician (Dr Alejandrina see)
--- NOTE | 2025-10-27 13:58 | W.PN.NEPH.PH ---
Today's Communication / Plan
-
temporary dialysis catheter tomorrow ir consult placed
Assessment/Plan
-
Impression
End-stage renal disease on hemodialysis MWF [facility] via right chest cath
Anemia of chronic disease
Hyponatremia
Diabetic retinopathy
Hypoglycemia
Plan:
Continue MWF
Follow BMP
Positive blood culture staph, on antibiotics status post permacath removal 10/25 and line holiday which was her last dialysis
repeat surveillance cultures
Will need a temporary dialysis catheter discussed with MARIA ANTONIA sargent to place tomorrow plans for dialysis Thursday
patient transferred to IMU for DKA protocol noted
See orders
-
-
Date of Service: October 27, 2025
CC / HPI / ROS
-
Chief Complaint:
ESRD
History of Present Illness:
ESRD presents with hypoglycemia bacteremia
Potassium less than 5
BP stable
now with DKA
Review of Systems:
No chest pain or shortness of breath
Labs
-
Labs:
WBC 10.6 10^3/uL (4.8-10.8) 10/27/25 09:51
RBC 2.90 10^6/uL (4.20-5.40) L 10/27/25 09:51
Hgb 8.4 g/dL (12.0-16.0) L 10/27/25 09:51
Hct 28.8 % (37.0-47.0) L 10/27/25 09:51
Plt Count 236 10^3/uL (130-400) 10/27/25 09:51
eGFR 11.48 10/27/25 09:51
Albumin 3.9 g/dl (3.5-5.0) 10/21/25 09:52
Physical Exam
-
Vital Signs:
Vital Signs
Temp Pulse Resp BP Pulse Ox
99.5 F 88 16 179/66 93
10/27/25 10:59 10/27/25 10:59 10/27/25 10:59 10/27/25 12:28 10/27/25 10:59
Cardiovascular:: Regular rate and rhythm
Respiratory:: Bilateral: Coarse
Lung Excursion:: Normal
Abdomen:: Nontender and Soft
Bowel Sounds:: Normal
Extremity Edema:: None: Bilateral:
--- NOTE | 2025-10-27 14:05 | PHA.VAN.FU ---
Vancomycin Assessment / Plan
- Assessment
Hemodialysis Schedule: MWF
Last Hemodialysis performed: 10.25, next HD- 10.28
WBC's are: WNL
In the past 24 hrs, patient has been: Afebrile
- Assessment - Therapeutic Drug Monitoring
Random Level: 13.1
- Dosing Plan
Dosing by Level: Hold off on dosing today (HD is scheduled for 10.28)
- Monitoring Plan
Random Level: 10.28 @ 0600
- Follow Up
Pharmacy will continue to follow.
Vancomycin Follow UP
- -
Patient Age: 70
Patient Sex: Female
Vancomycin Day #: 6
Indication: Bacteremia
Requesting Provider: DR. RAUSCH
Pertinent Antimicrobial Allergies:
PENICILLIN (SWELLING/HIVES, TOLERATED AMOXICILLIN)
Height / Weight:
Height 5 ft 3 in
Actual Weight 66.281 kg
Pertinent Past Medical History: ESRD-HD
- Vital Signs / Lab Results
Temp Pulse Resp BP Pulse Ox
99.5 F 88 16 179/66 93
10/27/25 10:59 10/27/25 10:59 10/27/25 10:59 10/27/25 12:28 10/27/25 10:59
Lab Results - Hematology
10/25/25 10/26/25 10/27/25
06:59 06:18 09:51
WBC 4.8 6.8 10.6
Lab Results - Chemistry
10/25/25 10/26/25 10/27/25
06:59 06:18 09:51
BUN 33 H 20 H 42 H
Creatinine 4.2 H* 2.8 H 4.0 H
Estimated Creat Clear 12 18 11
Microbiology Results
10/25/25 14:28 Catheter Tip Culture - Preliminary
Dialysis Line No Growth After 48 Hours
10/23/25 11:00 Blood Culture - Preliminary
Blood/Venous No Growth in 4 days- Final report to follow
10/26/25 08:25 Blood Culture - Preliminary
Blood/Venous No Growth in 24 hours- Final report to follow
10/26/25 06:17 Blood Culture - Preliminary
Blood/Venous No Growth in 24 hours- Final report to follow
10/23/25 15:08 Blood Culture - Preliminary
Blood/Venous Staphylococcus hominis
Gram Stain - Preliminary
10/21/25 12:17 Blood Culture - Preliminary
Blood/Venous Staphylococcus hominis
Gram Stain - Preliminary
10/21/25 12:17 Blood Culture - Preliminary
Blood/Venous Staphylococcus hominis
Gram Stain - Preliminary
Therapeutic Drug Monitoring
Random Vancomycin 13.1 ug/ml 10/27/25 09:51
[2025-10-27 14:15] LABS: Glucose - Point of Care 474 mg/dl (70-99)
[2025-10-27 15:01] LABS: Blood Urea Nitrogen 48 mg/dl (7-17); Calcium 8.6 mg/dl (8.4-10.2); Carbon Dioxide 25 mmol/L (22-30); Chloride 95 mmol/L (98-107); Estimated Creatinine Clearance 10 ml/min; Glucose 441 mg/dl (70-99); Potassium 4.4 mmol/L (3.5-5.1); Sodium 129 mmol/L (135-145); eGFR 10.53
[2025-10-27 15:09] LABS: Glucose - Point of Care 436 mg/dl (70-99)
[2025-10-27 16:04] LABS: Glucose - Point of Care 370 mg/dl (70-99)
[2025-10-27 17:17] LABS: Glucose - Point of Care 289 mg/dl (70-99)
--- NOTE | 2025-10-27 17:56 | PTCARENOTE ---
Pt received after upgrade to IMU level of care. Insulin gtt infusing @ 7 units/hr. Hourly accuchecks obtained. BMP and blood cultures drawn and sent. LR infusing @ 100ml/hr. New order to change Insulin gtt to DKA protocol. ECHO obtained. For
temporary dialysis catheter tomorrow.
[2025-10-27] MEDS: APRESOLINE PO (18:20)
[2025-10-27 18:24] LABS: Glucose - Point of Care 206 mg/dl (70-99)
[2025-10-27 19:10] LABS: Blood Urea Nitrogen 51 mg/dl (7-17); Calcium 8.9 mg/dl (8.4-10.2); Carbon Dioxide 25 mmol/L (22-30); Chloride 97 mmol/L (98-107); Estimated Creatinine Clearance 10 ml/min; Glucose 167 mg/dl (70-99); Potassium 4.5 mmol/L (3.5-5.1); Sodium 129 mmol/L (135-145); eGFR 10.83
[2025-10-27 19:19] LABS: Glucose - Point of Care 153 mg/dl (70-99)
[2025-10-27] MEDS: D5/0.45%NSS with KCL 20 MEQ 1000 IV (19:35)
[2025-10-27 20:18] LABS: Glucose - Point of Care 122 mg/dl (70-99)
[2025-10-27 21:14] LABS: Glucose - Point of Care 99 mg/dl (70-99)
[2025-10-27] MEDS: SEROQUEL 100 MG PO (21:16)
--- NOTE | 2025-10-27 21:33 | PTCARENOTE ---
Addendum entered by Brittny Bush RN 10/28/25 04:42:
correction to prior note: BS @ 20:00 was 122
Addendum entered by Brittny Bush RN 10/28/25 03:49:
Start of shift, Insulin gtt infusing at 3ml/hr. BS checked with results of 153 and BMP results back with GAP of 7.0. Insulin gtt decreased to 2mls/hr and provider ordered D5/0.45% with K+ 20mEq. Bs @ 20:00 was 12, insulin gtt decreased to to 1
ml/hr and provider notified. BS @21:00 was 99, Insulin gtt decreased to 0.5ml/hr and provider notified. Per provider, gtt put on hold. BS@ 22:00 was 81 with a GAP of 5.0. BS @ 23:00 was 94. Per provider, blood sugar checks changed to every 2 hours.
BS @ 1:00 was 123. BMP drawn with GAP of 7.0 and K+ 5.3 BS @ 03:00 was 163. Provider notified and changed IVF to NSS @ 60 ml/hr and Lantus 10 units Sub Q to be given. Per provider, patient to remain NPO with sips due to likely HD cath placement on
10/18.
Original Note:
Received patient in bed. AAOx2-3. Bed alarm in place. [address] at 2 liters. No SOB noted. Insulin gtt infusing with BS being checked every 1 hour. Adjusting Insulin gtt and monitoring Anion Gap and labs per protocol. No signs of distress noted.
Call torres within reach.
[2025-10-27 22:15] LABS: Glucose - Point of Care 81 mg/dl (70-99)
[2025-10-27 23:03] LABS: Blood Urea Nitrogen 53 mg/dl (7-17); Calcium 8.6 mg/dl (8.4-10.2); Carbon Dioxide 28 mmol/L (22-30); Chloride 97 mmol/L (98-107); Estimated Creatinine Clearance 10 ml/min; Glucose 76 mg/dl (70-99); Potassium 4.7 mmol/L (3.5-5.1); Sodium 130 mmol/L (135-145); eGFR 10.83
[2025-10-27 23:13] LABS: Glucose - Point of Care 94 mg/dl (70-99)
[2025-10-28] VITALS (30 sets, daily range): BP systolic 62–167; BP diastolic 42–59; BMI 27.0
[2025-10-28 01:17] LABS: Glucose - Point of Care 123 mg/dl (70-99)
[2025-10-28 02:55] LABS: Blood Urea Nitrogen 54 mg/dl (7-17); Calcium 8.7 mg/dl (8.4-10.2); Carbon Dioxide 25 mmol/L (22-30); Chloride 98 mmol/L (98-107); Estimated Creatinine Clearance 11 ml/min; Glucose 114 mg/dl (70-99); Potassium 5.3 mmol/L (3.5-5.1); Sodium 130 mmol/L (135-145); eGFR 11.15
[2025-10-28 03:13] LABS: Glucose - Point of Care 163 mg/dl (70-99)
[2025-10-28] MEDS: NSS 1000 IV ×2 (03:24→22:48)
[2025-10-28] MEDS: LANTUS 0.1 UNITS SC (03:29)
--- NOTE | 2025-10-28 03:43 | W.PN.UPDATE ---
Update Note
Progress Note Update
AG closed
Insulin infusion stopped. Lantus 10 units SC given. Sips of clears.
Temp HD cath to be placed today followed by HD
NS IVF @60 mls/hr
Bedside glucose q2H.
0300 163
[2025-10-28 05:16] LABS: Glucose - Point of Care 181 mg/dl (70-99)
[2025-10-28 05:40] LABS: Hematocrit 24.2 % (37.0-47.0); Hemoglobin 7.4 g/dL (12.0-16.0); Mean Corp Hgb Conc. 30.6 g/dL (33.0-37.0); Mean Corpuscular Volume 94.5 fL (81.0-99.0); Platelet Count 220 10^3/uL (130-400); Red Cell Dist. Width 17.2 % (11.5-14.5)
[2025-10-28 06:07] LABS: Blood Urea Nitrogen 53 mg/dl (7-17); Calcium 8.5 mg/dl (8.4-10.2); Carbon Dioxide 21 mmol/L (22-30); Chloride 97 mmol/L (98-107); Estimated Creatinine Clearance 11 ml/min; Glucose 152 mg/dl (70-99); Potassium 5.2 mmol/L (3.5-5.1); Sodium 130 mmol/L (135-145); eGFR 10.24
[2025-10-28 07:00] LABS: Glucose - Point of Care 173 mg/dl (70-99)
--- NOTE | 2025-10-28 07:45 | PHA.VAN.FU ---
Vancomycin Assessment / Plan
- Assessment
Hemodialysis Schedule: MWF
Last Hemodialysis performed: 10/28
WBC's are: WNL
In the past 24 hrs, patient has been: Afebrile
- Assessment - Therapeutic Drug Monitoring
Random Level: 13
- Dosing Plan
Dosing by Level: Re-dose today (500MG POST HD)
- Monitoring Plan
Random Level: 10/29 IN AM
- Follow Up
Pharmacy will continue to follow.
Vancomycin Follow UP
- -
Patient Age: 70
Patient Sex: Female
Vancomycin Day #: 7
Indication: Bacteremia
Requesting Provider: DR. RAUSCH
Pertinent Antimicrobial Allergies:
PENICILLIN (SWELLING/HIVES, TOLERATED AMOXICILLIN)
Height / Weight:
Height 5 ft 3 in
Actual Weight 69.1 kg
Pertinent Past Medical History: ESRD-HD
- Vital Signs / Lab Results
Temp Pulse Resp BP Pulse Ox
98.4 F 64 16 148/49 98
10/28/25 03:37 10/28/25 06:00 10/28/25 06:00 10/28/25 06:00 10/28/25 06:00
Lab Results - Hematology
10/25/25 10/26/25 10/27/25
06:59 06:18 09:51
WBC 4.8 6.8 10.6
10/28/25
05:19
WBC 6.9
Lab Results - Chemistry
10/25/25 10/26/25 10/27/25
06:59 06:18 09:51
BUN 33 H 20 H 42 H
Creatinine 4.2 H* 2.8 H 4.0 H
Estimated Creat Clear 12 18 11
10/27/25 10/27/25 10/27/25
14:22 18:34 22:15
BUN 48 H 51 H 53 H
Creatinine 4.3 H* 4.2 H* 4.2 H*
Estimated Creat Clear 10 10 10
10/28/25 10/28/25
02:15 05:19
BUN 54 H 53 H
Creatinine 4.1 H* 4.4 H*
Estimated Creat Clear 11 11
Microbiology Results
10/26/25 06:17 Blood Culture - Preliminary
Blood/Venous No Growth in 48 hours- Final report to follow
10/25/25 14:28 Catheter Tip Culture - Preliminary
Dialysis Line No Growth After 48 Hours
10/23/25 11:00 Blood Culture - Preliminary
Blood/Venous No Growth in 4 days- Final report to follow
10/26/25 08:25 Blood Culture - Preliminary
Blood/Venous No Growth in 24 hours- Final report to follow
Therapeutic Drug Monitoring
Random Vancomycin 13.0 ug/ml 10/28/25 05:19
[2025-10-28] MEDS: APRESOLINE 75 MG PO ×2 (07:47→22:49)
[2025-10-28] MEDS: ATROPINE SULFATE 1% DROPS 1 DROP BOTH EYES (07:47)
[2025-10-28] MEDS: PROCARDIA XL (EXTENDED RELEASE) 90 MG PO (07:47)
[2025-10-28] MEDS: COZAAR 100 MG PO (07:48)
[2025-10-28] MEDS: COREG 25 MG PO ×2 (07:49→20:33)
[2025-10-28] MEDS: B COMPLEX w/VITAMIN C 1 CAPLET PO ×2 (07:49→20:33)
[2025-10-28] MEDS: HEPARIN 5000 UNITS SC ×2 (07:49→20:33)
[2025-10-28] MEDS: MAGNESIUM OXIDE 400 MG PO (07:49)
[2025-10-28] MEDS: PHOSLO 667 MG PO (07:50)
[2025-10-28] MEDS: PLAVIX 75 MG PO (07:50)
[2025-10-28] MEDS: OSCAL 500 + D 500 MG PO (07:50)
[2025-10-28] MEDS: REFRESH EYE DROPS (PF) 1 DROPS BOTH EYES (07:51)
--- NOTE | 2025-10-28 08:13 | W.PN.HOSP.TC ---
Today's Communication/Plan
-
see plan
Assessment / Plan
Assessment / Plan
Gen: NAD, Awake and alert
Neck: supple.
CV: continues to remain RRR, +S1/S2, no m/r/g.
Resp: remains CTAB anteriorly, no rales, wheezes, or rhonchi.
Abd: continues to remain +BS, soft, NT, ND
Skin: No rashes.
Neuro: CN 2-12 intact, non-focal.
Psych: Normal mood and affect.
10/26/25 06:17 Blood/Venous Blood Culture - Preliminary
No Growth in 48 hours- Final report to follow
10/25/25 14:28 Dialysis Line Catheter Tip Culture - Preliminary
No Growth After 48 Hours
10/23/25 11:00 Blood/Venous Blood Culture - Preliminary
No Growth in 4 days- Final report to follow
10/26/25 08:25 Blood/Venous Blood Culture - Preliminary
No Growth in 24 hours- Final report to follow
10/23/25 15:08 Blood/Venous Blood Culture - Preliminary
Staphylococcus hominis
10/23/25 15:08 Blood/Venous Gram Stain - Preliminary
10/21/25 12:17 Blood/Venous Blood Culture - Preliminary
Staphylococcus hominis
10/21/25 12:17 Blood/Venous Gram Stain - Preliminary
10/21/25 12:17 Blood/Venous Blood Culture - Preliminary
Staphylococcus hominis
10/21/25 12:17 Blood/Venous Gram Stain - Preliminary
10/21/25 11:22 Urine Urine Culture - Final
NO GROWTH
10/21/25 15:34 Nose Nasal Screen MRSA (PCR) - Final
MRSA not detected - performed by PCR methodology.
10/21/25 12:53 Nasal Swab Influenza Types A & B (LATISHA) - Final
Negative for Influenza A & B, NAAT
Negative results must be combined with clinical observations
and patient history.
Nucleic Acid Amplification test (NAAT)performed on the
[employer] platform.
CXR: Mild cardiomegaly, unchanged. Mild interstitial prominence which may represent mild interstitial edema, viral illness or sequelae of chronic interstitial lung disease. There is a likely trace left pleural effusion.
Bacteremia with Staph Hominis due to infected HD cath:
-cont Vanco as per ID
-HD cath removed 10/25
-follow all repeat BCxs (most recent BCxs NGTD)
-temporary HD cath to be placed today
Acute metabolic encephalopathy and hypothermia:
-likely due to hypoglycemia and, to a lesser extent, hypernatremia, both of which have now resolved
-was on D10W, now off
-hypothermia has resolved (was on Melvi Hugger)
-note, pt went into DKA on 10/27 which resolved with an insulin gtt
-resume Lantus 10U (change to HS), premeal Novolog 4U, mod res SSI today
Other problems:
ESRD-HD M/W/F: renal following, for temp HD cath today
Essential HTN with hypertensive urgency: cont home Procardia XL/Losartan/Hydralazine/Coreg
Anemia of chronic renal disease: transfuse for Hb<7
Hyponatremia, mild
Bipolar disorder: cont Seroquel
Dementia
Blindness from diabetic retinopathy
FULL/Heparin
Anticipated Discharge: > 48 hours
Subjective/Interval History
-
Date of Service: October 28, 2025
Objective Data
-
Labs:
Laboratory Results
10/27/25 10/28/25 10/28/25
22:15 02:15 05:19
WBC 6.9
Hgb 7.4 L
Hct 24.2 L
Plt Count 220
Sodium 130 L 130 L 130 L
Potassium 4.7 5.3 H 5.2 H
Chloride 97 L 98 97 L
Carbon Dioxide 28 25 21 L
BUN 53 H 54 H 53 H
Creatinine 4.2 H* 4.1 H* 4.4 H*
Glucose 76 114 H 152 H
Calcium 8.6 8.7 8.5
Vital Signs:
Vital Signs
Temp Pulse Resp BP Pulse Ox
98.4 F 64 16 148/49 98
10/28/25 03:37 10/28/25 06:00 10/28/25 06:00 10/28/25 06:00 10/28/25 06:00
I&O
10/27/25 10/28/25 10/29/25
06:59 06:59 06:59
Intake Total 540 / 540 870 / 870
Output Total 0 / 0
Balance 540 / 540 870 / 870
--- NOTE | 2025-10-28 09:05 | W.PN.ID1 ---
Date of Service
Date of Service: October 28, 2025
Today's Communication
- would pursue JOVAN[facility] thursday, plan cardiology consult tomorrow
- continue vancomycin - dosing by level
Assessment / Plan
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
ESRD on HD via tunneled line right chest
Toxic metabolic encephalopathy
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
Penicillin allergy - not allergic if she has truly tolerated amoxicillin in the past
Blindness
- sustained bacteremia noted
- HD cath removed 10/25
- repeat blood cultures x2 NGTD
- TTE - nonrevealing
- would pursue JOV[facility] thursday, plan cardiology consult tomorrow
- continue vancomycin - dosing by level
Chief Complaint
-: Bacteremia
Subjective / Review of Systems
afebrile
bp stable
Vital Signs / Physical Exam
Vital Signs
Vital Signs
Temp Pulse Resp BP Pulse Ox
98.5 F 64 16 148/49 98
10/28/25 07:30 10/28/25 06:00 10/28/25 06:00 10/28/25 06:00 10/28/25 06:00
Physical Exam
Constitutional: No Acute Distress
Cardiovascular: Regular Rate and S1/S2; Negative Murmur or Rub
Pulmonary: Clear and Symmetric; Negative Wheezes or Rales
Gastrointestinal: Soft, Non Tender, Non Distended and Normal Bowel Sounds
Skin: Warm and Dry; Negative Rash or Jaundice
Objective Data
Lab Data
Lab Results
10/28/25 05:19
10/28/25 05:19
Estimated Creat Clear 11 ml/min 10/28/25 05:19
Total Bilirubin 0.6 mg/dl (0.2-1.3) 10/21/25 09:52
AST 37 U/L (14-36) H 10/21/25 09:52
ALT 24 U/L (0-35) 10/21/25 09:52
Alkaline Phosphatase 119 U/L (38-126) 10/21/25 09:52
Most recent labs reviewed.
Micro Results:
10/21/25 12:17 Blood Culture - Final
Blood/Venous Staphylococcus hominis
Gram Stain - Final
10/21/25 12:17 Blood Culture - Final
Blood/Venous Staphylococcus hominis
Gram Stain - Final
10/26/25 08:25 Blood Culture - Preliminary
Blood/Venous No Growth in 48 hours- Final report to follow
10/25/25 14:28 Catheter Tip Culture - Final
Dialysis Line No Growth After 72 Hours
10/26/25 06:17 Blood Culture - Preliminary
Blood/Venous No Growth in 48 hours- Final report to follow
10/27/25 14:22 Blood Culture - Pending
Blood/Venous
10/27/25 14:22 Blood Culture - Pending
Blood/Venous
10/23/25 11:00 Blood Culture - Preliminary
Blood/Venous No Growth in 4 days- Final report to follow
10/23/25 15:08 Blood Culture - Preliminary
Blood/Venous Staphylococcus hominis
Gram Stain - Preliminary
10/21/25 11:22 Urine Culture - Final
Urine NO GROWTH
10/21/25 15:34 Nasal Screen MRSA (PCR) - Final
Nose MRSA not detected - performed by PCR methodology.
10/21/25 12:53 Influenza Types A & B (LATISHA) - Final
Nasal Swab Negative for Influenza A & B, NAAT
Negative results must be combined with clinical observations
and patient history.
Nucleic Acid Amplification test (NAAT)performed on the
[employer] platform.
[2025-10-28 09:11] LABS: Glucose - Point of Care 203 mg/dl (70-99)
[2025-10-28 11:25] LABS: Glucose - Point of Care 213 mg/dl (70-99)
[2025-10-28] MEDS: NOVOLOG FLEXPEN 4 UNITS SC ×2 (11:50→16:54)
[2025-10-28] MEDS: NOVOLOG FLEXPEN-MODERATE RESISTANCE 3 UNITS SC (11:51)
--- NOTE | 2025-10-28 13:22 | W.PN.NEPH.HD ---
Assessment
-
seen on dialysis status post temporary dialysis catheter tolerating treatment
Progress Note - Hemodialysis
-
Date of Service: October 28, 2025
Duration: 30 minutes and 3 hours
Potassium Bath: 2
Calcium Bath: 2.5
Opti-Dialyzer: 160
Ultrafiltration: Other (2.5kg)
Blood Flow: 400
Dialysate Flow: 600
Heparin: no
EPO: yes
[2025-10-28] MEDS: MANNITOL 25% 12.5 GRAMS IV ×2 (14:05→15:56)
[2025-10-28] MEDS: RETACRIT 10000 UNITS IV (14:26)
[2025-10-28] MEDS: FLEXBUMIN 25% FOR HEMODIALYSIS 12.5 GRAMS IV ×2 (15:17→16:14)
[2025-10-28 15:26] LABS: Glucose - Point of Care 82 mg/dl (70-99)
[2025-10-28] MEDS: APRESOLINE PO (16:06)
[2025-10-28 16:12] LABS: Glucose - Point of Care 84 mg/dl (70-99)
[2025-10-28] MEDS: NOVOLOG FLEXPEN-MODERATE RESISTANCE SC (16:54)
[2025-10-28] MEDS: VANCOCIN HCL 500 MG 100 IV (17:19)
[2025-10-28 18:04] LABS: Glucose - Point of Care 155 mg/dl (70-99)
--- NOTE | 2025-10-28 18:06 | PTCARENOTE ---
Pt returned from IR s/p HD cath placement with dressing removed and in patients hand. Pt unable to verbalize removing dressing. Hands reached toward HD catheter and began pulling. Pt's hand removed. HD catheter re-dressed. New order for b/l soft
limb restraints. HD completed at bedside.
[2025-10-28 20:13] LABS: Glucose - Point of Care 266 mg/dl (70-99)
[2025-10-28] MEDS: SEROQUEL 100 MG PO (22:49)
[2025-10-29] VITALS (14 sets, daily range): BP systolic 101–180; BP diastolic 31–88; BMI 26.3
[2025-10-29] MEDS: LANTUS 0.1 UNITS SC (00:07)
[2025-10-29 00:18] LABS: Glucose - Point of Care 304 mg/dl (70-99)
[2025-10-29] MEDS: CATAPRES 0.2 MG PO (00:36)
--- NOTE | 2025-10-29 00:38 | PTCARENOTE ---
Pt accuchekcs ordered Q4 will give ordered Lantus with 0000 accucheck, SWEATER OPERATOR aware. Pt BP remaining hypertensive, PRN Catapres given per order.
[2025-10-29 05:41] LABS: Glucose - Point of Care 106 mg/dl (70-99)
--- NOTE | 2025-10-29 07:38 | PHA.VAN.FU ---
Vancomycin Assessment / Plan
- Assessment
Hemodialysis Schedule: MWF
WBC's are: WNL
In the past 24 hrs, patient has been: Afebrile
- Assessment - Therapeutic Drug Monitoring
Random Level: 14.6
- Dosing Plan
Dosing by Level: Hold off on dosing today (NEXT DIALYSIS THURSDAY?)
- Follow Up
Pharmacy will continue to follow.
Vancomycin Follow UP
- -
Patient Age: 70
Patient Sex: Female
Vancomycin Day #: 8
Indication: Bacteremia
Requesting Provider: DR. RAUSCH
Pertinent Antimicrobial Allergies:
PENICILLIN (SWELLING/HIVES, TOLERATED AMOXICILLIN)
Height / Weight:
Height 5 ft 3 in
Actual Weight 67.3 kg
Pertinent Past Medical History: ESRD-HD
- Vital Signs / Lab Results
Temp Pulse Resp BP Pulse Ox
98.4 F 59 15 143/68 99
10/29/25 03:36 10/29/25 06:00 10/29/25 06:00 10/29/25 06:00 10/29/25 06:00
Lab Results - Hematology
10/27/25 10/28/25
09:51 05:19
WBC 10.6 6.9
Lab Results - Chemistry
10/27/25 10/27/25 10/27/25
09:51 14:22 18:34
BUN 42 H 48 H 51 H
Creatinine 4.0 H 4.3 H* 4.2 H*
Estimated Creat Clear 11 10 10
10/27/25 10/28/25 10/28/25
22:15 02:15 05:19
BUN 53 H 54 H 53 H
Creatinine 4.2 H* 4.1 H* 4.4 H*
Estimated Creat Clear 10 11 11
Microbiology Results
10/26/25 06:17 Blood Culture - Preliminary
Blood/Venous No Growth in 72 hours- Final report to follow
10/27/25 14:22 Blood Culture - Preliminary
Blood/Venous No Growth in 24 hours- Final report to follow
10/27/25 14:22 Blood Culture - Preliminary
Blood/Venous No Growth in 24 hours- Final report to follow
10/23/25 11:00 Blood Culture - Final
Blood/Venous No Growth - Final Report
10/21/25 12:17 Blood Culture - Final
Blood/Venous Staphylococcus hominis
Gram Stain - Final
10/21/25 12:17 Blood Culture - Final
Blood/Venous Staphylococcus hominis
Gram Stain - Final
10/26/25 08:25 Blood Culture - Preliminary
Blood/Venous No Growth in 48 hours- Final report to follow
10/25/25 14:28 Catheter Tip Culture - Final
Dialysis Line No Growth After 72 Hours
Therapeutic Drug Monitoring
Random Vancomycin 14.6 ug/ml 10/29/25 05:18
[2025-10-29 08:19] LABS: Glucose - Point of Care 52 mg/dl (70-99)
--- NOTE | 2025-10-29 08:23 | W.PN.HOSP.TC ---
Today's Communication/Plan
-
See plan
Assessment / Plan
Assessment / Plan
Gen: NAD, Awake and alert
Neck: supple.
CV: RRR, +S1/S2, no m/r/g.
Resp: continues to remain CTAB anteriorly, no rales, wheezes, or rhonchi.
Abd: +BS, soft, NT, ND
Skin: No rashes.
Neuro: CN 3-12 intact, non-focal.
Psych: Normal mood and affect.
10/26/25 06:17 Blood/Venous Blood Culture - Preliminary
No Growth in 48 hours- Final report to follow
10/25/25 14:28 Dialysis Line Catheter Tip Culture - Preliminary
No Growth After 48 Hours
10/23/25 11:00 Blood/Venous Blood Culture - Preliminary
No Growth in 4 days- Final report to follow
10/26/25 08:25 Blood/Venous Blood Culture - Preliminary
No Growth in 24 hours- Final report to follow
10/23/25 15:08 Blood/Venous Blood Culture - Preliminary
Staphylococcus hominis
10/23/25 15:08 Blood/Venous Gram Stain - Preliminary
10/21/25 12:17 Blood/Venous Blood Culture - Preliminary
Staphylococcus hominis
10/21/25 12:17 Blood/Venous Gram Stain - Preliminary
10/21/25 12:17 Blood/Venous Blood Culture - Preliminary
Staphylococcus hominis
10/21/25 12:17 Blood/Venous Gram Stain - Preliminary
10/21/25 11:22 Urine Urine Culture - Final
NO GROWTH
10/21/25 15:34 Nose Nasal Screen MRSA (PCR) - Final
MRSA not detected - performed by PCR methodology.
10/21/25 12:53 Nasal Swab Influenza Types A & B (LATISHA) - Final
Negative for Influenza A & B, NAAT
Negative results must be combined with clinical observations
and patient history.
Nucleic Acid Amplification test (NAAT)performed on the
[employer] platform.
CXR: Mild cardiomegaly, unchanged. Mild interstitial prominence which may represent mild interstitial edema, viral illness or sequelae of chronic interstitial lung disease. There is a likely trace left pleural effusion.
Bacteremia with Staph Hominis due to infected HD cath:
-cont Vanco as per ID
-HD cath removed 10/25
-follow all repeat BCxs (most recent BCxs NGTD)
-s/p temp HD cath 10/29
Acute metabolic encephalopathy and hypothermia, DM2:
-likely due to hypoglycemia and, to a lesser extent, hypernatremia, both of which have now resolved
-was on D10W, now off
-hypothermia has resolved (was on Melvi Hugger)
-note, pt went into DKA on 10/27 which resolved with an insulin gtt
-10/29AM pt hypoglycemic. Stop premeal Aspart, dec Lantus to 8U, cont mod res SSI. Can give individual, extra doses of aspart throughout the day as needed based on recorded blood glucoses.
Other problems:
ESRD-HD M/W/F: renal following, s/p temp HD cath 10/29
Essential HTN with hypertensive urgency: cont home Procardia XL/Losartan/Hydralazine/Coreg
Anemia of chronic renal disease: transfuse for Hb<7
Hyponatremia, mild
Bipolar disorder: cont Seroquel
Dementia
Blindness from diabetic retinopathy
FULL/Heparin
Anticipated Discharge: 24 - 48 hours
Subjective/Interval History
-
Date of Service: October 29, 2025
Denies chest pain or shortness of breath.
Objective Data
-
Vital Signs:
Vital Signs
Temp Pulse Resp BP Pulse Ox
98.1 F 59 15 143/68 99
10/29/25 07:46 10/29/25 06:00 10/29/25 06:00 10/29/25 06:00 10/29/25 06:00
I&O
10/28/25 10/29/25 10/30/25
06:59 06:59 06:59
Intake Total 870 / 870 1660 / 1660
Balance 870 / 870 1660 / 1660
[2025-10-29] MEDS: NOVOLOG FLEXPEN-MODERATE RESISTANCE SC (08:37)
[2025-10-29] MEDS: NOVOLOG FLEXPEN SC (08:41)
[2025-10-29 08:43] LABS: Glucose - Point of Care 67 mg/dl (70-99)
[2025-10-29] MEDS: ATROPINE SULFATE 1% DROPS 1 DROP BOTH EYES (08:47)
[2025-10-29] MEDS: PROCARDIA XL (EXTENDED RELEASE) 90 MG PO (08:47)
[2025-10-29] MEDS: COZAAR 100 MG PO (08:47)
[2025-10-29] MEDS: REFRESH EYE DROPS (PF) 1 DROPS BOTH EYES (08:47)
[2025-10-29] MEDS: OSCAL 500 + D 500 MG PO (08:47)
[2025-10-29] MEDS: APRESOLINE 75 MG PO ×3 (08:48→21:38)
[2025-10-29] MEDS: PLAVIX 75 MG PO (08:49)
[2025-10-29] MEDS: PHOSLO 667 MG PO (08:49)
[2025-10-29] MEDS: HEPARIN 5000 UNITS SC ×2 (08:49→20:09)
[2025-10-29] MEDS: COREG 25 MG PO ×2 (08:49→20:09)
[2025-10-29] MEDS: B COMPLEX w/VITAMIN C 1 CAPLET PO ×2 (08:49→20:09)
[2025-10-29] MEDS: MAGNESIUM OXIDE 400 MG PO (08:49)
[2025-10-29 09:01] LABS: Glucose - Point of Care 87 mg/dl (70-99)
--- NOTE | 2025-10-29 10:00 | W.PN.ID1 ---
Date of Service
Date of Service: October 29, 2025
Today's Communication
- would pursue JOVANNY thursday, cardiology consulted
- continue vancomycin - dosing by level
Assessment / Plan
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
ESRD on HD via tunneled line right chest
Toxic metabolic encephalopathy
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
Penicillin allergy - not allergic if she has truly tolerated amoxicillin in the past
Blindness
- sustained bacteremia noted 10/21-10/23
- HD cath removed 10/25; temp placed 10/28
- 10/26 repeat blood cultures x2 NGTD
- TTE - nonrevealing
- would pursue JOVANNY thursday, cardiology consulted
- continue vancomycin - dosing by level
Chief Complaint
-: Bacteremia
Subjective / Review of Systems
afebrile
bp stable
temp HD cath placed yesterday - patient removed the dressing x1 yesterday, then put in restraints
Vital Signs / Physical Exam
Vital Signs
Vital Signs
Temp Pulse Resp BP Pulse Ox
98.1 F 59 15 143/68 99
10/29/25 07:46 10/29/25 06:00 10/29/25 06:00 10/29/25 06:00 10/29/25 06:00
Physical Exam
Constitutional: No Acute Distress and Chronically Ill
Cardiovascular: Regular Rate and S1/S2; Negative Murmur or Rub
Pulmonary: Clear and Symmetric; Negative Wheezes or Rales
Gastrointestinal: Soft, Non Tender, Non Distended and Normal Bowel Sounds
Skin: Warm and Dry; Negative Rash or Jaundice
Lines: HD Cath
Objective Data
Lab Data
Lab Results
10/28/25 05:19
10/28/25 05:19
Estimated Creat Clear 11 ml/min 10/28/25 05:19
Total Bilirubin 0.6 mg/dl (0.2-1.3) 10/21/25 09:52
AST 37 U/L (14-36) H 10/21/25 09:52
ALT 24 U/L (0-35) 10/21/25 09:52
Alkaline Phosphatase 119 U/L (38-126) 10/21/25 09:52
Most recent labs reviewed.
Micro Results:
10/26/25 08:25 Blood Culture - Preliminary
Blood/Venous No Growth in 72 hours- Final report to follow
10/26/25 06:17 Blood Culture - Preliminary
Blood/Venous No Growth in 72 hours- Final report to follow
10/27/25 14:22 Blood Culture - Preliminary
Blood/Venous No Growth in 24 hours- Final report to follow
10/27/25 14:22 Blood Culture - Preliminary
Blood/Venous No Growth in 24 hours- Final report to follow
10/23/25 11:00 Blood Culture - Final
Blood/Venous No Growth - Final Report
10/21/25 12:17 Blood Culture - Final
Blood/Venous Staphylococcus hominis
Gram Stain - Final
10/21/25 12:17 Blood Culture - Final
Blood/Venous Staphylococcus hominis
Gram Stain - Final
10/25/25 14:28 Catheter Tip Culture - Final
Dialysis Line No Growth After 72 Hours
10/23/25 15:08 Blood Culture - Preliminary
Blood/Venous Staphylococcus hominis
Gram Stain - Preliminary
10/21/25 11:22 Urine Culture - Final
Urine NO GROWTH
10/21/25 15:34 Nasal Screen MRSA (PCR) - Final
Nose MRSA not detected - performed by PCR methodology.
10/21/25 12:53 Influenza Types A & B (LATISHA) - Final
Nasal Swab Negative for Influenza A & B, NAAT
Negative results must be combined with clinical observations
and patient history.
Nucleic Acid Amplification test (NAAT)performed on the
[employer] platform.
[2025-10-29 10:57] LABS: Glucose - Point of Care 141 mg/dl (70-99)
--- NOTE | 2025-10-29 11:08 | W.PN.NEPH.PH ---
Today's Communication / Plan
-
dialysis tomorrow
Assessment/Plan
-
Impression
End-stage renal disease on hemodialysis MWF [facility] via right chest cath
Anemia of chronic disease
Hyponatremia
Diabetic retinopathy
Hypoglycemia
Plan:
Continue MWF
Follow BMP
Positive blood culture staph, on antibiotics status post permacath removal 10/25 and line holiday which was her last dialysis
repeat surveillance cultures negative to date
status post temporary dialysis catheter placed
patient transferred to IMU for DKA protocol noted 10/27> stable
See orders for dialysis tomorrow
will need a tunneled catheter once cleared by ID
-
-
Date of Service: October 29, 2025
CC / HPI / ROS
-
Chief Complaint:
ESRD
History of Present Illness:
ESRD presents with hypoglycemia bacteremia
Potassium less than 5
BP stable
Review of Systems:
No chest pain or shortness of breath
Labs
-
Labs:
WBC 6.9 10^3/uL (4.8-10.8) 10/28/25 05:19
RBC 2.56 10^6/uL (4.20-5.40) L 10/28/25 05:19
Hgb 7.4 g/dL (12.0-16.0) L 10/28/25 05:19
Hct 24.2 % (37.0-47.0) L 10/28/25 05:19
Plt Count 220 10^3/uL (130-400) 10/28/25 05:19
Sodium 130 mmol/L (135-145) L 10/28/25 05:19
Potassium 5.2 mmol/L (3.5-5.1) H 10/28/25 05:19
Chloride 97 mmol/L (98-107) L 10/28/25 05:19
Carbon Dioxide 21 mmol/L (22-30) L 10/28/25 05:19
BUN 53 mg/dl (7-17) H 10/28/25 05:19
Creatinine 4.4 mg/dL (0.6-1.0) H* 10/28/25 05:19
eGFR 10.24 10/28/25 05:19
Glucose 152 mg/dl (70-99) H 10/28/25 05:19
Calcium 8.5 mg/dl (8.4-10.2) 10/28/25 05:19
Albumin 3.9 g/dl (3.5-5.0) 10/21/25 09:52
Physical Exam
-
Vital Signs:
Vital Signs
Temp Pulse Resp BP Pulse Ox
98.1 F 59 15 143/68 99
10/29/25 07:46 10/29/25 06:00 10/29/25 06:00 10/29/25 06:00 10/29/25 06:00
Cardiovascular:: Regular rate and rhythm
Respiratory:: Bilateral: Coarse
Lung Excursion:: Normal
Abdomen:: Nontender and Soft
Bowel Sounds:: Normal
Extremity Edema:: None: Bilateral:
[2025-10-29 12:06] LABS: Glucose - Point of Care 186 mg/dl (70-99)
[2025-10-29 13:43] LABS: Glucose - Point of Care 174 mg/dl (70-99)
[2025-10-29] MEDS: NOVOLOG FLEXPEN-MODERATE RESISTANCE 1 UNITS SC (13:45)
[2025-10-29 13:57] LABS: Glucose - Point of Care 174 mg/dl (70-99)
--- NOTE | 2025-10-29 15:00 | CON.CAR ---
Consultation
Consultation Request
Date/Time Consultation Requested: 10/29/25
Date/Time Consultation Performed: 10/29/25
Requesting Provider: Clayton
Performing Provider: Gabriel
Reason for Consultation: JOVANNY
Medical History
-
Chief Complaint: AMS
History of Present Illness:
Briefly 70-year-old woman brought in from her nursing facility with altered mental status found to be hypoglycemic and hypothermic on 10/21/2025. Initial blood cultures 10/21 were positive for staph hominis. Subsequent cultures from 10/23 also
grew Staph hominis. Dialysis catheter was exchanged, but culture from catheter tip was no growth. Transthoracic echocardiogram 10/27/2025 was performed to evaluate for evidence of infectious endocarditis however this was unrevealing. Infectious
diseases requesting transesophageal echocardiogram.
PMHx/PSHx:
ESRD-HD M/W/F
Chronic paulino
Hyponatremia
Essential HTN
Anemia of chronic kidney disease
Bipolar disorder
Dementia
Blindness from diabetic retinopathy
Appendectom
History of section
Left knee surgery
Spinal fusion
L arm dialysis fistula
Past Medical History
Past Medical History: Other (As above)
Past Surgical History: Other (As above)
Social History
Tobacco: Non-Smoker
Alcohol: None
Drug: None
Family History
Family History: Reviewed & Not Pertinent
Allergies / Home Medications
Allergy/AdvReac Type Severity Reaction Status Date / Time
aspirin Allergy Hives Verified 10/21/25 09:53
NSAIDS (Non-Steroidal Allergy aspirin-hiv Verified 10/21/25 09:53
Anti-Inflamma es
Penicillins Allergy Swelling/hives Verified 10/21/25 09:53
- has
tolerated
amoxicillin
per patient
�Medication �Instructions �Recorded �Confirmed �Type
Pancrelipase Dr 3000-5390unit 1 cap PO DAILY Gastrointestinal 08/14/25 10/21/25 History
Issue
acetaminophen 325 mg tablet 650 mg PO Q6HPRN PRN mild 08/14/25 10/21/25 History
(Tylenol) pain/temp>100.4
albuterol 90 mcg-budesonide 80 2 inh inhalation R Q6HPRN PRN sob 08/14/25 10/21/25 History
mcg/actuation HFA aerosol inhaler
atropine 1 % eye drops 1 drp BOTH EYES DAILY Eye Condition 08/14/25 10/21/25 History
bisacodyl 10 mg rectal suppository 10 mg WA DAILYPRN PRN constipation 08/14/25 10/21/25 History
(Dulcolax (bisacodyl))
calcium 600 mg (as 1 tab PO DAILY Supplement 08/14/25 10/21/25 History
carbonate)-vitamin D3 10 mcg (400
unit) tablet (Calcium 600 + D(3))
carboxymethylcellulose sodium 0.25 1 drp BOTH EYES DAILY Eye Condition 08/14/25 10/21/25 History
% eye drops
cholestyramine 4 gram oral powder 4 g PO BID Gastrointestinal Issue 08/14/25 10/21/25 History
for suspension in a packet
clopidogrel 75 mg tablet (Plavix) 75 mg PO DAILY Blood Clot 08/14/25 10/21/25 History
Prevention/Tx
epoetin angella 2,000 unit/mL 2,000 unit [facility] anemia of 08/14/25 10/21/25 History
injection solution chronic disease
haloperidol decanoate 100 mg/mL 10 mg IM Q4W Mental Health/Anxiety 08/14/25 10/21/25 History
intramuscular solution
insulin lispro 100 unit/mL 0 - 12 sliding scale dose SC AC 08/14/25 10/21/25 History
subcutaneous pen (Humalog KwikPen Diabetes
(U-100) Insulin)
loratadine 10 mg tablet (Claritin) 10 mg PO Q48H Allergies 08/14/25 10/21/25 History
losartan 100 mg tablet 100 mg PO DAILY Blood Pressure 08/14/25 10/21/25 History
magnesium oxide 400 mg PO DAILY Supplement 08/14/25 10/21/25 History
nifedipine 90 mg tablet,extended 90 mg PO DAILY Blood Pressure 08/14/25 10/21/25 History
release
quetiapine 100 mg tablet (Seroquel) 100 mg PO HS Mental Health/Anxiety 08/14/25 10/21/25 History
sorbitol 70 % solution 30 ml PO DAILYPRN PRN constipation 08/14/25 10/21/25 History
hydralazine 50 mg tablet 75 mg (1.5 x 50 mg) PO TID #0 tabs 08/19/25 10/21/25 Rx
carvedilol 12.5 mg tablet 25 mg PO BID Blood Pressure 08/24/25 10/21/25 History
B hwudhki-J-plzob acid-Zn tablet 0.8 PO BID Supplement 10/21/25 History
calcium acetate(phosphat bind) 667 667 mg PO DAILY Hyperphosphatemia 10/21/25 10/21/25 History
mg tablet
clonidine HCl 0.2 mg tablet 0.2 mg PO DAILY PRN HTN 10/21/25 10/21/25 History
insulin glargine 100 unit/mL (3 12 unit SC HS Diabetes 10/21/25 10/21/25 History
mL) subcutaneous pen (Lantus
Solostar U-100 Insulin)
insulin lispro 100 unit/mL 7 unit SC AC Diabetes 10/21/25 10/21/25 History
subcutaneous pen (Humalog KwikPen
(U-100) Insulin)
Review of Systems
-
History Source: Patient
All other systems: Negative unless noted
Physical Exam
Vital Signs
Temp Pulse Resp BP Pulse Ox
98.1 F 62 16 134/51 99
10/29/25 11:35 10/29/25 12:00 10/29/25 12:00 10/29/25 12:00 10/29/25 13:26
Lab Results
10/28/25 05:19
10/28/25 05:19
Physical Exam
HEENT: Normocephalic
Respiratory: Clear
Cardiac: S1/S2
Breast: Deferred by me
GI: Soft
Musculoskeletal: No Edema
Skin: Warm and Dry
Neuro: Awake and Alert
Hematologic/Lymphatic: No Lymphadenopathy
Psych: Calm
Impression / Plan
-
Vamp Throater: none
Assessment:
Staph bactermia
ESRD-HD M/W/F
Chronic paulino
Hyponatremia
Essential HTN
Anemia of chronic kidney disease
Bipolar disorder
Dementia
Blindness from diabetic retinopathy
Appendectomy
History of section
Left knee surgery
Spinal fusion
L arm dialysis fistula
Plan:
Presenting with AMS and found to be bacteremic with staph hominis. Currently on IV vancomycin.
Infectious disease service is concerned for possible infectious endocarditis and requesting transesophageal echo
Transthoracic echo did not show valvular vegetation or significant regurgitation
JOVANNY procedure explained to the patient and she is agreeable to proceed
Will make n.p.o. at midnight and add to schedule 10/30/2025
Data Reviewed
-
EKG: Tracing Personally Visualized and interpreted
Medical Tests (Nuc Med, Echo etc): Image Personally Visualized and interpreted
Labs: Labs Reviewed by me
Old Records: Reviewed
[2025-10-29] MEDS: NSS 1000 IV (15:29)
--- NOTE | 2025-10-29 16:04 | PTCARENOTE ---
Pt received in bed @ 0700. Morning accucheck resulted 57. Newell juice 4 fl. oz. PO administered. Accucheck increased to 67. Additional Newell juice 4 fl. oz. administered. Follow up Accucheck resulted 87. New Lantus and Insulin orders per Dr. Tinoco.
Pt able to communicate not leaving HD catheter in place. B/L soft limb restraints removed.
[2025-10-29 17:32] LABS: Glucose - Point of Care 241 mg/dl (70-99)
[2025-10-29] MEDS: NOVOLOG FLEXPEN-MODERATE RESISTANCE 3 UNITS SC (17:49)
[2025-10-29] MEDS: LANTUS 0.08 UNITS SC (21:37)
[2025-10-29] MEDS: SEROQUEL 100 MG PO (21:37)
[2025-10-29 21:43] LABS: Glucose - Point of Care 305 mg/dl (70-99)
[2025-10-30] VITALS (20 sets, daily range): BP systolic 95–205; BP diastolic 46–92; BMI 27.2
--- NOTE | 2025-10-30 02:30 | PTCARENOTE ---
Pt NPO for JOVANNY in Am. Pt also due for HD today. Pt remains Q4 AccuCheck due to labile glucose levels. Informed night SOLAR ENERGY SPECIALIST of last glucose of 330, 3U NovoLog ordered. Sliding scale changed to Q6.
[2025-10-30] MEDS: NOVOLOG FLEXPEN 3 UNITS SC (02:39)
[2025-10-30 05:44] LABS: Glucose - Point of Care 224 mg/dl (70-99)
[2025-10-30] MEDS: NSS 1000 IV (06:07)
[2025-10-30] MEDS: NOVOLOG FLEXPEN-MODERATE RESISTANCE 3 UNITS SC (06:07)
[2025-10-30] MEDS: CATAPRES 0.2 MG PO (06:22)
--- NOTE | 2025-10-30 07:23 | PTCARENOTE ---
Pt bp's remains hypertensive. Pt due for HD this day. MARKET RESEARCH SPECIALIST consulted, PRN Catapres given. Report given to laborer tree tapping for JOVANNY.
[2025-10-30 07:32] LABS: Glucose - Point of Care 330 mg/dl (70-99)
[2025-10-30] MEDS: MAGNESIUM OXIDE 400 MG PO (07:44)
[2025-10-30] MEDS: COREG 25 MG PO ×2 (07:45→21:19)
[2025-10-30] MEDS: APRESOLINE 75 MG PO ×2 (07:45→21:19)
[2025-10-30] MEDS: PROCARDIA XL (EXTENDED RELEASE) 90 MG PO (07:45)
[2025-10-30] MEDS: B COMPLEX w/VITAMIN C 1 CAPLET PO ×2 (07:46→21:19)
[2025-10-30] MEDS: PHOSLO 667 MG PO (07:46)
[2025-10-30] MEDS: PLAVIX 75 MG PO (07:46)
[2025-10-30] MEDS: COZAAR 100 MG PO (07:46)
[2025-10-30] MEDS: OSCAL 500 + D 500 MG PO (07:46)
[2025-10-30] MEDS: REFRESH EYE DROPS (PF) 1 DROPS BOTH EYES (07:46)
[2025-10-30] MEDS: HEPARIN 5000 UNITS SC ×2 (07:46→21:20)
[2025-10-30] MEDS: ATROPINE SULFATE 1% DROPS 1 DROP BOTH EYES (07:47)
--- NOTE | 2025-10-30 08:00 | PTCARENOTE ---
pt received at change from shift from previous RN. Blood pressure 205/73- odd job laborer called for report notified of high blood pressure- bonded strand operator stated to give all BP meds now. Pt blind, history of dementia. forgetful, will call out at times. SB
on telemetry heart rate in 50s. pulses palpable. +1 edema. pt on 2L nasal cannula, sat 98%. lung sounds diminished in bases. active bowel sounds. NPO for JOVANNY. oliguric, HD MWF. pt updated on plan of care. see worklist for full nursing assessment and
interventions.
[2025-10-30 08:10] LABS: Glucose - Point of Care 162 mg/dl (70-99)
--- NOTE | 2025-10-30 08:29 | W.PN.HOSP.TC ---
Addendum entered and electronically signed by Foreign Comer MD 10/30/25 14:57:
Updated daughter over the phone today., Cheryl (she tells me she was surprised and also glad to hear from medical doctors today about mom's condition).
Original Note:
Today's Communication/Plan
-
Antibiotics. JOVANNY.
Assessment / Plan
Assessment / Plan
Physical exam:
General: Acute on chronically ill
HEENT: Normocephalic, Atraumatic and Moist Mucous Membranes
Respiratory: Clear to Auscultation; Negative Wheezes, Rales or Rhonchi
Cardiac: Regular Rhythm and S1/S2
GI: Soft, Nontender and Nondistended
Musculoskeletal: No Clubbing, No Cyanosis and No Edema
Neuro: Awake, Alert and Disoriented, no neurological deficit
Psych: Calm, limited judgment and insight
A/P:
Methicillin-Resistant Staph Hominis bacteremia:
Continue antibiotics, IV vancomycin
ID on board
Status post JOVANNY today and no cardiac vegetations.
Discussed with cardiology who did the procedure there is some fluid behind the heart that we would like to clarify it so we will proceed with CT scan of the chest today.
CT scan of the chest today
Status post HD catheter removed on 10/25 and temporary placed on 10/21
Repeated blood cultures no growth from 10/26 and 10/27 (dialysis catheter culture no growth on 10/25)
Toxic metabolic encephalopathy:
Monitor mental status
End-stage renal disease on hemodialysis:
Hemodialysis per nephrology
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
On Lantus 10 units daily
On NovoLog 4 units before meals
Insulin sliding scale
Anemia of chronic disease:
Monitor hemoglobin
Hypertension and had hypertensive urgency this hospital stay:
Continue home antihypertensives
Hyponatremia:
On dialysis
Hypernatremia:
Resolved
Hyperkalemia:
On dialysis
Bipolar disorder and dementia:
On quetiapine
Monitor mental status
DVT prophylaxis:
Heparin SQ
CODE STATUS:
Full code
Total time spent on today's encounter was 52 minutes which included time spent in counseling the patient/family regarding diagnosis and treatment plan as listed above, goals of care, and symptom management. Case was discussed with nursing staff,
specialists, and care coordinators/case management. All labs and imaging personally reviewed by me. Remainder the time spent in detailed review of previous records, lab data, imaging, and other medical provider documentation.
Anticipated Discharge: > 48 hours
Subjective/Interval History
-
Date of Service: October 30, 2025
Patient came back from JOVANNY procedure. No chest pain. Afebrile
Objective Data
-
Vital Signs:
Vital Signs
Temp Pulse Resp BP Pulse Ox
99.0 F 67 16 193/68 99
10/30/25 08:07 10/30/25 07:44 10/30/25 07:44 10/30/25 07:45 10/30/25 07:44
I&O
10/29/25 10/30/25 10/31/25
06:59 06:59 06:59
Intake Total 1660 / 1660 1780 / 1780
Balance 1660 / 1660 1780 / 1780
--- NOTE | 2025-10-30 08:31 | PN.DE.MGMTRT ---
Insulin Management
- -
10/30/2025: Diabetes Management Follow up
Patient admitted 10/21 from a nursing facility for AMS, hypoglycemia, diaphoresis after she was found unresponsive. Blood glucose was checked and it was 34. Pt was recently admitted from 08/14 to 08/19 and again 08/24 to 09/01 for hypoglycemia.
PMH: HTN, ESRD on HD (MWF), legal blindness, Asthma, dementia, bipolar, previous surgeries on the lumbar spine and L knee, and IDDM.
Prior to admission was taking Lantus 12 units @ HS with Humalog 7 units AC plus SS. A1C 6.4%, was 9.5% in 08/2025. Cr 4.7 eGFR 9.46.
Patient awake, alert, resting in bed, on HD, unable to discuss diabetes care plan 2/2 dementia.
Current insulin regimen includes Lantus 8 units and moderate corrective insulin AC.
10/28 Lantus HS dose was given late on 10/29@ 00:07, noted for hypoglycemia of 52 at 08:17, improved with treatment, glucose remained stable w/o recurrent episodes of hypoglycemia.
10/29 Overnight glucose trended up to 330, received 6 units of aspart. Fasting 162 this AM.
Will start NovoLog 4 units AC and increase Lantus from 8 units to 10 units in AM. Change corrective from moderate to low corrective with meals
Target glucose ~ 200 to avoid hypoglycemia in patient with cognitive dysfunction and multiple comorbidities.
Will cont to follow and adjust AC insulin dose if necessary.
Discussed with nurse and instructed to give insulin ONLY if patient has been fed her meal, as pt requires assistance with all meals.
Diabetes History
- -
Type of Diabetes: 2 requiring insulin
Pre-Admission Diabetes Regimen
Lab Results
Hemoglobin A1c 6.4 % (4.0-5.9) H 10/22/25 03:15
Insulin Pump Settings
IP Diabetes Regimen
10/29/25 10/29/25 10/29/25
08:31 08:50 10:46
POC Glucose 67 L 87 141 H
10/29/25 10/29/25 10/29/25
11:55 13:31 13:44
POC Glucose 186 H 174 H 174 H
10/29/25 10/29/25 10/30/25
17:20 21:32 01:33
POC Glucose 241 H 305 H 330 H
10/30/25 10/30/25
05:33 07:59
POC Glucose 224 H 162 H
Meal type: Dinner
Meal type: Lunch
Meal type: Breakfast
Meal type: Breakfast
Amount consumed: 100%
Amount consumed: 100%
Amount consumed: 100%
Amount consumed: 100%
Patient Education
[2025-10-30 09:13] LABS: Glucose - Point of Care 139 mg/dl (70-99)
--- NOTE | 2025-10-30 09:29 | W.PN.CARDCBS ---
Addendum entered and electronically signed by Marilou Andrea PA-C 10/30/25 12:36:
JOVANNY was negative for vegetation. Hospitalist and ID services updated by cardiology.
Original Note:
Today's Communication / Plan
-
JOVANNY today
Impression / Plan
-
Memory Care Director: none
Assessment:
Staph bactermia
ESRD-HD M/W/F
Chronic paulino
Hyponatremia
Essential HTN
Anemia of chronic kidney disease
Bipolar disorder
Dementia
Blindness from diabetic retinopathy
Appendectomy
History of section
Left knee surgery
Spinal fusion
L arm dialysis fistula
Plan:
Presenting with AMS and found to be bacteremic with staph hominis. Currently on IV vancomycin.
Blood culture positive for Staphylococcus hominis 10/21 and 10/23. Blood cultures no growth to date 10/26 and 10/27. Dialysis line catheter culture 1224 no growth x 72 hours.
Transthoracic echo 10/27 did not show valvular vegetation or significant regurgitation
Infectious disease service requested JOVANNY which is scheduled today; NPO confirmed with nursing
Patient does have underlying dementia. She lives with her daughter Cheryl Keith who assists with consents. JOVANNY procedure was reviewed with both patient and daughter Janet over the phone and all questions were answered. No absolute
contraindications. Both are agreeable to proceed. Communicated with procedural aircraft engine dismantler and daughter has stated that she will be available for phone consent,
Patient's blood pressure is elevated today prior to antihypertensive medications which were given about 1/2-hour ago. Blood pressures are improving currently 172/73.
Discussed with nephrology; no contraindications to proceeding with JOVANNY prior to dialysis. Dialysis is planned later today.
Progress Note - Memory Care Director
Subjective
Date of Service: October 30, 2025
Patient was seen and examined. Unreliable historian but offers no complaints. Lying supine on room air
Objective
Labs:
Labs
Hgb 7.4 g/dL (12.0-16.0) L 10/28/25 05:19
Hct 24.2 % (37.0-47.0) L 10/28/25 05:19
Plt Count 220 10^3/uL (130-400) 10/28/25 05:19
Sodium 130 mmol/L (135-145) L 10/28/25 05:19
Potassium 5.2 mmol/L (3.5-5.1) H 10/28/25 05:19
BUN 53 mg/dl (7-17) H 10/28/25 05:19
Creatinine 4.4 mg/dL (0.6-1.0) H* 10/28/25 05:19
Glucose 152 mg/dl (70-99) H 10/28/25 05:19
Vital Signs and I&O:
Vital Signs
Temp Pulse Resp BP Pulse Ox
99.0 F 63 15 172/73 100
10/30/25 08:07 10/30/25 08:49 10/30/25 08:49 10/30/25 08:49 10/30/25 08:49
Vital Signs
Temp Pulse Resp BP Pulse Ox
99.0 F 63 15 172/73 100
10/30/25 08:07 10/30/25 08:49 10/30/25 08:49 10/30/25 08:49 10/30/25 08:49
Intake & Output
10/28/25 10/29/25 10/30/25 10/31/25
06:59 06:59 06:59 06:59
Intake Total 870 / 870 0 / 1660 1779
Balance 870 / 870 1660 / 1660 1779
Physical Exam
Physical Exam
General: Lying supine on room air. Awake alert oriented to place. NAD
HEENT: blind. mmm
Heart: Regular, positive S1/S2,No murmur
Lungs: CTA b/l, negative wheezes/rales/rhonchi
SKin: status post temporary dialysis catheter placed
Abd: sode NT. +BS
EXT: No edema
Neuro: nonfocal
--- NOTE | 2025-10-30 09:56 | W.PN.ID1 ---
Date of Service
Date of Service: October 30, 2025
Today's Communication
- permanent HD cath can be placed
- continue vancomycin - for two weeks 10/21-11/04
Assessment / Plan
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
ESRD on HD via tunneled line right chest
Toxic metabolic encephalopathy
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
Penicillin allergy - not allergic if she has truly tolerated amoxicillin in the past
Blindness
- sustained bacteremia noted 10/21-10/23
- HD cath removed 10/25; temp placed 10/28
- can place permanant HD cath at any time
- 10/26 repeat blood cultures x2 NGTD
- TTE - nonrevealing, await ANGIE appreciate cardiology
- continue vancomycin - for two weeks 10/21-11/04
Chief Complaint
-: Bacteremia
Subjective / Review of Systems
afebrile
bp stable
angie no evidence of endocarditis
Vital Signs / Physical Exam
Vital Signs
Vital Signs
Temp Pulse Resp BP Pulse Ox
99.0 F 63 15 172/73 100
10/30/25 08:07 10/30/25 08:49 10/30/25 08:49 10/30/25 08:49 10/30/25 08:49
Physical Exam
Constitutional: No Acute Distress
Cardiovascular: Regular Rate and S1/S2; Negative Murmur or Rub
Pulmonary: Clear and Symmetric; Negative Wheezes or Rales
Gastrointestinal: Soft, Non Tender, Non Distended and Normal Bowel Sounds
Skin: Warm and Dry; Negative Rash or Jaundice
Objective Data
Lab Data
Estimated Creat Clear 11 ml/min 10/28/25 05:19
Total Bilirubin 0.6 mg/dl (0.2-1.3) 10/21/25 09:52
AST 37 U/L (14-36) H 10/21/25 09:52
ALT 24 U/L (0-35) 10/21/25 09:52
Alkaline Phosphatase 119 U/L (38-126) 10/21/25 09:52
Most recent labs reviewed.
Micro Results:
10/26/25 08:25 Blood Culture - Preliminary
Blood/Venous No Growth in 4 days- Final report to follow
10/26/25 06:17 Blood Culture - Preliminary
Blood/Venous No Growth in 4 days- Final report to follow
10/27/25 14:22 Blood Culture - Preliminary
Blood/Venous No Growth in 48 hours- Final report to follow
10/27/25 14:22 Blood Culture - Preliminary
Blood/Venous No Growth in 48 hours- Final report to follow
10/23/25 11:00 Blood Culture - Final
Blood/Venous No Growth - Final Report
10/21/25 12:17 Blood Culture - Final
Blood/Venous Staphylococcus hominis
Gram Stain - Final
10/21/25 12:17 Blood Culture - Final
Blood/Venous Staphylococcus hominis
Gram Stain - Final
10/25/25 14:28 Catheter Tip Culture - Final
Dialysis Line No Growth After 72 Hours
10/23/25 15:08 Blood Culture - Preliminary
Blood/Venous Staphylococcus hominis
Gram Stain - Preliminary
10/21/25 11:22 Urine Culture - Final
Urine NO GROWTH
10/21/25 15:34 Nasal Screen MRSA (PCR) - Final
Nose MRSA not detected - performed by PCR methodology.
10/21/25 12:53 Influenza Types A & B (LATISHA) - Final
Nasal Swab Negative for Influenza A & B, NAAT
Negative results must be combined with clinical observations
and patient history.
Nucleic Acid Amplification test (NAAT)performed on the
[employer] platform.
--- NOTE | 2025-10-30 10:02 | PHA.VAN.FU ---
Vancomycin Assessment / Plan
- Assessment
Hemodialysis Schedule: MWF
Last Hemodialysis performed: Sat 10/28 (planned to resume junior today)
- Assessment - Therapeutic Drug Monitoring
Random Level: 14.6 - drawn yesterday, no pre-HD level today
- Dosing Plan
Dosing by Level: Re-dose today (Vanc 500mg based on level yesterday)
- Monitoring Plan
No level(s) ordered at this time: consider pre-HD level for Wed
Monitoring Comments: if level stable, may consider 500mg HD MWF
- Follow Up
Pharmacy will continue to follow.
Vancomycin Follow UP
- -
Patient Age: 70
Patient Sex: Female
Vancomycin Day #: 9
Indication: Bacteremia
Requesting Provider: DR. RAUSCH
Pertinent Antimicrobial Allergies:
PENICILLIN (SWELLING/HIVES, TOLERATED AMOXICILLIN)
Height / Weight:
Height 5 ft 3 in
Actual Weight 69.6 kg
Pertinent Past Medical History: ESRD-HD
- Vital Signs / Lab Results
Temp Pulse Resp BP Pulse Ox
99.0 F 63 15 172/73 100
10/30/25 08:07 10/30/25 08:49 10/30/25 08:49 10/30/25 08:49 10/30/25 08:49
Lab Results - Hematology
10/28/25
05:19
WBC 6.9
Lab Results - Chemistry
10/27/25 10/27/25 10/27/25
09:51 14:22 18:34
BUN 42 H 48 H 51 H
Creatinine 4.0 H 4.3 H* 4.2 H*
Estimated Creat Clear 11 10 10
10/27/25 10/28/25 10/28/25
22:15 02:15 05:19
BUN 53 H 54 H 53 H
Creatinine 4.2 H* 4.1 H* 4.4 H*
Estimated Creat Clear 10 11 11
Microbiology Results
10/26/25 08:25 Blood Culture - Preliminary
Blood/Venous No Growth in 4 days- Final report to follow
10/26/25 06:17 Blood Culture - Preliminary
Blood/Venous No Growth in 4 days- Final report to follow
10/27/25 14:22 Blood Culture - Preliminary
Blood/Venous No Growth in 48 hours- Final report to follow
10/27/25 14:22 Blood Culture - Preliminary
Blood/Venous No Growth in 48 hours- Final report to follow
10/23/25 11:00 Blood Culture - Final
Blood/Venous No Growth - Final Report
10/21/25 12:17 Blood Culture - Final
Blood/Venous Staphylococcus hominis
Gram Stain - Final
10/21/25 12:17 Blood Culture - Final
Blood/Venous Staphylococcus hominis
Gram Stain - Final
10/25/25 14:28 Catheter Tip Culture - Final
Dialysis Line No Growth After 72 Hours
Therapeutic Drug Monitoring
Random Vancomycin 14.6 ug/ml 10/29/25 05:18
[2025-10-30 12:02] LABS: Glucose - Point of Care 114 mg/dl (70-99)
[2025-10-30] MEDS: NOVOLOG FLEXPEN 4 UNITS SC ×2 (12:29→18:20)
[2025-10-30 13:39] LABS: Hematocrit 23.5 % (37.0-47.0); Hemoglobin 7.0 g/dL (12.0-16.0); Mean Corp Hgb Conc. 29.8 g/dL (33.0-37.0); Mean Corpuscular Volume 96.3 fL (81.0-99.0); Nucleated Red Blood Cells % 0 %; Platelet Count 179 10^3/uL (130-400); Red Cell Dist. Width 17.5 % (11.5-14.5)
--- NOTE | 2025-10-30 13:55 | W.PN.NEPH.HD ---
Assessment
-
Patient seen on dialysis
Unfortunately blood pressure has swung violently from this morning when it was 200 systolic to 100 systolic following blood pressure pill administration
Will attempt to UF of 2 kg as hemodynamically tolerate
Progress Note - Hemodialysis
-
Date of Service: October 30, 2025
Duration: 30 minutes and 3 hours
Potassium Bath: 2
Calcium Bath: 2.5
Opti-Dialyzer: 160
Ultrafiltration: Other (2 kg is hemodynamically tolerated)
Blood Flow: 400
Dialysate Flow: 600
Heparin: None
EPO: 10,000
[2025-10-30 14:10] LABS: Blood Urea Nitrogen 33 mg/dl (7-17); Calcium 7.8 mg/dl (8.4-10.2); Carbon Dioxide 26 mmol/L (22-30); Chloride 99 mmol/L (98-107); Estimated Creatinine Clearance 14 ml/min; Glucose 98 mg/dl (70-99); Potassium 5.0 mmol/L (3.5-5.1); Sodium 130 mmol/L (135-145); eGFR 13.96
--- NOTE | 2025-10-30 15:35 | CM ---
F/U: Patient should be getting her permacathe again because she pulled the other out and I.D is stating that patient will need vanco until 11/04/2025. DEVENDRA Gupta sent updates to [facility]. PLAN: Return to [facility].
[2025-10-30] MEDS: VANCOCIN HCL 500 MG 100 IV (15:51)
[2025-10-30] MEDS: RETACRIT 10000 UNITS IV (15:52)
[2025-10-30] MEDS: APRESOLINE PO (17:22)
[2025-10-30 17:52] LABS: Glucose - Point of Care 137 mg/dl (70-99)
[2025-10-30] MEDS: SEROQUEL 100 MG PO (21:19)
[2025-10-30] MEDS: LANTUS 0.1 UNITS SC (21:22)
[2025-10-30 21:31] LABS: Glucose - Point of Care 192 mg/dl (70-99)
[2025-10-31] VITALS (22 sets, daily range): BP systolic 62–192; BP diastolic 43–70; BMI 26.5
[2025-10-31] MEDS: CATAPRES 0.2 MG PO ×2 (00:07→23:37)
--- NOTE | 2025-10-31 01:15 | PTCARENOTE ---
Addendum entered by Brittny Bush RN 10/31/25 03:42:
Another 5mg Hydralazine ordered for BP.
Addendum entered by Brittny Bush RN 10/31/25 03:33:
BP reassessed at 182/54 with HR 64. Patient remains asymptomatic. [employer] notified.
Addendum entered by Brittny Bush RN 10/31/25 02:09:
[employer] requested to recheck BP around 02:00. Manual Bp 177/61 with HR 63. Patient continues to deny Headache or discomfort. [employer] made aware of BP and order fro IV Hydralazine ordered.
Original Note:
Received patient in bed at start of shift. Chest CT results pending. 02 @ [address] Patient sleeping but arousable. Denies pain or discomfort. Blood sugars q 4 hours. Patient BP elevated at HS. Scheduled BP meds given with little results.
PRN BP med given. Rechecked BP manually with little results. Patient denies pain or chest discomfort. Notified [employer] about increased BP and also Chest CT results that had come back.
[2025-10-31 01:31] LABS: Glucose - Point of Care 153 mg/dl (70-99)
--- NOTE | 2025-10-31 02:21 | W.PN.UPDATE ---
Update Note
Progress Note Update
Chest CT result received
Small bilateral pleural effusions. Compressive atelectasis in the lower lobes bilaterally.
Hazy groundglass opacity throughout both lungs with Nitin B lines and increased interstitial markings. Findings are highly suggestive of pulmonary edema pattern.
Denies SOB, chest pain. Patient is comfortably sleeping during the night with no change of O2 requirements. Cardiology/ Nephro is following as the patient on dialysis.
[2025-10-31] MEDS: APRESOLINE 5 MG IV ×2 (02:25→04:02)
[2025-10-31 05:45] LABS: Glucose - Point of Care 95 mg/dl (70-99)
[2025-10-31 05:51] LABS: Hematocrit 23.3 % (37.0-47.0); Hemoglobin 7.4 g/dL (12.0-16.0); Mean Corp Hgb Conc. 31.8 g/dL (33.0-37.0); Mean Corpuscular Volume 94.3 fL (81.0-99.0); Nucleated Red Blood Cells % 0 %; Platelet Count 173 10^3/uL (130-400); Red Cell Dist. Width 17.3 % (11.5-14.5)
[2025-10-31 06:18] LABS: Blood Urea Nitrogen 15 mg/dl (7-17); Calcium 8.1 mg/dl (8.4-10.2); Carbon Dioxide 27 mmol/L (22-30); Chloride 100 mmol/L (98-107); Estimated Creatinine Clearance 22 ml/min; Glucose 91 mg/dl (70-99); Potassium 4.2 mmol/L (3.5-5.1); Sodium 130 mmol/L (135-145); eGFR 26.38
[2025-10-31] MEDS: PROCARDIA XL (EXTENDED RELEASE) 90 MG PO (07:05)
[2025-10-31] MEDS: MAGNESIUM OXIDE 400 MG PO (07:05)
[2025-10-31] MEDS: COREG 25 MG PO ×2 (07:06→22:04)
[2025-10-31] MEDS: B COMPLEX w/VITAMIN C 1 CAPLET PO ×2 (07:06→22:03)
[2025-10-31] MEDS: PHOSLO 667 MG PO (07:06)
[2025-10-31] MEDS: COZAAR 100 MG PO (07:06)
[2025-10-31] MEDS: PLAVIX 75 MG PO (07:06)
[2025-10-31] MEDS: OSCAL 500 + D 500 MG PO (07:06)
[2025-10-31] MEDS: REFRESH EYE DROPS (PF) 1 DROPS BOTH EYES (07:07)
[2025-10-31] MEDS: ATROPINE SULFATE 1% DROPS 1 DROP BOTH EYES (07:08)
[2025-10-31] MEDS: HEPARIN 5000 UNITS SC ×2 (07:13→22:04)
[2025-10-31] MEDS: NOVOLOG FLEXPEN 4 UNITS SC ×2 (08:05→17:40)
[2025-10-31 08:13] LABS: Glucose - Point of Care 96 mg/dl (70-99)
--- NOTE | 2025-10-31 08:43 | PHA.VAN.FU ---
Vancomycin Assessment / Plan
- Assessment
Hemodialysis Schedule: MWF
Last Hemodialysis performed: 10/30
In the past 24 hrs, patient has been: Afebrile
- Dosing Plan
Dosing by Level: Hold off on dosing today
- Monitoring Plan
Random Level: pre-HD 11/01
- Follow Up
Pharmacy will continue to follow.
Vancomycin Follow UP
- -
Patient Age: 70
Patient Sex: Female
Vancomycin Day #: 10
Indication: Bacteremia
Requesting Provider: Dr. Tinoco / [place]
Pertinent Antimicrobial Allergies:
penicillin - swelling / hives; tolerated amoxicillin
Height / Weight:
Height 5 ft 3 in
Actual Weight 67.812 kg
Pertinent Past Medical History: ESRD-HD
- Vital Signs / Lab Results
Temp Pulse Resp BP Pulse Ox
98.3 F 67 16 191/57 100
10/31/25 07:43 10/31/25 07:05 10/31/25 07:05 10/31/25 07:05 10/31/25 07:05
Lab Results - Hematology
10/30/25 10/31/25
13:26 05:41
WBC 3.8 L 3.7 L
Lab Results - Chemistry
10/30/25 10/31/25
13:27 05:41
BUN 33 H 15
Creatinine 3.4 H 2.0 H
Estimated Creat Clear 14 22
Microbiology Results
10/26/25 08:25 Blood Culture - Final
Blood/Venous No Growth - Final Report
10/26/25 06:17 Blood Culture - Final
Blood/Venous No Growth - Final Report
10/27/25 14:22 Blood Culture - Preliminary
Blood/Venous No Growth in 72 hours- Final report to follow
10/27/25 14:22 Blood Culture - Preliminary
Blood/Venous No Growth in 72 hours- Final report to follow
Therapeutic Drug Monitoring
Random Vancomycin 14.6 ug/ml 10/29/25 05:18
--- NOTE | 2025-10-31 08:54 | W.PN.HOSP.TC ---
Today's Communication/Plan
-
IV antibiotics. Discharge planning
Assessment / Plan
Assessment / Plan
Physical exam:
General: Acute on chronically ill
HEENT: Normocephalic, Atraumatic and Moist Mucous Membranes
Respiratory: Clear to Auscultation; Negative Wheezes, Rales or Rhonchi
Cardiac: Regular Rhythm and S1/S2
GI: Soft, Nontender and Nondistended
Musculoskeletal: No Clubbing, No Cyanosis and No Edema
Neuro: Awake, Alert and Disoriented, no neurological deficit
Psych: Calm, limited judgment and insight
A/P:
Methicillin-Resistant Staph Hominis bacteremia:
Continue antibiotics, IV vancomycin
ID on board
Status post JOVANNY yesterday and no cardiac vegetations.
Discussed with cardiology who did the procedure there is some fluid behind the heart that we would like to clarify it so we will proceed with CT scan of the chest yesterday and came back with bilateral pleural effusions.
CT scan of the chest seen and reviewed
Status post HD catheter removed on 10/25 and temporary placed on 10/21
Repeated blood cultures no growth from 10/26 and 10/27 (dialysis catheter culture no growth on 10/25)
Plan for permanent cath either today or tomorrow
Plan to discharge tomorrow after Perm-cath-->discussed with renal case manager today
Can transfer out of IMU
Discussed with daughter over the phone yesterday and today
Toxic metabolic encephalopathy:
Monitor mental status
End-stage renal disease on hemodialysis:
Hemodialysis per nephrology
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
On Lantus 10 units daily
On NovoLog 4 units before meals
Insulin sliding scale
Anemia of chronic disease:
Monitor hemoglobin
Hypertension and had hypertensive urgency this hospital stay:
Continue home antihypertensives but given her fluctuations in the morning and in the evening I would like to just move one of her long-acting medications to evening time (losartan).
Hyponatremia:
On dialysis
Hypernatremia:
Resolved
Hyperkalemia:
On dialysis
Bipolar disorder and dementia:
On quetiapine
Monitor mental status
DVT prophylaxis:
Heparin SQ
CODE STATUS:
Full code
Total time spent on today's encounter was 37 minutes which included time spent in counseling the patient/family regarding diagnosis and treatment plan as listed above, goals of care, and symptom management. Case was discussed with nursing staff,
specialists, and care coordinators/case management. All labs and imaging personally reviewed by me. Remainder the time spent in detailed review of previous records, lab data, imaging, and other medical provider documentation.
Anticipated Discharge: Within 24 hours
Subjective/Interval History
-
Date of Service: October 31, 2025
No shortness of breath or chest pain. Afebrile
Objective Data
-
Labs:
Laboratory Results
10/31/25
05:41
WBC 3.7 L
Hgb 7.4 L
Hct 23.3 L
Plt Count 173
Sodium 130 L
Potassium 4.2
Chloride 100
Carbon Dioxide 27
BUN 15
Creatinine 2.0 H
Glucose 91
Calcium 8.1 L
Vital Signs:
Vital Signs
Temp Pulse Resp BP Pulse Ox
98.3 F 67 16 191/57 100
10/31/25 07:43 10/31/25 07:05 10/31/25 07:05 10/31/25 07:05 10/31/25 07:05
I&O
10/30/25 10/31/25 11/01/25
06:59 06:59 06:59
Intake Total 1779 100 / 100
Balance 1779 100 / 100
--- NOTE | 2025-10-31 09:04 | W.PN.ID1 ---
Date of Service
Date of Service: October 31, 2025
Today's Communication
- can place permanent HD cath
- continue vancomycin - for two weeks 10/21-11/04
Assessment / Plan
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
ESRD on HD via tunneled line right chest
Toxic metabolic encephalopathy
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
Penicillin allergy - not allergic if she has truly tolerated amoxicillin in the past
Blindness
- sustained bacteremia noted 10/21-10/23
- HD cath removed 10/25; temp placed 10/28
- can place permanent HD cath
- 10/26 repeat blood cultures x2 NGTD
- TTE/JOVANNY - nonrevealing
- continue vancomycin - for two weeks 10/21-11/04
Chief Complaint
-: Bacteremia (HD catheter infection)
Subjective / Review of Systems
afebrile
bp hypertensive
no events overnight
no complaints
Vital Signs / Physical Exam
Vital Signs
Vital Signs
Temp Pulse Resp BP Pulse Ox
98.3 F 67 16 191/57 100
10/31/25 07:43 10/31/25 07:05 10/31/25 07:05 10/31/25 07:05 10/31/25 07:05
Physical Exam
Constitutional: No Acute Distress
Cardiovascular: Regular Rate and S1/S2; Negative Murmur or Rub
Pulmonary: Clear and Symmetric; Negative Wheezes or Rales
Gastrointestinal: Soft, Non Tender, Non Distended and Normal Bowel Sounds
Skin: Warm and Dry; Negative Rash or Jaundice
Lines: HD Cath
Objective Data
Lab Data
Lab Results
10/31/25 05:41
10/31/25 05:41
Estimated Creat Clear 22 ml/min 10/31/25 05:41
Total Bilirubin 0.6 mg/dl (0.2-1.3) 10/21/25 09:52
AST 37 U/L (14-36) H 10/21/25 09:52
ALT 24 U/L (0-35) 10/21/25 09:52
Alkaline Phosphatase 119 U/L (38-126) 10/21/25 09:52
Most recent labs reviewed.
Micro Results:
10/26/25 08:25 Blood Culture - Final
Blood/Venous No Growth - Final Report
10/26/25 06:17 Blood Culture - Final
Blood/Venous No Growth - Final Report
10/27/25 14:22 Blood Culture - Preliminary
Blood/Venous No Growth in 72 hours- Final report to follow
10/27/25 14:22 Blood Culture - Preliminary
Blood/Venous No Growth in 72 hours- Final report to follow
10/23/25 11:00 Blood Culture - Final
Blood/Venous No Growth - Final Report
10/21/25 12:17 Blood Culture - Final
Blood/Venous Staphylococcus hominis
Gram Stain - Final
10/21/25 12:17 Blood Culture - Final
Blood/Venous Staphylococcus hominis
Gram Stain - Final
10/25/25 14:28 Catheter Tip Culture - Final
Dialysis Line No Growth After 72 Hours
10/23/25 15:08 Blood Culture - Preliminary
Blood/Venous Staphylococcus hominis
Gram Stain - Preliminary
10/21/25 11:22 Urine Culture - Final
Urine NO GROWTH
10/21/25 15:34 Nasal Screen MRSA (PCR) - Final
Nose MRSA not detected - performed by PCR methodology.
10/21/25 12:53 Influenza Types A & B (LATISHA) - Final
Nasal Swab Negative for Influenza A & B, NAAT
Negative results must be combined with clinical observations
and patient history.
Nucleic Acid Amplification test (NAAT)performed on the
[employer] ([employer]) platform.
--- NOTE | 2025-10-31 09:34 | PN.DE.MGMTRT ---
Insulin Management
- -
10/31/2025: Diabetes Management Follow up
Patient admitted 10/21 from a nursing facility for AMS, hypoglycemia, diaphoresis after she was found unresponsive. Blood glucose was checked and it was 34. Pt was recently admitted from 08/14 to 08/19 and again 08/24 to 09/01 for hypoglycemia.
PMH: HTN, ESRD on HD (MWF), legal blindness, Asthma, dementia, bipolar, previous surgeries on the lumbar spine and L knee, and IDDM.
Prior to admission was taking Lantus 12 units @ HS with Humalog 7 units AC plus SS. A1C 6.4%, was 9.5% in 08/2025. Cr 4.7 eGFR 9.46.
Patient awake, alert, resting in bed, HD yesterday, unable to discuss diabetes care plan 2/2 dementia.
10/30 Glucose range 114 to 192. Received lantus 10 units at hs, with novolog 4 units with lunch and dinner.
10/31 Fasting glucose 95, 1:20AM glucose 95. Will continue lantus 10 units @ HS with 4 units novolog AC and low corrective insulin.
Target glucose ~ 200 to avoid hypoglycemia in patient with cognitive dysfunction and multiple comorbidities.
Will cont to follow and adjust AC insulin dose if necessary.
Discussed with nurse and instructed to give insulin ONLY if patient has been fed her meal, as pt requires assistance with all meals.
Diabetes History
- -
Type of Diabetes: 2 requiring insulin
Pre-Admission Diabetes Regimen
10/30/25 10/31/25
13:27 05:41
Creatinine 3.4 H 2.0 H
Lab Results
Hemoglobin A1c 6.4 % (4.0-5.9) H 10/22/25 03:15
Insulin Pump Settings
IP Diabetes Regimen
10/30/25 10/30/25 10/30/25
11:51 13:27 17:41
Glucose 98
POC Glucose 114 H 137 H
10/30/25 10/31/25 10/31/25
21:20 01:20 05:34
Glucose
POC Glucose 192 H 153 H 95
10/31/25 10/31/25
05:41 07:57
Glucose 91
POC Glucose 96
Meal type: Breakfast
Meal type: Dinner
Meal type: Lunch
Amount consumed: 100%
Amount consumed: 100%
Patient Education
--- NOTE | 2025-10-31 10:15 | W.PN.NEPH.PH ---
Today's Communication / Plan
-
HD tomorrow
For PermCath placed
Assessment/Plan
-
Impression
End-stage renal disease on hemodialysis MWF [facility] via right chest cath
Anemia of chronic disease
Hyponatremia
Diabetic retinopathy
Hypoglycemia
Plan:
Continue MWF HD
HD tomorrow,orders provided
Will have PermCath placed today or tomorrow, 10/27 blood cultures clean no fever
Positive blood culture staph, on antibiotics status post permacath removal 10/25 and line holiday which was her last dialysis
repeat surveillance cultures negative to date
status post temporary dialysis catheter placed
patient transferred to IMU for DKA protocol noted 10/27> stable
-
-
Date of Service: October 31, 2025
CC / HPI / ROS
-
Chief Complaint:
ESRD
History of Present Illness:
ESRD presents with hypoglycemia bacteremia
HD Thursday
Remains hypertensive
on vanco
Review of Systems:
No chest pain or shortness of breath
Temp IJ cath
no fevers
Labs
-
Labs:
WBC 3.7 10^3/uL (4.8-10.8) L 10/31/25 05:41
RBC 2.47 10^6/uL (4.20-5.40) L 10/31/25 05:41
Hgb 7.4 g/dL (12.0-16.0) L 10/31/25 05:41
Hct 23.3 % (37.0-47.0) L 10/31/25 05:41
Plt Count 173 10^3/uL (130-400) 10/31/25 05:41
Sodium 130 mmol/L (135-145) L 10/31/25 05:41
Potassium 4.2 mmol/L (3.5-5.1) 10/31/25 05:41
Chloride 100 mmol/L (98-107) 10/31/25 05:41
Carbon Dioxide 27 mmol/L (22-30) 10/31/25 05:41
BUN 15 mg/dl (7-17) 10/31/25 05:41
Creatinine 2.0 mg/dL (0.6-1.0) H 10/31/25 05:41
eGFR 26.38 10/31/25 05:41
Glucose 91 mg/dl (70-99) 10/31/25 05:41
Calcium 8.1 mg/dl (8.4-10.2) L 10/31/25 05:41
Albumin 3.9 g/dl (3.5-5.0) 10/21/25 09:52
Physical Exam
-
Vital Signs:
Vital Signs
Temp Pulse Resp BP Pulse Ox
98.3 F 75 21 163/65 98
10/31/25 07:43 10/31/25 08:00 10/31/25 08:00 10/31/25 08:00 10/31/25 08:00
Cardiovascular:: Regular rate and rhythm
Respiratory:: Bilateral: Coarse
Lung Excursion:: Normal
Abdomen:: Nontender and Soft
Bowel Sounds:: Normal
Extremity Edema:: None: Bilateral:
Other Findings::
Temp IJ catheter
[2025-10-31] MEDS: APRESOLINE PO (10:25)
--- NOTE | 2025-10-31 12:07 | CM ---
F/U: Plan is for permacathe today and DC tomorrow. [facility] updated of DC plus vanco via this permacathe. PLAN: Return to [facility].
[2025-10-31 12:35] LABS: Glucose - Point of Care 104 mg/dl (70-99)
[2025-10-31] MEDS: NOVOLOG FLEXPEN SC (13:30)
--- NOTE | 2025-10-31 13:51 | PTCARENOTE ---
report given to 3W RN, pt to be transferred to [facility] after HD cath placed in IR
--- NOTE | 2025-10-31 14:43 | PTCARENOTE ---
pt transferred via stretcher from IR s/p right tunneled IJ, dressing c/d/i, denies pain, 2L NC maintained, requesting coffee, turns with assist x2, telemetry maintained, vss, will continue to monitor.
[2025-10-31 16:43] LABS: Glucose - Point of Care 147 mg/dl (70-99)
[2025-10-31] MEDS: APRESOLINE 75 MG PO ×2 (17:38→22:03)
--- NOTE | 2025-10-31 19:32 | PTCARENOTE ---
during rounds, patient's right IJ cath dressing completely saturated with blood. patient denies any complaints when asked, except for being hungry. vss. IV team nurse notified. next shift RN Nando aware to follow up. will continue to monitor.
[2025-10-31] MEDS: SEROQUEL 100 MG PO (22:04)
[2025-10-31 22:09] LABS: Glucose - Point of Care 211 mg/dl (70-99)
[2025-10-31] MEDS: LANTUS 0.1 UNITS SC (22:13)
[2025-11-01 03:28] VITALS: BP 162/64
[2025-11-01 05:07] VITALS: BMI 27.4
[2025-11-01 07:53] VITALS: BP 142/67
[2025-11-01 08:03] LABS: Glucose - Point of Care 226 mg/dl (70-99)
[2025-11-01 08:31] LABS: Hematocrit 25.3 % (37.0-47.0); Hemoglobin 7.6 g/dL (12.0-16.0)
[2025-11-01] MEDS: RETACRIT 10000 UNITS IV (09:16)
[2025-11-01] MEDS: HEPARIN 5000 UNITS SC (09:39)
[2025-11-01] MEDS: APRESOLINE 75 MG PO ×2 (09:41→15:24)
[2025-11-01] MEDS: ATROPINE SULFATE 1% DROPS 1 DROP BOTH EYES (09:42)
--- NOTE | 2025-11-01 09:48 | PHA.VAN.FU ---
Vancomycin Assessment / Plan
- Assessment
Hemodialysis Schedule: MWF
Last Hemodialysis performed: 10/30
In the past 24 hrs, patient has been: Afebrile
- Assessment - Therapeutic Drug Monitoring
Random Level: pre-HD = 10.1
- Dosing Plan
Adjust Regimen to: Vanc 500mg HD MW and 750mg Th
Will change to scheduled dosing as levels have been mostly stable but will increase dosing for longer interdialytic window on Fridays as level decreased today
- Monitoring Plan
No level(s) ordered at this time: consider random level for Thursday
- Follow Up
Pharmacy will continue to follow.
Vancomycin Follow UP
- -
Patient Age: 70
Patient Sex: Female
Vancomycin Day #: 11
Indication: Bacteremia
Requesting Provider: Dr. Tinoco / [place]
Pertinent Antimicrobial Allergies:
penicillin - swelling / hives; tolerated amoxicillin
Height / Weight:
Height 5 ft 3 in
Actual Weight 70.08 kg
Pertinent Past Medical History: ESRD-HD
- Vital Signs / Lab Results
Temp Pulse Resp BP Pulse Ox
98.1 F 68 18 142/67 97
11/01/25 07:53 11/01/25 07:53 11/01/25 07:53 11/01/25 07:53 11/01/25 07:53
Lab Results - Hematology
10/30/25 10/31/25
13:26 05:41
WBC 3.8 L 3.7 L
Lab Results - Chemistry
10/30/25 10/31/25
13:27 05:41
BUN 33 H 15
Creatinine 3.4 H 2.0 H
Estimated Creat Clear 14 22
Microbiology Results
10/27/25 14:22 Blood Culture - Preliminary
Blood/Venous No Growth in 4 days- Final report to follow
10/27/25 14:22 Blood Culture - Preliminary
Blood/Venous No Growth in 4 days- Final report to follow
10/26/25 08:25 Blood Culture - Final
Blood/Venous No Growth - Final Report
10/26/25 06:17 Blood Culture - Final
Blood/Venous No Growth - Final Report
Therapeutic Drug Monitoring
Random Vancomycin 10.1 ug/ml 11/01/25 08:08
--- NOTE | 2025-11-01 10:56 | W.PN.HOSP.TC ---
Today's Communication/Plan
-
Discharge planning
Assessment / Plan
Assessment / Plan
Physical exam:
General: Acute on chronically ill
HEENT: Normocephalic, Atraumatic and Moist Mucous Membranes
Respiratory: Clear to Auscultation; Negative Wheezes, Rales or Rhonchi
Cardiac: Regular Rhythm and S1/S2
GI: Soft, Nontender and Nondistended
Musculoskeletal: No Clubbing, No Cyanosis and No Edema
Neuro: Awake, Alert and Disoriented, no neurological deficit
Psych: Calm, limited judgment and insight
A/P:
Methicillin-Resistant Staph Hominis bacteremia:
Continue antibiotics, IV vancomycin
ID on board
Status post JOVANNY and no cardiac vegetations.
Discussed with cardiology who rec'd CT scan of the chest and came back with bilateral pleural effusions.
Status post HD catheter removed on 10/25 and temporary placed on 10/21 and then PermCath on 10/31.
Repeated blood cultures no growth from 10/26 and 10/27 (dialysis catheter culture no growth on 10/25)
Discussed with daughter over the phone prior
Cleared for medical discharge. CM for D/C disposition.
Toxic metabolic encephalopathy:
Monitor mental status
End-stage renal disease on hemodialysis:
Hemodialysis per nephrology
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
On Lantus 10 units daily
On NovoLog 4 units before meals
Insulin sliding scale
Anemia of chronic disease:
Monitor hemoglobin
Hypertension and had hypertensive urgency this hospital stay:
Continue home antihypertensives but given her fluctuations in the morning and in the evening I would like to just move one of her long-acting medications to evening time (losartan) but can go back to home regimen or adjust as needed upon discharge.
Hyponatremia:
On dialysis
Hypernatremia:
Resolved
Hyperkalemia:
On dialysis
Bipolar disorder and dementia:
On quetiapine
Monitor mental status
DVT prophylaxis:
Heparin SQ
CODE STATUS:
Full code
Total time spent on today's encounter was 35 minutes which included time spent in counseling the patient/family regarding diagnosis and treatment plan as listed above, goals of care, and symptom management. Case was discussed with nursing staff,
specialists, and care coordinators/case management. All labs and imaging personally reviewed by me. Remainder the time spent in detailed review of previous records, lab data, imaging, and other medical provider documentation.
Anticipated Discharge: Today
Subjective/Interval History
-
Date of Service: November 01, 2025
No cp or sob. Afebrile.
Objective Data
-
Labs:
Laboratory Results
11/01/25
08:08
Hgb 7.6 L
Hct 25.3 L
Sodium Pending
Potassium Pending
Chloride Pending
Carbon Dioxide Pending
Vital Signs:
Vital Signs
Temp Pulse Resp BP Pulse Ox
98.1 F 68 18 142/67 97
11/01/25 07:53 11/01/25 07:53 11/01/25 07:53 11/01/25 07:53 11/01/25 07:53
I&O
10/31/25 11/01/25 11/02/25
06:59 06:59 06:59
Intake Total 100 / 100 220 / 220
Balance 100 / 100 220 / 220
--- NOTE | 2025-11-01 11:10 | W.DCSUMMARY ---
Discharge Summary
Discharge Data
Date of Admission: 10/21/25
Date of Discharge: 11/01/25
Total time spent discharging patient (in min): 35
-
Pending Results: No
Hospital Course
Patient is 70 years old female with history of hypertension, anemia, bipolar, dementia, blindness, end-stage renal disease on hemodialysis, presented to the hospital with altered mental status, hypoglycemia and hypothermia and found to have
bacteremia due to Staph hominis. ID consulted. Patient was started on IV antibiotics. They have a catheter was exchanged initially temporary and then progressed to PermCath on 10/31. Surveillance blood cultures no growth. She had
transesophageal echocardiogram without evidence of cardiac vegetations. Nephrology followed her throughout this hospital stay and she had appropriate dialysis during this hospital stay. She also had some complications with her diabetes with both
extremes of DKA and hypoglycemia and after treatment patient back to her baseline with minor adjustment of her home diabetic regiment. ID recommended to continue for 2 more weeks of IV antibiotics. Patient is medically stable to be discharged to
skilled facility today.
Discharge duration: 35 minutes
Discharge Plan
-
Patient Disposition: Alf/SNF
Discharge Diagnosis/Procedures: Methicillin-resistant Staphylococcus hominis bacteremia. Toxic metabolic encephalopathy. End-stage renal disease on hemodialysis. Diabetes mellitus type 2 with complication of diabetes ketoacidosis and hypoglycemia
and diabetic retinopathy and blindness. Anemia of chronic disease. Hypertensive urgency. Hyponatremia. Hyponatremia. Hyperkalemia. Dementia.
Diet: Low Cholesterol, 2 Gram Sodium, Diabetic, Carb Controlled and Restrict fluids to 48 oz
Activity: As tolerated
Blood Work: Please PCP to order CBC, BMP within 1 week
Referrals:
Sara Yan MD [Family Provider] - in less than 1 week
Prescriptions:
New
vancomycin in dextrose 5 % 500 mg/100 mL Piggyback
500 mg IV MoWe@1400 Qty: 0 0RF
vancomycin in 0.9 % sodium chl 750 mg/150 mL Piggyback
750 mg IV FR@1400 Qty: 0 0RF
Continued
epoetin angella 2,000 unit/mL Solution
2,000 unit SC TUTHSA
acetaminophen [Tylenol] 325 mg Tablet
650 mg PO Q6HPRN PRN (Reason: mild pain/temp>100.4)
nifedipine 90 mg Tablet Extended Release
90 mg PO DAILY
haloperidol decanoate 100 mg/mL Solution
10 mg IM Q4W
Rx Instructions:
give on the 1st of each month
clopidogrel [Plavix] 75 mg Tablet
75 mg PO DAILY
quetiapine [Seroquel] 100 mg Tablet
100 mg PO HS
carboxymethylcellulose sodium 0.25 % Drops
1 drp BOTH EYES DAILY
bisacodyl [Dulcolax (bisacodyl)] 10 mg Suppository
10 mg OR DAILYPRN PRN (Reason: constipation)
atropine 1 % Drops
1 drp BOTH EYES DAILY
losartan 100 mg Tablet
100 mg PO DAILY
sorbitol 70 % Solution
30 ml PO DAILYPRN PRN (Reason: constipation)
loratadine [Claritin] 10 mg Tablet
10 mg PO Q48H
insulin lispro [Humalog KwikPen Insulin] 100 unit/mL Insulin Pen
0 - 12 sliding scale dose SC AC
Rx Instructions:
if 0-150= 0; 151-200= 4; 201-250= 6; 251-300= 8; 301-350= 10; 351-400= 12
calcium carbonate-vitamin D3 [Calcium 600 + D(3)] 600 mg-10 mcg (400 unit) Tablet
1 tab PO DAILY
magnesium oxide 400 mg magnesium Tablet
400 mg PO DAILY
albuterol-budesonide 90-80 mcg/actuation Hfa Aerosol Inhaler
2 inh INHALATION R Q6HPRN PRN (Reason: sob)
Rx Instructions:
as a single dose; may repeat up to 6 doses per day (12 inhalations)
cholestyramine 4 gram Powder In Packet
4 g PO BID
Pancrelipase Dr 3000-1220unit
1 cap PO DAILY
hydralazine 50 mg Tablet
75 mg PO TID Qty: 0 0RF
carvedilol 12.5 mg tablet
25 mg PO BID
calcium acetate(phosphat bind) 667 mg Tablet
667 mg PO DAILY
clonidine HCl 0.2 mg Tablet
0.2 mg PO DAILY PRN (Reason: HTN)
B [id number] acid-Zn Tablet
0.8 PO BID
Changed
insulin lispro [Humalog KwikPen Insulin] 100 unit/mL insulin pen
4 unit SC AC Qty: 0 0RF
insulin glargine [Lantus Solostar U-100 Insulin] 100 UNITS/ML insulin pen
10 unit SC HS Qty: 0 0RF
Discharge Orders:
Discharge Patient (As Directed); Ordered 11/01/25
Ordered By: Foreign Comer
Discharge Date and Time
Discharge Date/Time: 11/01/25 16:32
Print Language: WELSH
[2025-11-01 11:34] LABS: Carbon Dioxide 26 mmol/L (22-30); Chloride 98 mmol/L (98-107); Potassium 5.0 mmol/L (3.5-5.1); Sodium 130 mmol/L (135-145)
--- NOTE | 2025-11-01 11:35 | W.PN.ID1 ---
Date of Service
Date of Service: November 01, 2025
Today's Communication
- continue vancomycin - for two weeks 10/21-11/04 - script provided to child support case officer
- stable for dc from ID perspective
Assessment / Plan
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
ESRD on HD via tunneled line right chest
Toxic metabolic encephalopathy
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
Penicillin allergy - not allergic if she has truly tolerated amoxicillin in the past
Blindness
- sustained bacteremia noted 10/21-10/23
- HD cath removed 10/25; perm replacement 10/31
- 10/26 repeat blood cultures x2 NGTD
- TTE/JOVANNY - nonrevealing
- continue vancomycin - for two weeks 10/21-11/04 - script provided to child support case officer
- stable for dc from ID perspective
Chief Complaint
-: Bacteremia (HD catheter infection)
Subjective / Review of Systems
afebrile
bp stable
no complaints
Vital Signs / Physical Exam
Vital Signs
Vital Signs
Temp Pulse Resp BP Pulse Ox
98.1 F 68 18 142/67 97
11/01/25 07:53 11/01/25 07:53 11/01/25 07:53 11/01/25 07:53 11/01/25 07:53
Physical Exam
Constitutional: No Acute Distress
Cardiovascular: Regular Rate and S1/S2; Negative Murmur or Rub
Pulmonary: Clear and Symmetric; Negative Wheezes or Rales
Gastrointestinal: Soft, Non Tender, Non Distended and Normal Bowel Sounds
Skin: Warm and Dry; Negative Rash or Jaundice
Lines: HD Cath
Objective Data
Lab Data
Lab Results
11/01/25 08:08
11/01/25 08:08
Estimated Creat Clear 22 ml/min 10/31/25 05:41
Total Bilirubin 0.6 mg/dl (0.2-1.3) 10/21/25 09:52
AST 37 U/L (14-36) H 10/21/25 09:52
ALT 24 U/L (0-35) 10/21/25 09:52
Alkaline Phosphatase 119 U/L (38-126) 10/21/25 09:52
Most recent labs reviewed.
Micro Results:
10/27/25 14:22 Blood Culture - Preliminary
Blood/Venous No Growth in 4 days- Final report to follow
10/27/25 14:22 Blood Culture - Preliminary
Blood/Venous No Growth in 4 days- Final report to follow
10/26/25 08:25 Blood Culture - Final
Blood/Venous No Growth - Final Report
10/26/25 06:17 Blood Culture - Final
Blood/Venous No Growth - Final Report
10/23/25 11:00 Blood Culture - Final
Blood/Venous No Growth - Final Report
10/21/25 12:17 Blood Culture - Final
Blood/Venous Staphylococcus hominis
Gram Stain - Final
10/21/25 12:17 Blood Culture - Final
Blood/Venous Staphylococcus hominis
Gram Stain - Final
10/25/25 14:28 Catheter Tip Culture - Final
Dialysis Line No Growth After 72 Hours
10/23/25 15:08 Blood Culture - Preliminary
Blood/Venous Staphylococcus hominis
Gram Stain - Preliminary
10/21/25 11:22 Urine Culture - Final
Urine NO GROWTH
10/21/25 15:34 Nasal Screen MRSA (PCR) - Final
Nose MRSA not detected - performed by PCR methodology.
10/21/25 12:53 Influenza Types A & B (LATISHA) - Final
Nasal Swab Negative for Influenza A & B, NAAT
Negative results must be combined with clinical observations
and patient history.
Nucleic Acid Amplification test (NAAT)performed on the
[employer] platform.
[2025-11-01 11:45] VITALS: BP 194/74
[2025-11-01 11:47] LABS: Glucose - Point of Care 143 mg/dl (70-99)
[2025-11-01] MEDS: NOVOLOG FLEXPEN SC (11:47)
[2025-11-01] MEDS: COREG 25 MG PO (11:48)
[2025-11-01] MEDS: PROCARDIA XL (EXTENDED RELEASE) 90 MG PO (11:48)
[2025-11-01] MEDS: PLAVIX 75 MG PO (11:48)
[2025-11-01] MEDS: PHOSLO 667 MG PO (11:48)
[2025-11-01] MEDS: B COMPLEX w/VITAMIN C 1 CAPLET PO (11:49)
[2025-11-01] MEDS: OSCAL 500 + D 500 MG PO (11:49)
[2025-11-01] MEDS: REFRESH EYE DROPS (PF) 1 DROPS BOTH EYES (11:49)
[2025-11-01] MEDS: MAGNESIUM OXIDE 400 MG PO (11:49)
--- NOTE | 2025-11-01 11:49 | W.PN.NEPH.HD ---
Progress Note - Hemodialysis
-
Date of Service: November 01, 2025
Duration: 30 minutes and 3 hours
Potassium Bath: 2
Calcium Bath: 2.5
Opti-Dialyzer: 160
Ultrafiltration: Other (2 kg is hemodynamically tolerated)
Blood Flow: 400
Dialysate Flow: 600
Heparin: None
EPO: 10,000
[2025-11-01] MEDS: HEPARIN 4300 UNITS INTRACATH (11:52)
--- NOTE | 2025-11-01 12:01 | CM ---
Discharge back to [facility] today
Faxed IV vanco script as requested. Confirmed w/ Rajani/[facility] patient's discharge today
Patient will need ambulance transport, forms tubed to [facility]
Update to daughter. IMM verbally reviewed
[facility]- [facility]
Report: [phone] 3rd floor

Plan: Return to [facility] today
[2025-11-01] MEDS: VANCOCIN HCL 500 MG 100 IV (12:05)
[2025-11-01] MEDS: NOVOLOG FLEXPEN 4 UNITS SC (12:10)
--- NOTE | 2025-11-01 12:19 | PN.DE.MGMTRT ---
Insulin Management
- -
11/01/2025: Diabetes Management Follow up
Patient admitted 10/21 from a nursing facility for AMS, hypoglycemia, diaphoresis after she was found unresponsive. Blood glucose was checked and it was 34. Pt was recently admitted from 08/14 to 08/19 and again 08/24 to 09/01 for hypoglycemia.
PMH: HTN, ESRD on HD (MWF), legal blindness, Asthma, dementia, bipolar, previous surgeries on the lumbar spine and L knee, and IDDM.
Prior to admission was taking Lantus 12 units @ HS with Humalog 7 units AC plus SS. A1C 6.4%, was 9.5% in 08/2025. Cr 2 eGFR 26.38 10/31.
Patient awake, alert, resting in bed, HD today, unable to discuss diabetes care plan 2/2 dementia.
10/30 Glucose range 114 to 192. Received lantus 10 units at hs, with novolog 4 units with lunch and dinner.
10/31 Fasting glucose 95, 1:20AM glucose 95. Will continue lantus 10 units @ HS with 4 units novolog AC and low corrective insulin.
11/01 Fasting glucose 226. Will make no change to regimen. occasional excursion in the patient with dementia is allowable
Target glucose ~ 200 to avoid hypoglycemia in patient with cognitive dysfunction and multiple comorbidities.
Will cont to follow and adjust AC insulin dose if necessary.
Discussed with nurse and instructed to give insulin ONLY if patient has been fed her meal, as pt requires assistance with all meals.
Diabetes History
- -
Type of Diabetes: 2 requiring insulin
Pre-Admission Diabetes Regimen
Lab Results
Hemoglobin A1c 6.4 % (4.0-5.9) H 10/22/25 03:15
Insulin Pump Settings
IP Diabetes Regimen
10/31/25 10/31/25 10/31/25
12:24 16:42 22:07
POC Glucose 104 H 147 H 211 H
11/01/25 11/01/25
08:02 11:45
POC Glucose 226 H 143 H
Patient Education
[2025-11-01 15:11] VITALS: BP 120/51
== END 2025-11-01 16:32 | DRG 314 ==
LOC: 3 WEST ACU 12:48
PROVIDERS: Hospitalist; Internal Medicine; Internal Medicine Cardiovascular Disease; Internal Medicine Nephrology; Radiology Vascular & Interventional Radiology; Registered Nurse; Specialist; ADMITTING PHYSICIAN Internal Medicine; ATTENDING PHYSICIAN Hospitalist; CONSULT PHYSICIAN Internal Medicine Cardiovascular Disease; CONSULT PHYSICIAN Specialist; EMERGENCY PHYSICIAN Student in an Organized Health Care Education/Training Program; FAMILY PHYSICIAN Internal Medicine; OTHER PHYSICIAN Student in an Organized Health Care Education/Training Program
PROC: 5A1D70Z Performance of Urinary Filtration, Intermittent, Less than 6 Hours Per Day (ICD-10-PCS; 2025-10-23)
PROC: 02H633Z Insertion of Infusion Device into Right Atrium, Percutaneous Approach (ICD-10-PCS; 2025-10-28)
PROC: B5181ZA Fluoroscopy of Superior Vena Cava using Low Osmolar Contrast, Guidance (ICD-10-PCS; 2025-10-28)
PROC: B24BZZ4 Ultrasonography of Heart with Aorta, Transesophageal (ICD-10-PCS; 2025-10-30)
PROC: 0JH63XZ Insertion of Tunneled Vascular Access Device into Chest Subcutaneous Tissue and Fascia, Percutaneous Approach (ICD-10-PCS; 2025-10-31)
DX: T82.7XXA Infection and inflammatory reaction due to other cardiac and vascular devices, implants and grafts, initial encounter (principal); E11.10 Type 2 diabetes mellitus with ketoacidosis without coma; G92.8 Other toxic encephalopathy; N18.6 End stage renal disease; R78.81 Bacteremia; E87.1 Hypo-osmolality and hyponatremia; F03.93 Unspecified dementia, unspecified severity, with mood disturbance; E87.0 Hyperosmolality and hypernatremia; I12.0 Hypertensive chronic kidney disease with stage 5 chronic kidney disease or end stage renal disease; B95.7 Other staphylococcus as the cause of diseases classified elsewhere; Z99.2 Dependence on renal dialysis; E11.22 Type 2 diabetes mellitus with diabetic chronic kidney disease; I16.0 Hypertensive urgency; E87.5 Hyperkalemia; F31.9 Bipolar disorder, unspecified; D63.1 Anemia in chronic kidney disease; E11.319 Type 2 diabetes mellitus with unspecified diabetic retinopathy without macular edema; H54.7 Unspecified visual loss; Z88.6 Allergy status to analgesic agent; Z88.0 Allergy status to penicillin; E11.649 Type 2 diabetes mellitus with hypoglycemia without coma; E78.5 Hyperlipidemia, unspecified; Z79.02 Long term (current) use of antithrombotics/antiplatelets; Z79.4 Long term (current) use of insulin; Z79.899 Other long term (current) drug therapy; Z98.1 Arthrodesis status
CPT/HCPCS: 36556; 36558; 71045; 71250; 72100; 76937; 77001; 80048; 80051; 80053; 80202; 81003; 81015; 82728; 82947; 82962; 83036; 83540; 83550; 85014; 85018; 85025; 85027; 86850; 86900; 86901; 87040; 87084; 87086; 87147; 87154; 87186; 87205; 87502; 87641; 87811; 92526; 92610; 93005; 93306; 93312; 93320; 93325; 96374; 96375; 99152; 99153; 99291; C1750; C1752; G0257; P9047; Q5106